=== PATIENT | male | born 1995 | race American Indian/Alaskan Native ===

== ENCOUNTER 2017-01-25 09:20 | Emergency (ER) | payer SELFPAY ==
[2017-01-25 09:35] VITALS: BP 114/80
[2017-01-25 10:13] LABS: Basophils % (Auto) 0.4 % (0.0-1.8); Eosinophils % (Auto) 1.3 % (0.0-4.3); Hematocrit 46.5 % (35.5-45.6); Hemoglobin 15.2 gm/dl (11.8-15.2); Mean Corpuscular HGB Conc 33 % (32-34); Mean Corpuscular Hemoglobin 27 pg (28-32); Mean Corpuscular Volume 83 fl (84-94); Platelet Count 180 K/mm3 (140-440); Red Blood Count 5.57 M/mm3 (3.65-5.03); White Blood Count 14.3 K/mm3 (4.5-11.0)
[2017-01-25 10:25] LABS: Anion Gap 17 mmol/L; BUN/Creatinine Ratio 14.54; Blood Urea Nitrogen 16 mg/dL (9-20); Carbon Dioxide 22 mmol/L (22-30); Chloride 100.7 mmol/L (98-107); Glucose 74 mg/dL (75-100); Potassium 4.1 mmol/L (3.6-5.0); Sodium 136 mmol/L (137-145)
--- NOTE | 2017-01-29 15:36 | ED Elopement Review ---
ED Pt Elopement review - Results review Lab results: Laboratory Tests 01/25/17 01/25/17 09:51 09:51 WBC 14.3 H RBC 5.57 H Hgb 15.2 Hct 46.5 H MCV 83 L MCH 27 L MCHC 33 RDW 14.0 Plt Count 180 Lymph % (Auto) 21.7 Maverick % (Auto) 8.0 H Eos % (Auto) 1.3 Baso % (Auto) 0.4 Lymph # 3.1 Maverick # 1.1 H Eos # 0.2 Baso # 0.1 Seg Neutrophils % 68.6 Seg Neutrophils # 9.8 H Sodium 136 L Potassium 4.1 Chloride 100.7 Carbon Dioxide 22 Anion Gap 17 BUN 16 Creatinine 1.1 Estimated GFR > 60 BUN/Creatinine Ratio 14.54 Glucose 74 L Calcium 9.0 Troponin T < 0.010 NT-Pro-B Natriuret Pep 1596 H - Call Back decision Pt Call Back Decision: Call pt to return to ED JULIAN (CHF)
== END 2017-01-25 21:55 | disposition left against medical advice (07) ==
LOC: ED 09:20
DX: R07.9 Chest pain, unspecified (principal); Z95.0 Presence of cardiac pacemaker; Z53.21 Procedure and treatment not carried out due to patient leaving prior to being seen by health care provider
CPT/HCPCS: 36415; 80048; 83880; 84484; 85025; 93005; 93010

== ENCOUNTER 2017-02-18 12:20 | Emergency (ER) | payer SELFPAY ==
[2017-02-18 13:35] LABS: Basophils % (Auto) 0.4 % (0.0-1.8); Eosinophils % (Auto) 1.4 % (0.0-4.3); Hemoglobin 14.5 gm/dl (11.8-15.2); Mean Corpuscular HGB Conc 32 % (32-34); Mean Corpuscular Hemoglobin 27 pg (28-32); Mean Corpuscular Volume 86 fl (84-94); Platelet Count 200 K/mm3 (140-440); Red Blood Count 5.35 M/mm3 (3.65-5.03); Red Cell Distribution Width 13.9 % (13.2-15.2); White Blood Count 7.7 K/mm3 (4.5-11.0)
[2017-02-18 13:53] LABS: Anion Gap 16 mmol/L; Blood Urea Nitrogen 11 mg/dL (9-20); Carbon Dioxide 24 mmol/L (22-30); Chloride 104.7 mmol/L (98-107); Glucose 91 mg/dL (75-100); Potassium 4.5 mmol/L (3.6-5.0); Sodium 140 mmol/L (137-145)
--- NOTE | 2017-02-18 14:21 | XRay Report ---
Chest 2 views. Findings: The heart is enlarged with mild central vascular congestion. A cardiac pacemaker is present. The lungs are clear. There is no pleural fluid. Impression: Cardiomegaly with central vascular congestion.
[2017-02-18] MEDS ORDERED: LASIX ONE (19:57)
[2017-02-18] MEDS: LASIX PO ONE ×2 (20:10→23:09)
--- NOTE | 2017-02-18 22:09 | Emergency Department Report ---
ED Shortness of Breath HPI - General Chief Complaint: Dyspnea/Respdistress Stated Complaint: CHF/SOB/ Time Seen by Provider: 02/18/17 21:54 Source: patient Mode of arrival: Ambulatory Limitations: No Limitations - History of Present Illness Initial Comments: Patient is a 22-year-old male with a history of congestive heart failure since a child presents to the ED with shortness of breath. He reports the shortness of breath worsens with exertion and he has been non-compliant with his medications due to lack of insurance, being incarcerated, and lack of primary care. Patient does have a defibrillator and pacemaker in the left chest. He does report he is supposed to be taking Lasix every day but he does not know the dosage. Otherwise no fevers, headaches, chills, hemoptysis, chest pain, nausea, vomiting, abdominal pain, trauma, travel, or sick contacts. MD Complaint: shortness of breath -: Gradual, week(s) - Related Data Previous Rx's Medication Instructions Recorded Last Taken Type Furosemide [Lasix TAB] 40 mg PO QDAY #30 tablet 02/18/17 Unknown Rx Allergies Allergy/AdvReac Type Severity Reaction Status Date / Time No Known Allergies Allergy Verified 02/18/17 13:00 ED Review of Systems ROS: Stated complaint: CHF/SOB/ Other details as noted in HPI Comment: All other systems reviewed and negative ED Past Medical Hx - Past Medical History Hx Congestive Heart Failure: Yes Additional medical history: pacer/defib - Surgical History Hx Pacemaker: Yes - Social History Smoking Status: Never Smoker Substance Use Type: None - Medications Home Medications: Home Medications Medication Instructions Recorded Confirmed Last Taken Type Furosemide [Lasix TAB] 40 mg PO QDAY #30 tablet 02/18/17 Unknown Rx ED Physical Exam - General Limitations: No Limitations General appearance: alert, in no apparent distress - Head Head exam: Present: atraumatic, normocephalic - Eye Eye exam: Present: normal appearance - ENT ENT exam: Present: mucous membranes moist - Neck Neck exam: Present: normal inspection - Respiratory Respiratory exam: Present: normal lung sounds bilaterally. Absent: respiratory distress - Cardiovascular Cardiovascular Exam: Present: regular rate, normal rhythm, other (left chest defibrillator and pacemaker). Absent: systolic murmur, diastolic murmur, rubs, gallop - GI/Abdominal GI/Abdominal exam: Present: soft, normal bowel sounds - Rectal Rectal exam: Present: deferred - Extremities Exam Extremities exam: Present: normal inspection - Back Exam Back exam: Present: normal inspection - Neurological Exam Neurological exam: Present: alert, oriented X3 - Psychiatric Psychiatric exam: Present: normal affect, normal mood - Skin Skin exam: Present: warm, dry, intact, normal color. Absent: rash ED Course Vital Signs 02/18/17 02/18/17 02/18/17 13:01 19:55 21:04 Temperature 98.2 F 99.0 F Pulse Rate 88 88 75 Respiratory 20 16 Rate Blood Pressure 133/106 108/67 Blood Pressure 102/65 [Right] O2 Sat by Pulse 99 100 97 Oximetry ED Medical Decision Making - Lab Data Result diagrams: 02/18/17 13:23 02/18/17 13:23 - EKG Data -: EKG Interpreted by Me ([id number], PVC, LAE, RAD) EKG shows normal: sinus rhythm, axis (RAD), intervals (Qtc:462ms), ST-T waves ( diffuse tw flattening, TWI in the lateral leads) Rate: normal (83 bpm) - EKG Data When compared to previous EKG there are: previous EKG unavailable - Radiology Data Radiology results: report reviewed Chest x-ray views mild central congestion - Medical Decision Making As also discussed with patient. I did discuss with the patient the importance of taking his medications and having follow-up. I did discuss with patient he should follow up and call his pharmacy [place] to find out what dosage she's been taking in or call the hospital he's been treated after finding out the dosages as well. I will give the patient a prescription for Lasix 40 mg PO daily and he will follow up with outside [facility] to be evaluated and have further follow-up. Critical care attestation.: If time is entered above; I have spent that time in minutes in the direct care of this critically ill patient, excluding procedure time. ED Disposition Clinical Impression: Dyspnea, CHF (congestive heart failure) Disposition: DISCHARGED TO HOME OR SELFCARE Is pt being admited?: No Condition: Stable Instructions: Heart Failure (ED), Dyspnea (ED) Prescriptions: Furosemide [Lasix TAB] 40 mg PO QDAY #30 tablet Referrals: [facility] [Provider Group] - 3-5 Days
[2017-02-18 23:20] VITALS: BP 100/63
== END 2017-02-18 23:10 | disposition home or self-care (01) ==
LOC: ED 12:20
DX: I50.9 Heart failure, unspecified (principal)
CPT/HCPCS: 36415; 71020; 80048; 83880; 84484; 85025; 93005; 93010; 99284

== ENCOUNTER 2017-04-12 04:57 | Inpatient (IN) | payer OTHER ==
[2017-04-12] MEDS ORDERED: PROVENTIL IH ONE ×2 (05:59→06:00)
[2017-04-12] MEDS ORDERED: ATROVENT IH ONE ×2 (05:59→06:00)
[2017-04-12 06:00] LABS: Basophils % (Auto) 0.6 % (0.0-1.8); Eosinophils % (Auto) 0.7 % (0.0-4.3); Hemoglobin 13.9 gm/dl (11.8-15.2); Mean Corpuscular HGB Conc 32 % (32-34); Mean Corpuscular Hemoglobin 27 pg (28-32); Mean Corpuscular Volume 82 fl (84-94); Platelet Count 194 K/mm3 (140-440); Red Blood Count 5.25 M/mm3 (3.65-5.03); Red Cell Distribution Width 12.7 % (13.2-15.2)
[2017-04-12 06:13] LABS: Anion Gap 17 mmol/L; BUN/Creatinine Ratio 13.57; Blood Urea Nitrogen 19 mg/dL (9-20); Calcium 8.8 mg/dL (8.4-10.2); Carbon Dioxide 23 mmol/L (22-30); Chloride 103.4 mmol/L (98-107); Glucose 85 mg/dL (75-100); Potassium 4.4 mmol/L (3.6-5.0); Sodium 139 mmol/L (137-145)
--- NOTE | 2017-04-12 06:22 | Emergency Department Report ---
ED General Adult HPI - General Chief complaint: Dyspnea/Respdistress Stated complaint: FRANKIE Time Seen by Provider: 04/12/17 06:14 Source: patient, EMS Mode of arrival: Stretcher Limitations: No Limitations - History of Present Illness Initial comments: She complains of difficulty in breathing which got worse last night. He's also had cough sometimes productive of blood-streaked foamy sputum but started off "dark like a cold".. He presently thinks he may have a pneumonia and states he had a fever. However he never took his temperature. He states "I know my body ". He does not believe that he is suffering from recurrent congestive heart failure. Nonetheless, the patient has been to [facility] he states twice within the last week or so. He was treated as an outpatient he states. 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 His mother claims that the patient has had an enlarged heart since he was 3 years old. They have little knowledge of his medical condition and such things as his ejection fraction. However the patient has an AICD so I suspect his ejection fraction is really quite low. He is not complaining of chest pain at this time. He denied any pleuritic chest pain. He has not had any recent travel of significance. The patient was treated with albuterol by respiratory prior to my arrival. I reviewed his x-ray before my encounter which showed obvious pulmonary edema and he was given Lasix. -: Gradual, days(s) Location: chest (occasional with cough) Severity scale (0 -10): 6 Consistency: intermittent Improves with: none Worsens with: none Associated Symptoms: shortness of breath - Related Data Previous Rx's Medication Instructions Recorded Last Taken Type Furosemide [Lasix TAB] 40 mg PO QDAY #30 tablet 02/18/17 Unknown Rx Allergies Allergy/AdvReac Type Severity Reaction Status Date / Time No Known Allergies Allergy Verified 02/18/17 13:00 ED Review of Systems ROS: Stated complaint: FRANKIE Other details as noted in HPI Constitutional: fever (subjective). denies: chills Eyes: denies: eye pain, eye discharge, vision change ENT: denies: ear pain, throat pain Respiratory: cough, shortness of breath. denies: wheezing Cardiovascular: as per HPI, chest pain. denies: palpitations Endocrine: no symptoms reported Gastrointestinal: denies: abdominal pain, nausea, diarrhea Genitourinary: denies: urgency, dysuria Musculoskeletal: denies: back pain, joint swelling, arthralgia Skin: denies: rash, lesions Neurological: denies: headache, weakness, paresthesias Psychiatric: denies: anxiety, depression Hematological/Lymphatic: denies: easy bleeding, easy bruising ED Past Medical Hx - Past Medical History Hx Congestive Heart Failure: Yes Additional medical history: pacer/defib - Surgical History Hx Pacemaker: Yes - Social History Smoking Status: Never Smoker Substance Use Type: None - Medications Home Medications: Home Medications Medication Instructions Recorded Confirmed Last Taken Type Furosemide [Lasix TAB] 40 mg PO QDAY #30 tablet 02/18/17 Unknown Rx ED Physical Exam - General Limitations: No Limitations General appearance: alert, in no apparent distress - Head Head exam: Present: atraumatic, normocephalic - Eye Eye exam: Present: normal appearance. Absent: scleral icterus - ENT ENT exam: Present: normal exam, mucous membranes moist - Neck Neck exam: Present: normal inspection - Respiratory Respiratory exam: Present: normal lung sounds bilaterally, rales. Absent: respiratory distress, accessory muscle use - Cardiovascular Cardiovascular Exam: Present: regular rate, normal rhythm, S3, S4. Absent: systolic murmur, diastolic murmur, rubs, gallop - GI/Abdominal GI/Abdominal exam: Present: soft, normal bowel sounds. Absent: distended, tenderness, guarding, rebound, rigid - Rectal Rectal exam: Present: deferred - Extremities Exam Extremities exam: Present: normal inspection - Back Exam Back exam: Present: normal inspection - Neurological Exam Neurological exam: Present: alert, oriented X3, CN II-XII intact. Absent: motor sensory deficit - Psychiatric Psychiatric exam: Present: normal affect, normal mood - Skin Skin exam: Present: warm, dry, intact, normal color. Absent: rash ED Course Vital Signs 04/12/17 04/12/17 04/12/17 05:52 06:07 06:10 Temperature 98.2 F Pulse Rate 104 H Pulse Rate [ 102 H 117 H Right Middle Lobe] Respiratory 22 Rate Respiratory 21 24 Rate [Right Middle Lobe] Blood Pressure 100/77 [Left] O2 Sat by Pulse 98 Oximetry 04/12/17 07:45 Temperature Pulse Rate 118 H Pulse Rate [ Right Middle Lobe] Respiratory 20 Rate Respiratory Rate [Right Middle Lobe] Blood Pressure 107/81 [Left] O2 Sat by Pulse 100 Oximetry - Reevaluation(s) Reevaluation #1: Patient was found with respiratory distress secondary to pulmonary edema. I cannot completely exclude a pneumonia. Therefore I gave him a dose of Levaquin. I do not think he has had a pulmonary embolism. However he is at risk and will require some form of anticoagulation. He is admitted to the hospitalist service for further care in stable condition. His respiratory distress has resolved. The advanced practice provider Elise told me she was going to place the patient in the intensive care unit today. I will leave decision regarding empiric anticoagulation to the hospitalist team. However, I am going to order a CT angiogram now. 04/12/17 08:23 04/12/17 08:26 ED Medical Decision Making - Lab Data Result diagrams: 04/12/17 05:48 04/12/17 05:48 Laboratory Results - last 24 hr 04/12/17 04/12/17 05:48 05:48 WBC 10.0 RBC 5.25 H Hgb 13.9 Hct 43.0 MCV 82 L MCH 27 L MCHC 32 RDW 12.7 L Plt Count 194 Lymph % (Auto) 28.6 Randolph % (Auto) 8.2 H Eos % (Auto) 0.7 Baso % (Auto) 0.6 Lymph # 2.9 Randolph # 0.8 Eos # 0.1 Baso # 0.1 Seg Neutrophils % 61.9 Seg Neutrophils # 6.2 Sodium 139 Potassium 4.4 Chloride 103.4 Carbon Dioxide 23 Anion Gap 17 BUN 19 Creatinine 1.4 Estimated GFR > 60 BUN/Creatinine Ratio 13.57 Glucose 85 Calcium 8.8 Troponin T < 0.010 Laboratory Results - last 24 hr 04/12/17 04/12/17 04/12/17 05:48 05:48 06:13 WBC 10.0 RBC 5.25 H Hgb 13.9 Hct 43.0 MCV 82 L MCH 27 L MCHC 32 RDW 12.7 L Plt Count 194 Lymph % (Auto) 28.6 Randolph % (Auto) 8.2 H Eos % (Auto) 0.7 Baso % (Auto) 0.6 Lymph # 2.9 Randolph # 0.8 Eos # 0.1 Baso # 0.1 Seg Neutrophils % 61.9 Seg Neutrophils # 6.2 PT INR APTT D-Dimer Sodium 139 Potassium 4.4 Chloride 103.4 Carbon Dioxide 23 Anion Gap 17 BUN 19 Creatinine 1.4 Estimated GFR > 60 BUN/Creatinine Ratio 13.57 Glucose 85 Lactic Acid Calcium 8.8 Total Bilirubin Direct Bilirubin Indirect Bilirubin AST ALT Alkaline Phosphatase Troponin T < 0.010 NT-Pro-B Natriuret Pep 4839 H Total Protein Albumin Albumin/Globulin Ratio 04/12/17 04/12/17 04/12/17 07:03 07:03 07:03 WBC RBC Hgb Hct MCV MCH MCHC RDW Plt Count Lymph % (Auto) Randolph % (Auto) Eos % (Auto) Baso % (Auto) Lymph # Randolph # Eos # Baso # Seg Neutrophils % Seg Neutrophils # PT 16.0 H INR 1.29 H APTT 30.7 D-Dimer 713.77 H Sodium Potassium Chloride Carbon Dioxide Anion Gap BUN Creatinine Estimated GFR BUN/Creatinine Ratio Glucose Lactic Acid 2.00 Calcium Total Bilirubin 0.70 Direct Bilirubin 0.3 H Indirect Bilirubin 0.4 AST 32 ALT 20 Alkaline Phosphatase 111 Troponin T NT-Pro-B Natriuret Pep 5246 H Total Protein 6.8 Albumin 3.6 L Albumin/Globulin Ratio 1.1 - EKG Data -: EKG Interpreted by Me EKG shows normal: sinus rhythm Rate: tachycardia - EKG Data Interpretation: other (one couplet nonspecific changes) - Radiology Data interpreted by me: Chest x-ray consistent with pulmonary edema Critical care attestation.: If time is entered above; I have spent that time in minutes in the direct care of this critically ill patient, excluding procedure time. ED Disposition Clinical Impression: Elevated d-dimer Pulmonary edema Qualifiers: Chronicity: acute Qualified Code(s): J81.0 - Acute pulmonary edema Cardiomyopathy Qualifiers: Cardiomyopathy type: unspecified Qualified Code(s): I42.9 - Cardiomyopathy, unspecified Disposition: 09 OP ADMIT IP TO THIS HOSP Is pt being admited?: Yes Does the pt Need Aspirin: Yes Condition: Stable Instructions: Pulmonary Edema (ED) Time of Disposition: 08:26
[2017-04-12] MEDS ORDERED: LASIX IV ONE ×2 (06:29→10:17)
[2017-04-12] MEDS ORDERED: NITRO-BID 2% TP ONE (06:44)
[2017-04-12] MEDS ORDERED: ASPIRIN PO ONE (06:44)
[2017-04-12] MEDS ORDERED: LEVAQUIN 750MG/150ML 750 MG/150 ML BAG IV ONE (06:44)
[2017-04-12] MEDS ORDERED: TESSALON PERLES PO ONE (06:45)
[2017-04-12] MEDS ORDERED: DELTASONE ONE (06:56)
[2017-04-12 07:52] LABS: Albumin 3.6 g/dL (3.9-5); Albumin/Globulin Ratio 1.1 %; Bilirubin,Direct 0.3 mg/dL (0-0.2); Bilirubin,Indirect 0.4 mg/dL; Bilirubin,Total 0.7 mg/dL (0.1-1.2); INR 1.29 (0.87-1.13); Total Protein 6.8 g/dL (6.3-8.2)
[2017-04-12 07:53] LABS: Partial Thromboplastin Time 30.7 Sec. (24.2-36.6)
[2017-04-12] MEDS ORDERED: NACL ONE (08:34)
[2017-04-12 08:55] LABS: Urine Drugs of Abuse Note Disclamer
[2017-04-12 09:04] LABS: Bilirubin,Urine NEG (Negative); Blood,Urine NEG (Negative); Ketones,Urine NEG (Negative); Leukocyte Esterase,Urine NEG (Negative); Nitrite,Urine NEG (Negative); Protein,Urine <15 mg/dL mg/dL (Negative); Urobilinogen,Urine < 2.0 mg/dL (<2.0)
--- NOTE | 2017-04-12 09:07 | Cat Scan Report ---
FINAL REPORT EXAM: CT ANGIO CHEST HISTORY: hemoptysis, pulmonary edema, ?infiltrate TECHNIQUE: CT angiography of the chest was performed. Images were obtained after the administration of IV contrast. Coronal and sagittal reformatted images were obtained. PRIORS: None. FINDINGS: There are no filling defects seen within the pulmonary arterial circulation to suggest pulmonary embolism. There bilateral diffuse patchy infiltrates. There is superimposed ground-glass infiltration in the lower lobes.. Overall appearance could be compatible with pulmonary hemorrhage and/or pulmonary edema.. There is no pleural effusion. There is no pneumothorax. There is cardiomegaly. There is no significant mediastinal or hilar mass seen. IMPRESSION: Diffuse patchy and ground-glass pulmonary infiltration. Appearance could be compatible with pulmonary hemorrhage and/or edema. Cardiomegaly. There is no pulmonary embolus seen.
[2017-04-12] MEDS ORDERED: MILK OF MAGNESIA PO PRN (09:08)
[2017-04-12] MEDS ORDERED: ALUM-MAG HYDROX-SIMETH 200-200-20MG/5ML PO PRN (09:08)
[2017-04-12] MEDS ORDERED: DULCOLAX PR PRN (09:08)
--- NOTE | 2017-04-12 09:43 | XRay Report ---
ROUTINE CHEST, TWO VIEWS: HISTORY: Cough. Borderline to mild cardiomegaly and pacemaker device are unchanged since 02/18/17. Mild pulmonary edema has developed. No consolidation, pleural effusion or pneumothorax. Bony structures are intact. IMPRESSION: Mild cardiomegaly and pulmonary venous congestion.
[2017-04-12] MEDS ORDERED: LEVAQUIN 750MG/150ML 750 MG/150 ML BAG IV SCH (10:00)
[2017-04-12] MEDS ORDERED: LASIX 80 MG in NACL 0.9% 50 ML IV ONE ×3 (10:25→11:00)
[2017-04-12] MEDS: LOVENOX SUB-Q SCH (11:36)
[2017-04-12] MEDS ORDERED: ATROVENT IH SCH (12:00)
[2017-04-12] MEDS: MORPHINE IV PRN (12:05)
[2017-04-12 13:00] LABS: ISTAT Base Excess 3; ISTAT HCO3 27.4; ISTAT PCO2 42.9 (35-45); ISTAT PH 7.413 (7.35-7.45); ISTAT PO2 299 (80-105); ISTAT SO2 100; ISTAT TCO2 29
--- NOTE | 2017-04-12 14:02 | History and Physical Report ---
History of Present Illness Date of examination: 04/12/17 Date of admission: 04/12/17 13:20 Chief complaint: Shortness of breath History of present illness: patient is a 22 year old -Romanian male with a history of CHF and dilated cardiomyopathy, who came to the ED at 7:00am this morning c/o chest pain and SOB that started Thursday (04/10/2017) The patient believes the fatigue and dry cough began just over one week ago. He recalls developing cold-like symptoms about a week prior to developing the fatigue and cough. Shortly thereafter the cough became productive of blood-streaked sputum and he developed a mild fever but he never took his temperature. patient has been to [facility] on 04/10/2017 and he was told has fluid on his lungs and discharged with Lasix but he did not feel better. he was treated as an outpatient. Shortness of breath is exacerbated by exertion and alleviated by rest. After experiencing significant shortness of breath with minor exertion from simply walking around the house ; he felt like he could not catch his breath and got worried and he decided it was time to come to the hospital. Patient did experienced chest pain that aggravated by coughing or taking deep breaths. Patient was given Lasix 40 mg IV and Albuterol treatment in the ED. Patient noncompliance with his treatment and plan. Patient has an AICD to his left chest and his mother reports that patient has had an enlarged heart since age 1. Past History Past Medical History: heart failure ( dilated cardiomyopathy), other ( Defibrillator, Pacemaker in left chest , congenital heart disease since age 1) Past Surgical History: Other (AICD placement) Social history: no significant social history. denies: smoking, alcohol abuse, IV drug use Family history: CAD, hypertension Medications and Allergies Allergies Allergy/AdvReac Type Severity Reaction Status Date / Time No Known Allergies Allergy Verified 02/18/17 13:00 Home Medications Medication Instructions Recorded Confirmed Last Taken Type Furosemide [Lasix TAB] 40 mg PO QDAY #30 tablet 02/18/17 04/12/17 Unknown Rx Carvedilol [Coreg] 12.5 mg PO BID 04/12/17 04/12/17 04/10/17 History Active Meds: Active Medications Al Hydrox/Mg Hydrox/Simethicone (Alum-Mag Hydrox-Simeth 169-325-26dl/5ml) 30 ml PO Q4H PRN PRN Reason: Indigestion Bisacodyl (Dulcolax) 10 mg ME QDAY PRN PRN Reason: constipation unrelieved by MOM Enoxaparin Sodium (Lovenox) 40 mg SUB-Q QDAY [facility] Last Admin: 04/12/17 11:36 Dose: 40 mg Furosemide (Lasix) 40 mg IV BID@0600,1800 [facility] Magnesium Hydroxide (Milk Of Magnesia) 30 ml PO Q4H PRN PRN Reason: Constipation Morphine Sulfate (Morphine) 2 mg IV Q4H PRN PRN Reason: Pain, Moderate (4-6) Last Admin: 04/12/17 12:05 Dose: 2 mg Review of Systems All systems: negative Constitutional: fever, chills, sweats, weakness, malaise, no weight loss, no weight gain, no night sweats Ears, nose, mouth and throat: no ear pain, no ear discharge, no tinnitis Cardiovascular: chest pain, orthopnea, dyspnea on exertion, no palpitations, no rapid/irregular heart beat, no edema, no syncope, no lightheadedness Respiratory: shortness of breath, dyspnea on exertion, congestion, no cough with sputum, no excessive sputum, no hemoptysis Gastrointestinal: no abdominal pain, no nausea, no vomiting, no diarrhea, no constipation Genitourinary Male: no dysuria, no hematuria, no flank pain, no discharge Rectal: no incontinence Musculoskeletal: no neck stiffness, no neck pain Integumentary: no rash, no pruritis, no redness, no sores Neurological: no head injury, no transient paralysis, no paralysis, no weakness , no parathesias Psychiatric: no anxiety, no memory loss, no change in sleep habits Endocrine: no cold intolerance, no heat intolerance, no polyphagia Hematologic/Lymphatic: no easy bruising, no easy bleeding Allergic/Immunologic: no urticaria Exam - Constitutional Vitals: Temp Pulse Resp BP Pulse Ox 98.2 F 111 H 20 92/66 98 04/12/17 05:52 04/12/17 12:28 04/12/17 12:28 04/12/17 12:28 04/12/17 12:54 General appearance: Present: mild distress, well-nourished - EENT Eyes: Present: PERRL, EOM intact ENT: hearing intact, clear oral mucosa, dentition normal - Neck Neck: Present: supple, normal ROM - Respiratory Respiratory: bilateral: rales, wheezing - Cardiovascular Heart Sounds: Present: S1 & S2. Absent: rub, click - Extremities Extremities: pulses symmetrical, No edema Peripheral Pulses: within normal limits - Abdominal General gastrointestinal: Present: soft, non-tender Male genitourinary: Present: deferred - Rectal Rectal Exam: deferred - Integumentary Integumentary: Present: clear, warm, dry - Musculoskeletal Musculoskeletal: strength equal bilaterally - Psychiatric Psychiatric: appropriate mood/affect, intact judgment & insight - Neurologic Neurologic: CNII-XII intact, moves all extremities Results - Labs CBC & Chem 7: 04/13/17 05:50 04/13/17 05:50 Labs: Laboratory Last Values WBC 10.0 K/mm3 (4.5-11.0) 04/12/17 05:48 RBC 5.25 M/mm3 (3.65-5.03) H 04/12/17 05:48 Hgb 13.9 gm/dl (11.8-15.2) 04/12/17 05:48 Hct 43.0 % (35.5-45.6) 04/12/17 05:48 MCV 82 fl (84-94) L 04/12/17 05:48 MCH 27 pg (28-32) L 04/12/17 05:48 MCHC 32 % (32-34) 04/12/17 05:48 RDW 12.7 % (13.2-15.2) L 04/12/17 05:48 Plt Count 194 K/mm3 (140-440) 04/12/17 05:48 Lymph % (Auto) 28.6 % (13.4-35.0) 04/12/17 05:48 [place] % (Auto) 8.2 % (0.0-7.3) H 04/12/17 05:48 Eos % (Auto) 0.7 % (0.0-4.3) 04/12/17 05:48 Baso % (Auto) 0.6 % (0.0-1.8) 04/12/17 05:48 Lymph # 2.9 K/mm3 (1.2-5.4) 04/12/17 05:48 [place] # 0.8 K/mm3 (0.0-0.8) 04/12/17 05:48 Eos # 0.1 K/mm3 (0.0-0.4) 04/12/17 05:48 Baso # 0.1 K/mm3 (0.0-0.1) 04/12/17 05:48 Seg Neutrophils % 61.9 % (40.0-70.0) 04/12/17 05:48 Seg Neutrophils # 6.2 K/mm3 (1.8-7.7) 04/12/17 05:48 PT 16.0 Sec. (12.2-14.9) H 04/12/17 07:03 INR 1.29 (0.87-1.13) H 04/12/17 07:03 APTT 30.7 Sec. (24.2-36.6) 04/12/17 07:03 D-Dimer 713.77 ng/mlDDU (0-234) H 04/12/17 07:03 POC ABG pH 7.413 (7.35-7.45) 04/12/17 12:41 POC ABG pCO2 42.9 (35-45) 04/12/17 12:41 POC ABG pO2 299 (80-105) H 04/12/17 12:41 POC ABG HCO3 27.4 04/12/17 12:41 POC ABG Total CO2 29 04/12/17 12:41 POC ABG O2 Sat 100 04/12/17 12:41 POC ABG Base Excess 3 04/12/17 12:41 FiO2 100 % 04/12/17 12:41 Sodium 139 mmol/L (137-145) 04/12/17 05:48 Potassium 4.4 mmol/L (3.6-5.0) 04/12/17 05:48 Chloride 103.4 mmol/L (98-107) 04/12/17 05:48 Carbon Dioxide 23 mmol/L (22-30) 04/12/17 05:48 Anion Gap 17 mmol/L 04/12/17 05:48 BUN 19 mg/dL (9-20) 04/12/17 05:48 Creatinine 1.4 mg/dL (0.8-1.5) 04/12/17 05:48 Estimated GFR > 60 ml/min 04/12/17 05:48 BUN/Creatinine Ratio 13.57 % 04/12/17 05:48 Glucose 85 mg/dL (75-100) 04/12/17 05:48 Lactic Acid 2.00 mmol/L (0.7-2.0) 04/12/17 07:03 Calcium 8.8 mg/dL (8.4-10.2) 04/12/17 05:48 Total Bilirubin 0.70 mg/dL (0.1-1.2) 04/12/17 07:03 Direct Bilirubin 0.3 mg/dL (0-0.2) H 04/12/17 07:03 Indirect Bilirubin 0.4 mg/dL 04/12/17 07:03 AST 32 units/L (5-40) 04/12/17 07:03 ALT 20 units/L (7-56) 04/12/17 07:03 Alkaline Phosphatase 111 units/L (35-129) 04/12/17 07:03 Troponin T < 0.010 ng/mL (0.00-0.029) 04/12/17 05:48 NT-Pro-B Natriuret Pep 5246 pg/mL (0-450) H 04/12/17 07:03 Total Protein 6.8 g/dL (6.3-8.2) 04/12/17 07:03 Albumin 3.6 g/dL (3.9-5) L 04/12/17 07:03 Albumin/Globulin Ratio 1.1 % 04/12/17 07:03 Urine Color Colorless (Yellow) 04/12/17 08:54 Urine Turbidity Clear (Clear) 04/12/17 08:54 Urine pH 7.0 (5.0-7.0) 04/12/17 08:54 Ur Specific [place] 1.005 (1.003-1.030) 04/12/17 08:54 Urine Protein <15 mg/dl mg/dL (Negative) 04/12/17 08:54 Urine Glucose (UA) Neg mg/dL (Negative) 04/12/17 08:54 Urine Ketones Neg mg/dL (Negative) 04/12/17 08:54 Urine Blood Neg (Negative) 04/12/17 08:54 Urine Nitrite Neg (Negative) 04/12/17 08:54 Urine Bilirubin Neg (Negative) 04/12/17 08:54 Urine Urobilinogen < 2.0 mg/dL (<2.0) 04/12/17 08:54 Ur Leukocyte Esterase Neg (Negative) 04/12/17 08:54 Urine WBC (Auto) 1.0 /HPF (0.0-6.0) 04/12/17 08:54 Urine RBC (Auto) 1.0 /HPF (0.0-6.0) 04/12/17 08:54 Urine Opiates Screen Presumptive negative 04/12/17 08:54 Urine Methadone Screen Presumptive negative 04/12/17 08:54 Ur Barbiturates Screen Presumptive negative 04/12/17 08:54 Ur Phencyclidine Scrn Presumptive negative 04/12/17 08:54 Ur Amphetamines Screen Presumptive negative 04/12/17 08:54 U Benzodiazepines Scrn Presumptive negative 04/12/17 08:54 Urine Cocaine Screen Presumptive negative 04/12/17 08:54 U Marijuana (THC) Screen Presumptive negative 04/12/17 08:54 Drugs of Abuse Note Disclamer 04/12/17 08:54 - Imaging and Cardiology Chest x-ray: image reviewed (Pulmonary edema) CT scan - chest: image reviewed (Diffuse patchy and ground glass pulmonary infiltration. Appearance could be compatible with pulmonary hemorrhage or edema) Assessment and Plan Assessment and plan: ASSESSMENT/PLAN 22-year-old man with a past medical history of dilated cardiomyopathy, heart failure, noncompliant with medications, does not have a cuff slitter. He presented with shortness of breath cough and wheezing. He was admitted for acute exacerbation of systolic CHF, 1.Acute Respiratory distress CTA of his chest was negative for PE, but did show pulmonary vascular congestion , due to acute CHF exacerbation, rx underlying cause ABG wnl, not hypoxic, continue supportive care 2.Acute on chronic systolic congestive heart failure/pulmonary vascular congestion Echocardiogram pending Lasix 40mg iV BID, Will follow up his echocardiogram would want to start patient on NINA inhibitor, beta lucrecia and possibly Aldactone if his blood pressure can tolerate it, based on ejection fraction seen on his echocardiogram Strict I/ Os and daily weights Low-sodium/cardiac diet, Fluid restruction 1200ml in 24 hrs Closely monitor electrolytes Cardiology consult pending 3. noncompliance with medication discussed with the patient the important of adherence, he was counseled and he verbalized understanding and plans to do better DVT prophylaxis Lovenox VTE prophylaxis?: Chemical Plan of care discussed with patient/family: Yes
[2017-04-12] MEDS: LASIX IV SCH (18:08)
[2017-04-12] MEDS: TYLENOL PO PRN (18:08)
[2017-04-13 06:27] LABS: Basophils % (Auto) 0.6 % (0.0-1.8); Eosinophils % (Auto) 1.1 % (0.0-4.3); Hematocrit 50.5 % (35.5-45.6); Mean Corpuscular HGB Conc 32 % (32-34); Mean Corpuscular Hemoglobin 26 pg (28-32); Mean Corpuscular Volume 82 fl (84-94); Platelet Count 225 K/mm3 (140-440); Red Blood Count 6.14 M/mm3 (3.65-5.03); Red Cell Distribution Width 13.1 % (13.2-15.2); White Blood Count 10.7 K/mm3 (4.5-11.0)
[2017-04-13] MEDS: LASIX IV SCH ×2 (06:29→18:18)
[2017-04-13 06:37] LABS: Anion Gap 19 mmol/L; BUN/Creatinine Ratio 14.16; Blood Urea Nitrogen 17 mg/dL (9-20); Calcium 9.4 mg/dL (8.4-10.2); Carbon Dioxide 27 mmol/L (22-30); Chloride 94.5 mmol/L (98-107); Glucose 117 mg/dL (75-100); Potassium 3.6 mmol/L (3.6-5.0); Sodium 137 mmol/L (137-145)
[2017-04-13 06:39] LABS: INR 1.37 (0.87-1.13)
--- NOTE | 2017-04-13 08:35 | Admit Criteria Form ---
Admission Criteria Documentation: HEART FAILURE: COMMON COMPLICATIONS Clinical Indications for Inpatient Care (Place 'X' for any and all applicable criteria): Ongoing inpatient care may be indicated for heart failure with ANY ONE of the following (1)(2)(3)(4)(5): [ ]I. Ongoing need for care for primary condition requiring frequent therapy adjustments because of changes in cardiac function (eg, drug dosage changes for drugs that are renally metabolized) [ ]II. New-onset heart failure [ ]III. Heart failure with decreased urine output not responsive to attempts to optimize volume status [ ]IV. Acute cardiac ischemia causing or associated with failure [X]V. Complications of heart failure, including ANY ONE of the following: [ ]a) Pericardial effusion [ ]b) Symptomatic pleural effusion [ ]c) O2 saturation <90% or PO2 < 60 mm Hg (8.0 kPa) on room air or require baseline supplemental O2 [X]d) Tachypnea [X]e) Dyspnea [ ]f) Syncope [ ]g) Change in mental status [ ]h) Acute renal insufficiency that is severe (reduction of more than 50% in estimated glomerular filtration rate from baseline) or progressive reduction of more than 25% in estimated glomerular filtration rate from baseline, with creatinine continuing to rise) [ ]i) Hemodynamic instability [ ]j) Anasarca [ ]k) Clinically significant metabolic abnormalities due to heart failure (eg, new-onset metabolic acidosis) Extended stay beyond goal length of stay for primary condition may be needed until ALL of the following are present(1)(3): [ ]a) Stable and effective diuretic regimen established (or patient on stable dialysis regimen if in chronic renal failure) [ ]b) Breathing comfortably at rest [ ]c) Saturation of arterial oxygen greater than 90% or at acceptable baseline [ ]d) Pulmonary edema absent or improved [ ]e) Hemodynamic stability [ ]f) Volume status acceptable on oral medication [ ]g) Peripheral or sacral edema absent or improved [ ]h) Renal function stable and manageable at a lower level of care [ ]i) Complications (eg, pleural effusion) resolved or manageable at a lower level of care [ ]j) Patient or caregiver has received written discharge instructions or educational material addressing activity level, diet, discharge medications, follow-up appointment, weight monitoring, and what to do if symptoms worsen The original [employer] content created by [employer] has been revised. The portions of the content which have been revised are identified through the use of italic text or in bold, and [facility] has neither reviewed nor approved the modified material.All other unmodified content is copyright [facility]. Please see references footnoted in the original [facility] edition 2016 Admission Criteria Met: Yes
--- NOTE | 2017-04-13 11:14 | Consultation ---
History of Present Illness Reason for consult: dyspnea, other (ICU admission, cardiomyopathy.) History of present illness: Called to evaluate case of a 32-year-old -Nepalese male, with history of congenital cardiac disease and who presented to the ER with progressive shortness of breath. The patient reportedly has been recently seen at [facility] and discharged after being treated there for present failure. States that he went home and started to feel short of breath yesterday with dyspnea upon exertion and coughing up bloody sputum. No fever or chills reported. Some chest pressure. He denies to me chest pain. No lower extremity pain reported. The patient presented to the ER had CTA of the chest performed. So shows bilateral groundglass opacities consistent with, infiltrate/edema. No PE noted. He was initiated on Lasix and morphine and had continued diuretics the rest of the evening. Currently off oxygen with breast oximetry showing 96%. Flat in bed with no respiratory or chest complaints. Past History Past Medical History: heart failure ( dilated cardiomyopathy), other ( Defibrillator, Pacemaker in left chest ) Past Surgical History: No surgical history Social history: no significant social history. denies: smoking, alcohol abuse, IV drug use Family history: CAD, hypertension Medications and Allergies Allergies Allergy/AdvReac Type Severity Reaction Status Date / Time No Known Allergies Allergy Verified 02/18/17 13:00 Home Medications Medication Instructions Recorded Confirmed Last Taken Type Furosemide [Lasix TAB] 40 mg PO QDAY #30 tablet 02/18/17 04/12/17 Unknown Rx Carvedilol [Coreg] 12.5 mg PO BID 04/12/17 04/12/17 04/10/17 History Active Meds: Active Medications Acetaminophen (Tylenol) 650 mg PO Q6H PRN PRN Reason: Pain, Mild (1-3) Last Admin: 04/12/17 18:08 Dose: 650 mg Al Hydrox/Mg Hydrox/Simethicone (Alum-Mag Hydrox-Simeth 572-868-52wf/5ml) 30 ml PO Q4H PRN PRN Reason: Indigestion Bisacodyl (Dulcolax) 10 mg [place] QDAY PRN PRN Reason: constipation unrelieved by MOM Enoxaparin Sodium (Lovenox) 40 mg SUB-Q QDAY [facility] Last Admin: 04/12/17 11:36 Dose: 40 mg Furosemide (Lasix) 40 mg IV BID@0600,1800 [facility] Last Admin: 04/13/17 06:29 Dose: 40 mg Magnesium Hydroxide (Milk Of Magnesia) 30 ml PO Q4H PRN PRN Reason: Constipation Morphine Sulfate (Morphine) 2 mg IV Q4H PRN PRN Reason: Pain, Moderate (4-6) Last Admin: 04/12/17 12:05 Dose: 2 mg Review of Systems Constitutional: fatigue, weakness, no weight loss, no fever, no chills, no sweats Cardiovascular: orthopnea, palpitations, lightheadedness, shortness of breath, dyspnea on exertion, no edema Respiratory: cough, hemoptysis, no cough with sputum Gastrointestinal: no abdominal pain, no nausea, no vomiting, no diarrhea, no melena, no hematochezia Genitourinary Male: no dysuria, no hematuria Musculoskeletal: no neck stiffness, no neck pain, no shooting arm pain, no shooting leg pain Integumentary: no deferred, no rash, no pruritis, no redness Neurological: no head injury, no transient paralysis, no paralysis, no weakness , no parathesias, no headaches Physical Examination Vital signs: Vital Signs Temp Pulse Resp BP Pulse Ox 98.2 F 104 H 22 100/77 98 04/12/17 05:52 04/12/17 05:52 04/12/17 05:52 04/12/17 05:52 04/12/17 05:52 General appearance: no acute distress, alert, lethargic Eyes: non-icteric ENT: oropharynx moist Neck: supple, no JVD Ascultation: Right: rales (very faint at right base), Bilateral: clear Cardiovascular: regular rate and rhythm Gastrointestinal: normoactive bowel sounds, non-distended Integumentary: normal Extremities: no cyanosis Musculoskeletal: no deformities normal mental status, non-focal exam, CN II-XII normal mood appropriate, affect normal Results - Laboratory Findings CBC and BMP: 04/13/17 05:50 04/13/17 05:50 ABG POC ABG pH 7.413 (7.35-7.45) 04/12/17 12:41 POC ABG pCO2 42.9 (35-45) 04/12/17 12:41 POC ABG pO2 299 (80-105) H 04/12/17 12:41 POC ABG HCO3 27.4 04/12/17 12:41 POC ABG Total CO2 29 04/12/17 12:41 POC ABG O2 Sat 100 04/12/17 12:41 PT/INR, D-dimer PT 16.8 Sec. (12.2-14.9) H 04/13/17 05:50 INR 1.37 (0.87-1.13) H 04/13/17 05:50 D-Dimer 713.77 ng/mlDDU (0-234) H 04/12/17 07:03 Abnormal lab findings: Abnormal Labs 04/13/17 04/13/17 04/13/17 05:50 05:50 05:50 RBC 6.14 H Hgb 16.0 H Hct 50.5 H D MCV 82 L MCH 26 L RDW 13.1 L [place] % (Auto) 10.1 H [place] # 1.1 H PT 16.8 H INR 1.37 H Chloride 94.5 L Glucose 117 H Assessment and Plan Acute pulmonary edema. Probably triggering hemoptysis also. Cardiomyopathy with acute decompensation History of congenital heart disease Recommendations Continue gentle diuretics Monitor intake and output Monitor urine output and notify if under 30 mL/h Echocardiogram Cardiology evaluation Repeat chest x-rays in 24 hours Monitor for any persisting hemoptysis DVT prophylaxis Thanks. Discussed with patient in detail. We'll follow while at the ICU then we will sign off if no additional pulmonary problems present
--- NOTE | 2017-04-13 12:06 | Progress Note ---
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 He presented with shortness of breath cough and wheezing. He was admitted for acute exacerbation of systolic CHF, 1.Acute Respiratory distress CTA of his chest was negative for PE, but did show pulmonary vascular congestion , due to acute CHF exacerbation, rx underlying cause ABG wnl, not hypoxic, continue supportive care Will repeat chest x-ray tomorrow, pulmonary input appreciated 2.Acute on chronic systolic congestive heart failure/pulmonary vascular congestion Echocardiogram pending Lasix 40mg iV BID, he is currently 3 L negative today Will follow up his echocardiogram would want to start patient on NINA inhibitor, beta lucrecia and possibly Aldactone if his blood pressure can tolerate it, based on ejection fraction seen on his echocardiogram Strict I/ Os and daily weights Low-sodium/cardiac diet, Fluid restruction 1200ml in 24 hrs Closely monitor electrolytes Cardiology consult pending 3. noncompliance with medication discussed with the patient the important of adherence, he was counseled and he verbalized understanding and plans to do better DVT prophylaxis Lovenox History Interval history: Shortness of breath orthopnea cough and wheezing are much improved today. Patient feels better and is reported that he is 3 L negative from yesterday Hospitalist Physical - Physical exam Narrative exam: General: Patient appears well in no distress HEENT: MMM, EOMI cardiac: S1-S2 heard lungs: Bibasilar crackles, occasional expiratory wheeze abdomen: soft, nontender, nondistended bowel sounds positive extremities: no edema clubbing or cyanosis Skin: no rash or lesion Neuro: no focal deficit Psych: appropriate behavior and mood, cognition intact - Constitutional Vitals: Temp Pulse Resp BP Pulse Ox 98.8 F 100 H 19 97/61 97 04/13/17 08:00 04/13/17 11:20 04/13/17 11:20 04/13/17 11:20 04/13/17 11:20 General appearance: Present: mild distress, well-nourished Results - Labs CBC & Chem 7: 04/13/17 05:50 04/13/17 05:50 Labs: Laboratory Last Values WBC 10.7 K/mm3 (4.5-11.0) 04/13/17 05:50 RBC 6.14 M/mm3 (3.65-5.03) H 04/13/17 05:50 Hgb 16.0 gm/dl (11.8-15.2) H 04/13/17 05:50 Hct 50.5 % (35.5-45.6) H D 04/13/17 05:50 MCV 82 fl (84-94) L 04/13/17 05:50 MCH 26 pg (28-32) L 04/13/17 05:50 MCHC 32 % (32-34) 04/13/17 05:50 RDW 13.1 % (13.2-15.2) L 04/13/17 05:50 Plt Count 225 K/mm3 (140-440) 04/13/17 05:50 Lymph % (Auto) 19.6 % (13.4-35.0) 04/13/17 05:50 Day % (Auto) 10.1 % (0.0-7.3) H 04/13/17 05:50 Eos % (Auto) 1.1 % (0.0-4.3) 04/13/17 05:50 Baso % (Auto) 0.6 % (0.0-1.8) 04/13/17 05:50 Lymph # 2.1 K/mm3 (1.2-5.4) 04/13/17 05:50 Day # 1.1 K/mm3 (0.0-0.8) H 04/13/17 05:50 Eos # 0.1 K/mm3 (0.0-0.4) 04/13/17 05:50 Baso # 0.1 K/mm3 (0.0-0.1) 04/13/17 05:50 Seg Neutrophils % 68.6 % (40.0-70.0) 04/13/17 05:50 Seg Neutrophils # 7.4 K/mm3 (1.8-7.7) 04/13/17 05:50 PT 16.8 Sec. (12.2-14.9) H 04/13/17 05:50 INR 1.37 (0.87-1.13) H 04/13/17 05:50 APTT 30.7 Sec. (24.2-36.6) 04/12/17 07:03 D-Dimer 713.77 ng/mlDDU (0-234) H 04/12/17 07:03 POC ABG pH 7.413 (7.35-7.45) 04/12/17 12:41 POC ABG pCO2 42.9 (35-45) 04/12/17 12:41 POC ABG pO2 299 (80-105) H 04/12/17 12:41 POC ABG HCO3 27.4 04/12/17 12:41 POC ABG Total CO2 29 04/12/17 12:41 POC ABG O2 Sat 100 04/12/17 12:41 POC ABG Base Excess 3 04/12/17 12:41 FiO2 100 % 04/12/17 12:41 Sodium 137 mmol/L (137-145) 04/13/17 05:50 Potassium 3.6 mmol/L (3.6-5.0) 04/13/17 05:50 Chloride 94.5 mmol/L (98-107) L 04/13/17 05:50 Carbon Dioxide 27 mmol/L (22-30) 04/13/17 05:50 Anion Gap 19 mmol/L 04/13/17 05:50 BUN 17 mg/dL (9-20) 04/13/17 05:50 Creatinine 1.2 mg/dL (0.8-1.5) 04/13/17 05:50 Estimated GFR > 60 ml/min 04/13/17 05:50 BUN/Creatinine Ratio 14.16 % 04/13/17 05:50 Glucose 117 mg/dL (75-100) H 04/13/17 05:50 Lactic Acid 2.00 mmol/L (0.7-2.0) 04/12/17 07:03 Calcium 9.4 mg/dL (8.4-10.2) 04/13/17 05:50 Total Bilirubin 0.70 mg/dL (0.1-1.2) 04/12/17 07:03 Direct Bilirubin 0.3 mg/dL (0-0.2) H 04/12/17 07:03 Indirect Bilirubin 0.4 mg/dL 04/12/17 07:03 AST 32 units/L (5-40) 04/12/17 07:03 ALT 20 units/L (7-56) 04/12/17 07:03 Alkaline Phosphatase 111 units/L (35-129) 04/12/17 07:03 Troponin T < 0.010 ng/mL (0.00-0.029) 04/12/17 05:48 NT-Pro-B Natriuret Pep 5246 pg/mL (0-450) H 04/12/17 07:03 Total Protein 6.8 g/dL (6.3-8.2) 04/12/17 07:03 Albumin 3.6 g/dL (3.9-5) L 04/12/17 07:03 Albumin/Globulin Ratio 1.1 % 04/12/17 07:03 Urine Color Colorless (Yellow) 04/12/17 08:54 Urine Turbidity Clear (Clear) 04/12/17 08:54 Urine pH 7.0 (5.0-7.0) 04/12/17 08:54 Ur Specific [place] 1.005 (1.003-1.030) 04/12/17 08:54 Urine Protein <15 mg/dl mg/dL (Negative) 04/12/17 08:54 Urine Glucose (UA) Neg mg/dL (Negative) 04/12/17 08:54 Urine Ketones Neg mg/dL (Negative) 04/12/17 08:54 Urine Blood Neg (Negative) 04/12/17 08:54 Urine Nitrite Neg (Negative) 04/12/17 08:54 Urine Bilirubin Neg (Negative) 04/12/17 08:54 Urine Urobilinogen < 2.0 mg/dL (<2.0) 04/12/17 08:54 Ur Leukocyte Esterase Neg (Negative) 04/12/17 08:54 Urine WBC (Auto) 1.0 /HPF (0.0-6.0) 04/12/17 08:54 Urine RBC (Auto) 1.0 /HPF (0.0-6.0) 04/12/17 08:54 Urine Opiates Screen Presumptive negative 04/12/17 08:54 Urine Methadone Screen Presumptive negative 04/12/17 08:54 Ur Barbiturates Screen Presumptive negative 04/12/17 08:54 Ur Phencyclidine Scrn Presumptive negative 04/12/17 08:54 Ur Amphetamines Screen Presumptive negative 04/12/17 08:54 U Benzodiazepines Scrn Presumptive negative 04/12/17 08:54 Urine Cocaine Screen Presumptive negative 04/12/17 08:54 U Marijuana (THC) Screen Presumptive negative 04/12/17 08:54 Drugs of Abuse Note Disclamer 04/12/17 08:54
--- NOTE | 2017-04-13 13:08 | Consultation ---
History of Present Illness Consult date: 04/13/17 Consult reason: congestive heart failure History of present illness: 22-year-old man with a history of a dilated nonischemic cardiomyopathy. He states that his left ventricle ejection fraction several years ago in [place] was 18%. He has a an internal cardiac defibrillator in situ. He presents to the hospital at this time with shortness of breath and chest x-ray consistent with interstitial pulmonary edema. Apparently he had presented to [place] a week ago with similar symptoms, but discharged on outpatient diuretics. The patient admits to poor compliance with his medications, and poor compliance with salt restricted diet. At this time, and the CCU, he looks and feels better , laying comfortably on bedrest. Past History Past Medical History: heart failure ( dilated cardiomyopathy), other ( Defibrillator, Pacemaker in left chest , congenital heart disease since age 1) Past Surgical History: Other (AICD placement) Social history: no significant social history. denies: smoking, alcohol abuse, IV drug use Family history: CAD, hypertension Medications and Allergies Allergies Allergy/AdvReac Type Severity Reaction Status Date / Time No Known Allergies Allergy Verified 02/18/17 13:00 Home Medications Medication Instructions Recorded Confirmed Last Taken Type Furosemide [Lasix TAB] 40 mg PO QDAY #30 tablet 02/18/17 04/12/17 Unknown Rx Carvedilol [Coreg] 12.5 mg PO BID 04/12/17 04/12/17 04/10/17 History Active Meds: Active Medications Acetaminophen (Tylenol) 650 mg PO Q6H PRN PRN Reason: Pain, Mild (1-3) Last Admin: 04/12/17 18:08 Dose: 650 mg Al Hydrox/Mg Hydrox/Simethicone (Alum-Mag Hydrox-Simeth [id number]/5ml) 30 ml PO Q4H PRN PRN Reason: Indigestion Bisacodyl (Dulcolax) 10 mg [place] QDAY PRN PRN Reason: constipation unrelieved by MOM Enoxaparin Sodium (Lovenox) 40 mg SUB-Q QDAY [facility] Last Admin: 04/12/17 11:36 Dose: 40 mg Furosemide (Lasix) 40 mg IV BID@0600,1800 [facility] Last Admin: 04/13/17 06:29 Dose: 40 mg Magnesium Hydroxide (Milk Of Magnesia) 30 ml PO Q4H PRN PRN Reason: Constipation Morphine Sulfate (Morphine) 2 mg IV Q4H PRN PRN Reason: Pain, Moderate (4-6) Last Admin: 04/12/17 12:05 Dose: 2 mg Review of Systems Cardiovascular: orthopnea, edema, shortness of breath, no chest pain, no palpitations, no rapid/irregular heart beat, no syncope, no lightheadedness Physical Examination Vital Signs Temp Pulse Resp BP Pulse Ox 98.2 F 104 H 22 100/77 98 04/12/17 05:52 04/12/17 05:52 04/12/17 05:52 04/12/17 05:52 04/12/17 05:52 General appearance: no acute distress HEENT: Positive: PERRL Neck: Positive: neck supple Cardiac: Positive: Reg Rate and Rhythm Lungs: Positive: Decreased Breath Sounds Neuro: Positive: Grossly Intact Abdomen: Positive: Soft Male genitourinary: Positive: deferred Skin: Positive: Clear Extremities: Absent: edema Results 04/13/17 05:50 04/13/17 05:50 Coagulation 04/13/17 Range/Units 05:50 PT 16.8 H (12.2-14.9) Sec. INR 1.37 H (0.87-1.13) CBC 04/13/17 Range/Units 05:50 WBC 10.7 (4.5-11.0) K/mm3 RBC 6.14 H (3.65-5.03) M/mm3 Hgb 16.0 H (11.8-15.2) gm/dl Hct 50.5 H D (35.5-45.6) % Plt Count 225 (140-440) K/mm3 Lymph # 2.1 (1.2-5.4) K/mm3 [place] # 1.1 H (0.0-0.8) K/mm3 Eos # 0.1 (0.0-0.4) K/mm3 Baso # 0.1 (0.0-0.1) K/mm3 Comprehensive Metabolic Panel 04/13/17 Range/Units 05:50 Sodium 137 (137-145) mmol/L Potassium 3.6 (3.6-5.0) mmol/L Chloride 94.5 L (98-107) mmol/L Carbon Dioxide 27 (22-30) mmol/L BUN 17 (9-20) mg/dL Creatinine 1.2 (0.8-1.5) mg/dL Glucose 117 H (75-100) mg/dL Calcium 9.4 (8.4-10.2) mg/dL EKG interpretations - Telemetry EKG Rhythm: Sinus Rhythm Assessment and Plan - Patient Problems (1) Acute on chronic systolic heart failure Current Visit: Yes Status: Acute Plan to address problem: Patient is admitted with acute on chronic systolic heart failure, exacerbated by poor compliance with medications and dietary salt restriction. In addition to diuretics, will start a trial of IV milrinone therapy. Echocardiogram will be done for left ventricular function reassessment.
[2017-04-13] MEDS: LOVENOX SUB-Q SCH (15:03)
[2017-04-13] MEDS: PRIMACOR 20 MG in D5W 80 ML IV SCH (15:04)
[2017-04-14] MEDS: MORPHINE IV PRN (00:12)
[2017-04-14] MEDS: PERCOCET 5/325 PO PRN (02:29)
[2017-04-14] MEDS: PRIMACOR 20 MG in D5W 80 ML IV SCH ×2 (03:39→20:37)
[2017-04-14] MEDS: LASIX IV SCH ×2 (05:48→18:19)
--- NOTE | 2017-04-14 09:15 | Progress Note ---
Assessment and Plan Acute pulmonary edema. Clinically improved. No hemoptysis at this time. Cardiomyopathy with acute decompensation. Echocardiogram with dilated cardiomyopathy and ejection fraction of less than 50% History of congenital heart disease Recommendations Continue gentle diuretics Cardiology is starting milrinone. We'll follow their lead regarding any additional recommendations, eg.anticoagulation Repeat chest x-rays DVT prophylaxis Critical care time was diminished 35 minutes in [id number] evaluation and coordination of care Subjective Date of service: 04/14/17 Principal diagnosis: APE, CHF w decomp, dilaited cardiomyopathy Interval history: No SOB. Also of insomnia. No chest pain reported. Objective Vital Signs - 12hr 04/13/17 04/13/17 04/13/17 21:20 21:30 21:40 Temperature Pulse Rate 95 H 102 H 98 H Respiratory 16 21 17 Rate Blood Pressure 101/57 101/57 101/57 O2 Sat by Pulse 82 L 96 97 Oximetry 04/13/17 04/13/17 04/13/17 21:50 22:00 22:10 Temperature Pulse Rate 93 H 98 H 98 H Respiratory 23 25 H 31 H Rate Blood Pressure 101/57 98/58 98/58 O2 Sat by Pulse 98 99 99 Oximetry 04/13/17 04/13/17 04/13/17 22:20 22:30 22:39 Temperature Pulse Rate 98 H 98 H 104 H Respiratory 30 H 30 H 28 H Rate Blood Pressure 98/58 98/58 98/58 O2 Sat by Pulse 97 97 98 Oximetry 04/13/17 04/13/17 04/13/17 22:40 22:50 23:00 Temperature Pulse Rate 96 H 92 H 95 H Respiratory 37 H 23 28 H Rate Blood Pressure 98/58 98/58 104/47 O2 Sat by Pulse 96 97 98 Oximetry 04/13/17 04/13/17 04/13/17 23:10 23:20 23:30 Temperature Pulse Rate 87 88 96 H Respiratory 29 H 29 H 35 H Rate Blood Pressure 98/58 98/58 98/58 O2 Sat by Pulse 95 97 96 Oximetry 04/13/17 04/13/17 04/13/17 23:40 23:50 23:54 Temperature 98.8 F Pulse Rate 96 H 80 Respiratory 19 10 L Rate Blood Pressure 98/58 98/58 O2 Sat by Pulse 97 96 Oximetry 04/14/17 04/14/17 04/14/17 00:00 00:10 00:20 Temperature Pulse Rate 93 H 92 H 91 H Respiratory 13 13 13 Rate Blood Pressure 108/56 108/56 108/56 O2 Sat by Pulse 95 97 97 Oximetry 04/14/17 04/14/17 04/14/17 00:30 00:40 00:50 Temperature Pulse Rate 92 H 97 H 96 H Respiratory 14 13 25 H Rate Blood Pressure 108/56 108/56 108/56 O2 Sat by Pulse 99 88 99 Oximetry 04/14/17 04/14/17 04/14/17 01:00 01:10 01:20 Temperature Pulse Rate 102 H 98 H 99 H Respiratory 19 28 H 20 Rate Blood Pressure 108/56 108/56 89/55 O2 Sat by Pulse 97 97 99 Oximetry 04/14/17 04/14/17 04/14/17 01:30 01:40 01:50 Temperature Pulse Rate 90 92 H 103 H Respiratory 21 13 14 Rate Blood Pressure 89/55 89/55 101/79 O2 Sat by Pulse 96 98 96 Oximetry 04/14/17 04/14/17 04/14/17 02:00 02:10 02:20 Temperature Pulse Rate 88 100 H 91 H Respiratory 28 H 14 13 Rate Blood Pressure 101/79 82/37 118/63 O2 Sat by Pulse 96 99 Oximetry 04/14/17 04/14/17 04/14/17 02:30 02:40 02:50 Temperature Pulse Rate 85 88 85 Respiratory 15 24 23 Rate Blood Pressure 118/63 118/63 118/63 O2 Sat by Pulse 95 97 97 Oximetry 04/14/17 04/14/17 04/14/17 03:00 03:10 03:20 Temperature Pulse Rate 97 H 100 H 87 Respiratory 13 16 13 Rate Blood Pressure 136/58 136/58 136/58 O2 Sat by Pulse 100 95 99 Oximetry 04/14/17 04/14/17 04/14/17 03:30 03:40 03:50 Temperature Pulse Rate 83 83 79 Respiratory 13 24 23 Rate Blood Pressure 136/58 136/58 136/58 O2 Sat by Pulse 98 94 95 Oximetry 04/14/17 04/14/17 04/14/17 04:00 04:10 04:20 Temperature 98.8 F Pulse Rate 80 87 81 Respiratory 18 15 11 L Rate Blood Pressure 111/65 111/65 111/65 O2 Sat by Pulse 83 L 91 97 Oximetry 06/13/17 06/13/17 06/13/17 04:30 04:40 04:50 Temperature Pulse Rate 77 77 80 Respiratory 21 21 22 Rate Blood Pressure 111/65 111/65 111/65 O2 Sat by Pulse 98 98 96 Oximetry 04/14/17 04/14/17 04/14/17 05:00 05:10 05:20 Temperature Pulse Rate 86 82 78 Respiratory 16 18 10 L Rate Blood Pressure 111/65 116/71 111/65 O2 Sat by Pulse 96 97 89 Oximetry 04/14/17 04/14/17 04/14/17 05:30 05:40 05:50 Temperature Pulse Rate 89 71 75 Respiratory 16 15 22 Rate Blood Pressure 111/65 111/65 111/65 O2 Sat by Pulse 100 100 100 Oximetry 04/14/17 04/14/17 04/14/17 06:00 06:10 06:20 Temperature Pulse Rate 92 H 75 84 Respiratory 22 13 31 H Rate Blood Pressure 111/65 115/58 115/58 O2 Sat by Pulse 98 100 100 Oximetry 04/14/17 04/14/17 04/14/17 06:30 06:40 06:50 Temperature Pulse Rate 77 75 85 Respiratory 16 17 12 Rate Blood Pressure 115/58 115/58 115/58 O2 Sat by Pulse 100 99 100 Oximetry 04/14/17 04/14/17 04/14/17 07:00 07:10 07:20 Temperature Pulse Rate 86 84 72 Respiratory 16 17 19 Rate Blood Pressure 115/58 111/89 111/89 O2 Sat by Pulse 99 100 100 Oximetry 04/14/17 04/14/17 04/14/17 07:30 07:40 07:50 Temperature Pulse Rate 82 82 78 Respiratory 14 15 22 Rate Blood Pressure 111/89 111/89 111/89 O2 Sat by Pulse 100 99 98 Oximetry 04/14/17 04/14/17 04/14/17 07:52 08:00 08:10 Temperature 97.6 F Pulse Rate 79 82 Respiratory 9 L 21 Rate Blood Pressure 111/74 111/74 O2 Sat by Pulse 98 98 98 Oximetry Constitutional: no acute distress, alert, lethargic Eyes: non-icteric ENT: oropharynx moist Neck: supple, no JVD Ascultation: Bilateral: clear, diminished breath sounds Cardiovascular: regular rate and rhythm Gastrointestinal: normoactive bowel sounds, non-distended Integumentary: normal Extremities: no cyanosis Neurologic: normal mental status, non-focal exam, CN II-XII normal Psychiatric: mood appropriate, affect normal CBC and BMP: 04/13/17 05:50 04/13/17 05:50 ABG, PT/INR, D-dimer: ABG POC ABG pH 7.413 (7.35-7.45) 04/12/17 12:41 POC ABG pCO2 42.9 (35-45) 04/12/17 12:41 POC ABG pO2 299 (80-105) H 04/12/17 12:41 POC ABG HCO3 27.4 04/12/17 12:41 POC ABG Total CO2 29 04/12/17 12:41 POC ABG O2 Sat 100 04/12/17 12:41 PT/INR, D-dimer PT 16.8 Sec. (12.2-14.9) H 04/13/17 05:50 INR 1.37 (0.87-1.13) H 04/13/17 05:50 D-Dimer 713.77 ng/mlDDU (0-234) H 04/12/17 07:03 Abnormal lab findings: Abnormal Labs 04/13/17 04/13/17 04/13/17 05:50 05:50 05:50 RBC 6.14 H Hgb 16.0 H Hct 50.5 H D MCV 82 L MCH 26 L RDW 13.1 L [place] % (Auto) 10.1 H [place] # 1.1 H PT 16.8 H INR 1.37 H Chloride 94.5 L Glucose 117 H
[2017-04-14] MEDS: LOVENOX SUB-Q SCH (09:39)
--- NOTE | 2017-04-14 10:45 | XRay Report ---
PORTABLE CHEST INDICATION: CHF, cardiomyopathy, APE followup COMPARISON: 04/08/2017 FINDINGS: Portable, frontal chest radiograph demonstrates stable cardiomediastinal silhouette/mild cardiomegaly, left AICD with dual-chamber leads and diffuse haziness throughout both lungs. No large pleural effusions. EKG leads. Intact bones. CONCLUSION: Stable diffuse bilateral pulmonary haziness/edema pattern and few other findings, as above. Thank you for the opportunity to participate in this patient's care.
--- NOTE | 2017-04-14 12:23 | Progress Note ---
Assessment and Plan Assessment and plan: Acute on chronic systolic heart failure. Continue IV milrinone per cardiology. Continue gentle diuresis and follow-up chest x-ray. Dilated cardiomyopathy. s/p AICD Congenital heart disease DVT prophylaxis. History Interval history: 22-year-old man with a history of a dilated nonischemic cardiomyopathy. He states that his left ventricle ejection fraction several years ago in [place] was 18%. He has a an internal cardiac defibrillator in situ. He presented to the hospital with shortness of breath and chest x-ray consistent with interstitial pulmonary edema. Apparently he had presented to [place] a week ago with similar symptoms, but discharged on outpatient diuretics. No new issues overnight. Hospitalist Physical - Constitutional Vitals: Temp Pulse Resp BP Pulse Ox 97.6 F 84 18 85/38 98 04/14/17 08:00 04/14/17 11:40 04/14/17 11:40 04/14/17 11:40 04/14/17 11:40 General appearance: Present: no acute distress, well-nourished - EENT Eyes: Present: PERRL, EOM intact ENT: hearing intact, clear oral mucosa, dentition normal - Neck Neck: Present: supple, normal ROM - Respiratory Respiratory effort: normal Respiratory: bilateral: CTA - Cardiovascular Rhythm: regular Heart Sounds: Present: S1 & S2. Absent: gallop, rub - Extremities Extremities: no ischemia, No edema, Full ROM - Abdominal General gastrointestinal: soft, non-tender, non-distended, normal bowel sounds - Integumentary Integumentary: Present: clear, warm, dry - Neurologic Neurologic: CNII-XII intact, moves all extremities Results - Labs CBC & Chem 7: 04/13/17 05:50 04/13/17 05:50 Labs: Laboratory Last Values WBC 10.7 K/mm3 (4.5-11.0) 04/13/17 05:50 RBC 6.14 M/mm3 (3.65-5.03) H 04/13/17 05:50 Hgb 16.0 gm/dl (11.8-15.2) H 04/13/17 05:50 Hct 50.5 % (35.5-45.6) H D 04/13/17 05:50 MCV 82 fl (84-94) L 04/13/17 05:50 MCH 26 pg (28-32) L 04/13/17 05:50 MCHC 32 % (32-34) 04/13/17 05:50 RDW 13.1 % (13.2-15.2) L 04/13/17 05:50 Plt Count 225 K/mm3 (140-440) 04/13/17 05:50 Lymph % (Auto) 19.6 % (13.4-35.0) 04/13/17 05:50 [place] % (Auto) 10.1 % (0.0-7.3) H 04/13/17 05:50 Eos % (Auto) 1.1 % (0.0-4.3) 04/13/17 05:50 Baso % (Auto) 0.6 % (0.0-1.8) 04/13/17 05:50 Lymph # 2.1 K/mm3 (1.2-5.4) 04/13/17 05:50 [place] # 1.1 K/mm3 (0.0-0.8) H 04/13/17 05:50 Eos # 0.1 K/mm3 (0.0-0.4) 04/13/17 05:50 Baso # 0.1 K/mm3 (0.0-0.1) 04/13/17 05:50 Seg Neutrophils % 68.6 % (40.0-70.0) 04/13/17 05:50 Seg Neutrophils # 7.4 K/mm3 (1.8-7.7) 04/13/17 05:50 PT 16.8 Sec. (12.2-14.9) H 04/13/17 05:50 INR 1.37 (0.87-1.13) H 04/13/17 05:50 APTT 30.7 Sec. (24.2-36.6) 04/12/17 07:03 D-Dimer 713.77 ng/mlDDU (0-234) H 04/12/17 07:03 POC ABG pH 7.413 (7.35-7.45) 04/12/17 12:41 POC ABG pCO2 42.9 (35-45) 04/12/17 12:41 POC ABG pO2 299 (80-105) H 04/12/17 12:41 POC ABG HCO3 27.4 04/12/17 12:41 POC ABG Total CO2 29 04/12/17 12:41 POC ABG O2 Sat 100 04/12/17 12:41 POC ABG Base Excess 3 04/12/17 12:41 FiO2 100 % 04/12/17 12:41 Sodium 137 mmol/L (137-145) 04/13/17 05:50 Potassium 3.6 mmol/L (3.6-5.0) 04/13/17 05:50 Chloride 94.5 mmol/L (98-107) L 04/13/17 05:50 Carbon Dioxide 27 mmol/L (22-30) 04/13/17 05:50 Anion Gap 19 mmol/L 04/13/17 05:50 BUN 17 mg/dL (9-20) 04/13/17 05:50 Creatinine 1.2 mg/dL (0.8-1.5) 04/13/17 05:50 Estimated GFR > 60 ml/min 04/13/17 05:50 BUN/Creatinine Ratio 14.16 % 04/13/17 05:50 Glucose 117 mg/dL (75-100) H 04/13/17 05:50 Lactic Acid 2.00 mmol/L (0.7-2.0) 04/12/17 07:03 Calcium 9.4 mg/dL (8.4-10.2) 04/13/17 05:50 Total Bilirubin 0.70 mg/dL (0.1-1.2) 04/12/17 07:03 Direct Bilirubin 0.3 mg/dL (0-0.2) H 04/12/17 07:03 Indirect Bilirubin 0.4 mg/dL 04/12/17 07:03 AST 32 units/L (5-40) 04/12/17 07:03 ALT 20 units/L (7-56) 04/12/17 07:03 Alkaline Phosphatase 111 units/L (35-129) 04/12/17 07:03 Troponin T < 0.010 ng/mL (0.00-0.029) 04/12/17 05:48 NT-Pro-B Natriuret Pep 5246 pg/mL (0-450) H 04/12/17 07:03 Total Protein 6.8 g/dL (6.3-8.2) 04/12/17 07:03 Albumin 3.6 g/dL (3.9-5) L 04/12/17 07:03 Albumin/Globulin Ratio 1.1 % 04/12/17 07:03 Urine Color Colorless (Yellow) 04/12/17 08:54 Urine Turbidity Clear (Clear) 04/12/17 08:54 Urine pH 7.0 (5.0-7.0) 04/12/17 08:54 Ur Specific [place] 1.005 (1.003-1.030) 04/12/17 08:54 Urine Protein <15 mg/dl mg/dL (Negative) 04/12/17 08:54 Urine Glucose (UA) Neg mg/dL (Negative) 04/12/17 08:54 Urine Ketones Neg mg/dL (Negative) 04/12/17 08:54 Urine Blood Neg (Negative) 04/12/17 08:54 Urine Nitrite Neg (Negative) 04/12/17 08:54 Urine Bilirubin Neg (Negative) 04/12/17 08:54 Urine Urobilinogen < 2.0 mg/dL (<2.0) 04/12/17 08:54 Ur Leukocyte Esterase Neg (Negative) 04/12/17 08:54 Urine WBC (Auto) 1.0 /HPF (0.0-6.0) 04/12/17 08:54 Urine RBC (Auto) 1.0 /HPF (0.0-6.0) 04/12/17 08:54 Urine Opiates Screen Presumptive negative 04/12/17 08:54 Urine Methadone Screen Presumptive negative 04/12/17 08:54 Ur Barbiturates Screen Presumptive negative 04/12/17 08:54 Ur Phencyclidine Scrn Presumptive negative 04/12/17 08:54 Ur Amphetamines Screen Presumptive negative 04/12/17 08:54 U Benzodiazepines Scrn Presumptive negative 04/12/17 08:54 Urine Cocaine Screen Presumptive negative 04/12/17 08:54 U Marijuana (THC) Screen Presumptive negative 04/12/17 08:54 Drugs of Abuse Note Disclamer 04/12/17 08:54
--- NOTE | 2017-04-14 13:54 | Progress Note ---
Assessment and Plan Acute on chronic systolic heart failure exacerbated by poor compliance with medications and dietary salt restriction Echo shows smoke in the LV cavity which suggests high cardioembolic risk, EF 10-15%. Hx of NICMP AICD insitu Continue IV diuretics in addition to trial of IV milrinone therapy. Initiate warfarin for oral anticoagulation. Medical therapy for cardiomyopathy. Ok for transfer to telemetry. Subjective Date of service: 04/14/17 Principal diagnosis: APE, CHF w decomp, dilaited cardiomyopathy Interval history: Patient reports he is feeling better. Continues on IV milrinone. No reported events on telemetry overnight. Objective Vital Signs Temp Pulse Pulse Resp BP Pulse Ox 04/14/17 12:20 91 H 21 106/68 97 04/14/17 12:10 85 17 106/68 96 04/14/17 12:00 97.5 F L 93 H 15 112/70 94 04/14/17 11:50 81 15 112/70 100 04/14/17 11:40 84 18 85/38 98 04/14/17 11:30 80 16 85/38 98 04/14/17 11:20 89 21 85/38 92 04/14/17 11:10 87 21 85/38 97 04/14/17 11:00 86 14 85/38 85 04/14/17 10:50 80 21 94/43 95 04/14/17 10:40 78 18 94/43 99 04/14/17 10:30 90 18 94/43 100 04/14/17 10:20 89 20 94/43 96 04/14/17 10:10 91 H 20 94/43 96 04/14/17 10:00 78 20 94/43 94 04/14/17 09:50 94 H 15 103/38 99 04/14/17 09:40 97 H 19 103/38 96 04/14/17 09:30 82 21 103/38 98 04/14/17 09:20 88 19 103/38 91 04/14/17 09:10 88 18 103/38 98 04/14/17 09:00 90 15 111/74 94 04/14/17 08:50 86 18 111/74 97 04/14/17 08:40 82 16 111/74 97 04/14/17 08:30 94 H 12 111/74 97 04/14/17 08:20 86 19 111/74 99 04/14/17 08:10 82 21 111/74 98 04/14/17 08:00 97.6 F 79 73 21 111/74 98 04/14/17 07:52 98 04/14/17 07:50 78 22 111/89 98 04/14/17 07:40 82 15 111/89 99 04/14/17 07:30 82 14 111/89 100 04/14/17 07:20 72 19 111/89 100 04/14/17 07:10 84 17 111/89 100 04/14/17 07:00 86 16 115/58 99 04/14/17 06:50 85 12 115/58 100 04/14/17 06:40 75 17 115/58 99 04/14/17 06:30 77 16 115/58 100 04/14/17 06:20 84 31 H 115/58 100 04/14/17 06:10 75 13 115/58 100 04/14/17 06:00 92 H 22 111/65 98 04/14/17 05:50 75 22 111/65 100 04/14/17 05:40 71 15 111/65 100 04/14/17 05:30 89 16 111/65 100 04/14/17 05:20 78 10 L 111/65 89 04/14/17 05:10 82 18 116/71 97 04/14/17 05:00 86 16 111/65 96 04/14/17 04:50 80 22 111/65 96 04/14/17 04:40 77 21 111/65 98 04/14/17 04:30 77 21 111/65 98 04/14/17 04:20 81 11 L 111/65 97 04/14/17 04:10 87 15 111/65 91 04/14/17 04:00 98.8 F 80 18 111/65 83 L 04/14/17 03:50 79 23 136/58 95 04/14/17 03:40 83 24 136/58 94 04/14/17 03:30 83 13 136/58 98 04/14/17 03:20 87 13 136/58 99 04/14/17 03:10 100 H 16 136/58 95 04/14/17 03:00 97 H 13 136/58 100 04/14/17 02:50 85 23 118/63 97 04/14/17 02:40 88 24 118/63 97 04/14/17 02:30 85 15 118/63 95 04/14/17 02:20 91 H 13 118/63 99 04/14/17 02:10 100 H 14 82/37 96 04/14/17 02:00 88 28 H 101/79 04/14/17 01:50 103 H 14 101/79 96 04/14/17 01:40 92 H 13 89/55 98 04/14/17 01:30 90 21 89/55 96 04/14/17 01:20 99 H 20 89/55 99 04/14/17 01:10 98 H 28 H 108/56 97 04/14/17 01:00 102 H 19 108/56 97 04/14/17 00:50 96 H 25 H 108/56 99 04/14/17 00:40 97 H 13 108/56 88 04/14/17 00:30 92 H 14 108/56 99 04/14/17 00:20 91 H 13 108/56 97 04/14/17 00:10 92 H 13 108/56 97 04/14/17 00:00 93 H 13 108/56 95 04/13/17 23:54 98.8 F 04/13/17 23:50 80 10 L 98/58 96 04/13/17 23:40 96 H 19 98/58 97 04/13/17 23:30 96 H 35 H 98/58 96 04/13/17 23:20 88 29 H 98/58 97 04/13/17 23:10 87 29 H 98/58 95 04/13/17 23:00 95 H 28 H 104/47 98 04/13/17 22:50 92 H 23 98/58 97 04/13/17 22:40 96 H 37 H 98/58 96 04/13/17 22:39 104 H 28 H 98/58 98 04/13/17 22:30 98 H 30 H 98/58 97 04/13/17 22:20 98 H 30 H 98/58 97 04/13/17 22:10 98 H 31 H 98/58 99 04/13/17 22:00 98 H 25 H 98/58 99 04/13/17 21:50 93 H 23 101/57 98 04/13/17 21:40 98 H 17 101/57 97 04/13/17 21:30 102 H 21 101/57 96 04/13/17 21:20 95 H 16 101/57 82 L 04/13/17 21:10 95 H 19 101/57 98 04/13/17 21:00 88 29 H 117/85 99 04/13/17 20:50 89 22 117/85 99 04/13/17 20:40 96 H 41 H 117/85 95 04/13/17 20:30 106 H 26 H 117/85 97 04/13/17 20:20 98 H 37 H 117/85 98 04/13/17 20:10 92 H 30 H 117/85 98 04/13/17 20:00 98.2 F 96 H 21 111/50 98 04/13/17 19:50 98 H 19 111/50 98 04/13/17 19:40 97 H 14 111/50 98 04/13/17 19:30 97 H 18 111/50 97 04/13/17 19:20 102 H 13 111/50 97 04/13/17 19:10 105 H 17 111/50 97 04/13/17 19:00 101 H 25 H 111/50 93 04/13/17 18:50 106 H 14 111/50 96 04/13/17 18:40 105 H 26 H 111/50 99 04/13/17 18:30 102 H 23 111/50 98 04/13/17 18:20 103 H 15 111/50 100 04/13/17 18:10 92 H 31 H 79/44 99 04/13/17 18:00 101 H 18 108/65 98 04/13/17 17:50 93 H 13 108/65 97 04/13/17 17:40 97 H 16 108/65 96 04/13/17 17:30 94 H 21 108/65 97 04/13/17 17:20 108 H 30 H 108/65 94 04/13/17 17:10 97 H 36 H 108/65 97 04/13/17 17:00 102 H 19 108/65 95 04/13/17 16:50 94 H 32 H 90/42 96 04/13/17 16:40 105 H 29 H 90/42 97 04/13/17 16:30 91 H 31 H 90/42 97 04/13/17 16:20 86 23 90/42 99 04/13/17 16:10 88 34 H 90/42 95 04/13/17 16:00 98.2 F 86 33 H 105/66 96 04/13/17 15:50 102 H 31 H 105/66 96 04/13/17 15:40 83 34 H 105/66 97 04/13/17 15:30 85 35 H 105/66 94 04/13/17 15:20 92 H 35 H 105/66 96 04/13/17 15:10 85 33 H 105/66 98 04/13/17 15:00 92 H 27 H 105/66 96 04/13/17 14:50 90 37 H 113/53 95 04/13/17 14:40 89 37 H 113/53 95 04/13/17 14:30 93 H 37 H 113/53 97 04/13/17 14:20 94 H 10 L 113/53 96 04/13/17 14:10 92 H 36 H 113/53 94 04/13/17 14:00 105 H 27 H 113/53 98 - Physical Examination General: No Apparent Distress HEENT: Positive: PERRL Neck: Positive: neck supple Cardiac: Positive: Reg Rate and Rhythm Lungs: Positive: Decreased Breath Sounds Neuro: Positive: Grossly Intact Extremities: Absent: edema
[2017-04-14] MEDS: COUMADIN PO SCH (18:19)
[2017-04-14] MEDS: K-DUR PO SCH (18:19)
--- NOTE | 2017-04-14 18:27 | Event Note ---
Date: 04/14/17 Patient is diuresing well, looks and feels comfortable. Echocardiogram demonstrates severe end-stage cardiomyopathy with ejection fraction less than 10 %. There was excessive smoke in the left ventricular cavity, suggesting an elevated risk for cardioembolic events. The patient also states that he was previously placed on Coumadin but appears to have been poorly compliant. We will continue IV milrinone for one more day, following which he can be discharged on medical therapy. Recommend resumption of Coumadin therapy for stroke prophylaxis, in addition to routine heart failure therapy. The patient is clinically stable for transfer to telemetry.
[2017-04-14] MEDS ORDERED: AMBIEN PO PRN (22:00)
[2017-04-14] MEDS: COREG PO SCH (22:14)
[2017-04-15] MEDS: PERCOCET 5/325 PO PRN (01:20)
[2017-04-15] MEDS: LASIX IV SCH ×2 (05:15→17:07)
[2017-04-15 07:43] LABS: Basophils % (Auto) 0.4 % (0.0-1.8); Eosinophils % (Auto) 2.9 % (0.0-4.3); Hematocrit 48.6 % (35.5-45.6); Hemoglobin 15.5 gm/dl (11.8-15.2); Mean Corpuscular HGB Conc 32 % (32-34); Mean Corpuscular Hemoglobin 26 pg (28-32); Mean Corpuscular Volume 82 fl (84-94); Platelet Count 277 K/mm3 (140-440); Red Blood Count 5.92 M/mm3 (3.65-5.03); Red Cell Distribution Width 12.7 % (13.2-15.2)
[2017-04-15 07:55] LABS: INR 1.08 (0.87-1.13)
[2017-04-15 07:56] LABS: Anion Gap 14 mmol/L; BUN/Creatinine Ratio 13.33; Blood Urea Nitrogen 16 mg/dL (9-20); Calcium 9.2 mg/dL (8.4-10.2); Carbon Dioxide 32 mmol/L (22-30); Chloride 91.1 mmol/L (98-107); Glucose 86 mg/dL (75-100); Potassium 3.9 mmol/L (3.6-5.0); Sodium 133 mmol/L (137-145)
--- NOTE | 2017-04-15 10:32 | Progress Note ---
Assessment and Plan 1. Idiopathic cardiomyopathy s/p AICD LVEF 10-15% Smoke noted in LV cavity 2. Acute decompensated systolic heart failure 3. Non-compliance 4. Hyponatremia Recommendations: Continue current management Patient claims that he was told at [facility] he will a heart transplant [place] records were reviewed - no encounter with a heart failure specialist or other entry level financial analyst is found. Patient only had emergency room encounters Advised patient compliance with therapy May go home cardiac abbott after milrinone infusion is over Subjective Date of service: 04/15/17 Principal diagnosis: APE, CHF w decomp, dilaited cardiomyopathy Interval history: Patient is feeling better this morning. His shortness of breath and swelling have resolved Objective Vital Signs Temp Pulse Pulse Resp BP BP Pulse Ox 04/15/17 08:08 96 04/15/17 08:05 98.4 F 56 L 16 121/73 96 04/15/17 05:10 97.8 F 79 20 114/69 99 04/15/17 04:00 83 04/15/17 00:40 98.3 F 84 20 87/57 99 04/14/17 22:14 87 105/62 04/14/17 21:22 98.1 F 87 20 105/62 98 04/14/17 16:10 84 22 126/106 99 04/14/17 16:00 81 21 126/106 99 04/14/17 15:50 85 21 126/106 97 04/14/17 15:41 85 04/14/17 15:40 83 30 H 126/106 99 04/14/17 15:30 94 H 27 H 126/106 98 04/14/17 15:20 89 16 126/106 94 04/14/17 15:10 91 H 11 L 126/106 100 04/14/17 15:00 81 15 102/68 96 04/14/17 14:50 84 16 102/68 100 04/14/17 14:40 85 23 102/68 98 04/14/17 14:30 87 18 102/68 96 04/14/17 14:20 87 15 102/68 99 04/14/17 14:10 88 26 H 102/68 99 04/14/17 14:00 93 H 18 102/68 94 04/14/17 13:50 77 9 L 108/73 97 04/14/17 13:40 94 H 22 108/73 96 04/14/17 13:30 79 19 108/73 97 04/14/17 13:20 91 H 17 108/73 98 04/14/17 13:10 79 26 H 108/73 99 04/14/17 13:00 85 12 108/73 96 04/14/17 12:50 86 16 106/68 97 04/14/17 12:40 85 16 106/68 99 04/14/17 12:30 89 26 H 106/68 98 04/14/17 12:20 91 H 21 106/68 97 04/14/17 12:10 85 17 106/68 96 04/14/17 12:00 97.5 F L 93 H 15 112/70 94 04/14/17 11:50 81 15 112/70 100 04/14/17 11:40 84 18 85/38 98 04/14/17 11:30 80 16 85/38 98 04/14/17 11:20 89 21 85/38 92 04/14/17 11:10 87 21 85/38 97 04/14/17 11:00 86 14 85/38 85 04/14/17 10:50 80 21 94/43 95 04/14/17 10:40 78 18 94/43 99 04/14/17 10:30 90 18 94/43 100 - Physical Examination General: No Apparent Distress HEENT: Positive: PERRL Neck: Positive: neck supple Cardiac: Positive: Reg Rate and Rhythm Lungs: Positive: Normal Exam Neuro: Positive: Grossly Intact Abdomen: Positive: Soft Skin: Positive: Clear Extremities: Absent: edema - Labs and Meds Coagulation 04/15/17 Range/Units 07:15 PT 13.9 (12.2-14.9) Sec. INR 1.08 (0.87-1.13) CBC 04/15/17 Range/Units 07:15 WBC 9.0 (4.5-11.0) K/mm3 RBC 5.92 H (3.65-5.03) M/mm3 Hgb 15.5 H (11.8-15.2) gm/dl Hct 48.6 H (35.5-45.6) % Plt Count 277 (140-440) K/mm3 Lymph # 2.9 (1.2-5.4) K/mm3 [place] # 0.8 (0.0-0.8) K/mm3 Eos # 0.3 (0.0-0.4) K/mm3 Baso # 0.0 (0.0-0.1) K/mm3 Comprehensive Metabolic Panel 04/15/17 Range/Units 07:15 Sodium 133 L (137-145) mmol/L Potassium 3.9 (3.6-5.0) mmol/L Chloride 91.1 L (98-107) mmol/L Carbon Dioxide 32 H (22-30) mmol/L BUN 16 (9-20) mg/dL Creatinine 1.2 (0.8-1.5) mg/dL Glucose 86 (75-100) mg/dL Calcium 9.2 (8.4-10.2) mg/dL
[2017-04-15] MEDS: COREG PO SCH ×2 (10:52→21:26)
[2017-04-15] MEDS: K-DUR PO SCH (10:52)
[2017-04-15] MEDS: LOVENOX SUB-Q SCH (10:55)
[2017-04-15] MEDS: ZESTRIL PO SCH (10:56)
[2017-04-15] MEDS: TYLENOL PO PRN ×2 (10:58→17:06)
--- NOTE | 2017-04-15 12:09 | Progress Note ---
Assessment and Plan Assessment and plan: Acute on chronic systolic heart failure. Continue IV milrinone per cardiology. Continue gentle diuresis and follow-up chest x-ray. Echocardiogram completed at our facility revealed left ventricular chamber size severely dilated. Global left ventricular systolic function severely decreased with EF of 10-15 percent. Patient has smoked in the left ventricular cavity suggestive of cardioembolic risk. The left atrium is moderately to severely dilated. Mild to moderate mitral regurgitation. Moderate tricuspid regurgitation. There is evidence of mild pulmonary hypertension. CT of the chest suggest no evidence of pulmonary embolism. Dilated cardiomyopathy. s/p AICD Congenital heart disease DVT prophylaxis. Disposition. Anticipate discharge in a.m. after milrinone drip has completed. History Interval history: 22-year-old man with a history of a dilated nonischemic cardiomyopathy. He states that his left ventricle ejection fraction several years ago in [place] was 18%. He has a an internal cardiac defibrillator in situ. He presented to the hospital with shortness of breath and chest x-ray consistent with interstitial pulmonary edema. No new issues overnight. Hospitalist Physical - Constitutional Vitals: Temp Pulse Resp BP Pulse Ox 98.4 F 83 18 103/69 96 04/15/17 08:05 04/15/17 10:56 04/15/17 10:58 04/15/17 10:56 04/15/17 08:08 General appearance: Present: no acute distress, well-nourished - EENT Eyes: Present: PERRL, EOM intact ENT: hearing intact, clear oral mucosa, dentition normal - Neck Neck: Present: supple, normal ROM - Respiratory Respiratory effort: normal Respiratory: bilateral: diminished, rales - Cardiovascular Rhythm: regular Heart Sounds: Present: S1 & S2. Absent: gallop, rub - Extremities Extremities: no ischemia, No edema, Full ROM - Abdominal General gastrointestinal: soft, non-tender, non-distended, normal bowel sounds - Integumentary Integumentary: Present: clear, warm, dry - Neurologic Neurologic: CNII-XII intact, moves all extremities Results - Labs CBC & Chem 7: 04/15/17 07:15 04/15/17 07:15 Labs: Laboratory Last Values WBC 9.0 K/mm3 (4.5-11.0) 04/15/17 07:15 RBC 5.92 M/mm3 (3.65-5.03) H 04/15/17 07:15 Hgb 15.5 gm/dl (11.8-15.2) H 04/15/17 07:15 Hct 48.6 % (35.5-45.6) H 04/15/17 07:15 MCV 82 fl (84-94) L 04/15/17 07:15 MCH 26 pg (28-32) L 04/15/17 07:15 MCHC 32 % (32-34) 04/15/17 07:15 RDW 12.7 % (13.2-15.2) L 04/15/17 07:15 Plt Count 277 K/mm3 (140-440) 04/15/17 07:15 Lymph % (Auto) 31.8 % (13.4-35.0) 04/15/17 07:15 Mitchell % (Auto) 8.9 % (0.0-7.3) H 04/15/17 07:15 Eos % (Auto) 2.9 % (0.0-4.3) 04/15/17 07:15 Baso % (Auto) 0.4 % (0.0-1.8) 04/15/17 07:15 Lymph # 2.9 K/mm3 (1.2-5.4) 04/15/17 07:15 Mitchell # 0.8 K/mm3 (0.0-0.8) 04/15/17 07:15 Eos # 0.3 K/mm3 (0.0-0.4) 04/15/17 07:15 Baso # 0.0 K/mm3 (0.0-0.1) 04/15/17 07:15 Seg Neutrophils % 56.0 % (40.0-70.0) 04/15/17 07:15 Seg Neutrophils # 5.0 K/mm3 (1.8-7.7) 04/15/17 07:15 PT 13.9 Sec. (12.2-14.9) 04/15/17 07:15 INR 1.08 (0.87-1.13) 04/15/17 07:15 APTT 30.7 Sec. (24.2-36.6) 04/12/17 07:03 D-Dimer 713.77 ng/mlDDU (0-234) H 04/12/17 07:03 POC ABG pH 7.413 (7.35-7.45) 04/12/17 12:41 POC ABG pCO2 42.9 (35-45) 04/12/17 12:41 POC ABG pO2 299 (80-105) H 04/12/17 12:41 POC ABG HCO3 27.4 04/12/17 12:41 POC ABG Total CO2 29 04/12/17 12:41 POC ABG O2 Sat 100 04/12/17 12:41 POC ABG Base Excess 3 04/12/17 12:41 FiO2 100 % 04/12/17 12:41 Sodium 133 mmol/L (137-145) L 04/15/17 07:15 Potassium 3.9 mmol/L (3.6-5.0) 04/15/17 07:15 Chloride 91.1 mmol/L (98-107) L 04/15/17 07:15 Carbon Dioxide 32 mmol/L (22-30) H 04/15/17 07:15 Anion Gap 14 mmol/L 04/15/17 07:15 BUN 16 mg/dL (9-20) 04/15/17 07:15 Creatinine 1.2 mg/dL (0.8-1.5) 04/15/17 07:15 Estimated GFR > 60 ml/min 04/15/17 07:15 BUN/Creatinine Ratio 13.33 % 04/15/17 07:15 Glucose 86 mg/dL (75-100) 04/15/17 07:15 Lactic Acid 2.00 mmol/L (0.7-2.0) 04/12/17 07:03 Calcium 9.2 mg/dL (8.4-10.2) 04/15/17 07:15 Total Bilirubin 0.70 mg/dL (0.1-1.2) 04/12/17 07:03 Direct Bilirubin 0.3 mg/dL (0-0.2) H 04/12/17 07:03 Indirect Bilirubin 0.4 mg/dL 04/12/17 07:03 AST 32 units/L (5-40) 04/12/17 07:03 ALT 20 units/L (7-56) 04/12/17 07:03 Alkaline Phosphatase 111 units/L (35-129) 04/12/17 07:03 Troponin T < 0.010 ng/mL (0.00-0.029) 04/12/17 05:48 NT-Pro-B Natriuret Pep 5246 pg/mL (0-450) H 04/12/17 07:03 Total Protein 6.8 g/dL (6.3-8.2) 04/12/17 07:03 Albumin 3.6 g/dL (3.9-5) L 04/12/17 07:03 Albumin/Globulin Ratio 1.1 % 04/12/17 07:03 Urine Color Colorless (Yellow) 04/12/17 08:54 Urine Turbidity Clear (Clear) 04/12/17 08:54 Urine pH 7.0 (5.0-7.0) 04/12/17 08:54 Ur Specific [place] 1.005 (1.003-1.030) 04/12/17 08:54 Urine Protein <15 mg/dl mg/dL (Negative) 04/12/17 08:54 Urine Glucose (UA) Neg mg/dL (Negative) 04/12/17 08:54 Urine Ketones Neg mg/dL (Negative) 04/12/17 08:54 Urine Blood Neg (Negative) 04/12/17 08:54 Urine Nitrite Neg (Negative) 04/12/17 08:54 Urine Bilirubin Neg (Negative) 04/12/17 08:54 Urine Urobilinogen < 2.0 mg/dL (<2.0) 04/12/17 08:54 Ur Leukocyte Esterase Neg (Negative) 04/12/17 08:54 Urine WBC (Auto) 1.0 /HPF (0.0-6.0) 04/12/17 08:54 Urine RBC (Auto) 1.0 /HPF (0.0-6.0) 04/12/17 08:54 Urine Opiates Screen Presumptive negative 04/12/17 08:54 Urine Methadone Screen Presumptive negative 04/12/17 08:54 Ur Barbiturates Screen Presumptive negative 04/12/17 08:54 Ur Phencyclidine Scrn Presumptive negative 04/12/17 08:54 Ur Amphetamines Screen Presumptive negative 04/12/17 08:54 U Benzodiazepines Scrn Presumptive negative 04/12/17 08:54 Urine Cocaine Screen Presumptive negative 04/12/17 08:54 U Marijuana (THC) Screen Presumptive negative 04/12/17 08:54 Drugs of Abuse Note Disclamer 04/12/17 08:54
[2017-04-15] MEDS: PRIMACOR 20 MG in D5W 80 ML IV SCH (12:59)
[2017-04-15] MEDS: COUMADIN PO SCH (17:06)
[2017-04-16] MEDS: LASIX IV SCH (06:11)
[2017-04-16 08:03] LABS: INR 1.22 (0.87-1.13)
--- NOTE | 2017-04-16 08:53 | Discharge Summary ---
Providers - Providers Date of Admission: 04/12/17 13:20 Date of discharge: 04/16/17 Attending physician: ARTHUR ARRIAGA Primary care physician: RAILS DEVELOPER Hospitalization Reason for admission: SOB Condition: Stable Hospital course: 22-year-old man with a history of a dilated nonischemic cardiomyopathy. He states that his left ventricle ejection fraction several years ago in [place] was 18%. He has a an internal cardiac defibrillator in situ. He presented to the hospital with shortness of breath and chest x-ray consistent with interstitial pulmonary edema. Patient was admitted with a diagnosis of acute on chronic systolic heart failure. Patient was treated with appropriate diuresis and milrinone drip. Patient was seen by cardiology consultation. An echocardiogram was completed and revealed left ventricular chamber size severely dilated. Global left ventricular systolic function severely decreased with EF of 10-15 percent. Patient has smoked in the left ventricular cavity suggestive of cardioembolic risk. The left atrium is moderately to severely dilated. Mild to moderate mitral regurgitation. Moderate tricuspid regurgitation. There is evidence of mild pulmonary hypertension. CT of the chest suggest no evidence of pulmonary embolism. Patient was treated with Coumadin for the cardioembolic risk. Cardiology felt patient could be discharged after milrinone drip was completed. Patient's heart failure resolved. Dedicated discharge time 35 minutes. Patient is to follow-up with [facility]. Disposition: TO HOME OR SELFCARE Time spent for discharge: 35 - Discharge Diagnoses (1) Acute on chronic systolic heart failure Status: Acute (2) Cardiomyopathy Status: Acute Qualifiers: Cardiomyopathy type: unspecified Qualified Code(s): I42.9 - Cardiomyopathy , unspecified (3) Elevated d-dimer Status: Acute (4) Pulmonary edema Status: Acute Qualifiers: Chronicity: acute Qualified Code(s): J81.0 - Acute pulmonary edema Core Measure Documentation - Palliative Care Palliative Care/ Comfort Measures: Not Applicable - Core Measures Any of the following diagnoses?: none Exam - Constitutional Vitals: Temp Pulse Resp BP Pulse Ox 97.4 F L 85 20 122/60 99 04/16/17 05:11 04/16/17 05:11 04/16/17 05:11 04/16/17 05:11 04/16/17 05:11 General appearance: Present: no acute distress, well-nourished - EENT Eyes: Present: PERRL ENT: hearing intact, clear oral mucosa - Neck Neck: Present: supple, normal ROM - Respiratory Respiratory effort: normal Respiratory: bilateral: CTA - Cardiovascular Heart Sounds: Present: S1 & S2. Absent: rub, click - Extremities Extremities: pulses symmetrical, No edema Peripheral Pulses: within normal limits - Abdominal General gastrointestinal: Present: soft, non-tender, non-distended, normal bowel sounds Male genitourinary: Present: normal - Integumentary Integumentary: Present: clear, warm, dry - Musculoskeletal Musculoskeletal: gait normal, strength equal bilaterally - Psychiatric Psychiatric: appropriate mood/affect, intact judgment & insight - Neurologic Neurologic: CNII-XII intact, moves all extremities Plan Activity: no restrictions Weight Bearing Status: Full Weight Bearing Diet: low fat, low cholesterol, low salt Follow up with: PRIMARY CARE, [Primary Care Provider] - 3-5 Days Forms: Warfarin Discharge Instruction Prescriptions: Carvedilol [Coreg] 12.5 mg PO BID #60 tablet Furosemide [Lasix TAB] 40 mg PO BID #30 tablet oxyCODONE /ACETAMINOPHEN [Percocet 5/325 mg] 2 tab PO Q4H PRN #15 tablet PRN Reason: Pain, Moderate (4-6) Potassium Chloride [K-Dur] 20 meq PO QDAY #30 tablet Warfarin [Coumadin] 5 mg PO DAILY@1700 #30 tablet
[2017-04-16] MEDS: LOVENOX SUB-Q SCH (09:18)
[2017-04-16] MEDS: K-DUR PO SCH (09:18)
[2017-04-16] MEDS: COREG PO SCH (09:19)
[2017-04-16] MEDS: ZESTRIL PO SCH (09:20)
--- NOTE | 2017-04-16 10:47 | Progress Note ---
Assessment and Plan Acute decompensated systolic heart failure Nonischemic cardiomyopathy s/p AICD LVEF 10-15% Smoke noted in LV cavity. Initiated on warfarin for anticoagulation Non-compliance Hyponatremia Recommendations: Continue medical management for systolic heart failure. Advised patient compliance with therapy and dietary restrictions. May go home cardiac abbott. F/U with cardiology or pcp on Thursday for an INR check. Subjective Date of service: 04/16/17 Principal diagnosis: APE, CHF w decomp, dilaited cardiomyopathy Interval history: Patient reports he is feeling better. For planned discharge home today. Objective Vital Signs Temp Pulse Pulse Pulse Pulse Resp BP 04/16/17 10:00 94 H 04/16/17 09:20 84 120/64 04/16/17 09:19 84 120/62 04/16/17 09:00 97.5 F L 86 18 04/16/17 08:29 20 04/16/17 05:11 97.4 F L 85 20 04/16/17 00:25 97.5 F L 101 H 20 04/15/17 22:00 95 H 04/15/17 21:19 97.8 F 110 H 20 04/15/17 20:49 04/15/17 20:29 18 04/15/17 18:38 98.4 F 88 04/15/17 17:06 18 04/15/17 15:54 98.2 F 68 12 04/15/17 12:32 16 04/15/17 11:58 18 04/15/17 10:58 18 04/15/17 10:56 83 103/69 04/15/17 10:52 83 103/69 BP BP Pulse Ox 04/16/17 10:00 04/16/17 09:20 04/16/17 09:19 04/16/17 09:00 102/57 04/16/17 08:29 04/16/17 05:11 122/60 99 04/16/17 00:25 111/75 98 04/15/17 22:00 04/15/17 21:19 91/55 100 04/15/17 20:49 96 04/15/17 20:29 04/15/17 18:38 102/64 04/15/17 17:06 04/15/17 15:54 94/55 98 04/15/17 12:32 04/15/17 11:58 04/15/17 10:58 04/15/17 10:56 04/15/17 10:52 - Physical Examination General: No Apparent Distress HEENT: Positive: PERRL Neck: Positive: neck supple Cardiac: Positive: Reg Rate and Rhythm Lungs: Positive: Decreased Breath Sounds Neuro: Positive: Grossly Intact Extremities: Absent: edema - Labs and Meds Coagulation 04/16/17 Range/Units 07:37 PT 15.3 H (12.2-14.9) Sec. INR 1.22 H (0.87-1.13)
[2017-04-16 16:39] VITALS: BP 86/55
== END 2017-04-15 14:10 | disposition home or self-care (01) | DRG 292 ==
LOC: ED 04:57 → CC1 13:20 → 4A 04-14 16:58
PROVIDERS: ADMIT Internal Medicine; ATTEND Hospitalist
PROC: 4A033R1 Measurement of Arterial Saturation, Peripheral, Percutaneous Approach (ICD-10-PCS; principal; 2017-04-12)
DX: I50.23 Acute on chronic systolic (congestive) heart failure (principal); I42.9 Cardiomyopathy, unspecified; E87.1 Hypo-osmolality and hyponatremia; R06.00 Dyspnea, unspecified; J81.0 Acute pulmonary edema; R09.89 Other specified symptoms and signs involving the circulatory and respiratory systems; Q24.9 Congenital malformation of heart, unspecified; Z95.0 Presence of cardiac pacemaker; Z91.19 Patient's noncompliance with other medical treatment and regimen; Z82.49 Family history of ischemic heart disease and other diseases of the circulatory system
CPT/HCPCS: 36415; 71010; 71020; 71275; 80048; 80074; 80307; 81001; 82140; 82803; 83880; 84484; 85025; 85379; 85610; 85730; 87040; 93005; 93010; 93306; 94640; 94760; 96372; 96374; 96375; J1650; J1940; J1956; J2260; J2270; J7512; Q9967

== ENCOUNTER 2017-05-01 20:49 | Inpatient (IN) | payer SELFPAY ==
[2017-05-01] MEDS ORDERED: LASIX IV ONE ×2 (21:55→23:37)
[2017-05-01 22:23] LABS: Urine Drugs of Abuse Note Disclamer
[2017-05-01 22:36] LABS: Basophils % (Auto) 0.4 % (0.0-1.8); Eosinophils % (Auto) 1.1 % (0.0-4.3); Hematocrit 41.4 % (35.5-45.6); Mean Corpuscular HGB Conc 31 % (32-34); Mean Corpuscular Volume 82 fl (84-94); Platelet Count 189 K/mm3 (140-440); Red Blood Count 5.04 M/mm3 (3.65-5.03); Red Cell Distribution Width 13.1 % (13.2-15.2); White Blood Count 9.1 K/mm3 (4.5-11.0)
[2017-05-01 22:37] LABS: Mean Corpuscular Hemoglobin 26 pg (28-32)
[2017-05-01 22:43] LABS: Bilirubin,Urine NEG (Negative); Blood,Urine NEG (Negative); Ketones,Urine NEG (Negative); Leukocyte Esterase,Urine MOD (Negative); Mucus,Urine FEW /HPF; Nitrite,Urine NEG (Negative); Urobilinogen,Urine < 2.0 mg/dL (<2.0)
[2017-05-01 22:51] LABS: Alanine Aminotransferase 21 units/L (7-56); Albumin 3.8 g/dL (3.9-5); Albumin/Globulin Ratio 1.7 %; Alkaline Phosphatase 95 units/L (35-129); Anion Gap 19 mmol/L; BUN/Creatinine Ratio 14.16; Blood Urea Nitrogen 17 mg/dL (9-20); Calcium 8.9 mg/dL (8.4-10.2); Carbon Dioxide 23 mmol/L (22-30); Chloride 102.5 mmol/L (98-107); Glucose 90 mg/dL (75-100); Potassium 4.3 mmol/L (3.6-5.0); Sodium 140 mmol/L (137-145); Total Protein 6.1 g/dL (6.3-8.2)
[2017-05-01 23:03] LABS: INR 5.87 (0.87-1.13)
--- NOTE | 2017-05-01 23:58 | Emergency Department Report ---
ED Shortness of Breath HPI - General Chief Complaint: Dyspnea/Respdistress Stated Complaint: FRANKIE/COUGHING UP BLOOD Time Seen by Provider: 05/01/17 21:53 Source: patient, EMS Mode of arrival: Stretcher Limitations: Other - History of Present Illness Initial Comments: 22 yo male with no PMHX presenting to ED complaining of SOB. Pt states over the last 5 days his symptoms have been worsening despite being compliant with all his medications. Pt states FRANKIE is worse with movement, improves with rest. Pt also endorses HERRERA and Orthopnea. Pt denies: fever/chills, chest pain, abdominal pain, N/V/D MD Complaint: shortness of breath -: Gradual, days(s) (5) Severity: moderate Consistency: constant Improves With: oxygen Worsens With: lying flat, exertion, movement Known History Of: congestive heart failure Associated Symptoms: denies other symptoms Treatments Prior to Arrival: none - Related Data Previous Rx's Medication Instructions Recorded Last Taken Type Carvedilol [Coreg] 12.5 mg PO BID #60 tablet 04/16/17 Unknown Rx Furosemide [Lasix TAB] 40 mg PO BID #30 tablet 04/16/17 Unknown Rx Potassium Chloride [K-Dur] 20 meq PO QDAY #30 tablet 04/16/17 Unknown Rx Warfarin [Coumadin] 5 mg PO DAILY@1700 #30 tablet 04/16/17 Unknown Rx oxyCODONE /ACETAMINOPHEN [Percocet 2 tab PO Q4H PRN #15 tablet 04/16/17 Unknown Rx 5/325 mg] Allergies Allergy/AdvReac Type Severity Reaction Status Date / Time No Known Allergies Allergy Verified 02/18/17 13:00 ED Review of Systems ROS: Stated complaint: FRANKIE/COUGHING UP BLOOD Other details as noted in HPI Constitutional: denies: chills, fever Eyes: denies: eye pain, eye discharge, vision change ENT: denies: ear pain, throat pain Respiratory: shortness of breath, SOB with exertion, SOB at rest. denies: cough , wheezing Cardiovascular: denies: chest pain, palpitations Endocrine: no symptoms reported Gastrointestinal: denies: abdominal pain, nausea, diarrhea Genitourinary: denies: urgency, dysuria Musculoskeletal: denies: back pain, joint swelling, arthralgia Skin: denies: rash, lesions Neurological: denies: headache, weakness, paresthesias Psychiatric: denies: anxiety, depression Hematological/Lymphatic: denies: easy bleeding, easy bruising ED Past Medical Hx - Past Medical History Previous Medical History?: Yes Hx Congestive Heart Failure: Yes Hx Diabetes: No Hx Asthma: No Hx COPD: No Additional medical history: pacer/defib - Surgical History Hx Pacemaker: Yes Hx Internal Defibrillator: Yes (Placed 2012) - Social History Smoking Status: Never Smoker Substance Use Type: None - Medications Home Medications: Home Medications Medication Instructions Recorded Confirmed Last Taken Type Carvedilol [Coreg] 12.5 mg PO BID #60 tablet 04/16/17 Unknown Rx Furosemide [Lasix TAB] 40 mg PO BID #30 tablet 04/16/17 Unknown Rx Potassium Chloride [K-Dur] 20 meq PO QDAY #30 tablet 04/16/17 Unknown Rx Warfarin [Coumadin] 5 mg PO DAILY@1700 #30 tablet 04/16/17 Unknown Rx oxyCODONE /ACETAMINOPHEN [Percocet 2 tab PO Q4H PRN #15 tablet 04/16/17 Unknown Rx 5/325 mg] ED Physical Exam - General Limitations: Other General appearance: alert, in no apparent distress - Head Head exam: Present: atraumatic, normocephalic - Eye Eye exam: Present: normal appearance - ENT ENT exam: Present: mucous membranes moist - Neck Neck exam: Present: normal inspection - Respiratory Respiratory exam: Present: normal lung sounds bilaterally, rales. Absent: respiratory distress, wheezes (rales in BL lower lung monzon ), rhonchi - Cardiovascular Cardiovascular Exam: Present: regular rate, normal rhythm. Absent: systolic murmur, diastolic murmur, rubs, gallop - GI/Abdominal GI/Abdominal exam: Present: soft, normal bowel sounds - Rectal Rectal exam: Present: deferred - Extremities Exam Extremities exam: Present: normal inspection - Back Exam Back exam: Present: normal inspection - Neurological Exam Neurological exam: Present: alert, oriented X3 - Psychiatric Psychiatric exam: Present: normal affect, normal mood - Skin Skin exam: Present: warm, dry, intact, normal color. Absent: rash ED Course Vital Signs 05/01/17 05/01/17 05/01/17 21:11 21:25 23:38 Temperature 97 F L 97 F L Pulse Rate 89 89 91 H Respiratory 22 18 Rate Blood Pressure 114/75 Blood Pressure 114/75 100/67 [Left] O2 Sat by Pulse 98 100 100 Oximetry 05/02/17 05/02/17 05/02/17 01:02 02:12 02:13 Temperature 98 F 98 F Pulse Rate 88 88 83 Respiratory 18 18 Rate Blood Pressure 115/70 Blood Pressure 112/74 104/70 [Left] O2 Sat by Pulse 100 100 Oximetry ED Medical Decision Making - Lab Data Result diagrams: 05/01/17 22:04 05/01/17 22:04 - EKG Data -: EKG Interpreted by Me EKG shows normal: sinus rhythm - Medical Decision Making 22 yo Critical care attestation.: If time is entered above; I have spent that time in minutes in the direct care of this critically ill patient, excluding procedure time. ED Disposition Clinical Impression: Pulmonary edema Qualifiers: Chronicity: acute Qualified Code(s): J81.0 - Acute pulmonary edema Cardiomyopathy Qualifiers: Cardiomyopathy type: unspecified Qualified Code(s): I42.9 - Cardiomyopathy, unspecified Disposition: DC-01 TO HOME OR SELFCARE Is pt being admited?: Yes Condition: Stable
[2017-05-02] MEDS ORDERED: MORPHINE IV PRN (00:36)
[2017-05-02] MEDS ORDERED: NITROSTAT SL PRN (00:36)
[2017-05-02] MEDS ORDERED: ZOFRAN IV PRN (00:41)
[2017-05-02] MEDS ORDERED: TYLENOL PO PRN (00:43)
--- NOTE | 2017-05-02 00:50 | History and Physical Report ---
History of Present Illness Date of examination: 05/02/17 Date of admission: 05/02/17 Chief complaint: Chief complaint is shortness of breath History of present illness: History of present illness, patient is a 22-year-old male with history of CHF resenting with shortness of breath going on for the last 24 hours and there is no history of chest pain, no history of fever or chills and no history of dizziness or cough Past History Past Medical History: heart failure Past Surgical History: Other (PACEMAKER AND DEFIRRILATOR) Medications and Allergies Allergies Allergy/AdvReac Type Severity Reaction Status Date / Time No Known Allergies Allergy Verified 02/18/17 13:00 Home Medications Medication Instructions Recorded Confirmed Last Taken Type Carvedilol [Coreg] 12.5 mg PO BID #60 tablet 04/16/17 Unknown Rx Furosemide [Lasix TAB] 40 mg PO BID #30 tablet 04/16/17 Unknown Rx Potassium Chloride [K-Dur] 20 meq PO QDAY #30 tablet 04/16/17 Unknown Rx Warfarin [Coumadin] 5 mg PO DAILY@1700 #30 tablet 04/16/17 Unknown Rx oxyCODONE /ACETAMINOPHEN [Percocet 2 tab PO Q4H PRN #15 tablet 04/16/17 Unknown Rx 5/325 mg] Active Meds: Active Medications Acetaminophen (Tylenol) 650 mg PO Q4H PRN PRN Reason: For Pain/Fever/Headache Aspirin (Baby Aspirin) 81 mg PO QDAY [facility] Furosemide (Lasix) 40 mg IV QDAY [facility] Heparin Sodium (Porcine) (Heparin) 5,000 unit SUB-Q Q12HR [facility] Levofloxacin/Dextrose (Levaquin 250mg/50ml) 250 mg in 50 mls @ 50 mls/hr IV Q24HR [facility] PRN Reason: Protocol Morphine Sulfate (Morphine) 2 mg IV Q5MIN PRN PRN Reason: Chest Pain Nitroglycerin (Nitrostat) 0.4 mg SL .Q5MIN PRN PRN Reason: Chest Pain Nitroglycerin (Nitro-Bid 2%) 0.5 inch TP Q6H [facility] PRN Reason: Protocol Ondansetron HCl (Zofran) 8 mg IV Q6H PRN PRN Reason: Nausea And Vomiting Review of Systems Constitutional: no weight loss, no weight gain, no fever, no chills, no sweats, no night sweats, no anorexia, no fatigue, no weakness, no malaise, no lethargy, no poor appetite, no daytime sleepiness, no chronic pain Eyes: bilateral: other (NO BILATERAL EYE SYMPTOMS) Ears, nose, mouth and throat: no ear pain, no ear discharge, no tinnitis, no decreased hearing, no nose pain, no nasal congestion, no nasal discharge, no sinus pressure, no sinus pain, no bleeding gums, no dental pain, no mouth pain, no dysphagia, no hoarseness, no sore throat, no swelling in mouth, no swelling in throat, no odynophagia, no voice changes, no post-nasal drip, no headache, no vertigo, no pain front of neck, no neck fullness/pressure, no neck lump, no other Cardiovascular: shortness of breath, no chest pain, no orthopnea, no palpitations, no rapid/irregular heart beat, no edema, no syncope, no lightheadedness, no dyspnea on exertion, no paroxysmal nocturnal dyspnea, no claudication, no phlebitis, no high blood pressure, no leg edema, no decreased exercise tolerance Respiratory: shortness of breath, no cough, no cough with sputum, no excessive sputum, no hemoptysis, no dyspnea on exertion, no congestion, no wheezing, no pleurisy, no pain, no pain on inspiration, no sleep apnea, no respiratory infections, no home oxygen Gastrointestinal: no abdominal pain, no nausea, no vomiting, no diarrhea, no constipation, no melena, no hematochezia, no loss of appetite, no jaundice, no dyspepsia/bloating, no early satiety Genitourinary Male: no dysuria, no hematuria, no flank pain, no discharge, no urinary frequency, no urinary hesitancy, no nocturia, no incontinence, no erectile dysfunction, no genital sores, no impotence, no decreased libido, no testicular pain, no testicular lump, no difficulties fathering child, no urinary retention Rectal: no pain, no incontinence, no bleeding, no itching, no hemorrhoids, no discharge, no flatulence, no other Musculoskeletal: no neck stiffness, no neck pain, no shooting arm pain, no arm numbness/tingling, no low back pain, no shooting leg pain, no leg numbness/ tingling, no hot joints, no morning stiffness, no muscle weakness, no muscle cramps, no myalgias, no atrophy, no limitation of motion, no frequent falls, no fractures, no loss of height, no prior amputations Integumentary: no deferred, no rash, no pruritis, no redness, no sores, no wounds, no jaundice, no boils, no growths, no bullae, no lesions, no darkening of skin, no depigmentation, no acne, no dryness, no color changes, no unusual bruising, no change in hair/nails, no brittle nails, no striae, no hirsutism, no foot/leg ulcers, no onychomycosis Neurological: no head injury, no transient paralysis, no paralysis, no weakness , no parathesias, no numbness, no tingling, no seizures, no syncope, no tremors , no ataxia, no lack of coordination, no headaches, no migraines, no convulsions , no aphasia, no change in speech, no change in mentation, no confusion, no memory loss, no changes in smell/taste, no balance difficulties, no gait dysfunction, no motor disturbance, no sensory deficit, no double vision, no loss of vision, no hearing difficulties, no burning pain, no paralysis, no spasticity Psychiatric: no anxiety, no memory loss, no change in sleep habits, no sleep disturbances, no insomnia, no hypersomnia, no change in appetite, no change in libido, no suicidal ideation, no disorientation, no paranoia, no depression, no hopelessness, no anhedonia, no anxiety attacks, no difficulties concentrating, no confusion, no irritability, no sadness/tearfullness, no mood swings Endocrine: no cold intolerance, no heat intolerance, no polyphagia, no excessive thirst, no polydipsia, no polyuria, no nocturia, no excessive sweating , no proptosis, no deepening of the voice, no thyroid mass, no palpatations, no high blood sugars, no low blood sugars, no recent glucocorticoid use Hematologic/Lymphatic: no easy bruising, no easy bleeding, no lymphadenopathy, no lymphedema Allergic/Immunologic: no urticaria, no allergic rhinitis, no wheezing, no persistent infections, no anaphylaxis, no angioedema, no gluten intolerance, no seasonal allergies Exam - Constitutional Vitals: Temp Pulse Resp BP Pulse Ox 97 F L 91 H 18 100/67 100 05/01/17 21:25 05/01/17 23:38 05/01/17 23:38 05/01/17 23:38 05/01/17 23:38 General appearance: Present: no acute distress - EENT Eyes: Present: PERRL, EOM intact. Absent: scleral icterus, conjunctival injection, exopthalmos, miosis, mydriasis, discharge ENT: hearing intact, clear oral mucosa, dentition normal, no oropharyngeal erythema, no poor dentition, no thrush, no edentulous - Neck Neck: Present: supple, normal ROM. Absent: rigidity, enlarged thyroid, masses or JVD, cervical LAD, carotid bruits - Respiratory Respiratory effort: normal - Cardiovascular Rhythm: regular Heart Sounds: Present: S1 & S2. Absent: gallop, systolic murmur, diastolic murmur, rub, click - Extremities Extremities: no ischemia, No edema Peripheral Pulses: within normal limits - Abdominal General gastrointestinal: Present: soft, non-tender, non-distended, normal bowel sounds. Absent: tender, distended, rigid, hepatomegaly, splenomegaly, mass Male genitourinary: Present: normal - Rectal Rectal Exam: deferred - Integumentary Integumentary: Present: clear, warm, dry. Absent: erythema, jaundice, rash, clammy, pale - Musculoskeletal Musculoskeletal: strength equal bilaterally - Psychiatric Psychiatric: appropriate mood/affect - Neurologic Neurologic: CNII-XII intact Results - Labs CBC & Chem 7: 05/01/17 22:04 05/01/17 22:04 Labs: Laboratory Last Values WBC 9.1 K/mm3 (4.5-11.0) 05/01/17 22:04 RBC 5.04 M/mm3 (3.65-5.03) H 05/01/17 22:04 Hgb 13.0 gm/dl (11.8-15.2) 05/01/17 22:04 Hct 41.4 % (35.5-45.6) 05/01/17 22:04 MCV 82 fl (84-94) L 05/01/17 22:04 MCH 26 pg (28-32) L 05/01/17 22:04 MCHC 31 % (32-34) L 05/01/17 22:04 RDW 13.1 % (13.2-15.2) L 05/01/17 22:04 Plt Count 189 K/mm3 (140-440) 05/01/17 22:04 Lymph % (Auto) 37.2 % (13.4-35.0) H 05/01/17 22:04 [place] % (Auto) 5.9 % (0.0-7.3) 05/01/17 22:04 Eos % (Auto) 1.1 % (0.0-4.3) 05/01/17 22:04 Baso % (Auto) 0.4 % (0.0-1.8) 05/01/17 22:04 Lymph # 3.4 K/mm3 (1.2-5.4) 05/01/17 22:04 [place] # 0.5 K/mm3 (0.0-0.8) 05/01/17 22:04 Eos # 0.1 K/mm3 (0.0-0.4) 05/01/17 22:04 Baso # 0.0 K/mm3 (0.0-0.1) 05/01/17 22:04 Seg Neutrophils % 55.4 % (40.0-70.0) 05/01/17 22:04 Seg Neutrophils # 5.1 K/mm3 (1.8-7.7) 05/01/17 22:04 PT 53.4 Sec. (12.2-14.9) H 05/01/17 22:04 INR 5.87 (0.87-1.13) H* 05/01/17 22:04 Sodium 140 mmol/L (137-145) 05/01/17 22:04 Potassium 4.3 mmol/L (3.6-5.0) 05/01/17 22:04 Chloride 102.5 mmol/L (98-107) 05/01/17 22:04 Carbon Dioxide 23 mmol/L (22-30) 05/01/17 22:04 Anion Gap 19 mmol/L 05/01/17 22:04 BUN 17 mg/dL (9-20) 05/01/17 22:04 Creatinine 1.2 mg/dL (0.8-1.5) 05/01/17 22:04 Estimated GFR > 60 ml/min 05/01/17 22:04 BUN/Creatinine Ratio 14.16 % 05/01/17 22:04 Glucose 90 mg/dL (75-100) 05/01/17 22:04 Calcium 8.9 mg/dL (8.4-10.2) 05/01/17 22:04 Total Bilirubin 0.70 mg/dL (0.1-1.2) 05/01/17 22:04 AST 27 units/L (5-40) 05/01/17 22:04 ALT 21 units/L (7-56) 05/01/17 22:04 Alkaline Phosphatase 95 units/L (35-129) 05/01/17 22:04 Troponin T < 0.010 ng/mL (0.00-0.029) 05/01/17 22:04 NT-Pro-B Natriuret Pep 5062 pg/mL (0-450) H 05/01/17 22:04 Total Protein 6.1 g/dL (6.3-8.2) L 05/01/17 22:04 Albumin 3.8 g/dL (3.9-5) L 05/01/17 22:04 Albumin/Globulin Ratio 1.7 % 05/01/17 22:04 Urine Color Yellow (Yellow) 05/01/17 22:08 Urine Turbidity Clear (Clear) 05/01/17 22:08 Urine pH 6.0 (5.0-7.0) 05/01/17 22:08 Ur Specific [place] 1.016 (1.003-1.030) 05/01/17 22:08 Urine Protein 30 mg/dl mg/dL (Negative) 05/01/17 22:08 Urine Glucose (UA) Neg mg/dL (Negative) 05/01/17 22:08 Urine Ketones Neg mg/dL (Negative) 05/01/17 22:08 Urine Blood Neg (Negative) 05/01/17 22:08 Urine Nitrite Neg (Negative) 05/01/17 22:08 Urine Bilirubin Neg (Negative) 05/01/17 22:08 Urine Urobilinogen < 2.0 mg/dL (<2.0) 05/01/17 22:08 Ur Leukocyte Esterase Mod (Negative) 05/01/17 22:08 Urine WBC (Auto) 25.0 /HPF (0.0-6.0) H 05/01/17 22:08 Urine RBC (Auto) 6.0 /HPF (0.0-6.0) 05/01/17 22:08 Urine Mucus Few /HPF 05/01/17 22:08 Urine Opiates Screen Presumptive negative 05/01/17 22:08 Urine Methadone Screen Presumptive negative 05/01/17 22:08 Ur Barbiturates Screen Presumptive negative 05/01/17 22:08 Ur Phencyclidine Scrn Presumptive negative 05/01/17 22:08 Ur Amphetamines Screen Presumptive negative 05/01/17 22:08 U Benzodiazepines Scrn Presumptive negative 05/01/17 22:08 Urine Cocaine Screen Presumptive negative 05/01/17 22:08 U Marijuana (THC) Screen Presumptive positive 05/01/17 22:08 Drugs of Abuse Note Disclamer 05/01/17 22:08 Assessment and Plan - Patient Problems (1) Urinary tract infection Current Visit: Yes Status: Acute Qualifiers: Urinary tract infection type: U Hematuria presence: H Indwelling urinary catheter type: I Encounter type: E (2) Acute on chronic systolic heart failure Current Visit: No Status: Acute Plan to address problem: Patient will be admitted to medical floor on telemetry using CHF pathway the patient will have troponin and CPK levels checked every 6 hours 2 and will be on IV Lasix 40 mg daily. Patient will have 2-D echo checked in the morning, patient will be on Nitropaste half inch to anterior chest wall every 6 hours and will be on IV Levaquin 250 mg daily for treatment of urinary tract infection. Patient will be on when necessary medications like IV Zofran 4 mg every 6 hours for nausea vomiting and Tylenol 650 mg every 4 hours for fever or headache she has Coumadin level will be held onto the INR is down to 2-3 she will be on oxygen by nasal cannula 2 L/m (3) Coagulopathy Current Visit: Yes Status: Acute
[2017-05-02] MEDS: NITRO-BID 2% TP SCH ×3 (01:02→11:11)
[2017-05-02 05:35] LABS: Creatine Kinase MB 1.7 ng/mL (0.0-4.0)
[2017-05-02 05:37] LABS: Creatine Kinase 174 units/L (55-170)
[2017-05-02 08:56] VITALS: BP 107/66
--- NOTE | 2017-05-02 09:01 | XRay Report ---
Single view chest: Compared to 04/14/17. History: Cough. Findings: Marked cardiomegaly. Trachea is midline. Stable pacemaker. Mild pulmonary venous congestion predominantly lower lobes. Normal CP angles. Impression: Probable CHF or pulmonary edema.
[2017-05-02] MEDS ORDERED: BABY ASPIRIN PO SCH (10:00)
[2017-05-02] MEDS ORDERED: HEPARIN SUB-Q SCH (10:00)
[2017-05-02] MEDS ORDERED: LEVAQUIN 250MG/50ML 250 MG/50 ML BAG IV SCH (10:00)
[2017-05-02] MEDS ORDERED: LASIX IV SCH (10:00)
--- NOTE | 2017-05-02 11:01 | Discharge Summary ---
Providers - Providers Date of Admission: 05/02/17 00:31 Date of discharge: 05/02/17 Attending physician: SINCERE SINGH MD Primary care physician: DRAPERY SEAMSTRESS Hospitalization Reason for admission: acute on chronic systolic CHF exacerbation Condition: Stable Hospital course: patient is a 22-year-old male with history of systolic CHF resenting with shortness of breath going on for the last 24 hours and there is no history of chest pain, no history of fever or chills and no history of dizziness or cough. Patient was admitted for the management of acute on chronic systolic CHF exacerbation and he was put on Lasix and the patient's shortness of breath was getting better. Patient didn't have any edema. Patient's INR was 5.87. He has been on warfarin and has been taking regularly. Immediately after admission the patient states that he doesn't want to stay in the hospital. He said he has a flight to [place] to night. I have advised him about the risk benefit of getting treatment but the patient decided to go home. I also told him to hold his warfarin at least for 2 days and check INR and restart accordingly. Disposition: -07 LEFT AGAINST MED ADVICE Time spent for discharge: 31 minutes - Discharge Diagnoses (1) Acute on chronic systolic heart failure Status: Acute (2) Warfarin toxicity Status: Acute Qualifiers: Encounter type: E Injury intent: I (3) Coagulopathy Status: Acute (4) Urinary tract infection Status: Acute Qualifiers: Urinary tract infection type: U Hematuria presence: H Indwelling urinary catheter type: I Encounter type: E Core Measure Documentation - Palliative Care Palliative Care/ Comfort Measures: Not Applicable - Core Measures Any of the following diagnoses?: none Exam - Physical Exam Narrative exam: Not in cardiopulmonary distress. The patient appeared well nourished and normally developed. Vital signs as documented. Head exam is unremarkable. No scleral icterus . Neck is without jugular venous distension, thyromegaly, or carotid bruits. Lungs are clear to auscultation. Cardiac exam reveals regular rate and Abdominal exam reveals normal bowel sounds, no masses, no organomegaly and no aortic enlargement. Extremities are nonedematous and both femoral and pedal pulses are normal. [employer]ON[employer] [place] B[employer]DLER: Alert and oriented 3. No focal weakness. - Constitutional Vitals: Temp Pulse Resp BP Pulse Ox 97.8 F 93 H 18 107/66 99 05/02/17 07:00 05/02/17 07:00 05/02/17 07:00 05/02/17 07:00 05/02/17 10:01 Plan Activity: no restrictions Weight Bearing Status: Full Weight Bearing Diet: low cholesterol, low salt Follow up with: PRIMARY CARE, [Primary Care Provider] - 3-5 Days Forms: AMA Form
== END 2017-05-02 11:53 | disposition left against medical advice (07) | DRG 292 ==
LOC: ED 20:49 → 4A 05-02 00:31
PROVIDERS: ADMIT Internal Medicine; ATTEND Internal Medicine
DX: I50.23 Acute on chronic systolic (congestive) heart failure (principal); D68.9 Coagulation defect, unspecified; N39.0 Urinary tract infection, site not specified; T45.515A Adverse effect of anticoagulants, initial encounter; Y92.89 Other specified places as the place of occurrence of the external cause; Z95.0 Presence of cardiac pacemaker
CPT/HCPCS: 36415; 71010; 80053; 80307; 81001; 82550; 82553; 83880; 84484; 85025; 85610; 93005; 93010; 96374; 96375; J1940; J1956; J2270

== ENCOUNTER 2017-05-10 06:50 | Inpatient (IN) | payer OTHER ==
--- NOTE | 2017-05-10 07:11 | Emergency Department Report ---
ED Chest Pain HPI - General Chief Complaint: Chest Pain Stated Complaint: CHEST PAIN Time Seen by Provider: 05/10/17 07:05 Source: patient, EMS Mode of arrival: Stretcher Limitations: No Limitations - History of Present Illness Initial Comments: 22-year-old male presents to the emergency department via EMS from home with complaint of left-sided chest pain that began about 1 hour prior to presentation. It did not wake him from sleep as the patient says he did not get much sleep as morning due to her generalized pains. He denies any current shortness of breath, nausea, vomiting, diaphoresis. He has a history of congestive heart failure. He denies any history of VA or CVA. He does take Coumadin and says he takes compliantly and says he takes it "to prevent blood clots in my heart." He denies tobacco or illicit drug use or abuse. He has a primary care physician through the [facility] system but denies having a grounds cleaner. No recent travel or sick contacts at home. He received a sublingual nitroglycerin in route with EMS but said it did not help. He otherwise did not take anything for his symptoms prior to presentation. Severity scale (0 -10): 10 - Related Data Previous Rx's Medication Instructions Recorded Last Taken Type Carvedilol [Coreg] 12.5 mg PO BID #60 tablet 04/16/17 Unknown Rx Furosemide [Lasix TAB] 40 mg PO BID #30 tablet 04/16/17 Unknown Rx Potassium Chloride [K-Dur] 20 meq PO QDAY #30 tablet 04/16/17 Unknown Rx Warfarin [Coumadin] 5 mg PO DAILY@1700 #30 tablet 04/16/17 Unknown Rx oxyCODONE /ACETAMINOPHEN [Percocet 2 tab PO Q4H PRN #15 tablet 04/16/17 Unknown Rx 5/325 mg] Allergies Allergy/AdvReac Type Severity Reaction Status Date / Time No Known Allergies Allergy Verified 02/18/17 13:00 Heart Score - HEART Score History: Slightly suspicious EKG: Normal Age: < 45 Risk factors: 1-2 risk factors Troponin: < normal limit HEART Score: 1 - Critical Actions Critical Actions: 0-3 pts:0.9-1.7%risk of adverse cardiac event.Candidate for discharge ED Review of Systems ROS: Stated complaint: CHEST PAIN Other details as noted in HPI Comment: All other systems reviewed and negative Constitutional: denies: chills, fever Eyes: denies: eye pain, eye discharge, vision change ENT: denies: ear pain, throat pain Respiratory: denies: cough, shortness of breath, wheezing Cardiovascular: chest pain. denies: palpitations Gastrointestinal: denies: abdominal pain, nausea, diarrhea Genitourinary: denies: urgency, dysuria Musculoskeletal: denies: back pain, joint swelling, arthralgia Skin: denies: rash, lesions Neurological: denies: headache, weakness, paresthesias ED Past Medical Hx - Past Medical History Previous Medical History?: Yes Hx Congestive Heart Failure: Yes Hx Diabetes: No Hx Asthma: No Hx COPD: No Additional medical history: pacer/defib. cardiomyopathy - Surgical History Hx Pacemaker: Yes Hx Internal Defibrillator: Yes (Placed 2012) - Social History Smoking Status: Never Smoker Substance Use Type: None - Medications Home Medications: Home Medications Medication Instructions Recorded Confirmed Last Taken Type Carvedilol [Coreg] 12.5 mg PO BID #60 tablet 04/16/17 Unknown Rx Furosemide [Lasix TAB] 40 mg PO BID #30 tablet 04/16/17 Unknown Rx Potassium Chloride [K-Dur] 20 meq PO QDAY #30 tablet 04/16/17 Unknown Rx Warfarin [Coumadin] 5 mg PO DAILY@1700 #30 tablet 04/16/17 Unknown Rx oxyCODONE /ACETAMINOPHEN [Percocet 2 tab PO Q4H PRN #15 tablet 04/16/17 Unknown Rx 5/325 mg] ED Physical Exam - General Limitations: No Limitations - Other Other exam information: GENERAL: The patient is well-developed well-nourished. HEENT: Normocephalic. Atraumatic. Extraocular motions are intact. Patient has moist mucous membranes. Pupils equal reactive to light bilaterally. NECK: Supple. Trachea is midline. CHEST/LUNGS: Coarse breath sounds at the chest. There is tachypnea but no accessory muscle use. There is no respiratory distress noted. HEART/CARDIOVASCULAR: Regular. There is no tachycardia. There is no gallop rub or murmur. ABDOMEN: Abdomen is soft, nontender. Patient has normal bowel sounds. There is no abdominal distention. SKIN: Skin is warm and dry. NEURO: The patient is awake, alert, and oriented. The patient is cooperative. The patient has no focal neurologic deficits. The patient has normal speech. MUSCULOSKELETAL: There is no tenderness or deformity. There is no limitation range of motion. There is no evidence of acute injury. ED Course Vital Signs 05/10/17 05/10/17 05/10/17 06:50 06:55 07:00 Temperature 98.3 F Pulse Rate 97 H 96 H 100 H Respiratory 34 H 26 H 24 Rate Blood Pressure 122/77 122/77 Blood Pressure 122/77 [Right] O2 Sat by Pulse 100 100 100 Oximetry 05/10/17 05/10/17 05/10/17 07:04 07:31 08:00 Temperature Pulse Rate 95 H 98 H Respiratory 26 H 47 H 21 Rate Blood Pressure 81/53 109/77 Blood Pressure [Right] O2 Sat by Pulse 100 100 100 Oximetry 05/10/17 05/10/17 05/10/17 08:30 09:54 10:05 Temperature Pulse Rate 102 H 105 H Respiratory 36 H 31 H 31 H Rate Blood Pressure 113/84 113/84 Blood Pressure [Right] O2 Sat by Pulse 100 96 Oximetry 05/10/17 10:24 Temperature Pulse Rate Respiratory 31 H Rate Blood Pressure Blood Pressure [Right] O2 Sat by Pulse Oximetry BRITTANY score - Brittany Score Age > 65: (0) No Aspirin use within the Past 7 Days: (0) No 3 or more CAD Risk Factors: (0) No 2 or more Angina events in past 24 hrs: (1) Yes Known CAD with more than 50% Stenosis: (0) No Elevated Cardiac Markers: (0) No ST Deviation Greater than 0.5mm: (0) No BRITTANY Score: 1 ED Medical Decision Making - Lab Data Result diagrams: 05/10/17 07:14 05/10/17 07:14 - EKG Data -: EKG Interpreted by Me EKG shows normal: sinus rhythm (occasional PVCs), axis (right axis deviation), intervals, QRS complexes, ST-T waves (some flattening of the T waves) Rate: normal - EKG Data When compared to previous EKG there are: no significant change Interpretation: unchanged when compared t (05/01/17) - Radiology Data Radiology results: report reviewed, image reviewed interpreted by me: Chest x-ray shows moderate cardiomegaly and some pulmonary vascular congestion with some basilar pleural effusions. CT angiography of the chest does not show any evidence of pulmonary embolus. Interstitial and alveolar infiltrates bilaterally that may represent edema. Appearance is similar to the previous study. There is a small right pleural effusion. Some thymic tissue visualized in the anterior mediastinum which could be thymic hyperplasia. - Medical Decision Making 22-year-old male presents with acute chest pain starting this morning. While he does not complain of significant shortness of breath he does appear to have some tachypnea sometimes and he has coarse breath sounds. Chest x-ray shows cardiomegaly and vascular congestion. BNP is close to 4000. The patient was recently supposed to be admitted here for a cardiology workup but had to leave prior to seeing cardiology. He received pain medication and Lasix but still complains of discomfort. He will be admitted to the hospital for further evaluation, serial troponins and possible cardio consultation. The hospitalist , Dr. Manrique, has agreed to see the patient for possible admission. - Differential Diagnosis VA, CHF, pneumonia, PE Critical Care Time: No Critical care attestation.: If time is entered above; I have spent that time in minutes in the direct care of this critically ill patient, excluding procedure time. ED Disposition Clinical Impression: Acute on chronic systolic heart failure, Subtherapeutic international normalized ratio (INR) Cardiomyopathy Qualifiers: Cardiomyopathy type: unspecified Qualified Code(s): I42.9 - Cardiomyopathy, unspecified Disposition: 09 OP ADMIT IP TO THIS HOSP Is pt being admited?: Yes Condition: Stable Time of Disposition: 12:23
[2017-05-10 07:36] LABS: Basophils % (Auto) 0.8 % (0.0-1.8); Eosinophils % (Auto) 1.7 % (0.0-4.3); Hemoglobin 13.3 gm/dl (11.8-15.2); Mean Corpuscular HGB Conc 32 % (32-34); Mean Corpuscular Volume 82 fl (84-94); Platelet Count 181 K/mm3 (140-440); Red Blood Count 5.13 M/mm3 (3.65-5.03); Red Cell Distribution Width 13.6 % (13.2-15.2)
[2017-05-10 07:37] LABS: Mean Corpuscular Hemoglobin 26 pg (28-32)
[2017-05-10] MEDS ORDERED: MORPHINE IV ONE (07:42)
[2017-05-10] MEDS ORDERED: BABY ASPIRIN PO ONE (07:42)
[2017-05-10 07:44] LABS: INR 1.13 (0.87-1.13)
[2017-05-10 07:46] LABS: Partial Thromboplastin Time 29.3 Sec. (24.2-36.6)
[2017-05-10] MEDS ORDERED: LASIX IV ONE (07:46)
[2017-05-10 07:48] LABS: Alanine Aminotransferase 27 units/L (7-56); Albumin 3.7 g/dL (3.9-5); Albumin/Globulin Ratio 1.2 %; Alkaline Phosphatase 109 units/L (35-129); Anion Gap 18 mmol/L; Blood Urea Nitrogen 18 mg/dL (9-20); Calcium 8.8 mg/dL (8.4-10.2); Carbon Dioxide 21 mmol/L (22-30); Glucose 105 mg/dL (75-100); Potassium 4.2 mmol/L (3.6-5.0); Sodium 138 mmol/L (137-145); Total Protein 6.8 g/dL (6.3-8.2)
[2017-05-10] MEDS ORDERED: NACL ONE (08:20)
[2017-05-10] MEDS ORDERED: PERCOCET 5/325 PO ONE ×2 (08:39→10:17)
--- NOTE | 2017-05-10 09:15 | Cat Scan Report ---
FINAL REPORT EXAM: CT ANGIO CHEST HISTORY: CP, elevated dimer TECHNIQUE: CT angiography of the chest was performed. 100 cc Omnipaque 350 IV was administered. Coronal and sagittal reformatted images were obtained. PRIORS: 04/12/2017 FINDINGS: There are no filling defects seen within the pulmonary arterial circulation to suggest pulmonary embolism. Study is nondiagnostic for dissection due to lack of contrast opacification of the aorta. There is some hazy soft tissue density in the anterior mediastinum which likely relates to thymic tissue. There are small bilateral pleural effusions. There are patchy infiltrates bilaterally and diffusely, more notable in the lower lobes. There are thickened interstitial septae a suggestive of interstitial edema. IMPRESSION: No evidence of pulmonary embolus. Interstitial and alveolar infiltrates bilaterally. This may represent edema. Appearance is similar to the previous study. There is a small right pleural effusion. Some thymic tissue visualized in anterior mediastinum which could be thymic hyperplasia.
--- NOTE | 2017-05-10 09:26 | XRay Report ---
AP CHEST : 05/10/17 CLINICAL: Chest pain. COMPARISON:05/01/17 FINDINGS: The heart is large with an AICD lead in the heart. Central vascular congestion and indistinctness of the pulmonary vessels.Increased bilateral perihilar hazy opacities. No apparent pleural effusion. IMPRESSION: Congestive heart failure with bilateral perihilar alveolar pulmonary edema which is worse than on the prior exam.
[2017-05-10 09:28] LABS: Bilirubin,Urine NEG (Negative); Blood,Urine NEG (Negative); Ketones,Urine NEG (Negative); Leukocyte Esterase,Urine NEG (Negative); Mucus,Urine FEW /HPF; Nitrite,Urine NEG (Negative); Protein,Urine <15 mg/dL mg/dL (Negative); Urobilinogen,Urine < 2.0 mg/dL (<2.0); WBC,Urine < 1.0 /HPF (0.0-6.0)
[2017-05-10] MEDS ORDERED: ZOFRAN ONE (12:34)
[2017-05-10] MEDS ORDERED: ZOFRAN IV ONE (12:44)
--- NOTE | 2017-05-10 16:31 | History and Physical Report ---
History of Present Illness Date of examination: 05/10/17 Date of admission: 05/10/17 12:37 Chief complaint: L sided Chest pain History of present illness: - History of Present Illness Initial Comments: 22-year-old male presents to the emergency department via EMS from home with complaint of left-sided chest pain that began about 1 hour prior to presentation. It did not wake him from sleep as the patient says he did not get much sleep as morning due to her generalized pains. He denies any current shortness of breath, nausea, vomiting, diaphoresis. He has a history of congestive heart failure. He denies any history of MT or CVA. He does take Coumadin and says he takes compliantly and says he takes it "to prevent blood clots in my heart." He denies tobacco or illicit drug use or abuse. He has a primary care physician through the [facility] system but denies having a petrography teacher. No recent travel or sick contacts at home. He received a sublingual nitroglycerin in route with EMS but said it did not help. He otherwise did not take anything for his symptoms prior to presentation. Severity scale (0 -10): 10 - Related Data Previous Rx's Medication Instructions Recorded Last Taken Type Carvedilol [Coreg] 12.5 mg PO BID #60 tablet 04/16/17 Unknown Rx Furosemide [Lasix TAB] 40 mg PO BID #30 tablet 04/16/17 Unknown Rx Potassium Chloride [K-Dur] 20 meq PO QDAY #30 tablet 04/16/17 Unknown Rx Warfarin [Coumadin] 5 mg PO DAILY@1700 #30 tablet 04/16/17 Unknown Rx oxyCODONE /ACETAMINOPHEN [Percocet 2 tab PO Q4H PRN #15 tablet 04/16/17 Unknown Rx 5/325 mg] Allergies Allergy/AdvReac Type Severity Reaction Status Date / Time No Known Allergies Allergy Verified 02/18/17 13:00 Heart Score - HEART Score History: Slightly suspicious EKG: Normal Age: < 45 Risk factors: 1-2 risk factors Troponin: < normal limit HEART Score: 1 - Critical Actions Critical Actions: 0-3 pts:0.9-1.7%risk of adverse cardiac event.Candidate for discharge ED Review of Systems ROS: Stated complaint: CHEST PAIN Other details as noted in HPI Comment: All other systems reviewed and negative Constitutional: denies: chills, fever Eyes: denies: eye pain, eye discharge, vision change ENT: denies: ear pain, throat pain Respiratory: denies: cough, shortness of breath, wheezing Cardiovascular: chest pain. denies: palpitations Gastrointestinal: denies: abdominal pain, nausea, diarrhea Genitourinary: denies: urgency, dysuria Musculoskeletal: denies: back pain, joint swelling, arthralgia Skin: denies: rash, lesions Neurological: denies: headache, weakness, paresthesias ED Past Medical Hx - Past Medical History Previous Medical History?: Yes Hx Congestive Heart Failure: Yes Hx Diabetes: No Hx Asthma: No Hx COPD: No Additional medical history: pacer/defib. cardiomyopathy - Surgical History Hx Pacemaker: Yes Hx Internal Defibrillator: Yes (Placed 2012) - Social History Smoking Status: Never Smoker Substance Use Type: None - Medications Home Medications: Home Medications Medication Instructions Recorded Confirmed Last Taken Type Carvedilol [Coreg] 12.5 mg PO BID #60 tablet 04/16/17 Unknown Rx Furosemide [Lasix TAB] 40 mg PO BID #30 tablet 04/16/17 Unknown Rx Potassium Chloride [K-Dur] 20 meq PO QDAY #30 tablet 04/16/17 Unknown Rx Warfarin [Coumadin] 5 mg PO DAILY@1700 #30 tablet 04/16/17 Unknown Rx oxyCODONE /ACETAMINOPHEN [Percocet 2 tab PO Q4H PRN #15 tablet 04/16/17 Unknown Rx 5/325 mg] Medications and Allergies Allergies Allergy/AdvReac Type Severity Reaction Status Date / Time No Known Allergies Allergy Verified 02/18/17 13:00 Home Medications Medication Instructions Recorded Confirmed Last Taken Type Carvedilol [Coreg] 12.5 mg PO BID #60 tablet 04/16/17 05/10/17 05/08/17 08:00 Rx Furosemide [Lasix TAB] 40 mg PO BID #30 tablet 04/16/17 05/10/17 05/08/17 17:00 Rx Potassium Chloride [K-Dur] 20 meq PO QDAY #30 tablet 04/16/17 05/10/17 05/09/17 17:00 Rx Warfarin [Coumadin] 5 mg PO DAILY@1700 #30 tablet 04/16/17 05/10/17 05/09/17 17: 00 Rx oxyCODONE /ACETAMINOPHEN [Percocet 2 tab PO Q4H PRN #15 tablet 04/16/17 1 Day Ago Rx 5/325 mg] 1 Active Meds: Active Medications Heparin Sodium (Porcine) (Heparin) 5,000 unit SUB-Q Q8HR ENOC Exam - Constitutional Vitals: Temp Pulse Resp BP Pulse Ox 98.3 F 102 H 24 93/66 98 05/10/17 06:55 05/10/17 14:01 05/10/17 14:01 05/10/17 14:01 05/10/17 14:01 General appearance: Present: no acute distress, well-nourished - EENT Eyes: Present: PERRL ENT: hearing intact, clear oral mucosa - Neck Neck: Present: supple, normal ROM - Respiratory Respiratory effort: normal Respiratory: bilateral: CTA - Cardiovascular Heart rate: 80 Rhythm: regular Heart Sounds: Present: S1 & S2. Absent: rub, click - Extremities Extremities: pulses symmetrical, No edema Peripheral Pulses: within normal limits - Abdominal General gastrointestinal: Present: soft, non-tender, non-distended, normal bowel sounds Male genitourinary: Present: normal - Integumentary Integumentary: Present: clear, warm, dry - Musculoskeletal Musculoskeletal: gait normal, strength equal bilaterally - Psychiatric Psychiatric: appropriate mood/affect, intact judgment & insight - Neurologic Neurologic: CNII-XII intact, moves all extremities Results - Labs CBC & Chem 7: 05/10/17 16:43 05/10/17 16:43 Labs: Laboratory Last Values WBC 9.0 K/mm3 (4.5-11.0) 05/10/17 07:14 RBC 5.13 M/mm3 (3.65-5.03) H 05/10/17 07:14 Hgb 13.3 gm/dl (11.8-15.2) 05/10/17 07:14 Hct 42.0 % (35.5-45.6) 05/10/17 07:14 MCV 82 fl (84-94) L 05/10/17 07:14 MCH 26 pg (28-32) L 05/10/17 07:14 MCHC 32 % (32-34) 05/10/17 07:14 RDW 13.6 % (13.2-15.2) 05/10/17 07:14 Plt Count 181 K/mm3 (140-440) 05/10/17 07:14 Lymph % (Auto) 33.6 % (13.4-35.0) 05/10/17 07:14 [place] % (Auto) 6.7 % (0.0-7.3) 05/10/17 07:14 Eos % (Auto) 1.7 % (0.0-4.3) 05/10/17 07:14 Baso % (Auto) 0.8 % (0.0-1.8) 05/10/17 07:14 Lymph # 3.0 K/mm3 (1.2-5.4) 05/10/17 07:14 [place] # 0.6 K/mm3 (0.0-0.8) 05/10/17 07:14 Eos # 0.2 K/mm3 (0.0-0.4) 05/10/17 07:14 Baso # 0.1 K/mm3 (0.0-0.1) 05/10/17 07:14 Seg Neutrophils % 57.2 % (40.0-70.0) 05/10/17 07:14 Seg Neutrophils # 5.2 K/mm3 (1.8-7.7) 05/10/17 07:14 PT 15.1 Sec. (12.2-14.9) H 05/10/17 07:14 INR 1.13 (0.87-1.13) 05/10/17 07:14 APTT 29.3 Sec. (24.2-36.6) 05/10/17 07:14 D-Dimer 287.6 ng/mlDDU (0-234) H 05/10/17 07:14 Sodium 138 mmol/L (137-145) 05/10/17 07:14 Potassium 4.2 mmol/L (3.6-5.0) 05/10/17 07:14 Chloride 103.0 mmol/L (98-107) 05/10/17 07:14 Carbon Dioxide 21 mmol/L (22-30) L 05/10/17 07:14 Anion Gap 18 mmol/L 05/10/17 07:14 BUN 18 mg/dL (9-20) 05/10/17 07:14 Creatinine 1.2 mg/dL (0.8-1.5) 05/10/17 07:14 Estimated GFR > 60 ml/min 05/10/17 07:14 BUN/Creatinine Ratio 15.00 % 05/10/17 07:14 Glucose 105 mg/dL (75-100) H 05/10/17 07:14 Calcium 8.8 mg/dL (8.4-10.2) 05/10/17 07:14 Total Bilirubin 0.70 mg/dL (0.1-1.2) 05/10/17 07:14 AST 37 units/L (5-40) 05/10/17 07:14 ALT 27 units/L (7-56) 05/10/17 07:14 Alkaline Phosphatase 109 units/L (35-129) 05/10/17 07:14 Troponin T < 0.010 ng/mL (0.00-0.029) 05/10/17 13:09 NT-Pro-B Natriuret Pep 3906 pg/mL (0-450) H 05/10/17 07:14 Total Protein 6.8 g/dL (6.3-8.2) 05/10/17 07:14 Albumin 3.7 g/dL (3.9-5) L 05/10/17 07:14 Albumin/Globulin Ratio 1.2 % 05/10/17 07:14 Urine Color Straw (Yellow) 05/10/17 08:35 Urine Turbidity Clear (Clear) 05/10/17 08:35 Urine pH 6.0 (5.0-7.0) 05/10/17 08:35 Ur Specific [place] 1.006 (1.003-1.030) 05/10/17 08:35 Urine Protein <15 mg/dl mg/dL (Negative) 05/10/17 08:35 Urine Glucose (UA) Neg mg/dL (Negative) 05/10/17 08:35 Urine Ketones Neg mg/dL (Negative) 05/10/17 08:35 Urine Blood Neg (Negative) 05/10/17 08:35 Urine Nitrite Neg (Negative) 05/10/17 08:35 Urine Bilirubin Neg (Negative) 05/10/17 08:35 Urine Urobilinogen < 2.0 mg/dL (<2.0) 05/10/17 08:35 Ur Leukocyte Esterase Neg (Negative) 05/10/17 08:35 Urine WBC (Auto) < 1.0 /HPF (0.0-6.0) 05/10/17 08:35 Urine RBC (Auto) 1.0 /HPF (0.0-6.0) 05/10/17 08:35 Hyaline Casts 1 /LPF 05/10/17 08:35 Urine Mucus Few /HPF 05/10/17 08:35 Short CBC 05/10/17 05/10/17 Range/Units 07:14 16:43 WBC 9.0 9.4 (4.5-11.0) K/mm3 Hgb 13.3 13.5 (11.8-15.2) gm/dl Hct 42.0 42.7 (35.5-45.6) % Plt Count 181 187 (140-440) K/mm3 BMP 05/10/17 05/10/17 07:14 16:43 Sodium 138 139 Potassium 4.2 4.4 Chloride 103.0 99.8 Carbon Dioxide 21 L 26 BUN 18 18 Creatinine 1.2 1.2 Glucose 105 H 96 Calcium 8.8 8.9 Cardiac Enzymes 05/10/17 05/10/17 05/10/17 Range/Units 07:14 10:30 13:09 Total Creatine Kinase (55-170) units/L CK-MB (CK-2) (0.0-4.0) ng/mL Troponin T < 0.010 < 0.010 < 0.010 (0.00-0.029) ng/mL 05/10/17 05/10/17 05/10/17 Range/Units 16:43 16:43 22:46 Total Creatine Kinase 128 (55-170) units/L CK-MB (CK-2) 2.1 (0.0-4.0) ng/mL Troponin T < 0.010 < 0.010 (0.00-0.029) ng/mL 05/10/17 Range/Units 22:46 Total Creatine Kinase 131 (55-170) units/L CK-MB (CK-2) 2.1 (0.0-4.0) ng/mL Troponin T (0.00-0.029) ng/mL Liver Function 05/10/17 05/10/17 Range/Units 07:14 16:43 Total Bilirubin 0.70 1.10 (0.1-1.2) mg/dL AST 37 33 (5-40) units/L ALT 27 25 (7-56) units/L Alkaline Phosphatase 109 102 (35-129) units/L Albumin 3.7 L 3.9 (3.9-5) g/dL Urine 05/10/17 Range/Units 08:35 Urine Color Straw (Yellow) Urine pH 6.0 (5.0-7.0) Ur Specific [place] 1.006 (1.003-1.030) Urine Protein <15 mg/dl (Negative) mg/dL Urine Glucose (UA) Neg (Negative) mg/dL - Imaging and Cardiology EKG: report reviewed Chest x-ray: report reviewed Assessment and Plan Advance Directives: Yes (Full code) - Patient Problems (1) Acute on chronic systolic heart failure Current Visit: Yes Status: Acute Plan to address problem: Cont Lasix (2) Cardiomyopathy Current Visit: Yes Status: Chronic Qualifiers: Cardiomyopathy type: unspecified Plan to address problem: Cont Lasix (3) Acute coronary syndrome Current Visit: Yes Status: Acute Plan to address problem: Serial CE's and Lexiscan in AM (4) HTN (hypertension) Current Visit: Yes Status: Chronic Qualifiers: Hypertension type: essential hypertension Qualified Code(s): I10 - Essential (primary) hypertension Plan to address problem: Cont antihypertensives (5) DVT prophylaxis Current Visit: Yes Status: Acute Plan to address problem: Patient on coumadin
[2017-05-10] MEDS ORDERED: DULCOLAX PR PRN (16:32)
[2017-05-10] MEDS ORDERED: TYLENOL PO PRN (16:32)
[2017-05-10] MEDS ORDERED: MILK OF MAGNESIA PO PRN (16:32)
[2017-05-10] MEDS ORDERED: COUMADIN PO SCH (17:00)
[2017-05-10] MEDS: HEPARIN SUB-Q SCH ×2 (17:10→21:09)
[2017-05-10] MEDS: COUMADIN PO SCH (17:10)
[2017-05-10] MEDS: K-DUR PO SCH (17:10)
[2017-05-10 17:11] LABS: Basophils % (Auto) 0.5 % (0.0-1.8); Eosinophils % (Auto) 0.8 % (0.0-4.3); Hematocrit 42.7 % (35.5-45.6); Hemoglobin 13.5 gm/dl (11.8-15.2); Mean Corpuscular HGB Conc 32 % (32-34); Mean Corpuscular Hemoglobin 26 pg (28-32); Mean Corpuscular Volume 82 fl (84-94); Platelet Count 187 K/mm3 (140-440); Red Blood Count 5.21 M/mm3 (3.65-5.03); Red Cell Distribution Width 13.9 % (13.2-15.2); White Blood Count 9.4 K/mm3 (4.5-11.0)
[2017-05-10 17:27] LABS: Alanine Aminotransferase 25 units/L (7-56); Albumin 3.9 g/dL (3.9-5); Albumin/Globulin Ratio 1.3 %; Alkaline Phosphatase 102 units/L (35-129); Anion Gap 18 mmol/L; Blood Urea Nitrogen 18 mg/dL (9-20); Calcium 8.9 mg/dL (8.4-10.2); Carbon Dioxide 26 mmol/L (22-30); Chloride 99.8 mmol/L (98-107); Glucose 96 mg/dL (75-100); Potassium 4.4 mmol/L (3.6-5.0); Sodium 139 mmol/L (137-145); Total Protein 6.9 g/dL (6.3-8.2)
[2017-05-10 17:50] LABS: Creatine Kinase MB 2.1 ng/mL (0.0-4.0)
[2017-05-10] MEDS: DILAUDID IV PRN (21:19)
[2017-05-10] MEDS: COREG PO SCH (21:22)
[2017-05-10] MEDS: LASIX PO SCH (21:22)
[2017-05-10 23:20] LABS: Creatine Kinase MB 2.1 ng/mL (0.0-4.0)
[2017-05-11] MEDS: HEPARIN SUB-Q SCH ×3 (01:00→16:49)
--- NOTE | 2017-05-11 06:36 | Admit Criteria Form ---
Admission Criteria Documentation: CARDIOLOGY GRG Clinical Indications for Admission to Inpatient Care ( Place 'X' for any and all applicable criteria): Hospital admission is needed for appropriate care of the patient because of ANY ONE of the following (1): [ ] I. Hemodynamic instability as indicated by ALL of the following (1)(2)(3) (4)(5) [ ]a) Vital signs or other findings not as expected for chronic patient condition or baseline [ ]b) Instability indicated by ANY ONE of the following: [ ]i) Hypotension [ ]ii) Symptomatic Tachycardia unresponsive to treatment ( e.g., analgesia, fluids, sedation as indicated) [ ]iii) Inadequate perfusion indicated by ANY ONE of the following: [ ] 1) Lactic acidosis (> 2 mmol/L) [ ] 2) New abnormal capillary refill (> 3 seconds) [ ] 3) Reduced urine output [ ] 4) New altered mental status [ ]iv) Orthostatic vital sign changes unresponsive to treatment (e.g., fluids) [ ]v) IV inotropic or vasopressor medication required to maintain adequate blood pressure or perfusion [ ] II. Severe heart failure as indicated by ANY ONE of the following(17)(18) [ ]a) Respiratory distress [ ]b) Hypotension [ ]c) Anasarca (refractory to outpatient therapy) [ ]d) Cardiac arrhythmias of immediate concern [ ]e) Myocardial ischemia [ ] III. Cardiac arrhythmias or findings of immediate concern indicated by ANY ONE of the following (19)(20): [ ] a) Heart rhythms that are inherently dangerous or unstable indicated by ANY ONE of the following (21)(22)(23): [ ] i) Resuscitated ventricular fibrillation or cardiac arrest [ ] ii) Ventricular escape rhythm [ ] iii) Sustained ventricular tachycardia (30 seconds or more of ventricular rhythm at greater than 100 beats per minute) [ ] iv) Nonsustained ventricular tachycardia and ANY ONE of the following: [ ] 1) Suspected cardiac ischemia as cause or consequence of ventricular tachycardia [ ] 2) In setting of acute myocarditis [ ] b) Unstable cardiac conduction defects indicated by ANY ONE of the following(23)(24)(25) [ ] i) Type II second-degree atrioventricular block [ ]ii) Third-degree atrioventricular block [ ]iii) New-onset left bundle branch block with suspected myocardial ischemia [ ]c) Any heart rhythm and ANY ONE of the following (21)(22)(26)(27) (28) [ ] i) Continuous long-term ECG monitoring needed (e.g., initiation of drug requiring monitoring for more than 24 hours) [ ] ii) Patient has automatic implanted cardioverter defibrillator that is repeatedly firing, malfunctioning, or in need of immediate adjustment of settings beyond the scope of ambulatory or observation care [ ]d) Heart rhythms of concern due to ANY ONE of the following: [ ] i) Hypotension [ ] ii) Respiratory distress [ ] iii) Association with other significant symptoms (e.g., bradycardia with syncope or ongoing dizziness, supraventricular tachycardia with chest pain (14)(15)(17) [ ] IV. Monitoring for cardiac contusion beyond the scope of observation care needed [A](30)(31)(32) [ ] V. Surgical or device complication (e.g., valve replacement complication , pacemaker dysfunction) (35)(41)(44)(45)(46) [ ] . Inpatient palliative care needed. [B](49) Also use Inpatient Palliative Care Criteria [ ] VII. Nonbacterial thrombotic (marantic) endocarditis (36)(43)(47)(48) [X ] VIII. Cardiology condition, symptom, or finding for which emergency and observation care has failed or are not considered appropriate. [ ] IX. Acute valvular disease requiring inpatient as indicated by ANY ONE of the following (41) [ ]a) Acute valvular regurgitation (42) [ ]b) Noninfectious valvulitis (43) [ ]c) Obstructive valve thrombosis [ ]d) Paravalvular leak [ ]e) Other significant valvular disorder remaining after emergency or observation level of care (as appropriate) [ ]X. Pericardial disease requiring inpatient treatment as indicated by ANY ONE of the following (33)(34)(35)(36)(37) [ ]a) Suspected tamponade (38)(39)(40) [ ]b) Hemopericardium [ ]c) Other significant pericardial disorder remaining after emergency or observation level of care (as appropriate) [ ] XI. Cardiac ischemia beyond scope of emergency and observation care. [ ] XII. Hypertension requiring inpatient treatment as indicated by ANY ONE of the following (6)(7)(8) [ ]a) SBP greater than 220 mm Hg or DBP greater than 120 mmHg despite treatment [ ]b) SBP greater than 140 mm Hg or DBP greater than 100 mm Hg with evidence of acute end organ damage as indicated by ANY ONE of the following [ ] i) Altered mental status [ ] ii) Acute renal failure as indicated by new onset of ANY ONE of the following (9)(10)(11)(12)(13) [ ]1) 3-fold rise in serum creatinine from baseline [ ]2) Serum creatinine greater than 4 mg/dL ( 354 micromoles/L) with acute rise greater than 0.5 mg/dL (44.2 micromoles/L) [ ]3) Reduction of more than 75% in estimated glomerular filtration rate from baseline [ ]4) Estimated glomerular filtration rate less than 35 mL/min/1.73m2 (0.59 mL/sec/1.73m2) in child up to 18 years of age [ ]5) Cessation of urine output indicated by ALL of the following [ ]A. Adequate volume status [ ]B. Inadequate urine output as indicated by ANY ONE of the following [ ]a. Urine output less than 0.3 mL/kg/hr for 24 hours [ ]b. Anuria (urine output less than 0.1 mL/kg/hr) for 12 hours [ ] iii) Aortic dissection [ ] iv) Myocardial Ischemia [ ] v) Left ventricular heart failure [ ]vi) Retinal Hemorrhage [ ]vii) Other significant finding [ ]c) Hypertension in child requiring inpatient treatment as indicated by ALL of the following(14)(15)(16) [ ] i) Outpatient treatment not effective, not available, or not appropriate [ ]ii) SBP or DBP greater than 95th percentile for age [ ]iii) Evidence of acute end organ damage as indicated by ANY ONE of the following [ ]1) Altered mental status [ ]2) Acute renal failure as indicated by new onset of ANY ONE of the following(9)(10)(11)(12)(13) [ ]A. 3-fold rise in serum creatinine from baseline [ ]B. Serum creatinine greater than 4 mg/dL (354 micromoles/L) with acute rise greater than 0.5 mg/dL (44.2 micromoles/L) [ ]C. Reduction of more than 75% in estimated glomerular filtration rate from baseline [ ]D. Estimated glomerular filtration rate less than 35 mL/min/1.73m2 (0.59 mL/sec/1.73m2) in child up to 18 years of age [ ]E. Cessation of urine output indicated by ALL of the following [ ]a. Adequate volume status [ ]b. Inadequate urine output as indicated by ANY ONE of the following [ ]i) Urine output less than 0.3 mL/kg/hr for 24 hours [ ]ii) Anuria ( urine output less than 0.1 mL/kg/hr) for 12 hours [ ]3) Severe headache [ ]4) Visual disturbance [ ]5) Retinal hemorrhage [ ]6) Other significant finding [ ]XIII. Complications of transplanted heart indicated by ANY ONE of the following(61): [ ]a) Acute graft rejection requiring inpatient management (eg, intravenous immunosuppression)(62)(63) [ ]b) Acute graft heart failure indicated by ANY ONE of the following(64): [ ]i) Hemodynamic instability [ ]ii) Cardiac arrhythmias of immediate concern [ ]iii) Pulmonary edema that is very severe (eg, mechanical ventilation needed, imminent or likely, need for 100% oxygen to keep oxygen saturation above 90%) [ ]iv) Pulmonary edema that is persistent as indicated by ALL of the following: [ ]1) New need for oxygen therapy to keep oxygen saturation above 90% (or increased FiO2 need from baseline) [ ]2) Has not improved sufficiently with emergency department or observation care IV diuretics or other heart failure treatments[E] [ ]v) Altered mental status that is severe or persistent [ ]vi) Increased creatinine (new on laboratory test) with reduction of more than 50% in estimated glomerular filtration rate from baseline [ ]vii) Progressively (ongoing) rising creatinine (known from past laboratory test) with reduction of more than 25% in estimated glomerular filtration rate from baseline [ ]viii) Acute renal failure [ ]ix) Acute peripheral ischemia (eg, examination shows pulseless, cool, mottled, or cyanotic extremity) [ ]x) Pulmonary artery catheter monitoring needed [ ]xi) Other sign or symptom of heart failure requiring inpatient treatment (ie, too severe or not responsive to outpatient and observation care treatment) [ ]c) Infection requiring inpatient management (eg, Hemodynamic instability, need for intravenous antimicrobial treatment)(66)(67)(68)(69)(70) [ ]d) Cardiac allograft vasculopathy requiring inpatient management ( eg evidence of cardiac ischemia)(71) [ ]e) Other complication of transplanted heart (eg, stroke, severe pulmonary hypertension, severe valvular dysfunction) requiring inpatient management(72) The original [facility] [employer] content created by [facility] has been revised. The portions of the content which have been revised are identified through the use of italic text or in bold, and [facility] has neither reviewed nor approved the modified material. All other unmodified content is copyright [facility] [employer]. Please see references footnoted in the original [facility] [employer] edition 2016 Admission Criteria Met: Yes
[2017-05-11 06:40] LABS: Creatine Kinase MB 2.3 ng/mL (0.0-4.0)
[2017-05-11 07:58] LABS: INR 1.38 (0.87-1.13)
[2017-05-11] MEDS: K-DUR PO SCH (09:50)
[2017-05-11] MEDS: COREG PO SCH ×2 (09:50→21:25)
[2017-05-11] MEDS: LASIX PO SCH ×2 (09:50→21:26)
--- NOTE | 2017-05-11 11:21 | Discharge Summary ---
Providers - Providers Date of Admission: 05/10/17 12:37 Attending physician: THANIA MUNROE MD 05/10/17 16:32 Consult to Physician [CONS] Routine Consulting Provider: REE RODRIGUEZ Reason For Exam: CHF Place consult to:: [facility] Notified:: a service Phone number called:: [phone] Was contact made?: Yes Time called:: 18:04 Primary care physician: SENIOR [employer] TECH[employer]OLOGIST Hospitalization Condition: Stable Hospital course: patient is a 22-year-old male with history of systolic CHF resenting with shortness of breath going on for the last 24 hours and there is no history of chest pain, no history of fever or chills and no history of dizziness or cough. Patient was admitted for the management of acute on chronic systolic CHF exacerbation and he was put on Lasix and the patient's shortness of breath was getting better. Patient didn't have any edema. Patient's INR was 5.87. He has been on warfarin and has been taking regularly. Immediately after admission the patient states that he doesn't want to stay in the hospital. He said he has a flight to [place] to night. I have advised him about the risk benefit of getting treatment but the patient decided to go home. I also told him to hold his warfarin at least for 2 days and check INR and restart accordingly. Disposition: DC- LEFT AGAINST MED ADVICE Time spent for discharge: 31 minutes - Discharge Diagnoses (1) Acute on chronic systolic heart failure Status: Acute (2) Warfarin Status: Acute Qualifiers: Encounter type: E Injury intent: I (3) Coagulopathy Status: Acute Non compliance Disposition: DC- TO HOME OR SELFCARE Time spent for discharge: 33 minutes Core Measure Documentation - Palliative Care Palliative Care/ Comfort Measures: Not Applicable - Core Measures Any of the following diagnoses?: heart failure - Heart Failure Discharge Requirements NINA/ARB for LVSD if EF <40%: Yes Beta lucrecia at discharge: Yes Exam - Constitutional Vitals: Temp Pulse Resp BP Pulse Ox 97.8 F 99 H 18 105/73 100 05/11/17 11:02 05/11/17 11:02 05/11/17 11:02 05/11/17 11:02 05/11/17 11:02 General appearance: Present: no acute distress, well-nourished - EENT Eyes: Present: PERRL ENT: hearing intact, clear oral mucosa - Neck Neck: Present: supple, normal ROM - Respiratory Respiratory effort: normal Respiratory: bilateral: CTA - Cardiovascular Heart Sounds: Present: S1 & S2. Absent: rub, click - Extremities Extremities: pulses symmetrical, No edema Peripheral Pulses: within normal limits - Abdominal General gastrointestinal: Present: soft, non-tender, non-distended, normal bowel sounds Male genitourinary: Present: normal - Integumentary Integumentary: Present: clear, warm, dry - Musculoskeletal Musculoskeletal: gait normal, strength equal bilaterally - Psychiatric Psychiatric: appropriate mood/affect, intact judgment & insight - Neurologic Neurologic: CNII-XII intact, moves all extremities Plan Additional Instructions: Please follow up with [facility] in 2 to 3 days to have your INR (coumadin level) checked. Follow up with: PRIMARY CARE, [Primary Care Provider] - 3-5 Days REE RODRIGUEZ MD [Staff Physician] - 7 Days Forms: Warfarin Discharge Instruction Prescriptions: Carvedilol [Coreg] 12.5 mg PO BID #60 tablet Furosemide [Lasix TAB] 40 mg PO BID #30 tablet Potassium Chloride [K-Dur] 20 meq PO QDAY #30 tablet Warfarin [Coumadin] 5 mg PO DAILY@1700 #7 tablet
--- NOTE | 2017-05-11 11:47 | Consultation ---
History of Present Illness Consult date: 05/11/17 Consult reason: congestive heart failure History of present illness: Patient's a 22-year-old man who has a long-standing history of dilated nonischemic cardiomyopathy. Was previously managed in [place], where he underwent cardiac defibrillator implant several years ago. He was just admitted here last month for heart failure associated with poor compliance with medical therapy and poor compliance with dietary salt restriction. Last month, his left ventricular ejection fraction was 10-15% by echocardiogram. On his echo we found evidence of left ventricular smoke, which led to a recommendation for Coumadin therapy. He returns to the hospital at this time with symptoms of recurrent heart failure. There was fatigue, shortness of breath and chest pressure. Chest x- ray in addition to his underlying cardiomegaly, showed acute pulmonary edema. On further questioning, he was again poorly compliant with his medications which he hadn't taken for 3 days prior to admission, stating that he ran out. He was also noncompliant with his Coumadin, and INR was subtherapeutic at 1.38 Past History Past Medical History: heart failure Medications and Allergies Allergies Allergy/AdvReac Type Severity Reaction Status Date / Time No Known Allergies Allergy Verified 02/18/17 13:00 Home Medications Medication Instructions Recorded Confirmed Last Taken Type Carvedilol [Coreg] 12.5 mg PO BID #60 tablet 05/11/17 Unknown Rx Furosemide [Lasix TAB] 40 mg PO BID #30 tablet 05/11/17 Unknown Rx Potassium Chloride [K-Dur] 20 meq PO QDAY #30 tablet 05/11/17 Unknown Rx Warfarin [Coumadin] 5 mg PO DAILY@1700 #7 tablet 05/11/17 Unknown Rx Active Meds: Active Medications Acetaminophen (Tylenol) 650 mg PO Q4H PRN PRN Reason: Pain MILD(1-3)/Fever >100.5/NAVA Bisacodyl (Dulcolax) 10 mg LA QDAY PRN PRN Reason: Constipation unrelieved by MOM Carvedilol (Coreg) 12.5 mg PO BID [facility] Last Admin: 05/11/17 09:50 Dose: 12.5 mg Furosemide (Lasix) 40 mg PO BID [facility] Last Admin: 05/11/17 09:50 Dose: 40 mg Heparin Sodium (Porcine) (Heparin) 5,000 unit SUB-Q Q8H [facility] Last Admin: 05/11/17 10:30 Dose: 5,000 unit Hydromorphone HCl (Dilaudid) 0.5 mg IV Q3H PRN PRN Reason: Pain , Severe (7-10) Last Admin: 05/10/17 21:19 Dose: 0.5 mg Magnesium Hydroxide (Milk Of Magnesia) 30 ml PO Q4H PRN PRN Reason: Constipation Ondansetron HCl (Zofran) 4 mg IV Q8H PRN PRN Reason: N/V unrelieved by Reglan Oxycodone/Acetaminophen (Percocet 5/325) 2 tab PO Q4H PRN PRN Reason: Pain, Moderate (4-6) Potassium Chloride (K-Dur) 20 meq PO QDAY [facility] Last Admin: 05/11/17 09:50 Dose: 20 meq Warfarin Sodium (Coumadin) 7.5 mg PO DAILY@1700 [facility] Last Admin: 05/10/17 17:10 Dose: 7.5 mg Review of Systems Cardiovascular: chest pain, orthopnea, shortness of breath, dyspnea on exertion , no palpitations, no rapid/irregular heart beat, no edema, no syncope, no lightheadedness Physical Examination Vital Signs Pulse Resp Pulse Ox 97 H 34 H 100 05/10/17 06:50 05/10/17 06:50 05/10/17 06:50 General appearance: no acute distress HEENT: Positive: PERRL Neck: Positive: neck supple Cardiac: Positive: Reg Rate and Rhythm Lungs: Positive: Decreased Breath Sounds Neuro: Positive: Grossly Intact Abdomen: Positive: Soft Male genitourinary: Positive: deferred Skin: Positive: Clear Extremities: Absent: edema Results 05/10/17 16:43 05/10/17 16:43 Cardiac Enzymes 05/10/17 05/10/17 05/10/17 Range/Units 16:43 16:43 22:46 AST 33 (5-40) units/L CK-MB (CK-2) 2.1 2.1 (0.0-4.0) ng/mL 05/11/17 Range/Units 05:38 AST (5-40) units/L CK-MB (CK-2) 2.3 (0.0-4.0) ng/mL Coagulation 05/11/17 Range/Units 07:22 PT 17.7 H (12.2-14.9) Sec. INR 1.38 H (0.87-1.13) CBC 05/10/17 Range/Units 16:43 WBC 9.4 (4.5-11.0) K/mm3 RBC 5.21 H (3.65-5.03) M/mm3 Hgb 13.5 (11.8-15.2) gm/dl Hct 42.7 (35.5-45.6) % Plt Count 187 (140-440) K/mm3 Lymph # 2.7 (1.2-5.4) K/mm3 [place] # 0.8 (0.0-0.8) K/mm3 Eos # 0.1 (0.0-0.4) K/mm3 Baso # 0.0 (0.0-0.1) K/mm3 Comprehensive Metabolic Panel 05/10/17 Range/Units 16:43 Sodium 139 (137-145) mmol/L Potassium 4.4 (3.6-5.0) mmol/L Chloride 99.8 (98-107) mmol/L Carbon Dioxide 26 (22-30) mmol/L BUN 18 (9-20) mg/dL Creatinine 1.2 (0.8-1.5) mg/dL Glucose 96 (75-100) mg/dL Calcium 8.9 (8.4-10.2) mg/dL AST 33 (5-40) units/L ALT 25 (7-56) units/L Alkaline Phosphatase 102 (35-129) units/L Total Protein 6.9 (6.3-8.2) g/dL Albumin 3.9 (3.9-5) g/dL EKG interpretations - Telemetry EKG Rhythm: Sinus Rhythm Assessment and Plan - Patient Problems (1) Acute on chronic systolic heart failure Current Visit: Yes Status: Acute Plan to address problem: Patient presents with acute on chronic systolic heart failure, due to poor compliance. We will treat him with intravenous diuretics, and the trial of intravenous milrinone therapy. Ultimately in addition to strict compliance with medications and diet, he will be referred as an outpatient to the [facility] center for consideration of future transplant.
[2017-05-11] MEDS: COUMADIN PO SCH (16:48)
[2017-05-11] MEDS: PRIMACOR 20 MG in D5W 80 ML IV SCH (21:25)
--- NOTE | 2017-05-12 00:19 | Progress Note ---
Assessment and Plan Assessment and plan: 22-year-old male presents to the emergency department via EMS from home with complaint of left-sided chest pain that began about 1 hour prior to presentation NICM, systolic CHF acute exarcebation with EF 10% * continue lasix * cased discussed with Dr Oakes of cardiology * start milrinone drip * Continue Coumadin. at risk of emboli forming heart due to severe CHF Non compliance was counseled and he verbalized understanding he will try to fup with [facility] and will take his meds, and low Na diet History Interval history: Patient states her shortness of breath is much improved, continue his activity and exertion Hospitalist Physical - Physical exam Narrative exam: General: Patient appears well in no distress HEENT: MMM, EOMI cardiac: S1-S2 heard lungs: Decreased air entry in the bases abdomen: soft, nontender, nondistended bowel sounds positive extremities: no edema clubbing or cyanosis Skin: no rash or lesion Neuro: no focal deficit Psych: appropriate behavior and mood, cognition intact - Constitutional Vitals: Temp Pulse Resp BP Pulse Ox 98.0 F 107 H 20 105/59 97 05/11/17 20:13 05/11/17 21:37 05/11/17 21:37 05/11/17 20:13 05/11/17 21:37 General appearance: Present: no acute distress Results - Labs CBC & Chem 7: 05/10/17 16:43 05/10/17 16:43 Labs: Laboratory Last Values WBC 9.4 K/mm3 (4.5-11.0) 05/10/17 16:43 RBC 5.21 M/mm3 (3.65-5.03) H 05/10/17 16:43 Hgb 13.5 gm/dl (11.8-15.2) 05/10/17 16:43 Hct 42.7 % (35.5-45.6) 05/10/17 16:43 MCV 82 fl (84-94) L 05/10/17 16:43 MCH 26 pg (28-32) L 05/10/17 16:43 MCHC 32 % (32-34) 05/10/17 16:43 RDW 13.9 % (13.2-15.2) 05/10/17 16:43 Plt Count 187 K/mm3 (140-440) 05/10/17 16:43 Lymph % (Auto) 28.4 % (13.4-35.0) 05/10/17 16:43 [place] % (Auto) 8.1 % (0.0-7.3) H 05/10/17 16:43 Eos % (Auto) 0.8 % (0.0-4.3) 05/10/17 16:43 Baso % (Auto) 0.5 % (0.0-1.8) 05/10/17 16:43 Lymph # 2.7 K/mm3 (1.2-5.4) 05/10/17 16:43 [place] # 0.8 K/mm3 (0.0-0.8) 05/10/17 16:43 Eos # 0.1 K/mm3 (0.0-0.4) 05/10/17 16:43 Baso # 0.0 K/mm3 (0.0-0.1) 05/10/17 16:43 Seg Neutrophils % 62.2 % (40.0-70.0) 05/10/17 16:43 Seg Neutrophils # 5.8 K/mm3 (1.8-7.7) 05/10/17 16:43 PT 17.7 Sec. (12.2-14.9) H 05/11/17 07:22 INR 1.38 (0.87-1.13) H 05/11/17 07:22 APTT 29.3 Sec. (24.2-36.6) 05/10/17 07:14 D-Dimer 287.6 ng/mlDDU (0-234) H 05/10/17 07:14 Sodium 139 mmol/L (137-145) 05/10/17 16:43 Potassium 4.4 mmol/L (3.6-5.0) 05/10/17 16:43 Chloride 99.8 mmol/L (98-107) 05/10/17 16:43 Carbon Dioxide 26 mmol/L (22-30) 05/10/17 16:43 Anion Gap 18 mmol/L 05/10/17 16:43 BUN 18 mg/dL (9-20) 05/10/17 16:43 Creatinine 1.2 mg/dL (0.8-1.5) 05/10/17 16:43 Estimated GFR > 60 ml/min 05/10/17 16:43 BUN/Creatinine Ratio 15.00 % 05/10/17 16:43 Glucose 96 mg/dL (75-100) 05/10/17 16:43 Hemoglobin A1c 6.1 % (4-6) H 05/10/17 16:43 Calcium 8.9 mg/dL (8.4-10.2) 05/10/17 16:43 Total Bilirubin 1.10 mg/dL (0.1-1.2) 05/10/17 16:43 AST 33 units/L (5-40) 05/10/17 16:43 ALT 25 units/L (7-56) 05/10/17 16:43 Alkaline Phosphatase 102 units/L (35-129) 05/10/17 16:43 Total Creatine Kinase 150 units/L (55-170) 05/11/17 05:38 CK-MB (CK-2) 2.3 ng/mL (0.0-4.0) 05/11/17 05:38 CK-MB (CK-2) Rel Index 1.5 (0-4) 05/11/17 05:38 Troponin T < 0.010 ng/mL (0.00-0.029) 05/11/17 05:38 NT-Pro-B Natriuret Pep 3906 pg/mL (0-450) H 05/10/17 07:14 Total Protein 6.9 g/dL (6.3-8.2) 05/10/17 16:43 Albumin 3.9 g/dL (3.9-5) 05/10/17 16:43 Albumin/Globulin Ratio 1.3 % 05/10/17 16:43 Urine Color Straw (Yellow) 05/10/17 08:35 Urine Turbidity Clear (Clear) 05/10/17 08:35 Urine pH 6.0 (5.0-7.0) 05/10/17 08:35 Ur Specific [place] 1.006 (1.003-1.030) 05/10/17 08:35 Urine Protein <15 mg/dl mg/dL (Negative) 05/10/17 08:35 Urine Glucose (UA) Neg mg/dL (Negative) 05/10/17 08:35 Urine Ketones Neg mg/dL (Negative) 05/10/17 08:35 Urine Blood Neg (Negative) 05/10/17 08:35 Urine Nitrite Neg (Negative) 05/10/17 08:35 Urine Bilirubin Neg (Negative) 05/10/17 08:35 Urine Urobilinogen < 2.0 mg/dL (<2.0) 05/10/17 08:35 Ur Leukocyte Esterase Neg (Negative) 05/10/17 08:35 Urine WBC (Auto) < 1.0 /HPF (0.0-6.0) 05/10/17 08:35 Urine RBC (Auto) 1.0 /HPF (0.0-6.0) 05/10/17 08:35 Hyaline Casts 1 /LPF 05/10/17 08:35 Urine Mucus Few /HPF 05/10/17 08:35
[2017-05-12] MEDS: HEPARIN SUB-Q SCH ×2 (01:13→20:29)
[2017-05-12] MEDS: DILAUDID IV PRN ×3 (01:16→20:25)
[2017-05-12] MEDS: PERCOCET 5/325 PO PRN ×3 (02:50→22:30)
[2017-05-12 06:31] LABS: INR 2.18 (0.87-1.13)
[2017-05-12] MEDS: PRIMACOR 20 MG in D5W 80 ML IV SCH ×2 (10:53→20:24)
[2017-05-12] MEDS: LASIX PO SCH ×2 (10:53→21:59)
[2017-05-12] MEDS: COREG PO SCH ×2 (10:54→22:00)
[2017-05-12] MEDS: K-DUR PO SCH (10:54)
--- NOTE | 2017-05-12 11:59 | Progress Note ---
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 Dietary restrictions. Subjective Date of service: 05/12/17 Interval history: Breathing is better. Continues on IV milrinone. Objective Vital Signs Temp Pulse Pulse Pulse Pulse Resp BP 05/12/17 08:35 98.0 F 92 H 18 05/12/17 04:00 98.0 F 78 78 78 16 116/68 05/12/17 00:33 98.2 F 90 90 90 20 86/57 05/11/17 21:37 107 H 20 05/11/17 20:13 98.0 F 95 H 95 H 95 H 20 105/59 05/11/17 19:00 89 05/11/17 15:14 98.2 F 97 H 97 H 97 H 18 102/58 BP Pulse Ox 05/12/17 08:35 91/73 97 05/12/17 04:00 98 05/12/17 00:33 99 05/11/17 21:37 97 05/11/17 20:13 95 05/11/17 19:00 05/11/17 15:14 99 - Physical Examination General: No Apparent Distress HEENT: Positive: PERRL Neck: Positive: trachea midline Cardiac: Positive: Reg Rate and Rhythm Lungs: Positive: Decreased Breath Sounds Neuro: Positive: Grossly Intact - Labs and Meds Coagulation 05/12/17 Range/Units 05:58 PT 25.4 H (12.2-14.9) Sec. INR 2.18 H (0.87-1.13) - Imaging and Cardiology EKG: report reviewed
--- NOTE | 2017-05-12 15:42 | Progress Note ---
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 DVT/GI prophy Plan of care discussed with face painter and with patient in detail . History Interval history: Patient seen and examined in no acute distress discussed with patient about compliance of medication states that he was being asked to pay $100 for his medications moderately could not afford it. He wants to know if he can get around at home also. He states it's making him feel better. He any chest pain. He denies any exertional dyspnea today. No other adverse event reported to me by nursing staff Hospitalist Physical - Physical exam Narrative exam: VITAL SIGNS: Reviewed. GENERAL: The patient appeared well nourished and normally developed. Vital signs as documented. HEAD: No signs of head trauma. EYES: Pupils are equal. Extraocular motions intact. EARS: Hearing grossly intact. MOUTH: Oropharynx is normal. NECK: No adenopathy, no JVD. CHEST: Chest with clear breath sounds bilaterally. No wheezes, rales, or rhonchi. CARDIAC: Regular rate and rhythm. S1 and S2, without murmurs, gallops, or rubs. VASCULAR: Trace Edema. Peripheral pulses normal and equal in all extremities. ABDOMEN: Soft, without detectable tenderness. No sign of distention. No rebound or guarding, and no masses palpated. Bowel Sounds normal. MUSCULOSKELETAL: Good range of motion of all major joints. Extremities without clubbing, cyanosis and trace edema noted . NEUROLOGIC EXAM: Alert and oriented x 3. No focal sensory or strength deficits. Speech normal. Follows commands. PSYCHIATRIC: Mood normal. SKIN: Multiple skin tattoos, AICD left chest wall area noted. - Constitutional Vitals: Temp Pulse Resp BP Pulse Ox 98.0 F 95 H 18 91/73 97 05/12/17 08:35 05/12/17 09:00 05/12/17 08:35 05/12/17 08:35 05/12/17 10:00 General appearance: Present: no acute distress Results - Labs CBC & Chem 7: 05/10/17 16:43 05/10/17 16:43 Labs: Laboratory Last Values WBC 9.4 K/mm3 (4.5-11.0) 05/10/17 16:43 RBC 5.21 M/mm3 (3.65-5.03) H 05/10/17 16:43 Hgb 13.5 gm/dl (11.8-15.2) 05/10/17 16:43 Hct 42.7 % (35.5-45.6) 05/10/17 16:43 MCV 82 fl (84-94) L 05/10/17 16:43 MCH 26 pg (28-32) L 05/10/17 16:43 MCHC 32 % (32-34) 05/10/17 16:43 RDW 13.9 % (13.2-15.2) 05/10/17 16:43 Plt Count 187 K/mm3 (140-440) 05/10/17 16:43 Lymph % (Auto) 28.4 % (13.4-35.0) 05/10/17 16:43 [place] % (Auto) 8.1 % (0.0-7.3) H 05/10/17 16:43 Eos % (Auto) 0.8 % (0.0-4.3) 05/10/17 16:43 Baso % (Auto) 0.5 % (0.0-1.8) 05/10/17 16:43 Lymph # 2.7 K/mm3 (1.2-5.4) 05/10/17 16:43 [place] # 0.8 K/mm3 (0.0-0.8) 05/10/17 16:43 Eos # 0.1 K/mm3 (0.0-0.4) 05/10/17 16:43 Baso # 0.0 K/mm3 (0.0-0.1) 05/10/17 16:43 Seg Neutrophils % 62.2 % (40.0-70.0) 05/10/17 16:43 Seg Neutrophils # 5.8 K/mm3 (1.8-7.7) 05/10/17 16:43 PT 25.4 Sec. (12.2-14.9) H 05/12/17 05:58 INR 2.18 (0.87-1.13) H 05/12/17 05:58 APTT 29.3 Sec. (24.2-36.6) 05/10/17 07:14 D-Dimer 287.6 ng/mlDDU (0-234) H 05/10/17 07:14 Sodium 139 mmol/L (137-145) 05/10/17 16:43 Potassium 4.4 mmol/L (3.6-5.0) 05/10/17 16:43 Chloride 99.8 mmol/L (98-107) 05/10/17 16:43 Carbon Dioxide 26 mmol/L (22-30) 05/10/17 16:43 Anion Gap 18 mmol/L 05/10/17 16:43 BUN 18 mg/dL (9-20) 05/10/17 16:43 Creatinine 1.2 mg/dL (0.8-1.5) 05/10/17 16:43 Estimated GFR > 60 ml/min 05/10/17 16:43 BUN/Creatinine Ratio 15.00 % 05/10/17 16:43 Glucose 96 mg/dL (75-100) 05/10/17 16:43 Hemoglobin A1c 6.1 % (4-6) H 05/10/17 16:43 Calcium 8.9 mg/dL (8.4-10.2) 05/10/17 16:43 Total Bilirubin 1.10 mg/dL (0.1-1.2) 05/10/17 16:43 AST 33 units/L (5-40) 05/10/17 16:43 ALT 25 units/L (7-56) 05/10/17 16:43 Alkaline Phosphatase 102 units/L (35-129) 05/10/17 16:43 Total Creatine Kinase 150 units/L (55-170) 05/11/17 05:38 CK-MB (CK-2) 2.3 ng/mL (0.0-4.0) 05/11/17 05:38 CK-MB (CK-2) Rel Index 1.5 (0-4) 05/11/17 05:38 Troponin T < 0.010 ng/mL (0.00-0.029) 05/11/17 05:38 NT-Pro-B Natriuret Pep 3906 pg/mL (0-450) H 05/10/17 07:14 Total Protein 6.9 g/dL (6.3-8.2) 05/10/17 16:43 Albumin 3.9 g/dL (3.9-5) 05/10/17 16:43 Albumin/Globulin Ratio 1.3 % 05/10/17 16:43 Urine Color Straw (Yellow) 05/10/17 08:35 Urine Turbidity Clear (Clear) 05/10/17 08:35 Urine pH 6.0 (5.0-7.0) 05/10/17 08:35 Ur Specific [place] 1.006 (1.003-1.030) 05/10/17 08:35 Urine Protein <15 mg/dl mg/dL (Negative) 05/10/17 08:35 Urine Glucose (UA) Neg mg/dL (Negative) 05/10/17 08:35 Urine Ketones Neg mg/dL (Negative) 05/10/17 08:35 Urine Blood Neg (Negative) 05/10/17 08:35 Urine Nitrite Neg (Negative) 05/10/17 08:35 Urine Bilirubin Neg (Negative) 05/10/17 08:35 Urine Urobilinogen < 2.0 mg/dL (<2.0) 05/10/17 08:35 Ur Leukocyte Esterase Neg (Negative) 05/10/17 08:35 Urine WBC (Auto) < 1.0 /HPF (0.0-6.0) 05/10/17 08:35 Urine RBC (Auto) 1.0 /HPF (0.0-6.0) 05/10/17 08:35 Hyaline Casts 1 /LPF 05/10/17 08:35 Urine Mucus Few /HPF 05/10/17 08:35 - Imaging and Cardiology CT scan - chest: image reviewed (interstitial bilateral infiltrates)
[2017-05-12] MEDS ORDERED: COUMADIN PO SCH (17:00)
[2017-05-12] MEDS: ZOFRAN IV PRN (21:59)
[2017-05-13] MEDS: DILAUDID IV PRN ×2 (00:07→04:31)
[2017-05-13] MEDS: PERCOCET 5/325 PO PRN ×3 (02:55→21:05)
[2017-05-13] MEDS: ZOFRAN IV PRN (04:32)
[2017-05-13] MEDS: PRIMACOR 20 MG in D5W 80 ML IV SCH ×2 (05:38→14:45)
[2017-05-13 09:01] LABS: INR 2.74 (0.87-1.13)
--- NOTE | 2017-05-13 09:51 | Progress Note ---
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 Dietary/fluid restrictions. Subjective Date of service: 05/13/17 Interval history: IV milrinone continues. Objective Vital Signs Temp Pulse Pulse Resp BP BP Pulse Ox 05/13/17 05:18 98.1 F 85 18 109/58 99 05/13/17 00:28 97.4 F L 83 20 99/64 99 05/12/17 22:00 95 H 108/79 05/12/17 21:00 95 H 05/12/17 20:49 97.7 F 95 H 18 108/79 100 05/12/17 18:15 20 05/12/17 17:05 98.4 F 96 H 18 117/73 93 05/12/17 10:00 97 - Physical Examination General: No Apparent Distress HEENT: Positive: PERRL Neck: Positive: trachea midline Cardiac: Positive: Reg Rate and Rhythm Neuro: Positive: Grossly Intact Abdomen: Positive: Soft Skin: Positive: Clear Extremities: Absent: edema - Labs and Meds Coagulation 05/13/17 Range/Units 08:13 PT 30.5 H (12.2-14.9) Sec. INR 2.74 H (0.87-1.13) - Imaging and Cardiology EKG: report reviewed
[2017-05-13] MEDS: COREG PO SCH ×2 (11:02→22:08)
[2017-05-13] MEDS: K-DUR PO SCH (11:02)
[2017-05-13] MEDS: LASIX PO SCH ×2 (11:07→22:08)
--- NOTE | 2017-05-13 16:41 | Progress Note ---
Assessment and Plan Assessment and plan: Patient is a 22-year-old male with hx of congestive heart failure, non ischemic cardiomyopathy s/p AICD presents to the emergency department via EMS from home with complaint of left-sided chest pain that began about 1 hour prior to presentation Systolic CHF acute exarcebation with EF 10%- Endstage per cardiology continue lasix, BB, cardiac diet ContInue milrinone drip anticipated completion later tonight and if patient continues to do with discharge in the a.m. Cardiology following Case management/social work consult for disability and medication, insurance support. Case management has looked into this a patient reports that he has applied for insurance and disability since 2014 I suspect an approval in upcoming months. 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 DVT/GI prophy Plan of care discussed with supervisor finish end and with patient in detail . History Interval history: Patient seen and examined in no acute distress, No other adverse event reported to me by nursing staff Hospitalist Physical - Physical exam Narrative exam: VITAL SIGNS: Reviewed. GENERAL: The patient appeared well nourished and normally developed. Vital signs as documented. HEAD: No signs of head trauma. EYES: Pupils are equal. Extraocular motions intact. EARS: Hearing grossly intact. MOUTH: Oropharynx is normal. NECK: No adenopathy, no JVD. CHEST: Chest with clear breath sounds bilaterally. No wheezes, rales, or rhonchi. CARDIAC: Regular rate and rhythm. S1 and S2, without murmurs, gallops, or rubs. VASCULAR: Trace Edema. Peripheral pulses normal and equal in all extremities. ABDOMEN: Soft, without detectable tenderness. No sign of distention. No rebound or guarding, and no masses palpated. Bowel Sounds normal. MUSCULOSKELETAL: Good range of motion of all major joints. Extremities without clubbing, cyanosis and trace edema noted . NEUROLOGIC EXAM: Alert and oriented x 3. No focal sensory or strength deficits. Speech normal. Follows commands. PSYCHIATRIC: Mood normal. SKIN: Multiple skin tattoos, AICD left chest wall area noted. - Constitutional Vitals: Temp Pulse Resp BP Pulse Ox 98.7 F 82 18 95/52 98 05/13/17 15:18 05/13/17 15:18 05/13/17 15:18 05/13/17 15:18 05/13/17 15:18 General appearance: Present: no acute distress Results - Labs CBC & Chem 7: 05/10/17 16:43 05/10/17 16:43 Labs: Laboratory Last Values WBC 9.4 K/mm3 (4.5-11.0) 05/10/17 16:43 RBC 5.21 M/mm3 (3.65-5.03) H 05/10/17 16:43 Hgb 13.5 gm/dl (11.8-15.2) 05/10/17 16:43 Hct 42.7 % (35.5-45.6) 05/10/17 16:43 MCV 82 fl (84-94) L 05/10/17 16:43 MCH 26 pg (28-32) L 05/10/17 16:43 MCHC 32 % (32-34) 05/10/17 16:43 RDW 13.9 % (13.2-15.2) 05/10/17 16:43 Plt Count 187 K/mm3 (140-440) 05/10/17 16:43 Lymph % (Auto) 28.4 % (13.4-35.0) 05/10/17 16:43 [place] % (Auto) 8.1 % (0.0-7.3) H 05/10/17 16:43 Eos % (Auto) 0.8 % (0.0-4.3) 05/10/17 16:43 Baso % (Auto) 0.5 % (0.0-1.8) 05/10/17 16:43 Lymph # 2.7 K/mm3 (1.2-5.4) 05/10/17 16:43 [place] # 0.8 K/mm3 (0.0-0.8) 05/10/17 16:43 Eos # 0.1 K/mm3 (0.0-0.4) 05/10/17 16:43 Baso # 0.0 K/mm3 (0.0-0.1) 05/10/17 16:43 Seg Neutrophils % 62.2 % (40.0-70.0) 05/10/17 16:43 Seg Neutrophils # 5.8 K/mm3 (1.8-7.7) 05/10/17 16:43 PT 30.5 Sec. (12.2-14.9) H 05/13/17 08:13 INR 2.74 (0.87-1.13) H 05/13/17 08:13 APTT 29.3 Sec. (24.2-36.6) 05/10/17 07:14 D-Dimer 287.6 ng/mlDDU (0-234) H 05/10/17 07:14 Sodium 139 mmol/L (137-145) 05/10/17 16:43 Potassium 4.4 mmol/L (3.6-5.0) 05/10/17 16:43 Chloride 99.8 mmol/L (98-107) 05/10/17 16:43 Carbon Dioxide 26 mmol/L (22-30) 05/10/17 16:43 Anion Gap 18 mmol/L 05/10/17 16:43 BUN 18 mg/dL (9-20) 05/10/17 16:43 Creatinine 1.2 mg/dL (0.8-1.5) 05/10/17 16:43 Estimated GFR > 60 ml/min 05/10/17 16:43 BUN/Creatinine Ratio 15.00 % 05/10/17 16:43 Glucose 96 mg/dL (75-100) 05/10/17 16:43 Hemoglobin A1c 6.1 % (4-6) H 05/10/17 16:43 Calcium 8.9 mg/dL (8.4-10.2) 05/10/17 16:43 Total Bilirubin 1.10 mg/dL (0.1-1.2) 05/10/17 16:43 AST 33 units/L (5-40) 05/10/17 16:43 ALT 25 units/L (7-56) 05/10/17 16:43 Alkaline Phosphatase 102 units/L (35-129) 05/10/17 16:43 Total Creatine Kinase 150 units/L (55-170) 05/11/17 05:38 CK-MB (CK-2) 2.3 ng/mL (0.0-4.0) 05/11/17 05:38 CK-MB (CK-2) Rel Index 1.5 (0-4) 05/11/17 05:38 Troponin T < 0.010 ng/mL (0.00-0.029) 05/11/17 05:38 NT-Pro-B Natriuret Pep 3906 pg/mL (0-450) H 05/10/17 07:14 Total Protein 6.9 g/dL (6.3-8.2) 05/10/17 16:43 Albumin 3.9 g/dL (3.9-5) 05/10/17 16:43 Albumin/Globulin Ratio 1.3 % 05/10/17 16:43 Urine Color Straw (Yellow) 05/10/17 08:35 Urine Turbidity Clear (Clear) 05/10/17 08:35 Urine pH 6.0 (5.0-7.0) 05/10/17 08:35 Ur Specific [place] 1.006 (1.003-1.030) 05/10/17 08:35 Urine Protein <15 mg/dl mg/dL (Negative) 05/10/17 08:35 Urine Glucose (UA) Neg mg/dL (Negative) 05/10/17 08:35 Urine Ketones Neg mg/dL (Negative) 05/10/17 08:35 Urine Blood Neg (Negative) 05/10/17 08:35 Urine Nitrite Neg (Negative) 05/10/17 08:35 Urine Bilirubin Neg (Negative) 05/10/17 08:35 Urine Urobilinogen < 2.0 mg/dL (<2.0) 05/10/17 08:35 Ur Leukocyte Esterase Neg (Negative) 05/10/17 08:35 Urine WBC (Auto) < 1.0 /HPF (0.0-6.0) 05/10/17 08:35 Urine RBC (Auto) 1.0 /HPF (0.0-6.0) 05/10/17 08:35 Hyaline Casts 1 /LPF 05/10/17 08:35 Urine Mucus Few /HPF 05/10/17 08:35
[2017-05-13] MEDS ORDERED: COUMADIN PO SCH (17:00)
[2017-05-14 06:06] VITALS: BP 103/54
[2017-05-14 06:38] LABS: INR 2.74 (0.87-1.13)
--- NOTE | 2017-05-14 08:34 | Discharge Summary ---
Providers - Providers Date of Admission: 05/10/17 12:37 Date of discharge: 05/14/17 Attending physician: VISHNU GONZALEZ MD 05/10/17 16:32 Consult to Physician [CONS] Routine Consulting Provider: REE RODRIGUEZ Reason For Exam: CHF Place consult to:: [facility] Notified:: a service Phone number called:: [phone] Was contact made?: Yes Time called:: 18:04 05/12/17 15:42 Consult to Case Management [CONS] Routine Services Needed at Discharge: Hadoop Administrator Notified:: cm notified Additional Physician Instructions: PER CARDIOLOGY While the patient is here on HF therapy , I have recommended to social worker palliative care to intervene in his situation and strongly recommended that he is referred for disability support and Medicaid for his medications and outpatient visits. He has end-stage heart failure, is unable to withstand the physical rigors of paid employment, and as an outpatient he will be referred for heart transplant evaluation. Primary care physician: SAFETY EQUIPMENT TESTING SPECIALIST Hospitalization Reason for admission: chest pain or shortness of breath Condition: Stable Hospital course: Patient is a 22-year-old male with hx of congestive heart failure, non ischemic cardiomyopathy s/p AICD presents to the emergency department via EMS from home with complaint of left-sided chest pain that began about 1 hour prior to presentation Systolic CHF acute exarcebation with EF 10%- Endstage per cardiology Patient was treated with continue lasix, BB, cardiac diet Patient was also started on 72 hours of milrinone drip a Case management/social work consult for disability and medication, insurance support. Case management has looked into this a patient reports that he has applied for insurance and disability since 2014 I suspect an approval in upcoming months. Cardiology recommended evaluation for heart transplant on follow-up. This will be arranged at a facility if patient continues to follow. 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 Extensive counseling was provided to the patient in regards to this. Patient was very eager to leave the hospital and kept screaming while he walked away that "I know everything that is going on and I now know what to do want to do it." Medications were discussed in detail and the patient verbalized understanding Disposition: DC-01 TO HOME OR SELFCARE Time spent for discharge: 35 mins Core Measure Documentation - Palliative Care Palliative Care/ Comfort Measures: Not Applicable - Core Measures Any of the following diagnoses?: heart failure - VTE Discharge Requirements Deep Vein Thrombosis/Pulmonary Embolism Present on Admission: No - Heart Failure Discharge Requirements NINA/ARB for LVSD if EF <40%: Yes Beta lucrecia at discharge: Yes Reason for no beta lucrecia on DC: Hypotension Exam - Physical Exam Narrative exam: VITAL SIGNS: Reviewed. GENERAL: The patient appeared well nourished and normally developed. Vital signs as documented. HEAD: No signs of head trauma. EYES: Pupils are equal. Extraocular motions intact. EARS: Hearing grossly intact. MOUTH: Oropharynx is normal. NECK: No adenopathy, no JVD. CHEST: Chest with clear breath sounds bilaterally. No wheezes, rales, or rhonchi. CARDIAC: Regular rate and rhythm. S1 and S2, without murmurs, gallops, or rubs. VASCULAR: Trace Edema. Peripheral pulses normal and equal in all extremities. ABDOMEN: Soft, without detectable tenderness. No sign of distention. No rebound or guarding, and no masses palpated. Bowel Sounds normal. MUSCULOSKELETAL: Good range of motion of all major joints. Extremities without clubbing, cyanosis and trace edema noted . NEUROLOGIC EXAM: Alert and oriented x 3. No focal sensory or strength deficits. Speech normal. Follows commands. PSYCHIATRIC: Mood normal. SKIN: Multiple skin tattoos, AICD left chest wall area noted. - Constitutional Vitals: Temp Pulse Resp BP Pulse Ox 98.4 F 82 20 103/54 99 05/14/17 06:05 05/14/17 06:05 05/14/17 06:05 05/14/17 06:05 05/14/17 06:05 Plan Activity: advance as tolerated, fall precautions Diet: low salt Special Instructions: restrict fluid intake to (1200 cc/day) Follow up with: REE RODRIGUEZ MD [Staff Physician] - 7 Days PRIMARY CARE, [Primary Care Provider] - 3-5 Days Forms: AMA Form, Warfarin Discharge Instruction Prescriptions: Carvedilol [Coreg] 12.5 mg PO BID #60 tablet Furosemide [Lasix TAB] 40 mg PO BID #30 tablet Potassium Chloride [K-Dur] 20 meq PO QDAY #30 tablet Warfarin [Coumadin] 2.5 mg PO DAILY@1700 #30 tablet
--- NOTE | 2017-05-14 09:59 | Progress Note ---
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 Advised compliance with medication and dietary/fluid restrictions. Stable, cardiac abbott for discharge. As outpatient, we will refer him to a heart failure center, to be evaluated for future heart transplant. Subjective Date of service: 05/14/17 Interval history: Patient reports he is feeling better. Objective Vital Signs Temp Pulse Pulse Pulse Resp BP BP 05/14/17 06:05 98.4 F 82 0 L 20 103/54 05/14/17 00:51 89 20 05/13/17 23:57 97.7 F 84 0 L 20 102/62 05/13/17 20:00 98.2 F 89 20 05/13/17 18:43 98.6 F 92 H 18 05/13/17 15:18 98.7 F 82 18 05/13/17 11:02 78 102/52 BP Pulse Ox 05/14/17 06:05 0/0 99 05/14/17 00:51 98 05/13/17 23:57 0/0 98 05/13/17 20:00 101/74 97 05/13/17 18:43 109/77 100 05/13/17 15:18 95/52 98 05/13/17 11:02 - Physical Examination General: No Apparent Distress HEENT: Positive: PERRL Neck: Positive: trachea midline Cardiac: Positive: Reg Rate and Rhythm Lungs: Positive: Decreased Breath Sounds Neuro: Positive: Grossly Intact Extremities: Absent: edema - Labs and Meds Coagulation 05/14/17 Range/Units 06:12 PT 30.5 H (12.2-14.9) Sec. INR 2.74 H (0.87-1.13) - Imaging and Cardiology EKG: report reviewed
[2017-05-14] MEDS: COREG PO SCH (10:09)
[2017-05-14] MEDS: K-DUR PO SCH (10:09)
[2017-05-14] MEDS: LASIX PO SCH (10:10)
== END 2017-05-14 10:40 | disposition home or self-care (01) | DRG 292 ==
LOC: ED 06:50 → 4A 12:37
PROVIDERS: ADMIT Internal Medicine; ATTEND Internal Medicine
DX: I11.0 Hypertensive heart disease with heart failure (principal); I24.9 Acute ischemic heart disease, unspecified; D68.9 Coagulation defect, unspecified; I50.23 Acute on chronic systolic (congestive) heart failure; I42.0 Dilated cardiomyopathy; Z91.14 Patient's other noncompliance with medication regimen; Z91.11 Patient's noncompliance with dietary regimen; Z95.810 Presence of automatic (implantable) cardiac defibrillator
CPT/HCPCS: 36415; 71010; 71275; 80053; 81001; 82550; 82553; 83036; 83880; 84484; 85025; 85379; 85610; 85730; 93005; 93010; 94660; 96374; 96375; J1170; J1644; J1940; J2260; J2270; J2405; Q9967

== ENCOUNTER 2017-05-15 16:23 | Inpatient (IN) | payer OTHER ==
--- NOTE | 2017-05-15 18:10 | Emergency Department Report ---
HPI - General Chief Complaint: Syncope Time Seen by Provider: 05/15/17 17:02 - HPI HPI: Patient with his history of CHF according to him his EF is 10%. Came here with shortness of breath orthopnea and PND. States frequent ER visits due to his symptoms. He denied having a syncopal episode to me. ED Past Medical Hx - Past Medical History Previous Medical History?: Yes Hx Congestive Heart Failure: Yes Hx Diabetes: No Hx Asthma: No Hx COPD: No Additional medical history: pacer/defib. cardiomyopathy - Surgical History Past Surgical History?: Yes Hx Pacemaker: Yes Hx Internal Defibrillator: Yes (Placed 2012) - Social History Smoking Status: Never Smoker Substance Use Type: None - Medications Home Medications: Home Medications Medication Instructions Recorded Confirmed Last Taken Type Carvedilol [Coreg] 12.5 mg PO BID #60 tablet 05/11/17 05/15/17 Unknown Rx Furosemide [Lasix TAB] 40 mg PO BID #30 tablet 05/11/17 05/15/17 Unknown Rx Potassium Chloride [K-Dur] 20 meq PO QDAY #30 tablet 05/11/17 05/15/17 Unknown Rx Warfarin [Coumadin] 2.5 mg PO DAILY@1700 #30 tablet 05/14/17 05/15/17 Unknown Rx ED Review of Systems ROS: Stated complaint: SYNCOPE Other details as noted in HPI Comment: All other systems reviewed and negative Constitutional: no symptoms reported Cardiovascular: dyspnea on exertion, orthopnea, edema Physical Exam - Physical Exam Physical Exam: Gen. alert and oriented 3 in no distress Head atraumatic normocephalic Eyes PERR LA EOMI Chest regular rate, without systolic ejection murmur lungs clear bilaterally, bilateral JVD Abdomen soft nondistended Back no point tenderness paravertebral tenderness Neuro no focal deficit. Psych normal mood. Extremities 2+ edema ED Medical Decision Making - Lab Data Result diagrams: 05/15/17 17:44 05/15/17 17:44 Critical care attestation.: If time is entered above; I have spent that time in minutes in the direct care of this critically ill patient, excluding procedure time. ED Disposition Clinical Impression: Congestive heart failure Disposition: DC-01 TO HOME OR SELFCARE Is pt being admited?: No Does the pt Need Aspirin: No Condition: Stable Referrals: PRIMARY CARE, [Primary Care Provider] - 3-5 Days
[2017-05-15 18:21] LABS: Basophils % (Auto) 0.5 % (0.0-1.8); Eosinophils % (Auto) 0.6 % (0.0-4.3); Hematocrit 42.8 % (35.5-45.6); Hemoglobin 13.6 gm/dl (11.8-15.2); Mean Corpuscular HGB Conc 32 % (32-34); Mean Corpuscular Hemoglobin 26 pg (28-32); Mean Corpuscular Volume 82 fl (84-94); Platelet Count 187 K/mm3 (140-440); Red Blood Count 5.24 M/mm3 (3.65-5.03); Red Cell Distribution Width 14.3 % (13.2-15.2); White Blood Count 7.3 K/mm3 (4.5-11.0)
[2017-05-15 18:36] LABS: Alanine Aminotransferase 57 units/L (7-56); Albumin 3.8 g/dL (3.9-5); Albumin/Globulin Ratio 1.4 %; Alkaline Phosphatase 102 units/L (35-129); Anion Gap 20 mmol/L; BUN/Creatinine Ratio 17.69; Blood Urea Nitrogen 23 mg/dL (9-20); Calcium 9.3 mg/dL (8.4-10.2); Carbon Dioxide 23 mmol/L (22-30); Chloride 99.8 mmol/L (98-107); Glucose 89 mg/dL (75-100); Potassium 4.5 mmol/L (3.6-5.0); Sodium 138 mmol/L (137-145); Total Protein 6.5 g/dL (6.3-8.2)
[2017-05-15] MEDS ORDERED: MORPHINE IV ONE (18:36)
[2017-05-15] MEDS ORDERED: ZOFRAN IV ONE (18:36)
--- NOTE | 2017-05-15 19:36 | Cat Scan Report ---
FINAL REPORT EXAM: CT HEAD/BRAIN WO CON HISTORY: syncope TECHNIQUE: Noncontrast serial axial images from skull base to vertex. PRIORS: None. FINDINGS: There is no mass effect or midline shift. There are no abnormal intra or extra-axial fluid collections. Cortical sulci and lateral ventricles are within normal limits for size and configuration. Basilar cisterns are patent. No acute intracranial hemorrhage is identified. Visualized paranasal sinuses and mastoid air cells are well aerated. No acute osseous abnormality is identified. IMPRESSION: 1. No abnormal mass or acute intracranial hemorrhage is identified.
[2017-05-15] MEDS ORDERED: LASIX IV ONE (21:42)
[2017-05-15] MEDS ORDERED: NACL 0.9% IV ONE (21:42)
--- NOTE | 2017-05-16 02:14 | History and Physical Report ---
History of Present Illness Date of examination: 05/16/17 History of present illness: 22-year-old man with a history of hypertension, CHF, congenital heart problems comes emergency room with complaints of shortness of breath, PND, orthopnea which started yesterday. symptoms worsen today say comes emergency room for further evaluation, patient was just discharged from the hospital 2 days ago. Also complaining of chest pain in the left substernal area which she describes as sharp pain, feels as if someone is suffocating his heart and lungs, started yesterday, intermittent in nature, unable to say how long it lasts for, intensity 5/10. Admits to diaphoresis, palpitation, no nausea vomiting. Also complaining of abdominal pain in the mid abdomen which she describes a sharp pain, intermittent in nature, unclear how long it lasts, intensity 4/10, no radiation. Patient stated he sometimes medications and diet. Patient stated he went to the bathroom to urinate, he had a syncopal episode after was probably for 2 minutes Patient denies cough, abdominal pain, hematochezia, dysuria, frequency, focal weakness, dysarthria, fever chills, polydipsia polyuria, hot or cold intolerance , easy bruisability, or rash or bleeding from mucosal membrane, rhinorrhea, epistaxis, earache, tinnitus, blurry vision, eye discharge, anxiety, depression. Other review of systems negative PAST SURGICAL HISTORY: AICD, pacemaker SOCIAL HISTORY: Denies alcohol, tobacco, drug FAMILY HISTORY: Hypertension Medications and Allergies Allergies Allergy/AdvReac Type Severity Reaction Status Date / Time No Known Allergies Allergy Verified 02/18/17 13:00 Home Medications Medication Instructions Recorded Confirmed Last Taken Type Carvedilol [Coreg] 12.5 mg PO BID #60 tablet 05/11/17 05/15/17 Unknown Rx Furosemide [Lasix TAB] 40 mg PO BID #30 tablet 05/11/17 05/15/17 Unknown Rx Potassium Chloride [K-Dur] 20 meq PO QDAY #30 tablet 05/11/17 05/15/17 Unknown Rx Warfarin [Coumadin] 2.5 mg PO DAILY@1700 #30 tablet 05/14/17 05/15/17 Unknown Rx Active Meds: Active Medications Carvedilol (Coreg) 12.5 mg PO BID ENOC Exam - Physical Exam Narrative exam: Gen. appearance: Patient lying in bed, no apparent distress HEENT: Normocephalic, atraumatic, pupils equally round and reactive to light, extraocular movement intact, and no sclericterus,. No JVD or thyromegaly or nodule,neck supple, no carotid bruit ,mucous membranes moist, no exudate or erythema Heart: S1, S2, regular rate and rhythm Lungs: Crackles bilaterally, breathing comfortable Abdomen: Positive bowel sounds, nontender, nondistended, no organomegaly Extremity: No edema, cyanosis, clubbing Skin: No rash, nodules, warm, dry Neuro: Oriented 3, cranial nerves II-12 intact, speech is fluent, motor and sensory intact - Constitutional Vitals: Temp Pulse Resp BP Pulse Ox 85 20 103/59 98 05/15/17 22:30 05/15/17 22:30 05/15/17 22:30 05/15/17 22:30 Results - Labs CBC & Chem 7: 05/17/17 04:51 05/17/17 04:51 Labs: Abnormal lab results 05/15/17 05/15/17 05/15/17 Range/Units 17:44 17:44 23:48 RBC 5.24 H (3.65-5.03) M/mm3 MCV 82 L (84-94) fl MCH 26 L (28-32) pg [place] % (Auto) 9.4 H (0.0-7.3) % BUN 23 H (9-20) mg/dL Total Bilirubin 1.50 H (0.1-1.2) mg/dL AST 55 H (5-40) units/L ALT 57 H (7-56) units/L NT-Pro-B Natriuret Pep 4481 H (0-450) pg/mL Albumin 3.8 L (3.9-5) g/dL - Imaging and Cardiology EKG: image reviewed Chest x-ray: image reviewed Assessment and Plan Acute on chronic systolic heart failure Chest pain Syncope, vasovagal Abdominal pain Hypertension Admit to medicine Diuresed with IV Lasix Check cardiac enzymes, d-dimer, PT/INR , will not repat echo Start beta lucrecia, NINA inhibitor inhibitor, aspirin Consult cardiology, check ct abdomen Monitor I's and O's, daily weight, continue outpatient medications Start DVT prophylaxis pending PT/INR
[2017-05-16] MEDS ORDERED: MILK OF MAGNESIA PO PRN (02:58)
[2017-05-16] MEDS ORDERED: DULCOLAX PR PRN (02:58)
[2017-05-16] MEDS ORDERED: TYLENOL PO PRN (02:58)
[2017-05-16] MEDS ORDERED: PERCOCET 5/325 ONE (03:18)
[2017-05-16] MEDS ORDERED: PERCOCET 5/325 PO ONE (03:19)
--- NOTE | 2017-05-16 03:48 | Cat Scan Report ---
FINAL REPORT PROCEDURE: CT ABDOMEN PELVIS WO CON TECHNIQUE: Computerized axial tomography of the abdomen and pelvis was performed without intravenous contrast. This study is performed without intravascular contrast material and its sensitivity for abdominal and pelvic pathology, including neoplasms, inflammation, abscess, free fluid, thrombosis, arterial dissection and infarction, is reduced compared with a contrast enhanced study. HISTORY: abd pain COMPARISON: No prior studies are available for comparison. FINDINGS: Visualized lower thorax: The heart is enlarged. There is bilateral pulmonary edema. There are infiltrates at the right lung base. There is a small right pleural effusion.. Liver: The liver is borderline enlarged. There is no obvious mass.. Spleen: Normal size and attenuation. Gallbladder and biliary system: The gallbladder wall appears thickened. There are questionable stones. Cholecystitis is suspected. This could be confirmed by ultrasound. Bile ducts are normal in caliber.. Pancreas: There is mild peripancreatic edema which could be evidence of pancreatitis. There is no intrinsic pancreatic lesion.. Adrenals: Normal. Kidneys: There are no kidney stones.. GI tract: There is no bowel obstruction, colitis or enteritis. The appendix is normal.. Lymph nodes and mesentery: There is borderline adenopathy in the mesentery and retroperitoneum which is nonspecific.. Vasculature: Normal. Bladder: Normal. Reproductive organs: Normal. Peritoneum: There is no ascites or free air.. Musculoskeletal structures: No significant abnormality. Other: None. IMPRESSION: The liver is borderline enlarged. There is no obvious mass.. The gallbladder wall appears thickened. There are questionable stones. Cholecystitis is suspected. This could be confirmed by ultrasound. Bile ducts are normal in caliber.. There is mild peripancreatic edema which could be evidence of pancreatitis. There is no intrinsic pancreatic lesion.. There are no kidney stones.. There is no bowel obstruction, colitis or enteritis. The appendix is normal.. There is borderline adenopathy in the mesentery and retroperitoneum which is nonspecific.. There is no ascites or free air.. The heart is enlarged. There is bilateral pulmonary edema. There are infiltrates at the right lung base. There is a small right pleural effusion.. .
[2017-05-16 04:06] LABS: INR 2.19 (0.87-1.13)
[2017-05-16] MEDS ORDERED: LASIX IV SCH (06:00)
[2017-05-16 08:57] LABS: Creatine Kinase MB 1.1 ng/mL (0.0-4.0)
[2017-05-16 09:00] LABS: Creatine Kinase 112 units/L (55-170)
--- NOTE | 2017-05-16 09:08 | XRay Report ---
Single view chest: Compared to 05/10/17. History: Chest pain. Findings: Marked cardiomegaly. Stable pacemaker. Mild pulmonary venous congestion. No consolidation or pleural effusion. No significant interval change. Impression: No significant interval change.
[2017-05-16] MEDS ORDERED: LOVENOX SUB-Q SCH (10:00)
[2017-05-16] MEDS ORDERED: NITROSTAT SL PRN (11:47)
--- NOTE | 2017-05-16 11:49 | Consultation ---
History of Present Illness Consult date: 05/16/17 Consult reason: congestive heart failure History of present illness: 22 YO man with long standing h/o non ischemic cardiomyopathy s/p single chamber ICD who presented to hospital with increasing orthopnea, chest discomfort, PND, and dyspnea with sensation of his chest "smothering." He also reports he had a brief syncopal episode while he was having a hard time breathing. He does not recall any palpitations or ICD shocks. He was recently hospitalized due to CHF exacerbation and discharged home only 2 days ago. He has previous h/o non- compliance with medical therapy but reports he was consistently taking his medications since recent hospital discharge. Past History Past Medical History: heart failure, hypertension Past Surgical History: Other (ICD implant) Social history: alcohol abuse (stopped several months ago) Family history: no significant family history Medications and Allergies Allergies Allergy/AdvReac Type Severity Reaction Status Date / Time No Known Allergies Allergy Verified 02/18/17 13:00 Home Medications Medication Instructions Recorded Confirmed Last Taken Type Carvedilol [Coreg] 12.5 mg PO BID #60 tablet 05/11/17 05/15/17 Unknown Rx Furosemide [Lasix TAB] 40 mg PO BID #30 tablet 05/11/17 05/15/17 Unknown Rx Potassium Chloride [K-Dur] 20 meq PO QDAY #30 tablet 05/11/17 05/15/17 Unknown Rx Warfarin [Coumadin] 2.5 mg PO DAILY@1700 #30 tablet 05/14/17 05/15/17 Unknown Rx Active Meds: Active Medications Acetaminophen (Tylenol) 650 mg PO Q4H PRN PRN Reason: Pain MILD(1-3)/Fever >100.5/NAVA Aspirin (Baby Aspirin) 81 mg PO QDAY ENOC Bisacodyl (Dulcolax) 10 mg [place] QDAY PRN PRN Reason: Constipation unrelieved by MOM Carvedilol (Coreg) 12.5 mg PO BID ENOC Furosemide (Lasix) 40 mg PO BID ENOC Magnesium Hydroxide (Milk Of Magnesia) 30 ml PO Q4H PRN PRN Reason: Constipation Ondansetron HCl (Zofran) 4 mg IV Q8H PRN PRN Reason: N/V unrelieved by Reglan Review of Systems All systems: negative (per hpi) Physical Examination Vital Signs Resp 18 05/15/17 19:00 General appearance: no acute distress HEENT: Positive: PERRL Neck: Positive: neck supple. Negative: JVD/HJR Cardiac: Positive: Reg Rate and Rhythm, Systolic Murmur (II/ HSM at apex) Lungs: Positive: Decreased Breath Sounds (diminished at bases bilaterally) Neuro: Positive: Grossly Intact Abdomen: Positive: Soft, Active Bowel Sounds Extremities: Absent: edema Results 05/15/17 17:44 05/15/17 17:44 Cardiac Enzymes 05/16/17 Range/Units 07:38 CK-MB (CK-2) 1.1 (0.0-4.0) ng/mL EKG interpretations - EKG Sinus rhythms and dysrhythmias: sinus rhythm QRS axis and voltage: right axis deviation Repolarization changes or abnormalities: nonspecific abnormality, ST segment, and/or T wave, Q-T interval prolongation Assessment and Plan Acute on chronic systolic heart failure Nonischemic cardiomyopathy s/p AICD LVEF 10-15% on echo 04/2017 Syncope 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 Continue diuresis Continue systemic anticoagulation He needs outpatient [facility] at [facility].
[2017-05-16] MEDS: COREG PO SCH ×2 (11:51→21:11)
[2017-05-16] MEDS: BABY ASPIRIN PO SCH (11:52)
[2017-05-16 14:01] LABS: Creatine Kinase MB 1.1 ng/mL (0.0-4.0)
[2017-05-16 14:03] LABS: Creatine Kinase 114 units/L (55-170)
--- NOTE | 2017-05-16 14:34 | Progress Note ---
Assessment and Plan Assessment and plan: --Acute on chronic systolic congestive heart failure ejection fraction 10-15% Continue current antifailure medications, input output monitoring, low sodium diet, fluid restriction --Chronic anticoagulation on Coumadin Therapeutic INR, target INR 2-3 --Vasovagal syncope; no new episodes of syncope Fall precautions --Medical noncompliance; Counseling and patient strongly advised to adhere to the treatment plan Verbalized understanding --Status post ICD; cardiology planning interrogation per [employer] We'll monitor the patient and adjust management as needed Possible discharge in 1-2 days stable History Interval history: Since seen and evaluated in his room this medical records reviewed Patient was recently discharged from the hospital , presented to the emergency room and was admitted with worsening shortness of breath. She claims compliance with his medications and diet, feels slightly better mild shortness of breath denies chest pain Alert awake oriented 3 not in acute distress vital signs reviewed Hospitalist Physical - Constitutional Vitals: Temp Pulse Resp BP Pulse Ox 97.2 F L 81 18 91/60 100 05/16/17 12:58 05/16/17 12:58 05/16/17 12:58 05/16/17 12:58 05/16/17 12:58 General appearance: Present: no acute distress, well-nourished - EENT Eyes: Present: PERRL, EOM intact - Neck Neck: Present: supple, normal ROM - Respiratory Respiratory effort: normal Respiratory: bilateral: diminished, rales, negative: rhonchi, wheezing - Cardiovascular Rhythm: regular Heart Sounds: Present: S1 & S2 - Extremities Extremities: no ischemia, No edema - Abdominal General gastrointestinal: soft, non-tender, non-distended, normal bowel sounds - Integumentary Integumentary: Present: clear, warm - Psychiatric Psychiatric: appropriate mood/affect, cooperative - Neurologic Neurologic: CNII-XII intact, moves all extremities Results - Labs CBC & Chem 7: 05/15/17 17:44 05/15/17 17:44 Labs: Laboratory Last Values WBC 7.3 K/mm3 (4.5-11.0) 05/15/17 17:44 RBC 5.24 M/mm3 (3.65-5.03) H 05/15/17 17:44 Hgb 13.6 gm/dl (11.8-15.2) 05/15/17 17:44 Hct 42.8 % (35.5-45.6) 05/15/17 17:44 MCV 82 fl (84-94) L 05/15/17 17:44 MCH 26 pg (28-32) L 05/15/17 17:44 MCHC 32 % (32-34) 05/15/17 17:44 RDW 14.3 % (13.2-15.2) 05/15/17 17:44 Plt Count 187 K/mm3 (140-440) 05/15/17 17:44 Lymph % (Auto) 22.7 % (13.4-35.0) 05/15/17 17:44 [place] % (Auto) 9.4 % (0.0-7.3) H 05/15/17 17:44 Eos % (Auto) 0.6 % (0.0-4.3) 05/15/17 17:44 Baso % (Auto) 0.5 % (0.0-1.8) 05/15/17 17:44 Lymph # 1.7 K/mm3 (1.2-5.4) 05/15/17 17:44 [place] # 0.7 K/mm3 (0.0-0.8) 05/15/17 17:44 Eos # 0.0 K/mm3 (0.0-0.4) 05/15/17 17:44 Baso # 0.0 K/mm3 (0.0-0.1) 05/15/17 17:44 Seg Neutrophils % 66.8 % (40.0-70.0) 05/15/17 17:44 Seg Neutrophils # 4.9 K/mm3 (1.8-7.7) 05/15/17 17:44 PT 24.4 Sec. (12.2-14.9) H 05/16/17 02:46 INR 2.19 (0.87-1.13) H 05/16/17 02:46 APTT 37.0 Sec. (24.2-36.6) H 05/16/17 02:46 D-Dimer 498.28 ng/mlDDU (0-234) H 05/16/17 02:46 Sodium 138 mmol/L (137-145) 05/15/17 17:44 Potassium 4.5 mmol/L (3.6-5.0) 05/15/17 17:44 Chloride 99.8 mmol/L (98-107) 05/15/17 17:44 Carbon Dioxide 23 mmol/L (22-30) 05/15/17 17:44 Anion Gap 20 mmol/L 05/15/17 17:44 BUN 23 mg/dL (9-20) H 05/15/17 17:44 Creatinine 1.3 mg/dL (0.8-1.5) 05/15/17 17:44 Estimated GFR > 60 ml/min 05/15/17 17:44 BUN/Creatinine Ratio 17.69 % 05/15/17 17:44 Glucose 89 mg/dL (75-100) 05/15/17 17:44 Calcium 9.3 mg/dL (8.4-10.2) 05/15/17 17:44 Total Bilirubin 1.50 mg/dL (0.1-1.2) H 05/15/17 17:44 AST 55 units/L (5-40) H 05/15/17 17:44 ALT 57 units/L (7-56) H 05/15/17 17:44 Alkaline Phosphatase 102 units/L (35-129) 05/15/17 17:44 Total Creatine Kinase 114 units/L (55-170) 05/16/17 12:31 CK-MB (CK-2) 1.1 ng/mL (0.0-4.0) 05/16/17 12:31 CK-MB (CK-2) Rel Index 0.9 (0-4) 05/16/17 12:31 Troponin T < 0.010 ng/mL (0.00-0.029) 05/16/17 12:31 NT-Pro-B Natriuret Pep 4481 pg/mL (0-450) H 05/15/17 23:48 Total Protein 6.5 g/dL (6.3-8.2) 05/15/17 17:44 Albumin 3.8 g/dL (3.9-5) L 05/15/17 17:44 Albumin/Globulin Ratio 1.4 % 05/15/17 17:44
[2017-05-16] MEDS: PERCOCET 5/325 PO PRN (21:11)
[2017-05-16] MEDS: LASIX PO SCH (21:11)
--- NOTE | 2017-05-17 01:39 | Admit Criteria Form ---
Admission Criteria Documentation: HEART FAILURE: COMMON COMPLICATIONS Clinical Indications for Inpatient Care (seminole/check or initial the applicable condition/criteria): Ongoing inpatient care may be indicated for heart failure with 1 or more of the following (1)(2)(3)(4)(5)(6)(7)(8): [ ]I. New-onset heart failure [ ]II. Acute cardiac ischemia causing or associated with failure [ ]III. Ongoing need for care for primary condition requiring frequent therapy adjustments because of changes in cardiac function (eg, drug dosage changes for drugs that are renally metabolized) [ X]IV. Complications of heart failure, including 1 or more of the following: [ ]a) Hemodynamic instability [ ]b) Pericardial effusion [ ]c) Symptomatic pleural effusion(16) [ ]d) Hypoxemia [ ]e) Tachypnea [X ]f) Dyspnea [ ]g) Syncope [ ]h) Altered mental status [ ]i) Acute renal insufficiency that is severe (reduction of more than 50% in estimated glomerular filtration rate from baseline) or progressive (reduction of more than 25% in estimated glomerular filtration rate from baseline, with creatinine continuing to rise) [ ]j) Debilitating anasarca (eg tissue breakdown with infection, inability to void due to edema)(E) (17) [ ]k) Clinically significant metabolic abnormalities due to heart failure (e.g., new-onset metabolic acidosis) Extended stay may be needed until ALL of the following are present(1)(3)(18)(41) (55): [ ]a) Hemodynamic stability [ ]b) Stable and effective diuretic regimen established (or patient on stable dialysis regimen if in chronic renal failure) [ ]c) Volume status acceptable on oral medication [ ]d) Breathing comfortably at rest [ ]e) Saturation of arterial oxygen greater than 90% or at acceptable baseline [ ]f) Pulmonary edema absent or improved [ ]g) Peripheral or sacral edema absent or improved [ ]h) Renal function stable and manageable at a lower level of care [ ]i) Complications (e.g., pleural effusion) resolved or manageable at a lower level of care [ ]j) Patient or caregiver has received written discharge instructions or educational material addressing activity level, diet, discharge medications, follow-up appointment, weight monitoring, and what to do if symptoms worsen. (56)(57)(58) The original [facility] content created by Nichelle Dooley has been revised. The portions of the content which have been revised are identified through the use of italic text or in bold, and Nichelle Dooley has neither reviewed nor approved the modified material.All other unmodified content is copyright [facility] [employer]. Please see references footnoted in the original [facility] edition 2017 Admission Criteria Met: Yes
[2017-05-17 05:28] LABS: Basophils % (Auto) 0.3 % (0.0-1.8); Eosinophils % (Auto) 0.4 % (0.0-4.3); Hematocrit 39.7 % (35.5-45.6); Hemoglobin 12.8 gm/dl (11.8-15.2); Mean Corpuscular HGB Conc 32 % (32-34); Mean Corpuscular Volume 81 fl (84-94); Platelet Count 190 K/mm3 (140-440); Red Blood Count 4.92 M/mm3 (3.65-5.03); Red Cell Distribution Width 13.7 % (13.2-15.2); White Blood Count 10.1 K/mm3 (4.5-11.0)
[2017-05-17 05:31] LABS: Mean Corpuscular Hemoglobin 26 pg (28-32)
[2017-05-17 05:37] LABS: Anion Gap 21 mmol/L; BUN/Creatinine Ratio 18.57; Blood Urea Nitrogen 26 mg/dL (9-20); Calcium 8.9 mg/dL (8.4-10.2); Carbon Dioxide 24 mmol/L (22-30); Chloride 95.8 mmol/L (98-107); Glucose 92 mg/dL (75-100); Potassium 4.4 mmol/L (3.6-5.0); Sodium 136 mmol/L (137-145)
[2017-05-17] MEDS: PERCOCET 5/325 PO PRN ×3 (07:50→22:16)
[2017-05-17] MEDS: COREG PO SCH ×2 (10:15→22:18)
[2017-05-17] MEDS: BABY ASPIRIN PO SCH (10:15)
[2017-05-17] MEDS: LASIX PO SCH ×2 (10:15→22:17)
--- NOTE | 2017-05-17 12:13 | Progress Note ---
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 Subjective Date of service: 05/17/17 Interval history: PT reports improved dyspnea but is more nauseated today Objective Vital Signs Temp Pulse Pulse Resp Resp BP BP 05/17/17 11:16 05/17/17 10:00 88 18 20 05/17/17 08:45 98.5 F 73 18 89/59 05/17/17 07:50 20 05/17/17 05:16 98.1 F 74 20 95/56 05/17/17 00:39 0 F L 86 20 80/50 05/16/17 21:11 97 H 101/71 05/16/17 20:48 0 F L 97 H 20 101/71 05/16/17 20:40 05/16/17 18:41 97.8 F 77 18 102/59 05/16/17 12:58 97.2 F L 81 18 91/60 Pulse Ox 05/17/17 11:16 100 05/17/17 10:00 98 05/17/17 08:45 96 05/17/17 07:50 05/17/17 05:16 98 05/17/17 00:39 99 05/16/17 21:11 05/16/17 20:48 99 05/16/17 20:40 96 05/16/17 18:41 91 05/16/17 12:58 100 - Physical Examination HEENT: Positive: PERRL Neck: Positive: neck supple. Negative: JVD/HJR Cardiac: Positive: Reg Rate and Rhythm, Systolic Murmur Lungs: Positive: Decreased Breath Sounds Neuro: Positive: Grossly Intact Abdomen: Positive: Soft, Active Bowel Sounds Extremities: Absent: edema - Labs and Meds Cardiac Enzymes 05/16/17 Range/Units 12:31 CK-MB (CK-2) 1.1 (0.0-4.0) ng/mL CBC 05/17/17 Range/Units 04:51 WBC 10.1 (4.5-11.0) K/mm3 RBC 4.92 (3.65-5.03) M/mm3 Hgb 12.8 (11.8-15.2) gm/dl Hct 39.7 (35.5-45.6) % Plt Count 190 (140-440) K/mm3 Lymph # 2.7 (1.2-5.4) K/mm3 [place] # 1.0 H (0.0-0.8) K/mm3 Eos # 0.0 (0.0-0.4) K/mm3 Baso # 0.0 (0.0-0.1) K/mm3 Comprehensive Metabolic Panel 05/17/17 Range/Units 04:51 Sodium 136 L (137-145) mmol/L Potassium 4.4 (3.6-5.0) mmol/L Chloride 95.8 L (98-107) mmol/L Carbon Dioxide 24 (22-30) mmol/L BUN 26 H (9-20) mg/dL Creatinine 1.4 (0.8-1.5) mg/dL Glucose 92 (75-100) mg/dL Calcium 8.9 (8.4-10.2) mg/dL - Imaging and Cardiology EKG: image reviewed - EKG Sinus rhythms and dysrhythmias: sinus rhythm QRS axis and voltage: right axis deviation Repolarization changes or abnormalities: nonspecific abnormality, ST segment, and/or T wave, Q-T interval prolongation
--- NOTE | 2017-05-17 14:08 | Progress Note ---
Assessment and Plan Assessment and plan: --Gastritis; Antiemetics, supportive care, antacids --Acute on chronic systolic congestive heart failure ejection fraction 10-15% Continue current antifailure, diuretics, beta blockers, bernarda inhibitors, input output monitoring, low sodium diet, fluid restriction --NICM Status post ICD; interrogation per [employer], arrhythmias --Smoke LV cavity ;Chronic anticoagulation on Coumadin, Therapeutic INR, target INR 2-3 --Vasovagal syncope; no new episodes of syncope, Fall precautions --Medical noncompliance; Counseling done and patient strongly advised to adhere to the treatment plan Cardiology evaluation and recommendations noted and appreciated Continue current management, possible discharge in 1-2 days if stable History Interval history: Patient seen and evaluated in his room this morning medical records reviewed Complaints of nausea and vomiting, denies chest pain or shortness of breath Alert awake oriented 3 not in acute distress, vital signs reviewed Hospitalist Physical - Constitutional Vitals: Temp Pulse Resp BP Pulse Ox 98.5 F 88 20 89/59 100 05/17/17 08:45 05/17/17 10:00 05/17/17 10:00 05/17/17 08:45 05/17/17 11:16 General appearance: Present: no acute distress, well-nourished - EENT Eyes: Present: PERRL, EOM intact - Neck Neck: Present: supple, normal ROM - Respiratory Respiratory effort: normal Respiratory: bilateral: diminished, negative: rales, rhonchi, wheezing - Cardiovascular Rhythm: regular Heart Sounds: Present: S1 & S2 - Extremities Extremities: no ischemia, pulses intact, pulses symmetrical Peripheral Pulses: within normal limits - Abdominal General gastrointestinal: soft, non-tender, non-distended, normal bowel sounds - Integumentary Integumentary: Present: clear, warm - Psychiatric Psychiatric: appropriate mood/affect, cooperative - Neurologic Neurologic: CNII-XII intact, moves all extremities Results - Labs CBC & Chem 7: 05/17/17 04:51 05/17/17 04:51 Labs: Laboratory Last Values WBC 10.1 K/mm3 (4.5-11.0) 05/17/17 04:51 RBC 4.92 M/mm3 (3.65-5.03) 05/17/17 04:51 Hgb 12.8 gm/dl (11.8-15.2) 05/17/17 04:51 Hct 39.7 % (35.5-45.6) 05/17/17 04:51 MCV 81 fl (84-94) L 05/17/17 04:51 MCH 26 pg (28-32) L 05/17/17 04:51 MCHC 32 % (32-34) 05/17/17 04:51 RDW 13.7 % (13.2-15.2) 05/17/17 04:51 Plt Count 190 K/mm3 (140-440) 05/17/17 04:51 Lymph % (Auto) 26.9 % (13.4-35.0) 05/17/17 04:51 [place] % (Auto) 9.8 % (0.0-7.3) H 05/17/17 04:51 Eos % (Auto) 0.4 % (0.0-4.3) 05/17/17 04:51 Baso % (Auto) 0.3 % (0.0-1.8) 05/17/17 04:51 Lymph # 2.7 K/mm3 (1.2-5.4) 05/17/17 04:51 [place] # 1.0 K/mm3 (0.0-0.8) H 05/17/17 04:51 Eos # 0.0 K/mm3 (0.0-0.4) 05/17/17 04:51 Baso # 0.0 K/mm3 (0.0-0.1) 05/17/17 04:51 Seg Neutrophils % 62.6 % (40.0-70.0) 05/17/17 04:51 Seg Neutrophils # 6.3 K/mm3 (1.8-7.7) 05/17/17 04:51 PT 24.4 Sec. (12.2-14.9) H 05/16/17 02:46 INR 2.19 (0.87-1.13) H 05/16/17 02:46 APTT 37.0 Sec. (24.2-36.6) H 05/16/17 02:46 D-Dimer 498.28 ng/mlDDU (0-234) H 05/16/17 02:46 Sodium 136 mmol/L (137-145) L 05/17/17 04:51 Potassium 4.4 mmol/L (3.6-5.0) 05/17/17 04:51 Chloride 95.8 mmol/L (98-107) L 05/17/17 04:51 Carbon Dioxide 24 mmol/L (22-30) 05/17/17 04:51 Anion Gap 21 mmol/L 05/17/17 04:51 BUN 26 mg/dL (9-20) H 05/17/17 04:51 Creatinine 1.4 mg/dL (0.8-1.5) 05/17/17 04:51 Estimated GFR > 60 ml/min 05/17/17 04:51 BUN/Creatinine Ratio 18.57 % 05/17/17 04:51 Glucose 92 mg/dL (75-100) 05/17/17 04:51 Calcium 8.9 mg/dL (8.4-10.2) 05/17/17 04:51 Total Bilirubin 1.50 mg/dL (0.1-1.2) H 05/15/17 17:44 AST 55 units/L (5-40) H 05/15/17 17:44 ALT 57 units/L (7-56) H 05/15/17 17:44 Alkaline Phosphatase 102 units/L (35-129) 05/15/17 17:44 Total Creatine Kinase 114 units/L (55-170) 05/16/17 12:31 CK-MB (CK-2) 1.1 ng/mL (0.0-4.0) 05/16/17 12:31 CK-MB (CK-2) Rel Index 0.9 (0-4) 05/16/17 12:31 Troponin T < 0.010 ng/mL (0.00-0.029) 05/16/17 12:31 NT-Pro-B Natriuret Pep 4481 pg/mL (0-450) H 05/15/17 23:48 Total Protein 6.5 g/dL (6.3-8.2) 05/15/17 17:44 Albumin 3.8 g/dL (3.9-5) L 05/15/17 17:44 Albumin/Globulin Ratio 1.4 % 05/15/17 17:44
[2017-05-17] MEDS: REGLAN IV SCH ×2 (16:19→22:17)
[2017-05-17] MEDS: COUMADIN PO SCH (16:19)
[2017-05-18] MEDS: PERCOCET 5/325 PO PRN ×3 (06:05→23:17)
[2017-05-18 06:27] LABS: Blood Urea Nitrogen 27 mg/dL (9-20); Calcium 8.9 mg/dL (8.4-10.2); Carbon Dioxide 30 mmol/L (22-30); Glucose 87 mg/dL (75-100)
[2017-05-18 06:37] LABS: Anion Gap 14 mmol/L; Chloride 93.4 mmol/L (98-107); Potassium 4.4 mmol/L (3.6-5.0); Sodium 133 mmol/L (137-145)
[2017-05-18 06:38] LABS: INR 2.36 (0.87-1.13)
[2017-05-18] MEDS: REGLAN IV SCH ×4 (07:46→21:26)
[2017-05-18] MEDS: COREG PO SCH ×2 (09:51→21:26)
[2017-05-18] MEDS: LASIX PO SCH ×2 (09:52→21:26)
[2017-05-18] MEDS: BABY ASPIRIN PO SCH (09:52)
[2017-05-18] MEDS: ZESTRIL PO SCH (09:52)
[2017-05-18] MEDS: ZOFRAN IV PRN ×2 (11:07→23:23)
--- NOTE | 2017-05-18 12:11 | Progress Note ---
Assessment and Plan Assessment and plan: --Right upper quadrant pain/nausea vomiting Possible acute cholecystitis, cholelithiasis on CT, check abdominal ultrasound Surgery consult for evaluation Clear liquids supportive care --Acute on chronic systolic congestive heart failure ejection fraction 10-15% Continue current antifailure, diuretics, beta blockers, bernarda inhibitors, input output monitoring, low sodium diet, fluid restriction --NICM Status post ICD; interrogation per [employer], arrhythmias --Smoke LV cavity ;Chronic anticoagulation on Coumadin, Therapeutic INR, target INR 2-3 --Vasovagal syncope; no new episodes of syncope, Fall precautions --Medical noncompliance; Counseling done and patient strongly advised to adhere to the treatment plan Follow surgery's evaluation and recommendations Plan of care discussed with the patient and his nurse History Interval history: Patient seen and evaluated medical history reviewed Patient complains of intractable nausea and vomiting. Abdominal pain CT abdomen and pelvis possible gallstones and acute cholecystitis Alert awake oriented 3 not in no acute distress Vital signs reviewed Hospitalist Physical - Constitutional Vitals: Temp Pulse Resp BP Pulse Ox 97.7 F 86 20 107/73 99 05/18/17 11:18 05/18/17 11:18 05/18/17 11:18 05/18/17 11:18 05/18/17 11:18 General appearance: Present: no acute distress, well-nourished - EENT Eyes: Present: PERRL, EOM intact - Neck Neck: Present: supple, normal ROM - Respiratory Respiratory effort: normal Respiratory: bilateral: diminished, rales, negative: rhonchi, wheezing - Cardiovascular Rhythm: regular Heart Sounds: Present: S1 & S2 - Extremities Extremities: no ischemia, No edema - Abdominal General gastrointestinal: soft, tender (no guarding no rigidity), non-distended , normal bowel sounds - Integumentary Integumentary: Present: clear, warm - Psychiatric Psychiatric: appropriate mood/affect, cooperative - Neurologic Neurologic: CNII-XII intact, moves all extremities Results - Labs CBC & Chem 7: 05/17/17 04:51 05/18/17 05:21 Labs: Laboratory Last Values WBC 10.1 K/mm3 (4.5-11.0) 05/17/17 04:51 RBC 4.92 M/mm3 (3.65-5.03) 05/17/17 04:51 Hgb 12.8 gm/dl (11.8-15.2) 05/17/17 04:51 Hct 39.7 % (35.5-45.6) 05/17/17 04:51 MCV 81 fl (84-94) L 05/17/17 04:51 MCH 26 pg (28-32) L 05/17/17 04:51 MCHC 32 % (32-34) 05/17/17 04:51 RDW 13.7 % (13.2-15.2) 05/17/17 04:51 Plt Count 190 K/mm3 (140-440) 05/17/17 04:51 Lymph % (Auto) 26.9 % (13.4-35.0) 05/17/17 04:51 [place] % (Auto) 9.8 % (0.0-7.3) H 05/17/17 04:51 Eos % (Auto) 0.4 % (0.0-4.3) 05/17/17 04:51 Baso % (Auto) 0.3 % (0.0-1.8) 05/17/17 04:51 Lymph # 2.7 K/mm3 (1.2-5.4) 05/17/17 04:51 [place] # 1.0 K/mm3 (0.0-0.8) H 05/17/17 04:51 Eos # 0.0 K/mm3 (0.0-0.4) 05/17/17 04:51 Baso # 0.0 K/mm3 (0.0-0.1) 05/17/17 04:51 Seg Neutrophils % 62.6 % (40.0-70.0) 05/17/17 04:51 Seg Neutrophils # 6.3 K/mm3 (1.8-7.7) 05/17/17 04:51 PT 25.9 Sec. (12.2-14.9) H 05/18/17 05:21 INR 2.36 (0.87-1.13) H 05/18/17 05:21 APTT 37.0 Sec. (24.2-36.6) H 05/16/17 02:46 D-Dimer 498.28 ng/mlDDU (0-234) H 05/16/17 02:46 Sodium 133 mmol/L (137-145) L 05/18/17 05:21 Potassium 4.4 mmol/L (3.6-5.0) 05/18/17 05:21 Chloride 93.4 mmol/L (98-107) L 05/18/17 05:21 Carbon Dioxide 30 mmol/L (22-30) 05/18/17 05:21 Anion Gap 14 mmol/L 05/18/17 05:21 BUN 27 mg/dL (9-20) H 05/18/17 05:21 Creatinine 1.5 mg/dL (0.8-1.5) 05/18/17 05:21 Estimated GFR > 60 ml/min 05/18/17 05:21 BUN/Creatinine Ratio 18.00 % 05/18/17 05:21 Glucose 87 mg/dL (75-100) 05/18/17 05:21 Calcium 8.9 mg/dL (8.4-10.2) 05/18/17 05:21 Total Bilirubin 1.50 mg/dL (0.1-1.2) H 05/15/17 17:44 AST 55 units/L (5-40) H 05/15/17 17:44 ALT 57 units/L (7-56) H 05/15/17 17:44 Alkaline Phosphatase 102 units/L (35-129) 05/15/17 17:44 Total Creatine Kinase 114 units/L (55-170) 05/16/17 12:31 CK-MB (CK-2) 1.1 ng/mL (0.0-4.0) 05/16/17 12:31 CK-MB (CK-2) Rel Index 0.9 (0-4) 05/16/17 12:31 Troponin T < 0.010 ng/mL (0.00-0.029) 05/16/17 12:31 NT-Pro-B Natriuret Pep 4481 pg/mL (0-450) H 05/15/17 23:48 Total Protein 6.5 g/dL (6.3-8.2) 05/15/17 17:44 Albumin 3.8 g/dL (3.9-5) L 05/15/17 17:44 Albumin/Globulin Ratio 1.4 % 05/15/17 17:44
--- NOTE | 2017-05-18 14:18 | Progress Note ---
Assessment and Plan - Patient Problems (1) Congestive heart failure Current Visit: Yes Status: Acute Qualifiers: Congestive heart failure type: C Congestive heart failure chronicity: C Plan to address problem: We'll continue medical therapy for heart failure and chronic left ventricle systolic dysfunction. Further cardiac evaluation and management will depend on clinical course. Ultimately, he would need further evaluation at the tertiary heart failure center including heart transplant evaluation. Subjective Date of service: 05/18/17 Interval history: Patient looks and feels better, no chest pain or shortness of breath. No lower extremity edema. Objective Vital Signs Temp Pulse Pulse Resp BP BP Pulse Ox 05/18/17 11:18 97.7 F 86 20 107/73 99 05/18/17 10:47 85 20 98 05/18/17 09:52 98 H 118/78 05/18/17 09:51 96 H 118/78 05/18/17 08:48 97.7 F 97 H 20 112/73 98 05/18/17 05:43 98.3 F 88 20 107/59 98 05/18/17 00:57 97.4 F L 80 20 115/62 99 05/17/17 22:43 78 05/17/17 22:00 99 05/17/17 20:56 98.1 F 85 20 97/64 100 05/17/17 17:29 98.2 F 88 20 131/60 98 05/17/17 16:20 20 - Physical Examination General: No Apparent Distress HEENT: Positive: PERRL Neck: Positive: neck supple. Negative: JVD/HJR Cardiac: Positive: Reg Rate and Rhythm Lungs: Positive: clear to auscultation Neuro: Positive: Grossly Intact Abdomen: Positive: Soft, Active Bowel Sounds Skin: Positive: Clear Extremities: Absent: edema - Labs and Meds Coagulation 05/18/17 Range/Units 05:21 PT 25.9 H (12.2-14.9) Sec. INR 2.36 H (0.87-1.13) Comprehensive Metabolic Panel 05/18/17 Range/Units 05:21 Sodium 133 L (137-145) mmol/L Potassium 4.4 (3.6-5.0) mmol/L Chloride 93.4 L (98-107) mmol/L Carbon Dioxide 30 (22-30) mmol/L BUN 27 H (9-20) mg/dL Creatinine 1.5 (0.8-1.5) mg/dL Glucose 87 (75-100) mg/dL Calcium 8.9 (8.4-10.2) mg/dL - Imaging and Cardiology EKG: image reviewed - EKG Sinus rhythms and dysrhythmias: sinus rhythm QRS axis and voltage: right axis deviation Repolarization changes or abnormalities: nonspecific abnormality, ST segment, and/or T wave, Q-T interval prolongation
--- NOTE | 2017-05-18 16:14 | Consultation ---
History of Present Illness Consult date: 05/18/17 Reason for consult: gallstones (question presence of gallstones) Chief complaint: chest pain and tightness in the chest and smothering sensation - History of present illness History of present illness: This is a 22 year old male who recently moved to [place] from [facility] [place]. around 3 months ago, he has a hx of cardiac problems dating back to age 1 which apparently was followed in [place], [place]. but there are no records to review. He was admitted with chest pain an shortness of breath and underwent a CT of abd and pelvis revealing question of gallstones, pericholecystic edema , pancreatic edema which I suspect is related to his heart failure. He just underwent an ultrasound of the RUQ and I do not have the results available to me. His labs demonstrate a WBC of 10 K, his LFTs demonstrate a total bili of 1.5, AST ALT in the 40s- which I believe are all related to his severe CHF and poor ventricular function.He really does not complain of abd pain to me.He does have some nausea. Past History Past Medical History: heart failure, hypertension Past Surgical History: Other (ICD implant) Social history: alcohol abuse (stopped several months ago) Family history: no significant family history Medications and Allergies Allergies Allergy/AdvReac Type Severity Reaction Status Date / Time No Known Allergies Allergy Verified 02/18/17 13:00 Home Medications Medication Instructions Recorded Confirmed Last Taken Type Carvedilol [Coreg] 12.5 mg PO BID #60 tablet 05/11/17 05/15/17 Unknown Rx Furosemide [Lasix TAB] 40 mg PO BID #30 tablet 05/11/17 05/15/17 Unknown Rx Potassium Chloride [K-Dur] 20 meq PO QDAY #30 tablet 05/11/17 05/15/17 Unknown Rx Warfarin [Coumadin] 2.5 mg PO DAILY@1700 #30 tablet 05/14/17 05/15/17 Unknown Rx Active Meds: Active Medications Acetaminophen (Tylenol) 650 mg PO Q4H PRN PRN Reason: Pain MILD(1-3)/Fever >100.5/NAVA Aspirin (Baby Aspirin) 81 mg PO QDAY ENOC Last Admin: 05/18/17 09:52 Dose: 81 mg Bisacodyl (Dulcolax) 10 mg PA QDAY PRN PRN Reason: Constipation unrelieved by MOM Carvedilol (Coreg) 6.25 mg PO BID [facility] Last Admin: 05/18/17 09:51 Dose: 6.25 mg Furosemide (Lasix) 40 mg PO BID [facility] Last Admin: 05/18/17 09:52 Dose: 40 mg Lisinopril (Zestril) 2.5 mg PO QDAY [facility] Last Admin: 05/18/17 09:52 Dose: 2.5 mg Magnesium Hydroxide (Milk Of Magnesia) 30 ml PO Q4H PRN PRN Reason: Constipation Metoclopramide HCl (Reglan) 5 mg IV ACHS [facility] Last Admin: 05/18/17 11:07 Dose: 5 mg Nitroglycerin (Nitrostat) 0.4 mg SL .Q5MIN PRN PRN Reason: Chest Pain Ondansetron HCl (Zofran) 4 mg IV Q8H PRN PRN Reason: N/V unrelieved by Reglan Last Admin: 05/18/17 11:07 Dose: 4 mg Oxycodone/Acetaminophen (Percocet 5/325) 1 tab PO Q8H PRN PRN Reason: Pain, Moderate (4-6) Last Admin: 05/18/17 06:05 Dose: 1 tab Warfarin Sodium (Coumadin) 3 mg PO DAILY@1700 [facility] PRN Reason: Protocol Last Admin: 05/17/17 16:19 Dose: 3 mg Warfarin Sodium (Coumadin Pharmacy To Dose) 1 each PO PKCONSULT [facility] PRN Reason: Protocol Review of Systems - Cardiovascular chest pain, orthopnea, shortness of breath, dyspnea on exertion, decreased exercise tolerance Exam Vital Signs Resp 18 05/15/17 19:00 - General physical appearance Positive: no distress - Eyes Positive: PERRL, normal occular movement - ENT Positive: normal pinna, normal nares, normal mucosa, no hearing loss, no congestion - Neck Positive: no venous distension - Respiratory Positive: normal expansion, normal respiratory effort, clear to auscultation - Cardiovascular Rhythm: irregularly irregular - Extremities Extremities: no ischemia Peripheral Pulses: within normal limits - Breasts Breasts: normal - Abdomen Abdomen: Present: soft, bowel sounds normal (no rebound or guarding) Hernia: none - Genitourinary Male Genitourinary: normal - Neurologic Neurologic: alert and oriented to time, place and person, motor strength and sensation are grossly intact - Psychiatric Psychiatric: appropriate mood/affect, intact judgment & insight Results - Labs 05/17/17 04:51 05/18/17 05:21 Abnormal lab results 05/18/17 05/18/17 Range/Units 05:21 05:21 PT 25.9 H (12.2-14.9) Sec. INR 2.36 H (0.87-1.13) Sodium 133 L (137-145) mmol/L Chloride 93.4 L (98-107) mmol/L BUN 27 H (9-20) mg/dL Diabetes panel 05/18/17 Range/Units 05:21 Sodium 133 L (137-145) mmol/L Potassium 4.4 (3.6-5.0) mmol/L Chloride 93.4 L (98-107) mmol/L Carbon Dioxide 30 (22-30) mmol/L BUN 27 H (9-20) mg/dL Creatinine 1.5 (0.8-1.5) mg/dL Glucose 87 (75-100) mg/dL Calcium 8.9 (8.4-10.2) mg/dL Calcium panel 05/18/17 Range/Units 05:21 Calcium 8.9 (8.4-10.2) mg/dL Pituitary panel 05/18/17 Range/Units 05:21 Sodium 133 L (137-145) mmol/L Potassium 4.4 (3.6-5.0) mmol/L Chloride 93.4 L (98-107) mmol/L Carbon Dioxide 30 (22-30) mmol/L BUN 27 H (9-20) mg/dL Creatinine 1.5 (0.8-1.5) mg/dL Glucose 87 (75-100) mg/dL Calcium 8.9 (8.4-10.2) mg/dL Adrenal panel 05/18/17 Range/Units 05:21 Sodium 133 L (137-145) mmol/L Potassium 4.4 (3.6-5.0) mmol/L Chloride 93.4 L (98-107) mmol/L Carbon Dioxide 30 (22-30) mmol/L BUN 27 H (9-20) mg/dL Creatinine 1.5 (0.8-1.5) mg/dL Glucose 87 (75-100) mg/dL Calcium 8.9 (8.4-10.2) mg/dL Assessment and Plan Severe advanced cardiomyopathy, I do not think the gallbladder is the source of the patients epigastric chest pain, even if it was he is NOT a surgical candidate at this time, if surgery is ever contemplated patient will have to go to Open heart facility with advanced cardiac support options and cardiac anesthesia. Pt is coagulopathic on coumadin with INR > 2. I have nothing really to offer this patient.
--- NOTE | 2017-05-18 16:26 | Ultrasound Report ---
ULTRASOUND ABDOMEN INDICATION: Evaluate for gallstones, acute cholecystitis. COMPARISON: 05/16/17 CT. FINDINGS: Abdominal sonography limited due to patient body habitus and rapid breathing, though suggests grossly normal hepatic contours without focal suspicious lesions or biliary dilatation. Right hepatic lobe approximately 17.5 cm in midclavicular length. Slight nonspecific hepatic coarsening. Questionable minimal gallbladder sludge versus technical artifact. No gallstones, pericholecystic fluid or positive sonographic Lawrence's sign. Gallbladder wall thickness is 2.8 mm. Common bile duct is 2.8 mm as well. Homogenous spleen, 9.3 cm in length. No significant ascites, though minimal right upper quadrant free fluid may be present. Normal imaged pancreas, IVC and abdominal aorta. No hydronephrosis. Right kidney is 10.2 x 5.5 x 3.8 cm with cortical thickness of 1.6 cm. Left kidney is 10.5 x 4.9 x 5.4 cm with cortical thickness of 2.1 cm. Minimal left upper pole perinephric fluid may be seen on image 57. CONCLUSION: No acute abdominal sonographic abnormality with few incidental findings as prominent liver, amongst others, as described. Thank you for the opportunity to participate in this patient's care.
[2017-05-18] MEDS: COUMADIN PO SCH (16:43)
[2017-05-18] MEDS ORDERED: LIDOCAINE VISCOUS 2% PO PRN (16:58)
[2017-05-18] MEDS ORDERED: BENADRYL PO PRN (22:56)
[2017-05-19 05:53] LABS: INR 2.39 (0.87-1.13)
[2017-05-19 05:59] LABS: Amylase 42 units/L (27-131); Anion Gap 17 mmol/L; BUN/Creatinine Ratio 17.33; Blood Urea Nitrogen 26 mg/dL (9-20); Calcium 8.8 mg/dL (8.4-10.2); Carbon Dioxide 29 mmol/L (22-30); Glucose 89 mg/dL (75-100); Lipase 14 units/L (13-60); Sodium 136 mmol/L (137-145)
[2017-05-19] MEDS: REGLAN IV SCH ×2 (07:23→11:03)
--- NOTE | 2017-05-19 08:49 | Event Note ---
Date: 05/19/17 ultrasound does not show gallstones, wall thickening or pericholecystic fluid, negative Lawrence's Sign, I will sign off, no General Surgical issues at this time.
[2017-05-19] MEDS ORDERED: LASIX PO SCH ×2 (10:17→11:00)
[2017-05-19] MEDS: ZESTRIL PO SCH (10:18)
[2017-05-19] MEDS: COREG PO SCH (10:18)
[2017-05-19] MEDS: LASIX PO SCH (10:20)
[2017-05-19] MEDS: BABY ASPIRIN PO SCH (11:03)
--- NOTE | 2017-05-19 12:13 | Progress Note ---
Assessment and Plan - Patient Problems (1) Congestive heart failure Current Visit: Yes Status: Acute Qualifiers: Congestive heart failure type: C Congestive heart failure chronicity: C Plan to address problem: Patient's heart failure is well compensated, okay for cardiac discharge on routine heart failure medications, and oral anticoagulation therapy for stroke prophylaxis. As outpatient, we will refer him to the [place] [facility]. Subjective Date of service: 05/19/17 Interval history: Patient is comfortable, in no acute distress. No new cardiac complaints. Objective Vital Signs Temp Pulse Pulse Pulse Resp BP Pulse Ox 05/19/17 10:55 94 H 05/19/17 09:19 97 05/19/17 05:15 98 F 73 21 101/69 98 05/19/17 00:05 97.8 F 70 20 104/57 99 05/18/17 23:26 75 26 H 100 05/18/17 20:27 97 05/18/17 20:26 90 05/18/17 19:51 98.0 F 80 20 91/61 97 05/18/17 18:27 97.8 F 18 L 18 103/58 95 05/18/17 14:00 84 - Physical Examination General: No Apparent Distress HEENT: Positive: PERRL Neck: Positive: neck supple. Negative: JVD/HJR Cardiac: Positive: Reg Rate and Rhythm Lungs: Positive: clear to auscultation Neuro: Positive: Grossly Intact Abdomen: Positive: Soft, Active Bowel Sounds Skin: Positive: Clear Extremities: Absent: edema - Labs and Meds Coagulation 05/19/17 Range/Units 04:50 PT 26.2 H (12.2-14.9) Sec. INR 2.39 H (0.87-1.13) Comprehensive Metabolic Panel 05/19/17 Range/Units 04:50 Sodium 136 L (137-145) mmol/L Potassium 4.0 (3.6-5.0) mmol/L Chloride 94.0 L (98-107) mmol/L Carbon Dioxide 29 (22-30) mmol/L BUN 26 H (9-20) mg/dL Creatinine 1.5 (0.8-1.5) mg/dL Glucose 89 (75-100) mg/dL Calcium 8.8 (8.4-10.2) mg/dL - Imaging and Cardiology EKG: image reviewed - EKG Sinus rhythms and dysrhythmias: sinus rhythm QRS axis and voltage: right axis deviation Repolarization changes or abnormalities: nonspecific abnormality, ST segment, and/or T wave, Q-T interval prolongation
--- NOTE | 2017-05-19 13:22 | Discharge Summary ---
Providers - Providers Date of Admission: 05/16/17 02:58 Date of discharge: 05/19/17 Attending physician: YVONNE HACKETT 05/18/17 12:05 Consult to Physician [CONS] Routine Consulting Provider: ADRIEL MALDONADO Reason For Exam: ? Ac.Cholecystitis Place consult to:: Dr. Maldonado Notified:: Camilla HERNANDEZ Phone number called:: Was contact made?: Yes If yes, spoke with:: Dr. Maldonado Time called:: 14:09 Primary care physician: [employer] Hospitalization Reason for admission: worsening shortness of breath and chest pain Condition: Stable Pertinent studies: CT head without contrast; no acute abnormality noted Chest x-ray; marked cardiomegaly, stable pacemaker, mild pulmonary venous congestion CT abdomen and pelvis; liver borderline enlarged Gallbladder thickened wall questionable stones or cholecystitis is suspected mild peripancreatic edema Abdominal ultrasound; no acute abnormality noted few incidental findings, no cholecystitis no gallstones Consults; cardiology, surgery Hospital course: Very pleasant 21-year-old male patient with significant past medical history of nonischemic cardiomyopathy with single chamber ICD was admitted through emergency room with worsening shortness of breath and chest discomfort and paroxysmal nocturnal dyspnea Patient was initially evaluated admitted to the hospital symptomatically managed , seen by cardiology, ICD was interrogated and no arrhythmias noted Patient's medications were optimized Patient developed right upper quadrant and epigastric pain with intractable nausea vomiting CT abdomen and pelvis suspicion for cholelithiasis and possible cholecystitis We obtained ultrasound of the abdomen and consult with surgery for further evaluation and management Ultrasound did not reveal any gallstones or acute cholecystitis findings meanwhile surgery has evaluated the patient and the felt that there was no indication for further evaluation and no indication of surgery, Severe cardiomyopathy on chronic anticoagulation with Coumadin, INR is therapeutic target INR is 2-3. Patient also complained of some tooth pain and requested some pain medications and antibiotics which were given Today patient feels better no new complaints, alert awake oriented 3 not in acute distress, vital signs are stable, face evaluation physical examination done by me prior to discharge is unremarkable Cleared by cardiology for discharge and follow up with them per schedule Cardiology also recommended outpatient evaluation the tertiary heart failure center for evaluation for heart transplant. Patient is aware of this recommendations verbalized understanding patient is hemodynamically and clinically stable at the time of discharge Final diagnosis; Acute on chronic systolic congestive heart failure Nonischemic cardiomyopathy LV cavity smoke high risk for thromboembolic events Chronic anticoagulation Tooth infection Status post ICD Disposition: DC-01 TO HOME OR SELFCARE Time spent for discharge: 32 min Core Measure Documentation - Palliative Care Palliative Care/ Comfort Measures: Not Applicable - Core Measures Any of the following diagnoses?: heart failure - Heart Failure Discharge Requirements NINA/ARB for LVSD if EF <40%: Yes Beta lucrecia at discharge: Yes Exam - Constitutional Vitals: Temp Pulse Resp BP Pulse Ox 98 F 94 H 21 101/69 97 05/19/17 05:15 05/19/17 10:55 05/19/17 05:15 05/19/17 05:15 05/19/17 09:19 General appearance: Present: no acute distress, well-nourished - EENT Eyes: Present: PERRL, EOM intact - Neck Neck: Present: supple, normal ROM - Respiratory Respiratory effort: normal Respiratory: bilateral: diminished, negative: rales, rhonchi, wheezing - Cardiovascular Rhythm: regular Heart Sounds: Present: S1 & S2 - Extremities Extremities: no ischemia, pulses intact, No edema - Abdominal General gastrointestinal: Present: soft, non-tender, non-distended, normal bowel sounds - Integumentary Integumentary: Present: clear, warm - Musculoskeletal Musculoskeletal: strength equal bilaterally, generalized weakness - Psychiatric Psychiatric: appropriate mood/affect, cooperative - Neurologic Neurologic: CNII-XII intact, moves all extremities Plan Activity: no restrictions Diet: low salt Special Instructions: restrict fluid intake to (< 1200 ml/day) Additional Instructions: See private Dentist 3-4 days as needed. frequent INR checks at PMD/Cardiology office, Target INR 2-3. If you have chest pain or shortness of breath ,contact MD or go to ER Follow up with: PRIMARY MD USHA [Primary Care Provider] - 3-5 Days REE RODRIGUEZ MD [Staff Physician] - 7 Days Forms: Warfarin Discharge Instruction Prescriptions: Amoxicillin/K Clav Tab [Augmentin 500 MG TAB] 1 each PO Q8HR #30 tablet Carvedilol [Coreg] 6.25 mg PO BID #60 tablet Furosemide [Lasix TAB] 20 mg PO BID #60 tablet Lisinopril [Zestril TAB] 2.5 mg PO QDAY #30 tablet oxyCODONE /ACETAMINOPHEN [Percocet 5/325 mg] 1 tab PO QHS PRN #7 tablet PRN Reason: Pain, Moderate (4-6) Warfarin [Coumadin] 3 mg PO DAILY@1700 #30 tablet
[2017-05-19 13:36] VITALS: BP 98/64
== END 2017-05-19 15:07 | disposition home or self-care (01) | DRG 293 ==
LOC: ED 16:23 → 4A 05-16 02:58
PROVIDERS: ADMIT Internal Medicine; ATTEND Internal Medicine
DX: I11.0 Hypertensive heart disease with heart failure (principal); I50.23 Acute on chronic systolic (congestive) heart failure; K29.70 Gastritis, unspecified, without bleeding; K08.89 Other specified disorders of teeth and supporting structures; I42.9 Cardiomyopathy, unspecified; Q24.9 Congenital malformation of heart, unspecified; Z95.0 Presence of cardiac pacemaker; Z82.49 Family history of ischemic heart disease and other diseases of the circulatory system; Z79.01 Long term (current) use of anticoagulants; Z91.14 Patient's other noncompliance with medication regimen; Z71.89 Other specified counseling
CPT/HCPCS: 36415; 70450; 71010; 74176; 76700; 80048; 80053; 82150; 82550; 82553; 83690; 83880; 84484; 85025; 85379; 85610; 85730; 93005; 93010; 94660; 94760; 96374; 96375; J1940; J2270; J2405; J2765

== ENCOUNTER 2017-05-26 22:48 | Inpatient (IN) | payer OTHER ==
[2017-05-26] MEDS ORDERED: BABY ASPIRIN PO ONE (23:37)
[2017-05-26] MEDS ORDERED: LASIX IV ONE (23:38)
--- NOTE | 2017-05-26 23:43 | Emergency Department Report ---
ED Chest Pain HPI - General Chief Complaint: Chest Pain Stated Complaint: FRANKIE Time Seen by Provider: 05/26/17 23:31 Source: patient, EMS Mode of arrival: Stretcher Limitations: No Limitations - History of Present Illness MD Complaint: chest pain -: Last night Onset: during rest Pain Location: substernal, left chest Quality: pressure Worsens With: exertion, movement re: denies: nausea, vomting - Related Data Previous Rx's Medication Instructions Recorded Last Taken Type Carvedilol [Coreg] 6.25 mg PO BID #60 tablet 05/19/17 05/26/17 Rx Furosemide [Lasix TAB] 20 mg PO BID #60 tablet 05/19/17 05/26/17 Rx Lisinopril [Zestril TAB] 2.5 mg PO QDAY #30 tablet 05/19/17 05/26/17 Rx Warfarin [Coumadin] 3 mg PO DAILY@1700 #30 tablet 05/19/17 05/26/17 Rx oxyCODONE /ACETAMINOPHEN [Percocet 1 tab PO QHS PRN #7 tablet 05/19/17 05/26/17 Rx 5/325 mg] Allergies Allergy/AdvReac Type Severity Reaction Status Date / Time No Known Allergies Allergy Verified 02/18/17 13:00 Heart Score - HEART Score History: Highly suspicious EKG: Non-specific Age: < 45 Risk factors: 1-2 risk factors Troponin: < normal limit HEART Score: 4 - Critical Actions Critical Actions: 4-6 pts:12-16.6% risk of adverse cardiac event. Should be admitted ED Review of Systems ROS: Stated complaint: FRANKIE Other details as noted in HPI Comment: All other systems reviewed and negative Constitutional: denies: chills, fever Respiratory: orthopnea, shortness of breath, SOB with exertion, SOB at rest. denies: stridor, wheezing Cardiovascular: chest pain, dyspnea on exertion, orthopnea, paroxysmal nocturnal dyspnea Gastrointestinal: denies: abdominal pain, nausea, vomiting Neurological: denies: headache, numbness ED Past Medical Hx - Past Medical History Previous Medical History?: Yes Hx Congestive Heart Failure: Yes Hx Diabetes: No Hx Asthma: No Hx COPD: No Additional medical history: pacer/defib. cardiomyopathy - Surgical History Hx Pacemaker: Yes Hx Internal Defibrillator: Yes (Placed 2012) - Social History Smoking Status: Never Smoker Substance Use Type: None - Medications Home Medications: Home Medications Medication Instructions Recorded Confirmed Last Taken Type Carvedilol [Coreg] 6.25 mg PO BID #60 tablet 05/19/17 05/26/17 05/26/17 Rx Furosemide [Lasix TAB] 20 mg PO BID #60 tablet 05/19/17 05/26/17 05/26/17 Rx Lisinopril [Zestril TAB] 2.5 mg PO QDAY #30 tablet 05/19/17 05/26/17 05/26/17 Rx Warfarin [Coumadin] 3 mg PO DAILY@1700 #30 tablet 05/19/17 05/26/17 05/26/17 Rx oxyCODONE /ACETAMINOPHEN [Percocet 1 tab PO QHS PRN #7 tablet 05/19/17 05/26/17 05/26/17 Rx 5/325 mg] ED Physical Exam - General Limitations: No Limitations General appearance: alert, in no apparent distress - Head Head exam: Present: atraumatic - ENT ENT exam: Present: normal exam - Neck Neck exam: Present: normal inspection. Absent: tenderness, meningismus, lymphadenopathy, thyromegaly - Respiratory Respiratory exam: Present: rales, decreased breath sounds - Cardiovascular Cardiovascular Exam: Present: gallop - GI/Abdominal GI/Abdominal exam: Present: soft. Absent: distended, tenderness, guarding, rebound - Extremities Exam Extremities exam: Present: normal inspection - Neurological Exam Neurological exam: Present: alert, oriented X3, CN II-XII intact. Absent: motor sensory deficit - Skin Skin exam: Present: warm, intact ED Course Vital Signs 05/26/17 05/26/17 05/26/17 22:34 23:12 23:15 Temperature 97.6 F Pulse Rate 89 Respiratory 20 Rate Blood Pressure 145/100 O2 Sat by Pulse Oximetry 05/26/17 05/27/17 23:31 00:00 Temperature Pulse Rate 87 83 Respiratory 53 H 29 H Rate Blood Pressure 106/63 104/68 O2 Sat by Pulse 99 100 Oximetry - Reevaluation(s) Reevaluation #1: 05/27/17 01:[address] Stephanie Bautista for admission. BRITTANY score - Brittany Score Age > 65: (0) No Aspirin use within the Past 7 Days: (0) No 3 or more CAD Risk Factors: (0) No 2 or more Angina events in past 24 hrs: (1) Yes Known CAD with more than 50% Stenosis: (0) No Elevated Cardiac Markers: (0) No ST Deviation Greater than 0.5mm: (0) No BRITTANY Score: 1 ED Medical Decision Making - Lab Data Result diagrams: 05/26/17 23:47 05/26/17 23:47 Critical care attestation.: If time is entered above; I have spent that time in minutes in the direct care of this critically ill patient, excluding procedure time. ED Disposition Clinical Impression: Chest pain, CHF exacerbation Disposition: - OP ADMIT IP TO THIS HOSP Is pt being admited?: Yes Does the pt Need Aspirin: Yes (given) Condition: Stable Instructions: Chest Pain (ED)
[2017-05-27 00:07] LABS: Basophils % (Auto) 0.6 % (0.0-1.8); Eosinophils % (Auto) 0.7 % (0.0-4.3); Hematocrit 38.4 % (35.5-45.6); Hemoglobin 12.1 gm/dl (11.8-15.2); Mean Corpuscular HGB Conc 32 % (32-34); Mean Corpuscular Hemoglobin 26 pg (28-32); Mean Corpuscular Volume 83 fl (84-94); Platelet Count 263 K/mm3 (140-440); Red Blood Count 4.65 M/mm3 (3.65-5.03); Red Cell Distribution Width 14.8 % (13.2-15.2); White Blood Count 8.1 K/mm3 (4.5-11.0)
[2017-05-27 00:19] LABS: INR 4.03 (0.87-1.13); Partial Thromboplastin Time 38.2 Sec. (24.2-36.6)
[2017-05-27 00:53] LABS: Alanine Aminotransferase 47 units/L (7-56); Albumin 3.3 g/dL (3.9-5); Alkaline Phosphatase 86 units/L (35-129); Anion Gap 22 mmol/L; BUN/Creatinine Ratio 16.42; Blood Urea Nitrogen 23 mg/dL (9-20); Calcium 8.5 mg/dL (8.4-10.2); Carbon Dioxide 19 mmol/L (22-30); Chloride 96.9 mmol/L (98-107); Glucose 88 mg/dL (75-100); Sodium 134 mmol/L (137-145); Total Protein 6.5 g/dL (6.3-8.2)
[2017-05-27] MEDS ORDERED: TYLENOL PO PRN (01:26)
[2017-05-27] MEDS ORDERED: ZOFRAN IV PRN (01:26)
[2017-05-27] MEDS ORDERED: MILK OF MAGNESIA PO PRN (01:26)
[2017-05-27] MEDS ORDERED: DULCOLAX PR PRN (01:26)
--- NOTE | 2017-05-27 01:31 | History and Physical Report ---
History of Present Illness Date of examination: 05/27/17 History of present illness: 22-year-old man with a history of hypertension, CHF, congenital heart problem comes emergency room with complaints of shortness of breath, PND, orthopnea which started yesterday He had syncopal episode on his way to the bathroom, lasting for 2 minutes, also had another syncopal episode the day before. . Also complaining of chest pain in the left substernal area which she describes as sharp pain, started yesterday, intermittent every 1 hourr, intensity 6/10. Admits to diaphoresis, palpitation, no nausea vomiting. REview of systems: Constitutional: no fever, no chills, no weight loss Ears, eyes, nose, mouth and throat: no nasal congestion, no nasal discharge, no sinus pressure, no vision change, no red eye. Neck: No neck pain or rigidity. Cardiovascular: chest pain, no orthopnea, no palpitations, no leg swelling Respiratory: No shortness of breath, no cough, no congestion, no wheezing Gastrointestinal: abdominal pain, hematochezia, no nausea, no vomiting Genitourinary : no dysuria, frequency , no hematuria Musculoskeletal: no joint swelling or muscle ache Integumentary: no rash, no pruritis Neurological: no parathesias, no numbness, no focal weakness Endocrine: no cold or heat intolerance, no polyuria or polydipsia Hematologic/Lymphatic: no easy bruising, no easy bleeding, no gland swelling Allergic/Immunologic: no urticaria, no angioedema. PAST MEDICAL HISTORY: hypertension, CHF, congenital heart problem PAST SURGICAL HISTORY: AICD, pacemaker SOCIAL HISTORY: Denies alcohol, tobacco, drug FAMILY HISTORY: Hypertension Medications and Allergies Allergies Allergy/AdvReac Type Severity Reaction Status Date / Time No Known Allergies Allergy Verified 02/18/17 13:00 Home Medications Medication Instructions Recorded Confirmed Last Taken Type Carvedilol [Coreg] 6.25 mg PO BID #60 tablet 05/19/17 05/26/17 05/26/17 Rx Furosemide [Lasix TAB] 20 mg PO BID #60 tablet 05/19/17 05/26/17 05/26/17 Rx Lisinopril [Zestril TAB] 2.5 mg PO QDAY #30 tablet 05/19/17 05/26/17 05/26/17 Rx Warfarin [Coumadin] 3 mg PO DAILY@1700 #30 tablet 05/19/17 05/26/17 05/26/17 Rx oxyCODONE /ACETAMINOPHEN [Percocet 1 tab PO QHS PRN #7 tablet 05/19/17 05/26/17 05/26/17 Rx 5/325 mg] Active Meds: Active Medications Carvedilol (Coreg) 6.25 mg PO BID ENOC Lisinopril (Zestril) 2.5 mg PO QDAY ENOC Oxycodone/Acetaminophen (Percocet 5/325) 1 tab PO QHS PRN PRN Reason: Pain, Moderate (4-6) Exam - Physical Exam Narrative exam: Gen. appearance: Patient lying in bed, no apparent distress HEENT: Normocephalic, atraumatic, pupils equally round and reactive to light, extraocular movement intact, and no sclericterus,. No JVD or thyromegaly or nodule,neck supple, no carotid bruit ,mucous membranes moist, no exudate or erythema Heart: S1, S2, regular rate and rhythm Lungs: Crackles bilaterally, breathing comfortable Abdomen: Positive bowel sounds, nontender, nondistended, no organomegaly Extremity: No edema, cyanosis, clubbing Skin: No rash, nodules, warm, dry Neuro: Oriented 3, cranial nerves II-12 intact, speech is fluent, motor and sensory intact - Constitutional Vitals: Temp Pulse Resp BP Pulse Ox 97.6 F 83 29 H 104/68 100 05/26/17 23:15 05/27/17 00:00 05/27/17 00:00 05/27/17 00:00 05/27/17 00:00 Results - Labs CBC & Chem 7: 05/26/17 23:47 05/26/17 23:47 Labs: Abnormal lab results 05/26/17 05/26/17 05/26/17 Range/Units 23:47 23:47 23:47 MCV 83 L (84-94) fl MCH 26 L (28-32) pg Hood % (Auto) 9.9 H (0.0-7.3) % PT 41.4 H (12.2-14.9) Sec. INR 4.03 H (0.87-1.13) APTT 38.2 H (24.2-36.6) Sec. Sodium 134 L (137-145) mmol/L Chloride 96.9 L (98-107) mmol/L Carbon Dioxide 19 L (22-30) mmol/L BUN 23 H (9-20) mg/dL Total Bilirubin 2.00 H (0.1-1.2) mg/dL AST 57 H (5-40) units/L NT-Pro-B Natriuret Pep (0-450) pg/mL Albumin 3.3 L (3.9-5) g/dL 05/26/17 Range/Units 23:54 MCV (84-94) fl MCH (28-32) pg Hood % (Auto) (0.0-7.3) % PT (12.2-14.9) Sec. INR (0.87-1.13) APTT (24.2-36.6) Sec. Sodium (137-145) mmol/L Chloride (98-107) mmol/L Carbon Dioxide (22-30) mmol/L BUN (9-20) mg/dL Total Bilirubin (0.1-1.2) mg/dL AST (5-40) units/L NT-Pro-B Natriuret Pep 6660 H (0-450) pg/mL Albumin (3.9-5) g/dL - Imaging and Cardiology EKG: image reviewed Chest x-ray: image reviewed Assessment and Plan Assessment Acute on chronic systolic heart failure Syncope, recurrent Chest pain Hypertension Plan Admit to medicine Diuresed with IV Lasix Check cardiac enzymes, will not repat echo Continue beta lucrecia, NINA inhibitor inhibitor, aspirin Consult cardiology, Monitor I's and O's, daily weight PAtient may benefit from an event monitor continue outpatient medications DVT prophylaxis with coumadin
[2017-05-27 03:18] LABS: Creatine Kinase MB 1.3 ng/mL (0.0-4.0)
[2017-05-27 03:19] LABS: Creatine Kinase 154 units/L (55-170)
[2017-05-27] MEDS: PERCOCET 5/325 PO PRN (04:51)
[2017-05-27 07:43] LABS: Creatine Kinase MB 1.1 ng/mL (0.0-4.0)
[2017-05-27 07:46] LABS: Creatine Kinase 138 units/L (55-170)
--- NOTE | 2017-05-27 08:18 | XRay Report ---
PORTABLE CHEST INDICATION: Chest pain. COMPARISON: 05/15/2017 FINDINGS: Portable, frontal chest radiograph again demonstrates mild cardiomegaly and left AICD with dual-chamber leads. Slight bronchovascular prominence centrally and mild peribronchial thickening. Trace right pleural effusion questioned. EKG leads. Unremarkable bones. CONCLUSION: Minimal pulmonary vascular congestion questioned with stable cardiomegaly and pacemaker, as described. Please correlate. Thank you for the opportunity to participate in this patient's care.
--- NOTE | 2017-05-27 09:35 | Consultation ---
History of Present Illness Consult date: 05/27/17 Consult reason: syncope History of present illness: This is a 22yr old male with a long standing h/o non ischemic cardiomyopathy s/ p single chamber ICD([employer]). He also was found to have smoke in LV cavity on recent echocardiogram and is on warfarin for anticoagulation. He is now admitted with syncope. Patient reports he had a brief syncopal episode while walking. He reports feeling weak, dizzy and lightheaded over the last few days. He does not recall any palpitations or ICD shocks. INR of 4.0 on initial labs in the ED. Cardiology consultation requested. Medications and Allergies Allergies Allergy/AdvReac Type Severity Reaction Status Date / Time No Known Allergies Allergy Verified 02/18/17 13:00 Home Medications Medication Instructions Recorded Confirmed Last Taken Type Carvedilol [Coreg] 6.25 mg PO BID #60 tablet 05/19/17 05/26/17 05/26/17 Rx Furosemide [Lasix TAB] 20 mg PO BID #60 tablet 05/19/17 05/26/17 05/26/17 Rx Lisinopril [Zestril TAB] 2.5 mg PO QDAY #30 tablet 05/19/17 05/26/17 05/26/17 Rx Warfarin [Coumadin] 3 mg PO DAILY@1700 #30 tablet 05/19/17 05/26/17 05/26/17 Rx oxyCODONE /ACETAMINOPHEN [Percocet 1 tab PO QHS PRN #7 tablet 05/19/17 05/26/17 05/26/17 Rx 5/325 mg] Active Meds: Active Medications Acetaminophen (Tylenol) 650 mg PO Q4H PRN PRN Reason: Pain MILD(1-3)/Fever >100.5/NAVA Aspirin (Baby Aspirin) 81 mg PO QDAY ENOC Bisacodyl (Dulcolax) 10 mg [place] QDAY PRN PRN Reason: Constipation unrelieved by MOM Carvedilol (Coreg) 6.25 mg PO BID ENOC Lisinopril (Zestril) 2.5 mg PO QDAY ENOC Magnesium Hydroxide (Milk Of Magnesia) 30 ml PO Q4H PRN PRN Reason: Constipation Ondansetron HCl (Zofran) 4 mg IV Q8H PRN PRN Reason: N/V unrelieved by Reglan Oxycodone/Acetaminophen (Percocet 5/325) 1 tab PO QHS PRN PRN Reason: Pain, Moderate (4-6) Last Admin: 05/27/17 04:51 Dose: 1 tab Physical Examination Vital Signs BP 145/100 05/26/17 22:34 General appearance: no acute distress HEENT: Positive: PERRL Neck: Positive: trachea midline Cardiac: Positive: Reg Rate and Rhythm Results 05/26/17 23:47 05/26/17 23:47 Cardiac Enzymes 05/27/17 05/27/17 Range/Units 02:26 06:29 CK-MB (CK-2) 1.3 1.1 (0.0-4.0) ng/mL Assessment and Plan Syncope Nonischemic cardiomyopathy s/p AICD LVEF 10-15% on echo 04/2017 Smoke in LV cavity on warfarin for anticoagulation
[2017-05-27] MEDS: ZESTRIL PO SCH (12:21)
[2017-05-27] MEDS: COREG PO SCH ×2 (12:22→21:53)
[2017-05-27] MEDS: BABY ASPIRIN PO SCH (12:22)
[2017-05-27 13:33] LABS: Bacteria,Urine 1+ /HPF (Negative); Bilirubin,Urine NEG (Negative); Blood,Urine NEG (Negative); Ketones,Urine NEG (Negative); Leukocyte Esterase,Urine MOD (Negative); Mucus,Urine FEW /HPF; Nitrite,Urine NEG (Negative); Protein,Urine <15 mg/dL mg/dL (Negative)
--- NOTE | 2017-05-27 14:34 | Event Note ---
Date: 05/27/17 Patient seen and examined in no acute distress. reports 2 episode of syncope. Etiology following. On discharge, cardiology recommends no warfarin on the aspirin.
[2017-05-27] MEDS: LASIX IV SCH (17:55)
[2017-05-28] MEDS: PERCOCET 5/325 PO PRN ×2 (02:49→18:55)
[2017-05-28 07:24] LABS: Basophils % (Auto) 0.8 % (0.0-1.8); Eosinophils % (Auto) 0.8 % (0.0-4.3); Hemoglobin 12.1 gm/dl (11.8-15.2); Mean Corpuscular HGB Conc 32 % (32-34); Mean Corpuscular Volume 81 fl (84-94); Platelet Count 260 K/mm3 (140-440); Red Blood Count 4.69 M/mm3 (3.65-5.03); Red Cell Distribution Width 14.5 % (13.2-15.2); White Blood Count 8.6 K/mm3 (4.5-11.0)
[2017-05-28 07:33] LABS: Mean Corpuscular Hemoglobin 26 pg (28-32)
[2017-05-28 07:44] LABS: Anion Gap 17 mmol/L; BUN/Creatinine Ratio 19.16; Blood Urea Nitrogen 23 mg/dL (9-20); Calcium 8.3 mg/dL (8.4-10.2); Carbon Dioxide 24 mmol/L (22-30); Chloride 98.1 mmol/L (98-107); Glucose 106 mg/dL (75-100); Potassium 3.8 mmol/L (3.6-5.0); Sodium 135 mmol/L (137-145)
--- NOTE | 2017-05-28 07:48 | Admit Criteria Form ---
Admission Criteria Documentation: HEART FAILURE: COMMON COMPLICATIONS Clinical Indications for Inpatient Care ([place]/check or initial the applicable condition/criteria): Ongoing inpatient care may be indicated for heart failure with 1 or more of the following (1)(2)(3)(4)(5)(6)(7)(8): [ ]I. New-onset heart failure [ ]II. Acute cardiac ischemia causing or associated with failure [ ]III. Ongoing need for care for primary condition requiring frequent therapy adjustments because of changes in cardiac function (eg, drug dosage changes for drugs that are renally metabolized) [X ]IV. Complications of heart failure, including 1 or more of the following: [ ]a) Hemodynamic instability [ ]b) Pericardial effusion [ ]c) Symptomatic pleural effusion(16) [ ]d) Hypoxemia [ ]e) Tachypnea [ ]f) Dyspnea [X ]g) Syncope [ ]h) Altered mental status [ ]i) Acute renal insufficiency that is severe (reduction of more than 50% in estimated glomerular filtration rate from baseline) or progressive (reduction of more than 25% in estimated glomerular filtration rate from baseline, with creatinine continuing to rise) [ ]j) Debilitating anasarca (eg tissue breakdown with infection, inability to void due to edema)(E) (17) [ ]k) Clinically significant metabolic abnormalities due to heart failure (e.g., new-onset metabolic acidosis) Extended stay may be needed until ALL of the following are present(1)(3)(18)(41) (55): [ ]a) Hemodynamic stability [ ]b) Stable and effective diuretic regimen established (or patient on stable dialysis regimen if in chronic renal failure) [ ]c) Volume status acceptable on oral medication [ ]d) Breathing comfortably at rest [ ]e) Saturation of arterial oxygen greater than 90% or at acceptable baseline [ ]f) Pulmonary edema absent or improved [ ]g) Peripheral or sacral edema absent or improved [ ]h) Renal function stable and manageable at a lower level of care [ ]i) Complications (e.g., pleural effusion) resolved or manageable at a lower level of care [ ]j) Patient or caregiver has received written discharge instructions or educational material addressing activity level, diet, discharge medications, follow-up appointment, weight monitoring, and what to do if symptoms worsen. (56)(57)(58) The original [facility] [employer] content created by Nichelle Dooley has been revised. The portions of the content which have been revised are identified through the use of italic text or in bold, and Nichelle Dooley has neither reviewed nor approved the modified material.All other unmodified content is copyright [facility] [email or web address]. Please see references footnoted in the original [facility] edition 2017 Admission Criteria Met: Yes
[2017-05-28] MEDS: COREG PO SCH ×2 (11:02→23:31)
[2017-05-28] MEDS: LASIX IV SCH (11:03)
[2017-05-28] MEDS: ZESTRIL PO SCH (11:03)
[2017-05-28] MEDS: BABY ASPIRIN PO SCH (11:03)
--- NOTE | 2017-05-28 13:27 | Progress Note ---
Assessment and Plan Recurrent Syncope CT head 05/2017 - no acute process Acute on chronic systolic heart failure Nonischemic cardiomyopathy s/p AICD LVEF 10-15% on echo 04/2017 no significant arrhythmias on ICD interrogation Subjective Date of service: 05/28/17 Interval history: Patient is resting in bed comfortably. Objective Vital Signs Temp Pulse Pulse Resp BP BP Pulse Ox 05/28/17 12:00 98.5 F 86 20 95/70 100 05/28/17 11:03 92/69 05/28/17 11:02 92/69 05/28/17 08:33 100 05/28/17 07:00 97.4 F L 86 20 95/69 100 05/28/17 04:46 97.9 F 80 20 101/61 98 05/28/17 02:49 20 05/28/17 00:49 97.8 F 78 20 92/72 100 05/28/17 00:09 80 05/27/17 20:44 97.6 F 74 20 106/69 96 05/27/17 20:35 78 05/27/17 20:24 99 05/27/17 15:44 98.5 F 87 20 98/68 99 - Physical Examination General: No Apparent Distress HEENT: Positive: PERRL Neck: Positive: trachea midline Cardiac: Positive: Reg Rate and Rhythm - Labs and Meds CBC 05/28/17 Range/Units 06:59 WBC 8.6 (4.5-11.0) K/mm3 RBC 4.69 (3.65-5.03) M/mm3 Hgb 12.1 (11.8-15.2) gm/dl Hct 38.0 (35.5-45.6) % Plt Count 260 (140-440) K/mm3 Lymph # 3.3 (1.2-5.4) K/mm3 Schuyler # 0.7 (0.0-0.8) K/mm3 Eos # 0.1 (0.0-0.4) K/mm3 Baso # 0.1 (0.0-0.1) K/mm3 Comprehensive Metabolic Panel 05/28/17 Range/Units 06:59 Sodium 135 L (137-145) mmol/L Potassium 3.8 (3.6-5.0) mmol/L Chloride 98.1 (98-107) mmol/L Carbon Dioxide 24 (22-30) mmol/L BUN 23 H (9-20) mg/dL Creatinine 1.2 (0.8-1.5) mg/dL Glucose 106 H (75-100) mg/dL Calcium 8.3 L (8.4-10.2) mg/dL - Imaging and Cardiology EKG: image reviewed
--- NOTE | 2017-05-28 14:52 | Progress Note ---
Assessment and Plan Assessment and plan: Patient is a 22-year-old male with hx of congestive heart failure, non ischemic cardiomyopathy s/p AICD presents to the emergency department via EMS from home with complaint of left-sided chest pain that began about 1 hour prior to presentation Recurrent Syncope ICD interrogated with no abnomality noted Cardiology input noted Systolic CHF acute exarcebation with EF 10-15%- Endstage per cardiology continue lasix, BB, cardiac diet Cardiology following Case management/social work consult for disability and medication, insurance support. Case management has looked into this a patient reports that he has applied for insurance and disability since 2014 I suspect an approval in upcoming months. NICM S/P AICD Secondary Coagulopathy Warfarin discontinued, Cardiology recommends discontinue warfarin Acute cystitis Start on Ciprofloxacin, check urine culture Non compliance. DVT/GI prophy Plan of care discussed with wax pattern repairer and with patient in detail History Interval history: Patient seen and examined in no acute distress. Hospitalist Physical - Physical exam Narrative exam: VITAL SIGNS: Reviewed. GENERAL: The patient appeared well nourished and normally developed. Vital signs as documented. HEAD: No signs of head trauma. EYES: Pupils are equal. Extraocular motions intact. EARS: Hearing grossly intact. MOUTH: Oropharynx is normal. NECK: No adenopathy, no JVD. CHEST: Chest with clear breath sounds bilaterally. No wheezes, rales, or rhonchi. CARDIAC: Regular rate and rhythm. S1 and S2, without murmurs, gallops, or rubs. VASCULAR: No Edema. Peripheral pulses normal and equal in all extremities. ABDOMEN: Soft, without detectable tenderness. No sign of distention. No rebound or guarding, and no masses palpated. Bowel Sounds normal. MUSCULOSKELETAL: Good range of motion of all major joints. Extremities without clubbing, cyanosis or edema. NEUROLOGIC EXAM: Alert and oriented x 3. No focal sensory or strength deficits. Speech normal. Follows commands. PSYCHIATRIC: Mood normal. SKIN: AICD in place. - Constitutional Vitals: Temp Pulse Resp BP Pulse Ox 98.5 F 86 20 95/70 100 05/28/17 12:00 05/28/17 12:00 05/28/17 12:00 05/28/17 12:00 05/28/17 12:00 General appearance: Present: no acute distress Results - Labs CBC & Chem 7: 05/28/17 06:59 05/28/17 06:59 Labs: Laboratory Last Values WBC 8.6 K/mm3 (4.5-11.0) 05/28/17 06:59 RBC 4.69 M/mm3 (3.65-5.03) 05/28/17 06:59 Hgb 12.1 gm/dl (11.8-15.2) 05/28/17 06:59 Hct 38.0 % (35.5-45.6) 05/28/17 06:59 MCV 81 fl (84-94) L 05/28/17 06:59 MCH 26 pg (28-32) L 05/28/17 06:59 MCHC 32 % (32-34) 05/28/17 06:59 RDW 14.5 % (13.2-15.2) 05/28/17 06:59 Plt Count 260 K/mm3 (140-440) 05/28/17 06:59 Lymph % (Auto) 38.4 % (13.4-35.0) H 05/28/17 06:59 [place] % (Auto) 8.0 % (0.0-7.3) H 05/28/17 06:59 Eos % (Auto) 0.8 % (0.0-4.3) 05/28/17 06:59 Baso % (Auto) 0.8 % (0.0-1.8) 05/28/17 06:59 Lymph # 3.3 K/mm3 (1.2-5.4) 05/28/17 06:59 [place] # 0.7 K/mm3 (0.0-0.8) 05/28/17 06:59 Eos # 0.1 K/mm3 (0.0-0.4) 05/28/17 06:59 Baso # 0.1 K/mm3 (0.0-0.1) 05/28/17 06:59 Seg Neutrophils % 52.0 % (40.0-70.0) 05/28/17 06:59 Seg Neutrophils # 4.5 K/mm3 (1.8-7.7) 05/28/17 06:59 PT 41.4 Sec. (12.2-14.9) H 05/26/17 23:47 INR 4.03 (0.87-1.13) H 05/26/17 23:47 APTT 38.2 Sec. (24.2-36.6) H 05/26/17 23:47 Sodium 135 mmol/L (137-145) L 05/28/17 06:59 Potassium 3.8 mmol/L (3.6-5.0) 05/28/17 06:59 Chloride 98.1 mmol/L (98-107) 05/28/17 06:59 Carbon Dioxide 24 mmol/L (22-30) 05/28/17 06:59 Anion Gap 17 mmol/L 05/28/17 06:59 BUN 23 mg/dL (9-20) H 05/28/17 06:59 Creatinine 1.2 mg/dL (0.8-1.5) 05/28/17 06:59 Estimated GFR > 60 ml/min 05/28/17 06:59 BUN/Creatinine Ratio 19.16 % 05/28/17 06:59 Glucose 106 mg/dL (75-100) H 05/28/17 06:59 Calcium 8.3 mg/dL (8.4-10.2) L 05/28/17 06:59 Total Bilirubin 2.00 mg/dL (0.1-1.2) H 05/26/17 23:47 AST 57 units/L (5-40) H 05/26/17 23:47 ALT 47 units/L (7-56) 05/26/17 23:47 Alkaline Phosphatase 86 units/L (35-129) 05/26/17 23:47 Total Creatine Kinase 138 units/L (55-170) 05/27/17 06:29 CK-MB (CK-2) 1.1 ng/mL (0.0-4.0) 05/27/17 06:29 CK-MB (CK-2) Rel Index 0.7 (0-4) 05/27/17 06:29 Troponin T < 0.010 ng/mL (0.00-0.029) 05/27/17 06:29 NT-Pro-B Natriuret Pep 6660 pg/mL (0-450) H 05/26/17 23:54 Total Protein 6.5 g/dL (6.3-8.2) 05/26/17 23:47 Albumin 3.3 g/dL (3.9-5) L 05/26/17 23:47 Albumin/Globulin Ratio 1.0 % 05/26/17 23:47 Urine Color Zoë (Yellow) 05/27/17 11:30 Urine Turbidity Clear (Clear) 05/27/17 11:30 Urine pH 5.0 (5.0-7.0) 05/27/17 11:30 Ur Specific [place] 1.019 (1.003-1.030) 05/27/17 11:30 Urine Protein <15 mg/dl mg/dL (Negative) 05/27/17 11:30 Urine Glucose (UA) Neg mg/dL (Negative) 05/27/17 11:30 Urine Ketones Neg mg/dL (Negative) 05/27/17 11:30 Urine Blood Neg (Negative) 05/27/17 11:30 Urine Nitrite Neg (Negative) 05/27/17 11:30 Urine Bilirubin Neg (Negative) 05/27/17 11:30 Urine Urobilinogen 4.0 mg/dL (<2.0) 05/27/17 11:30 Ur Leukocyte Esterase Mod (Negative) 05/27/17 11:30 Urine WBC (Auto) 35.0 /HPF (0.0-6.0) H 05/27/17 11:30 Urine RBC (Auto) 5.0 /HPF (0.0-6.0) 05/27/17 11:30 Urine Bacteria (Auto) 1+ /HPF (Negative) 05/27/17 11:30 Urine Mucus Few /HPF 05/27/17 11:30 - Imaging and Cardiology Chest x-ray: image reviewed (PULMONARY VASCULAR CONGESTION)
--- NOTE | 2017-05-28 16:47 | Vascular Lab Report ---
CAROTID DUPLEX STUDY: RIGHT PSVEDV CCA PROX:6811 CCA DIST:4712 ICA PROX:3617 ICA MID:5524 ICA DIST:4822 ECA: 46 VERT: 32 9 LEFT PSVEDV CCA PROX:7214 CCA DIST:4518 ICA PROX:3818 ICA MID:5616 ICA DIST:4621 ECA: 42 VERT: 34 13 REASON FOR EXAM: Carotid artery stenosis/syncope. COMMENTS ON THE RIGHT: Doppler frequency analysis is consistent with 16 to 49 percent diameter reduction of the internal carotid artery. Minimal amount of plaque is seen. The common carotid artery is patent. The external carotid artery is patent. The vertebral artery has antegrade flow. COMMENTS ON THE LEFT: Doppler frequency analysis is consistent with 16 to 49 percent diameter reduction of the internal carotid artery. Minimal amount of plaque is seen. The common carotid artery is patent. The external carotid artery is patent. The vertebral artery has antegrade flow. IMPRESSION: Less than 50% diameter reduction in the internal carotid arteries bilaterally. Consider repeat carotid artery duplex in 12 months.
[2017-05-28] MEDS: LEVAQUIN PO SCH (18:40)
[2017-05-29] MEDS: LASIX IV SCH (10:58)
[2017-05-29] MEDS: ZESTRIL PO SCH (10:58)
[2017-05-29] MEDS: BABY ASPIRIN PO SCH (10:58)
[2017-05-29] MEDS: LEVAQUIN PO SCH (10:58)
[2017-05-29] MEDS: COREG PO SCH ×2 (10:59→22:14)
--- NOTE | 2017-05-29 11:28 | Progress Note ---
Assessment and Plan Syncope No sustained arrhythmias on device interrogation Carotid US - Less than 50% stenosis Nonischemic cardiomyopathy s/p AICD LVEF 10-15% on echo 04/2017 Comepnsated on exam (patient is warm and dry), weight is stable Shortness of breath Abdominal Pain Recommendations: Check BNP today and adjust diuresis accordingly if needed Continue same management Patient states that he does not feel ready or well enough to go home Subjective Date of service: 05/29/17 Principal diagnosis: Syncope Interval history: Patient reports having shortness of breath and abdominal pain this morning. His lung exam is clear Objective Vital Signs Temp Pulse Pulse Resp BP BP Pulse Ox 05/29/17 10:59 80 103/70 05/29/17 10:58 80 103/70 05/29/17 08:03 97.9 F 80 18 103/70 100 05/29/17 04:00 98.2 F 72 18 88/60 99 05/29/17 00:00 98.1 F 84 18 116/64 97 05/28/17 23:31 81 118/74 05/28/17 22:00 88 80 16 05/28/17 21:55 99 05/28/17 19:51 98.4 F 81 18 107/66 99 05/28/17 17:38 98.5 F 84 20 122/70 98 05/28/17 12:00 98.5 F 86 20 95/70 100 - Physical Examination General: No Apparent Distress HEENT: Positive: PERRL Neck: Positive: trachea midline Cardiac: Positive: Reg Rate and Rhythm Lungs: Positive: Normal Exam Abdomen: Positive: Soft - Imaging and Cardiology EKG: image reviewed
--- NOTE | 2017-05-29 14:15 | Progress Note ---
Assessment and Plan Assessment and plan: Patient is a 22-year-old male with hx of congestive heart failure, non ischemic cardiomyopathy s/p AICD presents to the emergency department via EMS from home with complaint of left-sided chest pain that began about 1 hour prior to presentation Recurrent Syncope ICD interrogated with no abnomality noted Cardiology input noted Ultrasound shows less than 50% stenosis bilaterally Systolic CHF acute exarcebation with EF 10-15%- Endstage per cardiology continue lasix, BB, cardiac diet Cardiology following Plan is to repeat BNP today plan for possible discharge tomorrow if clinically improved Case management/social work consult for disability and medication, insurance support. Case management has looked into this a patient reports that he has applied for insurance and disability since 2014 I suspect an approval in upcoming months. NICM S/P AICD Secondary Coagulopathy Warfarin discontinued, Cardiology recommends discontinue warfarin Acute cystitis Start on Ciprofloxacin, check urine culture Non compliance. DVT/GI prophy Plan of care discussed with curator herbarium and with patient in detail History Interval history: Patient seen and examined reports some shortness of breath this morning, but says feeling better with each passing minute. No other adverse event to me by nursing staff. Hospitalist Physical - Physical exam Narrative exam: VITAL SIGNS: Reviewed. GENERAL: The patient appeared well nourished and normally developed. Vital signs as documented. HEAD: No signs of head trauma. EYES: Pupils are equal. Extraocular motions intact. EARS: Hearing grossly intact. MOUTH: Oropharynx is normal. NECK: No adenopathy, no JVD. CHEST: Chest with diminished breath sounds bilaterally. No wheezes, rales, or rhonchi. CARDIAC: Regular rate and rhythm. S1 and S2, without murmurs, gallops, or rubs. VASCULAR: No Edema. Peripheral pulses normal and equal in all extremities. ABDOMEN: Soft, without detectable tenderness. No sign of distention. No rebound or guarding, and no masses palpated. Bowel Sounds normal. MUSCULOSKELETAL: Good range of motion of all major joints. Extremities without clubbing, cyanosis or edema. NEUROLOGIC EXAM: Alert and oriented x 3. No focal sensory or strength deficits. Speech normal. Follows commands. PSYCHIATRIC: Mood normal. SKIN: AICD in place. - Constitutional Vitals: Temp Pulse Resp BP Pulse Ox 97.9 F 92 H 18 107/65 98 05/29/17 12:00 05/29/17 12:00 05/29/17 12:00 05/29/17 12:00 05/29/17 12:00 General appearance: Present: no acute distress Results - Labs CBC & Chem 7: 05/28/17 06:59 05/28/17 06:59 Labs: Laboratory Last Values WBC 8.6 K/mm3 (4.5-11.0) 05/28/17 06:59 RBC 4.69 M/mm3 (3.65-5.03) 05/28/17 06:59 Hgb 12.1 gm/dl (11.8-15.2) 05/28/17 06:59 Hct 38.0 % (35.5-45.6) 05/28/17 06:59 MCV 81 fl (84-94) L 05/28/17 06:59 MCH 26 pg (28-32) L 05/28/17 06:59 MCHC 32 % (32-34) 05/28/17 06:59 RDW 14.5 % (13.2-15.2) 05/28/17 06:59 Plt Count 260 K/mm3 (140-440) 05/28/17 06:59 Lymph % (Auto) 38.4 % (13.4-35.0) H 05/28/17 06:59 [place] % (Auto) 8.0 % (0.0-7.3) H 05/28/17 06:59 Eos % (Auto) 0.8 % (0.0-4.3) 05/28/17 06:59 Baso % (Auto) 0.8 % (0.0-1.8) 05/28/17 06:59 Lymph # 3.3 K/mm3 (1.2-5.4) 05/28/17 06:59 [place] # 0.7 K/mm3 (0.0-0.8) 05/28/17 06:59 Eos # 0.1 K/mm3 (0.0-0.4) 05/28/17 06:59 Baso # 0.1 K/mm3 (0.0-0.1) 05/28/17 06:59 Seg Neutrophils % 52.0 % (40.0-70.0) 05/28/17 06:59 Seg Neutrophils # 4.5 K/mm3 (1.8-7.7) 05/28/17 06:59 PT 41.4 Sec. (12.2-14.9) H 05/26/17 23:47 INR 4.03 (0.87-1.13) H 05/26/17 23:47 APTT 38.2 Sec. (24.2-36.6) H 05/26/17 23:47 Sodium 135 mmol/L (137-145) L 05/28/17 06:59 Potassium 3.8 mmol/L (3.6-5.0) 05/28/17 06:59 Chloride 98.1 mmol/L (98-107) 05/28/17 06:59 Carbon Dioxide 24 mmol/L (22-30) 05/28/17 06:59 Anion Gap 17 mmol/L 05/28/17 06:59 BUN 23 mg/dL (9-20) H 05/28/17 06:59 Creatinine 1.2 mg/dL (0.8-1.5) 05/28/17 06:59 Estimated GFR > 60 ml/min 05/28/17 06:59 BUN/Creatinine Ratio 19.16 % 05/28/17 06:59 Glucose 106 mg/dL (75-100) H 05/28/17 06:59 Calcium 8.3 mg/dL (8.4-10.2) L 05/28/17 06:59 Total Bilirubin 2.00 mg/dL (0.1-1.2) H 05/26/17 23:47 AST 57 units/L (5-40) H 05/26/17 23:47 ALT 47 units/L (7-56) 05/26/17 23:47 Alkaline Phosphatase 86 units/L (35-129) 05/26/17 23:47 Total Creatine Kinase 138 units/L (55-170) 05/27/17 06:29 CK-MB (CK-2) 1.1 ng/mL (0.0-4.0) 05/27/17 06:29 CK-MB (CK-2) Rel Index 0.7 (0-4) 05/27/17 06:29 Troponin T < 0.010 ng/mL (0.00-0.029) 05/27/17 06:29 NT-Pro-B Natriuret Pep 6660 pg/mL (0-450) H 05/26/17 23:54 Total Protein 6.5 g/dL (6.3-8.2) 05/26/17 23:47 Albumin 3.3 g/dL (3.9-5) L 05/26/17 23:47 Albumin/Globulin Ratio 1.0 % 05/26/17 23:47 Urine Color Zoë (Yellow) 05/27/17 11:30 Urine Turbidity Clear (Clear) 05/27/17 11:30 Urine pH 5.0 (5.0-7.0) 05/27/17 11:30 Ur Specific [place] 1.019 (1.003-1.030) 05/27/17 11:30 Urine Protein <15 mg/dl mg/dL (Negative) 05/27/17 11:30 Urine Glucose (UA) Neg mg/dL (Negative) 05/27/17 11:30 Urine Ketones Neg mg/dL (Negative) 05/27/17 11:30 Urine Blood Neg (Negative) 05/27/17 11:30 Urine Nitrite Neg (Negative) 05/27/17 11:30 Urine Bilirubin Neg (Negative) 05/27/17 11:30 Urine Urobilinogen 4.0 mg/dL (<2.0) 05/27/17 11:30 Ur Leukocyte Esterase Mod (Negative) 05/27/17 11:30 Urine WBC (Auto) 35.0 /HPF (0.0-6.0) H 05/27/17 11:30 Urine RBC (Auto) 5.0 /HPF (0.0-6.0) 05/27/17 11:30 Urine Bacteria (Auto) 1+ /HPF (Negative) 05/27/17 11:30 Urine Mucus Few /HPF 05/27/17 11:30
[2017-05-29] MEDS: PERCOCET 5/325 PO PRN (22:53)
[2017-05-30 06:00] LABS: Hematocrit 36.8 % (35.5-45.6); Hemoglobin 11.5 gm/dl (11.8-15.2); Mean Corpuscular HGB Conc 31 % (32-34); Mean Corpuscular Volume 81 fl (84-94); Platelet Count 271 K/mm3 (140-440); Red Blood Count 4.54 M/mm3 (3.65-5.03); Red Cell Distribution Width 14.4 % (13.2-15.2); White Blood Count 9.2 K/mm3 (4.5-11.0)
[2017-05-30 06:02] LABS: Mean Corpuscular Hemoglobin 25 pg (28-32)
[2017-05-30 06:43] LABS: Anion Gap 18 mmol/L; BUN/Creatinine Ratio 18.33; Blood Urea Nitrogen 22 mg/dL (9-20); Calcium 8.1 mg/dL (8.4-10.2); Carbon Dioxide 23 mmol/L (22-30); Chloride 96.2 mmol/L (98-107); Glucose 87 mg/dL (75-100); Potassium 3.6 mmol/L (3.6-5.0); Sodium 134 mmol/L (137-145)
[2017-05-30] MEDS: ZESTRIL PO SCH (09:47)
[2017-05-30] MEDS: COREG PO SCH (09:48)
[2017-05-30] MEDS: LEVAQUIN PO SCH (09:52)
[2017-05-30] MEDS: LASIX IV SCH (09:52)
[2017-05-30] MEDS: BABY ASPIRIN PO SCH (09:52)
--- NOTE | 2017-05-30 10:48 | Discharge Summary ---
Providers - Providers Date of Admission: 05/27/17 01:26 Attending physician: VISHNU GONZALEZ MD Primary care physician: SINTER FEEDER Hospitalization Reason for admission: syncope Condition: Stable Hospital course: Patient is a 22-year-old male with hx of congestive heart failure, non ischemic cardiomyopathy s/p AICD presents to the emergency department via EMS from home with complaint of left-sided chest pain that began about 1 hour prior to presentation Recurrent Syncope ICD interrogated with no animality noted Cardiology input noted-No acute cardiac source noted. Ultrasound shows less than 50% stenosis bilaterally Systolic CHF acute exarcebation with EF 10-15%- Endstage per cardiology continue lasix, BB, cardiac diet Cardiology following BMP did show improvement. Case management/social work consult for disability and medication, insurance support. Case management has looked into this a patient reports that he has applied for insurance and disability since 2014 I suspect an approval in upcoming months. NICM S/P AICD No abnormalities noted on interrogation Secondary Coagulopathy Warfarin discontinued, Cardiology recommends discontinue warfarin patient was placed on aspirin Acute cystitis Patient was treated on ciprofloxacin with no growth noted on urine cultures a fever while in house. Non compliance. Disposition: - TO HOME OR SELFCARE Time spent for discharge: 35 MINS Core Measure Documentation - Palliative Care Palliative Care/ Comfort Measures: Not Applicable - Core Measures Any of the following diagnoses?: heart failure, none - VTE Discharge Requirements Deep Vein Thrombosis/Pulmonary Embolism Present on Admission: No - Heart Failure Discharge Requirements NINA/ARB for LVSD if EF <40%: Yes Beta lucrecia at discharge: Yes Exam - Physical Exam Narrative exam: VITAL SIGNS: Reviewed. GENERAL: The patient appeared well nourished and normally developed. Vital signs as documented. HEAD: No signs of head trauma. EYES: Pupils are equal. Extraocular motions intact. EARS: Hearing grossly intact. MOUTH: Oropharynx is normal. NECK: No adenopathy, no JVD. CHEST: Chest with diminished breath sounds bilaterally. No wheezes, rales, or rhonchi. CARDIAC: Regular rate and rhythm. S1 and S2, without murmurs, gallops, or rubs. VASCULAR: No Edema. Peripheral pulses normal and equal in all extremities. ABDOMEN: Soft, without detectable tenderness. No sign of distention. No rebound or guarding, and no masses palpated. Bowel Sounds normal. MUSCULOSKELETAL: Good range of motion of all major joints. Extremities without clubbing, cyanosis or edema. NEUROLOGIC EXAM: Alert and oriented x 3. No focal sensory or strength deficits. Speech normal. Follows commands. PSYCHIATRIC: Mood normal. SKIN: AICD in place. - Constitutional Vitals: Temp Pulse Resp BP Pulse Ox 98.1 F 80 18 91/56 95 05/30/17 08:28 05/30/17 09:48 05/30/17 08:28 05/30/17 09:48 05/30/17 08:36 Plan Activity: advance as tolerated, fall precautions Diet: low salt Special Instructions: restrict fluid intake to (1000cc/day) Additional Instructions: please note, Warfarin has been discontinued. Patient to start on Aspirin instead Follow up with: PRIMARY CARE, [Primary Care Provider] - 3-5 Days KHADIJAH BRUNER MD [Staff Physician] - 7 Days Prescriptions: Aspirin [Aspirin BABY CHEW TAB] 81 mg PO QDAY #30 tab.chew
--- NOTE | 2017-05-30 11:55 | Progress Note ---
Assessment and Plan - Patient Problems (1) Acute on chronic systolic heart failure Current Visit: No Status: Acute Plan to address problem: Medical therapy for heart failure and left ventricle systolic dysfunction. Patient is stable for cardiac discharge. Subjective Date of service: 05/30/17 Principal diagnosis: Syncope Interval history: Patient is sleepy, appears comfortable supine on bedrest. No new cardiac complaints. Objective Vital Signs Temp Pulse Resp BP Pulse Ox 05/30/17 09:48 80 91/56 05/30/17 09:47 80 91/56 05/30/17 08:36 95 05/30/17 08:28 98.1 F 69 18 99/65 96 05/30/17 04:00 97.6 F 78 20 100/69 99 05/29/17 23:34 97.4 F L 79 20 103/71 98 05/29/17 22:50 99 05/29/17 22:14 73 95/59 05/29/17 19:41 98.0 F 73 18 95/59 100 05/29/17 17:48 98.7 F 61 20 95/57 100 05/29/17 12:00 97.9 F 92 H 18 107/65 98 - Physical Examination General: No Apparent Distress HEENT: Positive: PERRL Neck: Positive: trachea midline Cardiac: Positive: Reg Rate and Rhythm Lungs: Positive: clear to auscultation Neuro: Positive: Grossly Intact Abdomen: Positive: Soft Skin: Positive: Clear Extremities: Absent: edema - Labs and Meds CBC 05/30/17 Range/Units 04:31 WBC 9.2 (4.5-11.0) K/mm3 RBC 4.54 (3.65-5.03) M/mm3 Hgb 11.5 L (11.8-15.2) gm/dl Hct 36.8 (35.5-45.6) % Plt Count 271 (140-440) K/mm3 Comprehensive Metabolic Panel 05/30/17 Range/Units 04:31 Sodium 134 L (137-145) mmol/L Potassium 3.6 (3.6-5.0) mmol/L Chloride 96.2 L (98-107) mmol/L Carbon Dioxide 23 (22-30) mmol/L BUN 22 H (9-20) mg/dL Creatinine 1.2 (0.8-1.5) mg/dL Glucose 87 (75-100) mg/dL Calcium 8.1 L (8.4-10.2) mg/dL - Imaging and Cardiology EKG: image reviewed
[2017-05-30 12:50] VITALS: BP 97/60
== END 2017-05-30 14:00 | disposition home or self-care (01) | DRG 292 ==
LOC: ED 22:48 → 4A 05-27 01:26
PROVIDERS: ADMIT Internal Medicine; ATTEND Internal Medicine
DX: I11.0 Hypertensive heart disease with heart failure (principal); N30.00 Acute cystitis without hematuria; I50.23 Acute on chronic systolic (congestive) heart failure; I42.9 Cardiomyopathy, unspecified; Z95.810 Presence of automatic (implantable) cardiac defibrillator; Q24.9 Congenital malformation of heart, unspecified; Z79.01 Long term (current) use of anticoagulants; Z91.14 Patient's other noncompliance with medication regimen; Z82.49 Family history of ischemic heart disease and other diseases of the circulatory system
CPT/HCPCS: 36415; 71010; 80048; 80053; 81001; 82550; 82553; 83880; 84484; 85025; 85027; 85610; 85730; 87086; 93005; 93010; 93880; 94760; 96374; 96376; 99285; J1940; J2405

== ENCOUNTER 2017-06-05 11:49 | Inpatient (IN) | payer SELFPAY ==
[~2017-06-05 11:49] MED LIST: LASIX IV SCH
--- NOTE | 2017-06-05 12:34 | Emergency Department Report ---
ED Chest Pain HPI - General Chief Complaint: Chest Pain Stated Complaint: CHEST PAIN Time Seen by Provider: 06/05/17 12:21 Source: patient, EMS Mode of arrival: Stretcher Limitations: No Limitations - History of Present Illness Initial Comments: Mr. Aleman is a 22 years old male he is known to us frequent ER visits secondary to chest pain and heart failure he had history of congenital heart failure he was just discharged from the hospital. He stated that he starts having chest pain this morning with shortness of breath denied any fever nausea or vomiting he describes his chest pain as his typical chest pain. MD Complaint: chest pain -: This morning Onset: during rest Severity scale (0 -10): 10 Quality: heaviness, pressure Other Symptoms: cough - Related Data Previous Rx's Medication Instructions Recorded Last Taken Type Carvedilol [Coreg] 6.25 mg PO BID #60 tablet 05/19/17 06/05/17 Rx Furosemide [Lasix TAB] 20 mg PO BID #60 tablet 05/19/17 06/05/17 Rx Lisinopril [Zestril TAB] 2.5 mg PO QDAY #30 tablet 05/19/17 06/05/17 Rx oxyCODONE /ACETAMINOPHEN [Percocet 1 tab PO QHS PRN #7 tablet 05/19/17 06/04/17 Rx 5/325 mg] Aspirin [Aspirin BABY CHEW TAB] 81 mg PO QDAY #30 tab.chew 05/30/17 06/05/17 Rx Allergies Allergy/AdvReac Type Severity Reaction Status Date / Time No Known Allergies Allergy Verified 02/18/17 13:00 Heart Score - HEART Score History: Highly suspicious EKG: Non-specific Age: < 45 Risk factors: > 3 risk factors or hx of atherosclerotic disease Troponin: < normal limit HEART Score: 5 - Critical Actions Critical Actions: 4-6 pts:12-16.6% risk of adverse cardiac event. Should be admitted ED Review of Systems ROS: Stated complaint: CHEST PAIN Other details as noted in HPI Comment: All other systems reviewed and negative Constitutional: denies: chills, fever Respiratory: shortness of breath. denies: cough Cardiovascular: chest pain, palpitations, dyspnea on exertion, orthopnea, paroxysmal nocturnal dyspnea Endocrine: denies: flushing, increased thirst, increased urine Gastrointestinal: denies: nausea, vomiting Neurological: denies: headache, paresthesias ED Past Medical Hx - Past Medical History Hx Hypertension: Yes Hx Congestive Heart Failure: Yes Hx Diabetes: No Hx Asthma: No Hx COPD: No Additional medical history: pacer/defib. cardiomyopathy - Surgical History Hx Pacemaker: Yes Hx Internal Defibrillator: Yes (Placed 2012) - Social History Smoking Status: Never Smoker - Medications Home Medications: Home Medications Medication Instructions Recorded Confirmed Last Taken Type Carvedilol [Coreg] 6.25 mg PO BID #60 tablet 05/19/17 06/05/17 06/05/17 Rx Furosemide [Lasix TAB] 20 mg PO BID #60 tablet 05/19/17 06/05/17 06/05/17 Rx Lisinopril [Zestril TAB] 2.5 mg PO QDAY #30 tablet 05/19/17 06/05/17 06/05/17 Rx oxyCODONE /ACETAMINOPHEN [Percocet 1 tab PO QHS PRN #7 tablet 05/19/17 06/05/17 06/04/17 Rx 5/325 mg] Aspirin [Aspirin BABY CHEW TAB] 81 mg PO QDAY #30 tab.chew 05/30/17 06/05/1702/16 Rx ED Physical Exam - General Limitations: No Limitations ED Course Vital Signs 06/05/17 12:01 Temperature 97.7 F Pulse Rate 84 Respiratory 20 Rate Blood Pressure 96/58 O2 Sat by Pulse 100 Oximetry - Reevaluation(s) Reevaluation #1: 06/05/17 13:[address] Miguel for admission Reevaluation #2: 06/05/17 13:30 Patient stated that his chest pain is gone but he still have some shortness of breath BRITTANY score - Brittany Score Age > 65: (0) No Aspirin use within the Past 7 Days: (0) No 3 or more CAD Risk Factors: (0) No 2 or more Angina events in past 24 hrs: (1) Yes Known CAD with more than 50% Stenosis: (0) No Elevated Cardiac Markers: (0) No ST Deviation Greater than 0.5mm: (0) No BRITTANY Score: 1 ED Medical Decision Making - Lab Data Result diagrams: 06/05/17 12:23 06/05/17 12:23 Critical care attestation.: If time is entered above; I have spent that time in minutes in the direct care of this critically ill patient, excluding procedure time. ED Disposition Clinical Impression: Chest pain Disposition: DC-09 OP ADMIT IP TO THIS HOSP Is pt being admited?: Yes Condition: Stable Instructions: Chest Pain (ED) Referrals: PRIMARY CARE, [Primary Care Provider] - 3-5 Days
--- NOTE | 2017-06-05 12:35 | XRay Report ---
PORTABLE CHEST INDICATION: Chest pain. COMPARISON: 05/26/2017 FINDINGS: Portable, frontal chest radiograph again demonstrates mild cardiomegaly and left AICD with dual-chamber leads. No pleural effusions or CHF. EKG leads. Unremarkable bones. CONCLUSION: No acute chest process with stable cardiomegaly and pacemaker, as described. Thank you for the opportunity to participate in this patient's care.
[2017-06-05] MEDS ORDERED: LASIX IV ONE (12:39)
[2017-06-05 12:48] LABS: Basophils % (Auto) 0.5 % (0.0-1.8); Eosinophils % (Auto) 0.9 % (0.0-4.3); Hemoglobin 11.4 gm/dl (11.8-15.2); Mean Corpuscular HGB Conc 32 % (32-34); Mean Corpuscular Volume 81 fl (84-94); Platelet Count 244 K/mm3 (140-440); Red Blood Count 4.46 M/mm3 (3.65-5.03); Red Cell Distribution Width 15.2 % (13.2-15.2); White Blood Count 7.3 K/mm3 (4.5-11.0)
[2017-06-05 12:51] LABS: Mean Corpuscular Hemoglobin 26 pg (28-32)
[2017-06-05 12:54] LABS: Anion Gap 19 mmol/L; BUN/Creatinine Ratio 16.15; Blood Urea Nitrogen 21 mg/dL (9-20); Calcium 8.7 mg/dL (8.4-10.2); Carbon Dioxide 23 mmol/L (22-30); Chloride 99.2 mmol/L (98-107); Glucose 84 mg/dL (75-100); Potassium 4.2 mmol/L (3.6-5.0); Sodium 137 mmol/L (137-145)
[2017-06-05 12:59] LABS: INR 1.57 (0.87-1.13)
--- NOTE | 2017-06-05 13:48 | Admit Criteria Form ---
Admission Criteria Documentation: CHEST PAIN Clinical Indications for Admission to Inpatient Care (Place 'X' for any and all applicable criteria): Admission is indicated for chest pain and ANY ONE of the following(1)(2)(3)(4)(5 ): [ ]I. Angina with acute coronary syndrome (Also use Myocardial Infarction or Angina guideline) [ ]II. Hemodynamic instability [ ]III. Angina needing acute intervention as indicated by ALL of the following( 11)(12): [ ]a) Unstable angina is present as indicated by angina that is ANY ONE of the following: [ ]i) New onset [ ]ii) Nocturnal [ ]iii) Prolonged at rest [ ]iv) Progressive [ ]b) Angina warrants acute intervention as indicated by ANY ONE of the following: [ ]i) Recurrent angina (e.g, not responding as previously to treatment) [ ]ii) Angina at rest or with low-level activities despite initial medical therapy [ ]iii) New or presumably new ST-segment depression on ECG [ ]iv) Signs or symptoms of heart failure (eg, dyspnea, pulmonary edema) [ ]v) New or worsening mitral regurgitation [ ]vi) Hemodynamic instability [ ]vii) Dangerous arrhythmia (eg, sustained ventricular tachycardia) [ ]viii) History of percutaneous coronary intervention within 6 months [ ]ix) History of coronary artery bypass graft surgery [ ]x) BRITTANY risk score of 2 or greater[A] [ ]xi) History of Diabetes(14) [ ]xii) High-risk cardiac ischemia findings on noninvasive testing (e.g, echocardiogram, treadmill testing, nuclear scan) [ ]xiii) Chronic renal insufficiency (ie, estimated GFR less than 60 mL/min/1.732m) [ ]xiv) Left ventricular ejection fraction less than 40% [ ]IV. Evidence of KS (eg, cardiac biomarkers positive, ST-segment elevation on ECG) also use Myocardial Infarction Criteria Form. [ ]V. Pulmonary edema [ ]. Respiratory distress [ ]VII. Chest pain indicative of serious diagnosis other than coronary artery disease (eg, aortic dissection) [ ]VIII. Contraindications and/or Inappropriate clinical situations for Observational Care in patients with Chest Pain, when ANY ONE of the following is required: [ ]a) Patient with risk factor for pulmonary embolism, acute coronary syndrome and myocardial infarction (18) [ ]b) Patient with Pulmonary embolism require an average LOS of 4.3 days, therefore emergency department observation management is inappropriate 18,23 [ ]c) Painful condition/s in the elderly, have the highest rate of recidivism after emergency department observation management (10.8%) 20,21,22 [ ]d) Elevated cardiac biomarker requires intensive and exhaustive care (19) [X ]IX. General contraindications and/or Inappropriate clinical situations for Observational Care in patients with Chest Pain, when ANY ONE of the following is required: [X ]a) Prediction of prolongation of LOS based on ANY ONE of the following may be considered as a contraindication for observational care 2, 3, 4, 5, 6, 7, 8, 9, 10, 11 [ ]i) Age > 65 yrs. [X ]ii) Patient arriving by ambulance [ ]iii) Patient with high acuity [ ]iv) Patient requiring vital sign monitoring [ ]v) Patient on IV medication [ ]b) Systolic blood pressures 180mmHg 3,12 [ ]c) Patient with altered mental status including delirium and other alteration of consciousness, (3) [ ]d) Patient whose discharge disposition will be to a [facility] home or rehabilitation home should not be managed in Emergency Department Observation Unit. CMS rule requires 3 days hospital stay before such placement. 3,13 [ ]e) Patient with failure to thrive due to broad array of etiologies 3,16,17 [ ]f) Inability to ambulate 3,14 Extended stay beyond goal length of stay may be needed for (1)(28): [ ]a) Specific condition diagnosed after evaluation (eg, pulmonary embolism, aortic dissection) [ ]b) Unstable angina [ ]c) Continued suspicion of acute coronary syndrome with inability to complete needed cardiac evaluation (eg, patient clinically unable to undergo stress testing) [ ]d) Myocardial infarction (Contents from ANGINA and CHEST PAIN clinical indications for admission to inpatient care have been integrated in this form) The original [facility] content created by [employer] has been revised. The portions of the content which have been revised are identified through the use of italic text or in bold, and [facility] [employer] has neither reviewed nor approved the modified material. All other unmodified content is copyright [facility]. Please see references footnoted in the original [facility] [employer] edition 2016 Admission Criteria Met: Yes
[2017-06-05 15:57] LABS: Urine Drugs of Abuse Note Disclamer
[2017-06-05] MEDS ORDERED: BABY ASPIRIN PO SCH (17:00)
--- NOTE | 2017-06-05 22:29 | History and Physical Report ---
History of Present Illness Date of examination: 06/05/17 Date of admission: 06/05/17 12:06 Chief complaint: Shortness of breath, chest pain, anxiety disorder, panic attack. History of present illness: Patient is a 22-year-old gentleman was a history or chronic systolic heart failure from childhood, discharged from this hospital about a week ago for CHF exacerbation, started having a dull retrosternal chest pain, associated with palpitation, feeling of , diaphoresis, tachypnea, and inability to breath. Patient stated that this is has been experiencing this symptoms. Scares him and he has a feeling of whenever it reoccurs. This has been witnessed by his mother. Has orthopnea proximal nocturnal dyspnea. Has cough productive of whitish some bloody sputum. Denies any fevers, chills or recent travels Has Chest pain that is dull in nature. Retrosternal. Moderate in severity. Nonradiating. No known relieving factors. Intermittent. Past History Past Medical History: heart failure, other ( Panic attack) Past Surgical History: No surgical history (AICD placement) Social history: denies: smoking, alcohol abuse, prescription drug abuse, IV drug use Family history: no significant family history Medications and Allergies Allergies Allergy/AdvReac Type Severity Reaction Status Date / Time No Known Allergies Allergy Verified 02/18/17 13:00 Home Medications Medication Instructions Recorded Confirmed Last Taken Type Carvedilol [Coreg] 6.25 mg PO BID #60 tablet 05/19/17 06/05/17 06/05/17 Rx Furosemide [Lasix TAB] 20 mg PO BID #60 tablet 05/19/17 06/05/17 06/05/17 Rx Lisinopril [Zestril TAB] 2.5 mg PO QDAY #30 tablet 05/19/17 06/05/17 06/05/17 Rx oxyCODONE /ACETAMINOPHEN [Percocet 1 tab PO QHS PRN #7 tablet 05/19/17 06/05/17 06/04/17 Rx 5/325 mg] Aspirin [Aspirin BABY CHEW TAB] 81 mg PO QDAY #30 tab.chew 05/30/17 06/05/1702/16 Rx Active Meds: Active Medications Aspirin (Aspirin) 325 mg PO QDAY [facility] Carvedilol (Coreg) 6.25 mg PO BID [facility] Enoxaparin Sodium (Lovenox) 40 mg SUB-Q DAILY [facility] Furosemide (Lasix) 20 mg IV QDAY [facility] Lisinopril (Zestril) 2.5 mg PO QDAY [facility] Review of systems Constitutional: Well Nouridhed and Well developed. Head: NC/ AT Eyes: Denies any visual impairments. No discharge from the eyes Nose: Denies any rhinorrhea or epistaxis Throats: Denies any post nasal drainage. Ears: Denies any hearing deficits Cardiovascular system: Has chest pain, shortness of breath, orthopnea, paroxysmal nocturnal dyspnea, or palpitation. Respiratory system: Denies any cough, difficulty breathing, wheezing, pleuritic chest pain, Gastrointestinal system: Denies any abdominal pain, nausea vomiting, hematemesis or melena. Neurological system: Denies any headache, slurred speech, facial droop, lateralizing weakness Genitalia system: Denies any dysuria, urinary frequency or urgency, urethral discharge Skin: No rashes, hyperpigmented spots. Hematological: Denies any cervical tenderness hemorrhages or petechia. Immunological: Denies any multiple septic spots, Lymphatic: Denies any generalized lymphadenopathy. Endocrine: Denies any polyuria, polydipsia, polyphagia. No heat or cold intolerance. Musculoskeletal system: No joint pain or swelling. Psych: No visual, tactile, auditory or hallucination Exam - Constitutional Vitals: Temp Pulse Resp BP Pulse Ox 97.9 F 85 18 98/52 100 06/05/17 20:00 06/05/17 20:00 06/05/17 20:00 06/05/17 20:00 06/05/17 20:05 General appearance: Present: no acute distress, well-nourished - EENT Eyes: Present: PERRL - Neck Neck: Present: supple, normal ROM - Respiratory Respiratory effort: normal Respiratory: bilateral: CTA - Cardiovascular Heart Sounds: Present: S1 & S2. Absent: rub, click - Extremities Extremities: pulses symmetrical, No edema Peripheral Pulses: within normal limits - Abdominal General gastrointestinal: Present: soft, non-tender, non-distended, normal bowel sounds - Integumentary Integumentary: Present: clear, warm, dry - Musculoskeletal Musculoskeletal: gait normal, strength equal bilaterally - Psychiatric Psychiatric: appropriate mood/affect, intact judgment & insight - Neurologic Neurologic: CNII-XII intact, moves all extremities Results - Labs CBC & Chem 7: 06/05/17 12:23 06/05/17 12:23 Labs: Abnormal lab results 06/05/17 06/05/17 06/05/17 Range/Units 12:23 12:23 12:23 Hgb 11.4 L (11.8-15.2) gm/dl MCV 81 L (84-94) fl MCH 26 L (28-32) pg [place] % (Auto) 11.3 H (0.0-7.3) % PT 19.6 H (12.2-14.9) Sec. INR 1.57 H (0.87-1.13) BUN 21 H (9-20) mg/dL NT-Pro-B Natriuret Pep 5721 H (0-450) pg/mL - Imaging and Cardiology EKG: report reviewed Assessment and Plan - Acute on chronic systolic heart failure with ejection fraction of 10-15% status post AICD placement - Nonischemic cardiomyopathy - Chest pain - Panic attack Plan Admit to telemetry Strict input and output charts, daily weights, 2 g sodium diet Commence diuresis, Acei, beta lucrecia, Obtain serial cardiac enzymes, commence patient on aspirin, morphine, nitroglycerin, oxygen to maintain sats 94 percent Commence patient on citalopram for panic attack Accident with Lovenox and GI with Pepcid Spent 35 minutes during this admission process and in direct patient care, review of laboratory and radiological data, Explanation of management plan to the patient
[2017-06-05] MEDS: COREG PO SCH (22:38)
[2017-06-05] MEDS: PERCOCET 5/325 PO PRN (23:08)
[2017-06-06 05:43] LABS: Alanine Aminotransferase 25 units/L (7-56); Albumin 2.9 g/dL (3.9-5); Albumin/Globulin Ratio 0.9 %; Alkaline Phosphatase 95 units/L (35-129); Anion Gap 20 mmol/L; BUN/Creatinine Ratio 17.69; Blood Urea Nitrogen 23 mg/dL (9-20); Calcium 8.6 mg/dL (8.4-10.2); Carbon Dioxide 22 mmol/L (22-30); Chloride 98.9 mmol/L (98-107); Glucose 86 mg/dL (75-100); Potassium 3.8 mmol/L (3.6-5.0); Sodium 137 mmol/L (137-145)
[2017-06-06 05:47] LABS: Basophils % (Auto) 0.7 % (0.0-1.8); Eosinophils % (Auto) 1.1 % (0.0-4.3); Hemoglobin 11.6 gm/dl (11.8-15.2); Mean Corpuscular HGB Conc 31 % (32-34); Mean Corpuscular Volume 81 fl (84-94); Platelet Count 239 K/mm3 (140-440); Red Blood Count 4.56 M/mm3 (3.65-5.03); Red Cell Distribution Width 15.6 % (13.2-15.2); White Blood Count 7.1 K/mm3 (4.5-11.0)
[2017-06-06 05:54] LABS: Mean Corpuscular Hemoglobin 25 pg (28-32)
[2017-06-06] MEDS: LASIX IV SCH (06:39)
--- NOTE | 2017-06-06 09:55 | Progress Note ---
Assessment and Plan Assessment and plan: --Acute on chronic respiratory failure Secondary to acute exacerbation of systolic congestive heart failure Oxygen titrate O2 sats to 90%, anti-failure medications, nebulizer treatment as needed --Acute on chronic systolic congestive heart failure ,LVEF 10-15% Diuretics, beta blockers, bernarda inhibitors, input output monitoring, cardiology evaluation if needed --Nonischemic cardiomyopathy; continue anti-failure treatment, daily weights --Status post ICD placement ; interrogated recently during last admission one week ago --Anxiety disorders; low-dose Xanax as needed --With the prophylaxis with Lovenox --Medical noncompliance ;Patient refused Lovenox, noncompliant with medications I discussed extensively the importance of adhering to the treatment plan, verbalized understanding DC planning to case management Possible discharge in 1-2 days if stable History Interval history: Patient seen and evaluated in his room medical records reviewed Complaints of mild shortness of breath, denies chest pain Alert awake oriented 3 not in acute distress, vital signs reviewed Hospitalist Physical - Constitutional Vitals: Temp Pulse Resp BP Pulse Ox 97.9 F 74 18 104/66 97 06/06/17 07:50 06/06/17 07:50 06/06/17 07:50 06/06/17 07:50 06/06/17 07:50 General appearance: Present: no acute distress, well-nourished - EENT Eyes: Present: PERRL, EOM intact - Neck Neck: Present: supple, normal ROM - Respiratory Respiratory effort: normal Respiratory: bilateral: diminished, rales, negative: rhonchi, wheezing - Cardiovascular Rhythm: regular Heart Sounds: Present: S1 & S2 - Extremities Extremities: no ischemia Extremity abnormal: edema (trace edema feet) - Abdominal General gastrointestinal: soft, non-tender, non-distended, normal bowel sounds - Integumentary Integumentary: Present: clear, warm - Psychiatric Psychiatric: appropriate mood/affect, cooperative - Neurologic Neurologic: CNII-XII intact, moves all extremities Results - Labs CBC & Chem 7: 06/06/17 03:48 06/06/17 03:48 Labs: Laboratory Last Values WBC 7.1 K/mm3 (4.5-11.0) 06/06/17 03:48 RBC 4.56 M/mm3 (3.65-5.03) 06/06/17 03:48 Hgb 11.6 gm/dl (11.8-15.2) L 06/06/17 03:48 Hct 37.0 % (35.5-45.6) 06/06/17 03:48 MCV 81 fl (84-94) L 06/06/17 03:48 MCH 25 pg (28-32) L 06/06/17 03:48 MCHC 31 % (32-34) L 06/06/17 03:48 RDW 15.6 % (13.2-15.2) H 06/06/17 03:48 Plt Count 239 K/mm3 (140-440) 06/06/17 03:48 Lymph % (Auto) 41.5 % (13.4-35.0) H 06/06/17 03:48 [place] % (Auto) 9.3 % (0.0-7.3) H 06/06/17 03:48 Eos % (Auto) 1.1 % (0.0-4.3) 06/06/17 03:48 Baso % (Auto) 0.7 % (0.0-1.8) 06/06/17 03:48 Lymph # 3.0 K/mm3 (1.2-5.4) 06/06/17 03:48 [place] # 0.7 K/mm3 (0.0-0.8) 06/06/17 03:48 Eos # 0.1 K/mm3 (0.0-0.4) 06/06/17 03:48 Baso # 0.0 K/mm3 (0.0-0.1) 06/06/17 03:48 Seg Neutrophils % 47.4 % (40.0-70.0) 06/06/17 03:48 Seg Neutrophils # 3.4 K/mm3 (1.8-7.7) 06/06/17 03:48 PT 19.6 Sec. (12.2-14.9) H 06/05/17 12:23 INR 1.57 (0.87-1.13) H 06/05/17 12:23 APTT 31.0 Sec. (24.2-36.6) 06/05/17 12:23 Sodium 137 mmol/L (137-145) 06/06/17 03:48 Potassium 3.8 mmol/L (3.6-5.0) 06/06/17 03:48 Chloride 98.9 mmol/L (98-107) 06/06/17 03:48 Carbon Dioxide 22 mmol/L (22-30) 06/06/17 03:48 Anion Gap 20 mmol/L 06/06/17 03:48 BUN 23 mg/dL (9-20) H 06/06/17 03:48 Creatinine 1.3 mg/dL (0.8-1.5) 06/06/17 03:48 Estimated GFR > 60 ml/min 06/06/17 03:48 BUN/Creatinine Ratio 17.69 % 06/06/17 03:48 Glucose 86 mg/dL (75-100) 06/06/17 03:48 Calcium 8.6 mg/dL (8.4-10.2) 06/06/17 03:48 Phosphorus 4.00 mg/dL (2.5-4.5) 06/06/17 03:48 Magnesium 1.90 mg/dL (1.7-2.3) 06/06/17 03:48 Total Bilirubin 2.10 mg/dL (0.1-1.2) H 06/06/17 03:48 AST 30 units/L (5-40) 06/06/17 03:48 ALT 25 units/L (7-56) 06/06/17 03:48 Alkaline Phosphatase 95 units/L (35-129) 06/06/17 03:48 Troponin T < 0.010 ng/mL (0.00-0.029) 06/05/17 17:49 NT-Pro-B Natriuret Pep 5721 pg/mL (0-450) H 06/05/17 12:23 Total Protein 6.0 g/dL (6.3-8.2) L 06/06/17 03:48 Albumin 2.9 g/dL (3.9-5) L 06/06/17 03:48 Albumin/Globulin Ratio 0.9 % 06/06/17 03:48 TSH 1.510 mlU/mL (0.270-4.200) 06/05/17 17:49 Urine Opiates Screen Presumptive negative 06/05/17 15:30 Urine Methadone Screen Presumptive negative 06/05/17 15:30 Ur Barbiturates Screen Presumptive negative 06/05/17 15:30 Ur Phencyclidine Scrn Presumptive negative 06/05/17 15:30 Ur Amphetamines Screen Presumptive negative 06/05/17 15:30 U Benzodiazepines Scrn Presumptive negative 06/05/17 15:30 Urine Cocaine Screen Presumptive negative 06/05/17 15:30 U Marijuana (THC) Screen Presumptive positive 06/05/17 15:30 Drugs of Abuse Note Disclamer 06/05/17 15:30
[2017-06-06] MEDS: LOVENOX SUB-Q SCH ×2 (10:00→10:53)
[2017-06-06] MEDS: COREG PO SCH ×2 (10:53→21:24)
[2017-06-06] MEDS: ASPIRIN PO SCH (10:53)
[2017-06-06] MEDS: ZESTRIL PO SCH (11:21)
[2017-06-06] MEDS ORDERED: PROVENTIL IH ONE (17:00)
[2017-06-06] MEDS ORDERED: LASIX IV ONE (17:00)
[2017-06-06] MEDS: PERCOCET 5/325 PO PRN (21:24)
[2017-06-07] MEDS: LASIX IV SCH (06:18)
[2017-06-07 09:08] LABS: Basophils % (Auto) 0.6 % (0.0-1.8); Eosinophils % (Auto) 0.9 % (0.0-4.3); Hematocrit 38.9 % (35.5-45.6); Hemoglobin 12.3 gm/dl (11.8-15.2); Mean Corpuscular HGB Conc 32 % (32-34); Mean Corpuscular Volume 81 fl (84-94); Platelet Count 259 K/mm3 (140-440); Red Blood Count 4.83 M/mm3 (3.65-5.03); Red Cell Distribution Width 15.6 % (13.2-15.2); White Blood Count 7.5 K/mm3 (4.5-11.0)
[2017-06-07 09:10] LABS: Mean Corpuscular Hemoglobin 26 pg (28-32)
[2017-06-07 09:25] LABS: Alanine Aminotransferase 22 units/L (7-56); Albumin/Globulin Ratio 0.9 %; Alkaline Phosphatase 92 units/L (35-129); Anion Gap 18 mmol/L; BUN/Creatinine Ratio 18.46; Blood Urea Nitrogen 24 mg/dL (9-20); Calcium 8.3 mg/dL (8.4-10.2); Carbon Dioxide 23 mmol/L (22-30); Chloride 99.9 mmol/L (98-107); Glucose 128 mg/dL (75-100); Sodium 137 mmol/L (137-145); Total Protein 6.2 g/dL (6.3-8.2)
[2017-06-07] MEDS: ZESTRIL PO SCH (10:36)
[2017-06-07] MEDS: COREG PO SCH (10:36)
[2017-06-07] MEDS: ASPIRIN PO SCH (10:36)
--- NOTE | 2017-06-07 10:56 | Discharge Summary ---
Providers - Providers Date of Admission: 06/05/17 12:06 Date of discharge: 06/07/17 Attending physician: YVONNE HACKETT Primary care physician: UI [employer]X DEVELOPER Hospitalization Reason for admission: worsening shortness of breath Condition: Stable Hospital course: Discharge diagnosis; --Acute on chronic respiratory failure --Acute on chronic systolic congestive heart failure ejection fraction 10-15% --Nonischemic cardiomyopathy --Status post ICD placement --Anxiety disorder --Medical noncompliance Very pleasant 22-year-old -[place] male patient with significant past medical history nonischemic cardiomyopathy with ejection fraction of 10-15%, well known to us services multiple admissions in the past was admitted through emergency room with worsening shortness of breath Noted to be in acute on chronic respiratory failure secondary to acute on chronic systolic congestive heart failure Patient was managed with anti-failure medications, input output was monitored, patient's symptoms significantly improved Counseling done patient strongly advised to comply with medications diet and follow-up visits Patient also is anxious about his medical condition, managed with low dose of Xanax, strongly advised to see a psychiatric history or psychologist for further evaluation and management Today he is comfortable with no new complaints ambulating and tolerating oral nutrition DC home and advised to follow with primary care physician and outdoor adventure guides per schedule Low-sodium diet and fluid restriction was strongly advised Disposition: DC-01 TO HOME OR SELFCARE Time spent for discharge: 32 min Core Measure Documentation - Palliative Care Palliative Care/ Comfort Measures: Not Applicable - Core Measures Any of the following diagnoses?: heart failure - Heart Failure Discharge Requirements NINA/ARB for LVSD if EF <40%: Yes Beta lucrecia at discharge: Yes Exam - Constitutional Vitals: Temp Pulse Resp BP Pulse Ox 98.8 F 90 18 105/66 97 06/07/17 07:40 06/07/17 10:36 06/07/17 07:40 06/07/17 10:36 06/07/17 07:40 General appearance: Present: no acute distress, well-nourished - EENT Eyes: Present: PERRL - Neck Neck: Present: supple, normal ROM - Respiratory Respiratory: bilateral: rales, negative: rhonchi, wheezing - Cardiovascular Rhythm: regular Heart Sounds: Present: S1 & S2 - Extremities Extremities: no ischemia, pulses intact - Abdominal General gastrointestinal: Present: soft, non-tender, non-distended, normal bowel sounds - Integumentary Integumentary: Present: clear, warm - Psychiatric Psychiatric: appropriate mood/affect, cooperative - Neurologic Neurologic: CNII-XII intact, moves all extremities Plan Activity: no restrictions Diet: low salt Special Instructions: restrict fluid intake to (<1200 ml/24hrs) Additional Instructions: f/u cardiology 1 week. Shortness of breath or chest pain, contact M.D. or go to emergency room. see out pt Behavioral health for further evaluation of anxiety episodes Follow up with: PRIMARY MD USHA [Primary Care Provider] - 3-5 Days REE RODRIGUEZ MD [Staff Physician] - 7 Days Prescriptions: ALPRAZolam [Xanax TAB] 0.25 mg PO BID PRN #10 tab PRN Reason: Anxiety
[2017-06-07 13:43] VITALS: BP 95/57
== END 2017-06-07 16:00 | disposition home or self-care (01) | DRG 189 ==
LOC: ED 11:49 → 4A 12:06
PROVIDERS: ADMIT Family Medicine; ATTEND Internal Medicine
DX: J96.20 Acute and chronic respiratory failure, unspecified whether with hypoxia or hypercapnia (principal); I50.23 Acute on chronic systolic (congestive) heart failure; I42.9 Cardiomyopathy, unspecified; Z95.810 Presence of automatic (implantable) cardiac defibrillator; F41.9 Anxiety disorder, unspecified; F41.0 Panic disorder [episodic paroxysmal anxiety]; Z91.19 Patient's noncompliance with other medical treatment and regimen; Z71.89 Other specified counseling
CPT/HCPCS: 36415; 71010; 80048; 80053; 80307; 83735; 83880; 84100; 84443; 84484; 85025; 85610; 85730; 87086; 93005; 93010; 94760; 96374; J1650; J1940

== ENCOUNTER 2017-06-13 22:15 | Inpatient (IN) | payer OTHER ==
[2017-06-13] MEDS ORDERED: LASIX IV ONE (23:06)
[2017-06-13] MEDS ORDERED: DILAUDID IV ONE (23:07)
[2017-06-13 23:13] LABS: Basophils % (Auto) 0.5 % (0.0-1.8); Eosinophils % (Auto) 0.8 % (0.0-4.3); Mean Corpuscular HGB Conc 30 % (32-34); Mean Corpuscular Volume 82 fl (84-94); Platelet Count 222 K/mm3 (140-440); Red Blood Count 4.74 M/mm3 (3.65-5.03); Red Cell Distribution Width 16.1 % (13.2-15.2); White Blood Count 8.8 K/mm3 (4.5-11.0)
[2017-06-13 23:17] LABS: Hematocrit 38.9 % (35.5-45.6); Hemoglobin 11.7 gm/dl (11.8-15.2); Mean Corpuscular Hemoglobin 25 pg (28-32)
[2017-06-13 23:36] LABS: Anion Gap 20 mmol/L; Blood Urea Nitrogen 27 mg/dL (9-20); Calcium 8.6 mg/dL (8.4-10.2); Carbon Dioxide 20 mmol/L (22-30); Chloride 98.4 mmol/L (98-107); Glucose 114 mg/dL (75-100); Potassium 4.5 mmol/L (3.6-5.0); Sodium 134 mmol/L (137-145)
--- NOTE | 2017-06-14 00:16 | Emergency Department Report ---
ED General Adult HPI - General Chief complaint: Dyspnea/Respdistress Stated complaint: FRANKIE Time Seen by Provider: 06/13/17 23:06 Source: patient, EMS Mode of arrival: Stretcher Limitations: No Limitations - History of Present Illness Initial comments: Patient is a 22-year-old male past medical history of congestive heart failure. Patient presents with shortness of breath and leg swelling. Patient states that his symptoms are gone for 1 day. Patient states that he has shortness of breath and the symptoms are severe it's worse with exertion and better with rest. He also states that he has some chest pain the chest pain is a 5 out of 10 located in the middle of his chest and is a constant pain and it is sharp. Nothing makes his chest pain better and nothing makes it worse. He is currently on 2 L of nasal cannula and satting 97%. Severity scale (0 -10): 5 - Related Data Previous Rx's Medication Instructions Recorded Last Taken Type Carvedilol [Coreg] 6.25 mg PO BID #60 tablet 05/19/17 06/05/17 Rx Furosemide [Lasix TAB] 20 mg PO BID #60 tablet 05/19/17 06/05/17 Rx Lisinopril [Zestril TAB] 2.5 mg PO QDAY #30 tablet 05/19/17 06/05/17 Rx oxyCODONE /ACETAMINOPHEN [Percocet 1 tab PO QHS PRN #7 tablet 05/19/17 06/04/17 Rx 5/325 mg] Aspirin [Aspirin BABY CHEW TAB] 81 mg PO QDAY #30 tab.chew 05/30/17 06/05/17 Rx ALPRAZolam [Xanax TAB] 0.25 mg PO BID PRN #10 tab 06/07/17 Unknown Rx Allergies Allergy/AdvReac Type Severity Reaction Status Date / Time No Known Allergies Allergy Verified 02/18/17 13:00 ED Review of Systems ROS: Stated complaint: FRANKIE Other details as noted in HPI Constitutional: denies: chills, fever Eyes: denies: eye pain, eye discharge, vision change ENT: denies: ear pain, throat pain Respiratory: cough, SOB at rest Cardiovascular: chest pain, dyspnea on exertion, edema Endocrine: no symptoms reported Gastrointestinal: denies: abdominal pain, nausea, diarrhea Genitourinary: denies: urgency, dysuria Musculoskeletal: denies: back pain, joint swelling, arthralgia Skin: denies: rash, lesions Neurological: denies: headache, weakness, paresthesias Psychiatric: denies: anxiety, depression Hematological/Lymphatic: as per HPI ED Past Medical Hx - Past Medical History Hx Hypertension: Yes Hx Congestive Heart Failure: Yes Hx Diabetes: No Hx Asthma: No Hx COPD: No Additional medical history: pacer/defib. cardiomyopathy - Surgical History Hx Pacemaker: Yes Hx Internal Defibrillator: Yes (Placed 2012) - Social History Smoking Status: Never Smoker Substance Use Type: None - Medications Home Medications: Home Medications Medication Instructions Recorded Confirmed Last Taken Type Carvedilol [Coreg] 6.25 mg PO BID #60 tablet 05/19/17 06/05/17 06/05/17 Rx Furosemide [Lasix TAB] 20 mg PO BID #60 tablet 05/19/17 06/05/17 06/05/17 Rx Lisinopril [Zestril TAB] 2.5 mg PO QDAY #30 tablet 05/19/17 06/05/17 06/05/17 Rx oxyCODONE /ACETAMINOPHEN [Percocet 1 tab PO QHS PRN #7 tablet 05/19/17 06/05/17 06/04/17 Rx 5/325 mg] Aspirin [Aspirin BABY CHEW TAB] 81 mg PO QDAY #30 tab.chew 05/30/17 06/05/1702/16 Rx ALPRAZolam [Xanax TAB] 0.25 mg PO BID PRN #10 tab 06/07/17 Unknown Rx ED Physical Exam - General Limitations: No Limitations General appearance: alert, in distress - Head Head exam: Present: atraumatic, normocephalic - Eye Eye exam: Present: normal appearance - ENT ENT exam: Present: mucous membranes moist - Respiratory Respiratory exam: Present: other (crackles bilaterally) - Cardiovascular Cardiovascular Exam: Present: regular rate, S3 - GI/Abdominal GI/Abdominal exam: Present: soft - Extremities Exam Extremities exam: Present: pedal edema, other (2+ pitting edema) - Back Exam Back exam: Present: normal inspection - Neurological Exam Neurological exam: Present: alert - Psychiatric Psychiatric exam: Present: anxious ED Course Vital Signs 06/13/17 22:50 Temperature 98.0 F Pulse Rate 74 Respiratory 22 Rate Blood Pressure 109/65 O2 Sat by Pulse 95 Oximetry - Reevaluation(s) Reevaluation #1: 06/14/17 00:27 Patient received IV Lasix and Dilaudid he states that his shortness of breath is better and his pain has improved. ED Medical Decision Making - Lab Data Result diagrams: 06/13/17 23:03 06/13/17 23:03 Lab Results 06/13/17 06/13/17 Range/Units 23:03 23:03 WBC 8.8 (4.5-11.0) K/mm3 RBC 4.74 (3.65-5.03) M/mm3 Hgb 11.7 L (11.8-15.2) gm/dl Hct 38.9 (35.5-45.6) % MCV 82 L (84-94) fl MCH 25 L (28-32) pg MCHC 30 L (32-34) % RDW 16.1 H (13.2-15.2) % Plt Count 222 (140-440) K/mm3 Lymph % (Auto) 29.7 (13.4-35.0) % [place] % (Auto) 10.4 H (0.0-7.3) % Eos % (Auto) 0.8 (0.0-4.3) % Baso % (Auto) 0.5 (0.0-1.8) % Lymph # 2.6 (1.2-5.4) K/mm3 [place] # 0.9 H (0.0-0.8) K/mm3 Eos # 0.1 (0.0-0.4) K/mm3 Baso # 0.0 (0.0-0.1) K/mm3 Seg Neutrophils % 58.6 (40.0-70.0) % Seg Neutrophils # 5.1 (1.8-7.7) K/mm3 Sodium 134 L (137-145) mmol/L Potassium 4.5 (3.6-5.0) mmol/L Chloride 98.4 (98-107) mmol/L Carbon Dioxide 20 L (22-30) mmol/L Anion Gap 20 mmol/L BUN 27 H (9-20) mg/dL Creatinine 1.5 (0.8-1.5) mg/dL Estimated GFR > 60 ml/min BUN/Creatinine Ratio 18.00 % Glucose 114 H (75-100) mg/dL Calcium 8.6 (8.4-10.2) mg/dL Troponin T < 0.010 (0.00-0.029) ng/mL NT-Pro-B Natriuret Pep 6588 H (0-450) pg/mL - EKG Data -: EKG Interpreted by Me - EKG Data 06/14/17 00:20 EKG shows sinus rhythm with PVCs left atrial enlargement. Right axis deviation No ST segment elevation or T wave inversion. - Radiology Data Radiology results: image reviewed Chest x-ray shows cardiomegaly - Medical Decision Making Chief medical diagnosis congestive heart failure Differential medical diagnosis non-STEMI, asthma exacerbation CBC, CMP, troponin, EKG, chest x-ray, IV Lasix Patient's clinical picture is that of acute exacerbation of his congestive heart failure patient will require 80 mg of IV Lasix and IV Dilaudid for his chest pain. I will admit patient to the hospital. Critical care attestation.: If time is entered above; I have spent that time in minutes in the direct care of this critically ill patient, excluding procedure time. ED Disposition Clinical Impression: Shortness of breath Congestive heart failure Qualifiers: Congestive heart failure type: combined Congestive heart failure chronicity: acute on chronic Qualified Code(s): I50.43 - Acute on chronic combined systolic (congestive) and diastolic (congestive) heart failure Disposition: OP ADMIT IP TO THIS HOSP Is pt being admited?: Yes Does the pt Need Aspirin: No Condition: Stable Referrals: PRIMARY CARE, [Primary Care Provider] - 3-5 Days
[2017-06-14] MEDS ORDERED: XANAX PO PRN (00:49)
--- NOTE | 2017-06-14 00:58 | History and Physical Report ---
History of Present Illness Date of examination: 06/14/17 Chief complaint: Shortness of breath History of present illness: 22-year-old -[place] man with past medical history significant for CHF, hypertension, anxiety disorder, medication non-compliance presented to the emergency department complaining of shortness since yesterday morning. Patient is also complaining orthopnea, bilateral leg swelling, cough productive of blood -tinged sputum. Patient claimed she has been taking his medications as ordered. He claimed he is compliant with his . Patient denied fever, chills , palpitation. Patient discharged to a week ago from the hospital. REVIEW OF SYSTEMS: GENERAL: no weight change, no fatigue, no fever HEAD: no head ache EYES: no blurry vision, no acute visual loss EARS: no hearing loss, no discharge, no earache NOSE: no stuffiness, no sneezing, no discharge MOUTH, THROAT AND NECK: no bleeding gums, no sore throat, no swollen neck CARDIAC: no palpitations, + dyspnea on exertion, + orthopnea, + PND, + edema, no chest pain RESPIRATORY: + shortness of breath, no wheeze, + cough, + sputum, + hemoptysis, no asthma GI: no decreased appetite, no nausea, no vomiting, no dysphagia, no diarrhea, no constipation, no abdominal pain URINARY: no change in frequency, no urgency, no polyuria, no hematuria, no incontinence MUSCULOSKELETAL: no muscle weakness, no pain, no joint stiffness NEUROLOGIC: no loss of sensation/numbness, no tingling, no tremors, no weakness/ paralysis HEMATOLOGIC: no anemia, no easy bruising SKIN: no rashes ENDOCRINE: no heat/cold intolerance, no polyuria, no polydipsia, no thyroid problems, no diabetes PSYCHIATRIC: no anxiety, no depression, no suicidal ideations Past History Past Medical History: heart failure, hypertension, other (anxiety disorder) Past Surgical History: Other (ICD placement) Social history: full code. denies: smoking, alcohol abuse, prescription drug abuse, IV drug use Family history: no significant family history Medications and Allergies Allergies Allergy/AdvReac Type Severity Reaction Status Date / Time No Known Allergies Allergy Verified 02/18/17 13:00 Home Medications Medication Instructions Recorded Confirmed Last Taken Type Carvedilol [Coreg] 6.25 mg PO BID #60 tablet 05/19/17 06/05/17 06/05/17 Rx Furosemide [Lasix TAB] 20 mg PO BID #60 tablet 05/19/17 06/05/17 06/05/17 Rx Lisinopril [Zestril TAB] 2.5 mg PO QDAY #30 tablet 05/19/17 06/05/17 06/05/17 Rx oxyCODONE /ACETAMINOPHEN [Percocet 1 tab PO QHS PRN #7 tablet 05/19/17 06/05/17 06/04/17 Rx 5/325 mg] Aspirin [Aspirin BABY CHEW TAB] 81 mg PO QDAY #30 tab.chew 05/30/17 06/05/1702/16 Rx ALPRAZolam [Xanax TAB] 0.25 mg PO BID PRN #10 tab 06/07/17 Unknown Rx Active Meds: Active Medications Alprazolam (Xanax) 0.25 mg PO BID PRN PRN Reason: Anxiety Aspirin (Baby Aspirin) 81 mg PO QDAY [facility] Carvedilol (Coreg) 6.25 mg PO BID [facility] Furosemide (Lasix) 40 mg IV BID@0600,1800 [facility] Lisinopril (Zestril) 2.5 mg PO QDAY [facility] Morphine Sulfate (Morphine) 2 mg IV Q4H PRN PRN Reason: Chest Pain Spironolactone (Aldactone) 12.5 mg PO QDAY [facility] Exam - Physical Exam Narrative exam: In mild cardiopulmonary distress. The patient appeared well nourished and normally developed. Vital signs as documented. Head exam is unremarkable. No scleral icterus . Neck is without jugular venous distension, thyromegaly, or carotid bruits. Lungs are clear to auscultation. Cardiac exam reveals regular rate and Rhythm. First and second heart sounds normal. No murmurs, rubs or gallops. Abdominal exam reveals normal bowel sounds, no masses, no organomegaly and no aortic enlargement. Extremities bilateral feet edema. [employer]: Alert and oriented 3. No focal weakness. - Constitutional Vitals: Temp Pulse Resp BP Pulse Ox 98.0 F 74 18 109/65 97 06/13/17 22:50 06/13/17 22:50 06/14/17 00:27 06/14/17 00:17 06/14/17 00:27 Results - Labs CBC & Chem 7: 06/13/17 23:03 06/13/17 23:03 Labs: Laboratory Last Values WBC 8.8 K/mm3 (4.5-11.0) 06/13/17 23:03 RBC 4.74 M/mm3 (3.65-5.03) 06/13/17 23:03 Hgb 11.7 gm/dl (11.8-15.2) L 06/13/17 23:03 Hct 38.9 % (35.5-45.6) 06/13/17 23:03 MCV 82 fl (84-94) L 06/13/17 23:03 MCH 25 pg (28-32) L 06/13/17 23:03 MCHC 30 % (32-34) L 06/13/17 23:03 RDW 16.1 % (13.2-15.2) H 06/13/17 23:03 Plt Count 222 K/mm3 (140-440) 06/13/17 23:03 Lymph % (Auto) 29.7 % (13.4-35.0) 06/13/17 23:03 [place] % (Auto) 10.4 % (0.0-7.3) H 06/13/17 23:03 Eos % (Auto) 0.8 % (0.0-4.3) 06/13/17 23:03 Baso % (Auto) 0.5 % (0.0-1.8) 06/13/17 23:03 Lymph # 2.6 K/mm3 (1.2-5.4) 06/13/17 23:03 [place] # 0.9 K/mm3 (0.0-0.8) H 06/13/17 23:03 Eos # 0.1 K/mm3 (0.0-0.4) 06/13/17 23:03 Baso # 0.0 K/mm3 (0.0-0.1) 06/13/17 23:03 Seg Neutrophils % 58.6 % (40.0-70.0) 06/13/17 23:03 Seg Neutrophils # 5.1 K/mm3 (1.8-7.7) 06/13/17 23:03 Sodium 134 mmol/L (137-145) L 06/13/17 23:03 Potassium 4.5 mmol/L (3.6-5.0) 06/13/17 23:03 Chloride 98.4 mmol/L (98-107) 06/13/17 23:03 Carbon Dioxide 20 mmol/L (22-30) L 06/13/17 23:03 Anion Gap 20 mmol/L 06/13/17 23:03 BUN 27 mg/dL (9-20) H 06/13/17 23:03 Creatinine 1.5 mg/dL (0.8-1.5) 06/13/17 23:03 Estimated GFR > 60 ml/min 06/13/17 23:03 BUN/Creatinine Ratio 18.00 % 06/13/17 23:03 Glucose 114 mg/dL (75-100) H 06/13/17 23:03 Calcium 8.6 mg/dL (8.4-10.2) 06/13/17 23:03 Troponin T < 0.010 ng/mL (0.00-0.029) 06/13/17 23:03 NT-Pro-B Natriuret Pep 6588 pg/mL (0-450) H 06/13/17 23:03 - Imaging and Cardiology EKG: image reviewed (left atrial enlargement, right axis deviation) Chest x-ray: image reviewed (pulmonary vascular congestion, cardiomegaly) Assessment and Plan Assessment and plan: Acute hypoxic respiratory failure Acute on chronic systolic CHF exacerbation Anxiety disorder Medication noncompliance - Patient is admitted to the telemetry floor and will be managed according to CHF management protocol - Continue present medications - CTA to rule out PE DVT prophylaxis - On Lovenox Disposition - Admit to telemetry floor. Advance Directives: Yes VTE prophylaxis?: Chemical Plan of care discussed with patient/family: Yes
[2017-06-14] MEDS ORDERED: DILAUDID IV ONE (01:13)
[2017-06-14] MEDS: MORPHINE IV PRN ×3 (01:24→17:58)
--- NOTE | 2017-06-14 02:38 | Cat Scan Report ---
FINAL REPORT PROCEDURE: CT ANGIO CHEST TECHNIQUE: Computerized axial tomographic angiography of the chest and pulmonary arteries was performed after the IV injection of iodinated nonionic contrast. The image data was postprocessed using maximum intensity projection (MIP) and 2-dimensional multiplanar reformatted (MPR) techniques. The examination is specifically tailored to the evaluation of the pulmonary arteries per clinical request. HISTORY: Short of breath 786.09, chest pain 786.50, sob COMPARISON: No prior studies are available for comparison. FINDINGS: Heart and pericardium: The heart is enlarged. There is no pericardial effusion.. Thoracic aorta: There is no thoracic aortic aneurysm. There is no intraluminal contrast. Dissection cannot be determined.. Pulmonary vasculature: There is no pulmonary embolism.. Lymph nodes: No enlarged thoracic lymph nodes. Lungs: There are bilateral upper lower lobe nodular densities which could be multi focal infiltrates. There is bilateral pulmonary edema. Pleural space: There is no pleural effusion or pneumothorax.. Musculoskeletal structures: No significant abnormality. Upper abdominal structures: No significant abnormality. IMPRESSION: No pulmonary embolism is demonstrated.. The heart is enlarged. There is no pericardial effusion.. There is no thoracic aortic aneurysm. There is no intraluminal contrast. Dissection cannot be determined.. There are bilateral upper and lower lobe pulmonary nodular densities which could be multi focal infiltrates. There is bilateral pulmonary edema. There is no pleural effusion or pneumothorax..
[2017-06-14] MEDS ORDERED: DILAUDID ONE (04:42)
[2017-06-14] MEDS: LASIX IV SCH ×2 (06:02→18:06)
--- NOTE | 2017-06-14 09:44 | XRay Report ---
Chest 2 views: Compared to 06/05/17. History: Shortness of breath. Findings: Cardiomegaly. Stable pacemaker. Trachea is midline. No consolidation, pneumothorax or pleural effusion. Impression: Cardiomegaly. No obvious acute lung changes. Mild pulmonary venous congestion if present cannot be excluded.
[2017-06-14] MEDS ORDERED: BABY ASPIRIN PO SCH (10:00)
[2017-06-14] MEDS: ALDACTONE PO SCH (10:25)
[2017-06-14] MEDS: BABY ASPIRIN PO SCH (11:20)
[2017-06-14] MEDS: COREG PO SCH ×2 (11:21→22:00)
[2017-06-14] MEDS: LOVENOX SUB-Q SCH (11:21)
[2017-06-14] MEDS: ZESTRIL PO SCH (11:22)
--- NOTE | 2017-06-14 18:33 | Event Note ---
Date: 06/14/17 Patient was admitted this morning with worsening shortness of breath Medical records reviewed, patient was admitted multiple times recently, this is his sixth admission in 45 days We will consult cardiology, optimize medications, agree with the current management
[2017-06-15] MEDS ORDERED: ROBITUSSIN PO PRN (00:54)
[2017-06-15] MEDS: LASIX IV SCH ×2 (05:48→18:30)
[2017-06-15] MEDS: MORPHINE IV PRN ×3 (06:39→20:05)
[2017-06-15 07:58] LABS: Anion Gap 20 mmol/L; BUN/Creatinine Ratio 22.14; Blood Urea Nitrogen 31 mg/dL (9-20); Calcium 8.6 mg/dL (8.4-10.2); Carbon Dioxide 22 mmol/L (22-30); Chloride 97.6 mmol/L (98-107); Glucose 137 mg/dL (75-100); Potassium 4.4 mmol/L (3.6-5.0); Sodium 135 mmol/L (137-145)
--- NOTE | 2017-06-15 08:09 | Progress Note ---
Assessment and Plan Assessment and plan: --Acute on chronic systolic congestive heart failure Ejection fraction 10-15%, continue failure medication Cardiology evaluation --Acute on chronic respiratory failure secondary to acute exacerbation of systolic congestive heart failure, oxygen titrate O2 sats to more than 90%, anti -failure medications --Nonischemic cardiomyopathy; continue current management --Cardiology considering milrinone drip, closely monitor --Status post AICD; interrogation if needed cardiology --Multiple recent admissions, 6 admissions in 45 days, optimize the treatment --DC planning per case management Closely monitor the patient and adjust management as needed Plan of care discussed with patient and his nurse History Interval history: Attention seen and evaluated in the room this morning medical records reviewed Complaints of shortness of breath and vague chest pressure Denies nausea vomiting or abdominal pain Claims compliance with medications and diet Hospitalist Physical - Constitutional Vitals: Temp Pulse Resp BP Pulse Ox 98.2 F 78 18 106/77 97 06/15/17 04:00 06/15/17 04:00 06/15/17 04:00 06/15/17 04:00 06/15/17 04:00 General appearance: Present: mild distress, well-nourished - EENT Eyes: Present: PERRL, EOM intact - Neck Neck: Present: supple, normal ROM - Respiratory Respiratory effort: normal Respiratory: bilateral: diminished, rales, negative: rhonchi, wheezing - Cardiovascular Rhythm: regular Heart Sounds: Present: S1 & S2 - Extremities Extremities: no ischemia, No edema - Abdominal General gastrointestinal: soft, non-tender, non-distended, normal bowel sounds - Integumentary Integumentary: Present: clear, warm - Psychiatric Psychiatric: appropriate mood/affect, cooperative - Neurologic Neurologic: CNII-XII intact, moves all extremities Results - Labs CBC & Chem 7: 06/13/17 23:03 06/15/17 07:26 Labs: Laboratory Last Values WBC 8.8 K/mm3 (4.5-11.0) 06/13/17 23:03 RBC 4.74 M/mm3 (3.65-5.03) 06/13/17 23:03 Hgb 11.7 gm/dl (11.8-15.2) L 06/13/17 23:03 Hct 38.9 % (35.5-45.6) 06/13/17 23:03 MCV 82 fl (84-94) L 06/13/17 23:03 MCH 25 pg (28-32) L 06/13/17 23:03 MCHC 30 % (32-34) L 06/13/17 23:03 RDW 16.1 % (13.2-15.2) H 06/13/17 23:03 Plt Count 222 K/mm3 (140-440) 06/13/17 23:03 Lymph % (Auto) 29.7 % (13.4-35.0) 06/13/17 23:03 [place] % (Auto) 10.4 % (0.0-7.3) H 06/13/17 23:03 Eos % (Auto) 0.8 % (0.0-4.3) 06/13/17 23:03 Baso % (Auto) 0.5 % (0.0-1.8) 06/13/17 23:03 Lymph # 2.6 K/mm3 (1.2-5.4) 06/13/17 23:03 [place] # 0.9 K/mm3 (0.0-0.8) H 06/13/17 23:03 Eos # 0.1 K/mm3 (0.0-0.4) 06/13/17 23:03 Baso # 0.0 K/mm3 (0.0-0.1) 06/13/17 23:03 Seg Neutrophils % 58.6 % (40.0-70.0) 06/13/17 23:03 Seg Neutrophils # 5.1 K/mm3 (1.8-7.7) 06/13/17 23:03 Sodium 135 mmol/L (137-145) L 06/15/17 07:26 Potassium 4.4 mmol/L (3.6-5.0) 06/15/17 07:26 Chloride 97.6 mmol/L (98-107) L 06/15/17 07:26 Carbon Dioxide 22 mmol/L (22-30) 06/15/17 07:26 Anion Gap 20 mmol/L 06/15/17 07:26 BUN 31 mg/dL (9-20) H 06/15/17 07:26 Creatinine 1.4 mg/dL (0.8-1.5) 06/15/17 07:26 Estimated GFR > 60 ml/min 06/15/17 07:26 BUN/Creatinine Ratio 22.14 % 06/15/17 07:26 Glucose 137 mg/dL (75-100) H 06/15/17 07:26 Calcium 8.6 mg/dL (8.4-10.2) 06/15/17 07:26 Troponin T < 0.010 ng/mL (0.00-0.029) 06/13/17 23:03 NT-Pro-B Natriuret Pep 6588 pg/mL (0-450) H 06/13/17 23:03
[2017-06-15] MEDS ORDERED: COREG PO SCH (10:00)
[2017-06-15] MEDS ORDERED: BABY ASPIRIN PO SCH (10:00)
[2017-06-15] MEDS ORDERED: NON-FORMULARY (Lisinopril [Zestril Tab] 2.5 MG) PO SCH (10:00)
[2017-06-15] MEDS: LOVENOX SUB-Q SCH (11:39)
[2017-06-15] MEDS: ZESTRIL PO SCH (11:40)
[2017-06-15] MEDS: COREG PO SCH ×2 (11:40→22:10)
[2017-06-15] MEDS: ALDACTONE PO SCH (11:40)
[2017-06-15] MEDS: BABY ASPIRIN PO SCH (11:40)
[2017-06-15] MEDS: ROBITUSSIN DM PO PRN (11:44)
--- NOTE | 2017-06-15 11:51 | Consultation ---
History of Present Illness Consult date: 06/15/17 Consult reason: congestive heart failure History of present illness: 22yr old man with long standing h/o non ischemic cardiomyopathy s/p single chamber ICD who presented to hospital with increasing shortness of breath and lower extremity edema. He denies ICD shock. Chest CTA reports no pulmonary embolism but bilateral pulmonary edema. Patient was admitted with recurrent CHF exacerbation. Cardiac consultation was requested. Past History Past Medical History: heart failure, hypertension, other (anxiety disorder) Past Surgical History: Other (ICD placement) Social history: full code. denies: smoking, alcohol abuse, prescription drug abuse, IV drug use Family history: no significant family history Medications and Allergies Allergies Allergy/AdvReac Type Severity Reaction Status Date / Time No Known Allergies Allergy Verified 02/18/17 13:00 Home Medications Medication Instructions Recorded Confirmed Last Taken Type ALPRAZolam [Xanax TAB] 0.25 mg PO BID PRN 06/14/17 06/14/17 Unknown History Aspirin [Aspirin BABY CHEW TAB] 81 mg PO QDAY 06/14/17 06/14/17 Unknown History Carvedilol [Coreg] 6.25 mg PO BID 06/14/17 06/14/17 Unknown History Furosemide [Lasix TAB] 40 mg PO BID 06/14/17 06/14/17 Unknown History Lisinopril [Zestril TAB] 2.5 mg PO QDAY 06/14/17 06/14/17 Unknown History Active Meds: Active Medications Alprazolam (Xanax) 0.25 mg PO BID PRN PRN Reason: Anxiety Aspirin (Baby Aspirin) 81 mg PO QDAY [facility] Last Admin: 06/15/17 11:40 Dose: 81 mg Carvedilol (Coreg) 6.25 mg PO BID [facility] Last Admin: 06/15/17 11:40 Dose: 6.25 mg Enoxaparin Sodium (Lovenox) 40 mg SUB-Q Q24HR [facility] Last Admin: 06/15/17 11:39 Dose: 40 mg Furosemide (Lasix) 40 mg IV BID@0600,1800 [facility] Last Admin: 06/15/17 05:48 Dose: 40 mg Guaifenesin (Robitussin Dm) 5 ml PO Q4H PRN PRN Reason: Cough Last Admin: 06/15/17 11:44 Dose: 5 ml Lisinopril (Zestril) 2.5 mg PO QDAY [facility] Last Admin: 06/15/17 11:40 Dose: Not Given Morphine Sulfate (Morphine) 2 mg IV Q4H PRN PRN Reason: Chest Pain Last Admin: 06/15/17 11:45 Dose: 2 mg Spironolactone (Aldactone) 12.5 mg PO QDAY [facility] Last Admin: 06/15/17 11:40 Dose: 12.5 mg Physical Examination Vital Signs Temp Pulse Resp BP Pulse Ox 98.0 F 74 22 109/65 95 06/13/17 22:50 06/13/17 22:50 06/13/17 22:50 06/13/17 22:50 06/13/17 22:50 General appearance: mild distress HEENT: Positive: PERRL Neck: Positive: trachea midline Cardiac: Positive: Reg Rate and Rhythm Neuro: Positive: Grossly Intact Results 06/13/17 23:03 06/15/17 07:26 Comprehensive Metabolic Panel 06/15/17 Range/Units 07:26 Sodium 135 L (137-145) mmol/L Potassium 4.4 (3.6-5.0) mmol/L Chloride 97.6 L (98-107) mmol/L Carbon Dioxide 22 (22-30) mmol/L BUN 31 H (9-20) mg/dL Creatinine 1.4 (0.8-1.5) mg/dL Glucose 137 H (75-100) mg/dL Calcium 8.6 (8.4-10.2) mg/dL Assessment and Plan Acute on chronic systolic heart failure Bilateral pulmonary edema Nonischemic cardiomyopathy s/p AICD LVEF 10-15% on echo 04/2017 Recommendations: Aggressive medical therapy with IV diuresis and IV inotropic therapy. Strict intake and output. Daily weight. Fluid/dietary restrictions.
[2017-06-15] MEDS: PRIMACOR 20 MG in D5W 80 ML IV SCH ×2 (13:18→22:10)
--- NOTE | 2017-06-15 13:42 | Admit Criteria Form ---
Admission Criteria Documentation: HEART FAILURE: COMMON COMPLICATIONS Clinical Indications for Inpatient Care (kasaan/check or initial the applicable condition/criteria): Ongoing inpatient care may be indicated for heart failure with 1 or more of the following (1)(2)(3)(4)(5)(6)(7)(8): [ ]I. New-onset heart failure [ ]II. Acute cardiac ischemia causing or associated with failure [ ]III. Ongoing need for care for primary condition requiring frequent therapy adjustments because of changes in cardiac function (eg, drug dosage changes for drugs that are renally metabolized) [X]IV. Complications of heart failure, including 1 or more of the following: [ ]a) Hemodynamic instability [ ]b) Pericardial effusion [ ]c) Symptomatic pleural effusion(16) [ ]d) Hypoxemia [ ]e) Tachypnea [X]f) Dyspnea [ ]g) Syncope [ ]h) Altered mental status [ ]i) Acute renal insufficiency that is severe (reduction of more than 50% in estimated glomerular filtration rate from baseline) or progressive (reduction of more than 25% in estimated glomerular filtration rate from baseline, with creatinine continuing to rise) [ ]j) Debilitating anasarca (eg tissue breakdown with infection, inability to void due to edema)(E) (17) [ ]k) Clinically significant metabolic abnormalities due to heart failure (e.g., new-onset metabolic acidosis) Extended stay may be needed until ALL of the following are present(1)(3)(18)(41) (55): [ ]a) Hemodynamic stability [ ]b) Stable and effective diuretic regimen established (or patient on stable dialysis regimen if in chronic renal failure) [ ]c) Volume status acceptable on oral medication [ ]d) Breathing comfortably at rest [ ]e) Saturation of arterial oxygen greater than 90% or at acceptable baseline [ ]f) Pulmonary edema absent or improved [ ]g) Peripheral or sacral edema absent or improved [ ]h) Renal function stable and manageable at a lower level of care [ ]i) Complications (e.g., pleural effusion) resolved or manageable at a lower level of care [ ]j) Patient or caregiver has received written discharge instructions or educational material addressing activity level, diet, discharge medications, follow-up appointment, weight monitoring, and what to do if symptoms worsen. (56)(57)(58) The original [facility] [employer] content created by Nichelle Dooley has been revised. The portions of the content which have been revised are identified through the use of italic text or in bold, and Nichelle Dooley has neither reviewed nor approved the modified material.All other unmodified content is copyright [facility] [employer]. Please see references footnoted in the original [facility] edition 2017 Admission Criteria Met: Yes
[2017-06-16] MEDS: MORPHINE IV PRN ×5 (01:08→22:21)
[2017-06-16] MEDS: ROBITUSSIN DM PO PRN ×2 (04:25→13:37)
[2017-06-16] MEDS: LASIX IV SCH ×2 (06:10→18:16)
[2017-06-16 06:37] LABS: Anion Gap 18 mmol/L; Blood Urea Nitrogen 26 mg/dL (9-20); Calcium 8.1 mg/dL (8.4-10.2); Carbon Dioxide 23 mmol/L (22-30); Chloride 94.9 mmol/L (98-107); Glucose 106 mg/dL (75-100); Potassium 3.8 mmol/L (3.6-5.0); Sodium 132 mmol/L (137-145)
[2017-06-16] MEDS: PRIMACOR 20 MG in D5W 80 ML IV SCH ×2 (10:31→21:01)
[2017-06-16] MEDS: BABY ASPIRIN PO SCH (10:33)
[2017-06-16] MEDS: LOVENOX SUB-Q SCH (10:33)
[2017-06-16] MEDS: ZESTRIL PO SCH (10:34)
[2017-06-16] MEDS: ALDACTONE PO SCH (10:34)
[2017-06-16] MEDS: COREG PO SCH ×2 (10:34→22:20)
--- NOTE | 2017-06-16 11:05 | Progress Note ---
Assessment and Plan Chronic systolic heart failure Nonischemic cardiomyopathy s/p AICD LVEF 10-15% on echo 04/2017 Recommendations: Aggressive medical therapy with IV diuresis and IV inotropic therapy for his chronic systolic heart failure. Strict intake and output. Daily weight. Fluid/dietary restrictions. Subjective Date of service: 06/16/17 Interval history: Patient reports his breathing is better since admission. Continues on IV milrinone therapy. Objective Vital Signs Temp Pulse Resp BP Pulse Ox 06/16/17 10:00 99 06/16/17 07:00 98.7 F 87 20 112/70 97 06/16/17 04:00 97.8 F 95 H 20 113/80 98 06/16/17 00:00 97.9 F 86 20 104/75 98 06/15/17 22:10 104/75 06/15/17 22:00 90 100 06/15/17 20:05 20 06/15/17 20:00 97.8 F 94 H 20 111/80 99 06/15/17 16:15 97.3 F L 89 18 111/79 98 06/15/17 14:49 100 06/15/17 14:38 22 98 06/15/17 11:45 20 06/15/17 11:40 100/66 - Physical Examination General: No Apparent Distress HEENT: Positive: PERRL Neck: Positive: trachea midline Cardiac: Positive: Reg Rate and Rhythm Lungs: Positive: Decreased Breath Sounds Neuro: Positive: Grossly Intact - Labs and Meds Comprehensive Metabolic Panel 06/16/17 Range/Units 05:43 Sodium 132 L (137-145) mmol/L Potassium 3.8 (3.6-5.0) mmol/L Chloride 94.9 L (98-107) mmol/L Carbon Dioxide 23 (22-30) mmol/L BUN 26 H (9-20) mg/dL Creatinine 1.3 (0.8-1.5) mg/dL Glucose 106 H (75-100) mg/dL Calcium 8.1 L (8.4-10.2) mg/dL - Imaging and Cardiology EKG: image reviewed (left atrial enlargement, right axis deviation)
--- NOTE | 2017-06-16 16:59 | Progress Note ---
Assessment and Plan Assessment and plan: --Acute on chronic systolic congestive heart failure Ejection fraction 10-15%, continue failure medication Cardiology evaluation --Acute on chronic respiratory failure secondary to acute exacerbation of systolic congestive heart failure, oxygen titrate O2 sats to more than 90%, anti -failure medications --Nonischemic cardiomyopathy; continue current management --Cardiology considering milrinone drip, closely monitor --Status post AICD; interrogation if needed cardiology --Multiple recent admissions, 6 admissions in 45 days, optimize the treatment --DC planning per case management Closely monitor the patient and adjust management as needed Plan of care discussed with patient and his nurse still on Milrone drip History Interval history: Patient seen and examined. Follow up on current diagnosis. Overnight uneventful. No cp, sob, n/v or severe headaches. Imaging, old records, testing, labs, nursing notes reviewed. Patient stills feel his fluid overload with leg edema Hospitalist Physical - Physical exam Narrative exam: GEN: WDWN, NAD, AWAKE, ALERT, ORIENTATED x 3 HEENT: NCAT, PERRL, EOMI, OP CLEAR NECK: SUPPLE, NO THYROMEGALY, NO JVD, NO LAD CVS: RRR, NORMAL S1S2 LUNGS/CHEST: Bibasilar crackles, NORMAL CHEST EXPANSION B, reduced AIR ENTRY B ABD: SOFT, NTND, GBS, NO REBOUND OR GUARDING EXT/SKIN: Trace pretibial pitting edema right greater than left MSK: FROM X 4 EXTREMITIES NEURO: CN 2-12 GROSSLY INTACT, NO FOCAL DEFICITS PSY: CALM - Constitutional Vitals: Temp Pulse Resp BP Pulse Ox 98.4 F 85 20 101/60 100 06/16/17 12:00 06/16/17 12:00 06/16/17 12:00 06/16/17 12:00 06/16/17 12:00 General appearance: Present: well-nourished. Absent: mild distress Results - Labs CBC & Chem 7: 06/13/17 23:03 06/16/17 05:43 Labs: Laboratory Last Values WBC 8.8 K/mm3 (4.5-11.0) 06/13/17 23:03 RBC 4.74 M/mm3 (3.65-5.03) 06/13/17 23:03 Hgb 11.7 gm/dl (11.8-15.2) L 06/13/17 23:03 Hct 38.9 % (35.5-45.6) 06/13/17 23:03 MCV 82 fl (84-94) L 06/13/17 23:03 MCH 25 pg (28-32) L 06/13/17 23:03 MCHC 30 % (32-34) L 06/13/17 23:03 RDW 16.1 % (13.2-15.2) H 06/13/17 23:03 Plt Count 222 K/mm3 (140-440) 06/13/17 23:03 Lymph % (Auto) 29.7 % (13.4-35.0) 06/13/17 23:03 [place] % (Auto) 10.4 % (0.0-7.3) H 06/13/17 23:03 Eos % (Auto) 0.8 % (0.0-4.3) 06/13/17 23:03 Baso % (Auto) 0.5 % (0.0-1.8) 06/13/17 23:03 Lymph # 2.6 K/mm3 (1.2-5.4) 06/13/17 23:03 [place] # 0.9 K/mm3 (0.0-0.8) H 06/13/17 23:03 Eos # 0.1 K/mm3 (0.0-0.4) 06/13/17 23:03 Baso # 0.0 K/mm3 (0.0-0.1) 06/13/17 23:03 Seg Neutrophils % 58.6 % (40.0-70.0) 06/13/17 23:03 Seg Neutrophils # 5.1 K/mm3 (1.8-7.7) 06/13/17 23:03 Sodium 132 mmol/L (137-145) L 06/16/17 05:43 Potassium 3.8 mmol/L (3.6-5.0) 06/16/17 05:43 Chloride 94.9 mmol/L (98-107) L 06/16/17 05:43 Carbon Dioxide 23 mmol/L (22-30) 06/16/17 05:43 Anion Gap 18 mmol/L 06/16/17 05:43 BUN 26 mg/dL (9-20) H 06/16/17 05:43 Creatinine 1.3 mg/dL (0.8-1.5) 06/16/17 05:43 Estimated GFR > 60 ml/min 06/16/17 05:43 BUN/Creatinine Ratio 20.00 % 06/16/17 05:43 Glucose 106 mg/dL (75-100) H 06/16/17 05:43 Calcium 8.1 mg/dL (8.4-10.2) L 06/16/17 05:43 Troponin T < 0.010 ng/mL (0.00-0.029) 06/13/17 23:03 NT-Pro-B Natriuret Pep 6588 pg/mL (0-450) H 06/13/17 23:03
[2017-06-17] MEDS: LASIX IV SCH ×2 (05:41→17:32)
[2017-06-17] MEDS: MORPHINE IV PRN ×2 (06:30→20:54)
[2017-06-17] MEDS: PRIMACOR 20 MG in D5W 80 ML IV SCH ×2 (07:23→17:35)
[2017-06-17] MEDS: ROBITUSSIN DM PO PRN (09:48)
[2017-06-17] MEDS: ALDACTONE PO SCH (09:49)
[2017-06-17] MEDS: ZESTRIL PO SCH (09:49)
[2017-06-17] MEDS: COREG PO SCH (09:50)
[2017-06-17] MEDS: BABY ASPIRIN PO SCH (09:50)
[2017-06-17] MEDS: LOVENOX SUB-Q SCH (09:51)
--- NOTE | 2017-06-17 10:42 | Progress Note ---
Assessment and Plan Chronic systolic heart failure Nonischemic cardiomyopathy s/p AICD LVEF 10-15% on echo 04/2017 Recommendations: Continue aggressive medical therapy with IV diuresis and IV inotropic therapy for his chronic systolic heart failure. Strict intake and output. Daily weight. Fluid/dietary restrictions. Subjective Date of service: 06/17/17 Interval history: Patient reports his shortness of breath is improving. Short bursts of NSVT noted on telemetry overnight. Patient remained asymptomatic. Objective Vital Signs Temp Pulse Resp BP Pulse Ox 06/17/17 08:00 98.3 F 89 18 120/65 99 06/17/17 06:30 80 18 115/60 06/17/17 05:24 97.7 F 89 18 95/67 97 06/17/17 03:53 94 H 06/17/17 02:00 18 06/17/17 00:40 97 F L 82 18 95/58 96 06/16/17 22:20 77 100/57 06/16/17 20:53 98.2 F 95 H 18 100/77 100 06/16/17 17:00 98.7 F 92 H 20 114/58 99 06/16/17 12:00 98.4 F 85 20 101/60 100 - Physical Examination General: No Apparent Distress HEENT: Positive: PERRL Neck: Positive: trachea midline Cardiac: Positive: Reg Rate and Rhythm Lungs: Positive: Decreased Breath Sounds Neuro: Positive: Grossly Intact - Imaging and Cardiology EKG: image reviewed (left atrial enlargement, right axis deviation)
--- NOTE | 2017-06-17 18:30 | Progress Note ---
Assessment and Plan Assessment and plan: --Acute on chronic systolic congestive heart failure Ejection fraction 10-15%, continue failure medication Cardiology evaluation --Acute on chronic respiratory failure secondary to acute exacerbation of systolic congestive heart failure, oxygen titrate O2 sats to more than 90%, anti -failure medications --Nonischemic cardiomyopathy; continue current management --Cardiology considering milrinone drip, closely monitor --Status post AICD; interrogation if needed cardiology --Multiple recent admissions, 6 admissions in 45 days, optimize the treatment --DC planning per case management Closely monitor the patient and adjust management as needed Plan of care discussed with patient and his nurse still on Milronone drip per Cardiology, Dr. Blackburn: Patient is doing well. Feels much better Tele showed 30 beats of NSVT Check magnesium level and correct to keep it above 2 Upon discharge switch lasix to bumex 1 mg po bid with metolazone 5 mg once a week" History Interval history: Patient seen and examined. Follow up on current diagnosis. Overnight uneventful. No cp, sob, n/v or severe headaches. Imaging, old records, testing, labs, nursing notes reviewed. Patient stills feel his fluid overload with leg edema Hospitalist Physical - Physical exam Narrative exam: GEN: WDWN, NAD, AWAKE, ALERT, ORIENTATED x 3 HEENT: NCAT, PERRL, EOMI, OP CLEAR NECK: SUPPLE, NO THYROMEGALY, NO JVD, NO LAD CVS: RRR, NORMAL S1S2 LUNGS/CHEST: Bibasilar crackles, NORMAL CHEST EXPANSION B, reduced AIR ENTRY B ABD: SOFT, NTND, GBS, NO REBOUND OR GUARDING EXT/SKIN: Trace pretibial pitting edema right greater than left MSK: FROM X 4 EXTREMITIES NEURO: CN 2-12 GROSSLY INTACT, NO FOCAL DEFICITS PSY: CALM - Constitutional Vitals: Temp Pulse Resp BP Pulse Ox 97.9 F 85 18 102/58 100 06/17/17 16:56 06/17/17 16:56 06/17/17 16:56 06/17/17 16:56 06/17/17 16:56 General appearance: Present: well-nourished. Absent: mild distress Results - Labs CBC & Chem 7: 06/13/17 23:03 06/16/17 05:43 Labs: Laboratory Last Values WBC 8.8 K/mm3 (4.5-11.0) 06/13/17 23:03 RBC 4.74 M/mm3 (3.65-5.03) 06/13/17 23:03 Hgb 11.7 gm/dl (11.8-15.2) L 06/13/17 23:03 Hct 38.9 % (35.5-45.6) 06/13/17 23:03 MCV 82 fl (84-94) L 06/13/17 23:03 MCH 25 pg (28-32) L 06/13/17 23:03 MCHC 30 % (32-34) L 06/13/17 23:03 RDW 16.1 % (13.2-15.2) H 06/13/17 23:03 Plt Count 222 K/mm3 (140-440) 06/13/17 23:03 Lymph % (Auto) 29.7 % (13.4-35.0) 06/13/17 23:03 [place] % (Auto) 10.4 % (0.0-7.3) H 06/13/17 23:03 Eos % (Auto) 0.8 % (0.0-4.3) 06/13/17 23:03 Baso % (Auto) 0.5 % (0.0-1.8) 06/13/17 23:03 Lymph # 2.6 K/mm3 (1.2-5.4) 06/13/17 23:03 [place] # 0.9 K/mm3 (0.0-0.8) H 06/13/17 23:03 Eos # 0.1 K/mm3 (0.0-0.4) 06/13/17 23:03 Baso # 0.0 K/mm3 (0.0-0.1) 06/13/17 23:03 Seg Neutrophils % 58.6 % (40.0-70.0) 06/13/17 23:03 Seg Neutrophils # 5.1 K/mm3 (1.8-7.7) 06/13/17 23:03 Sodium 132 mmol/L (137-145) L 06/16/17 05:43 Potassium 3.8 mmol/L (3.6-5.0) 06/16/17 05:43 Chloride 94.9 mmol/L (98-107) L 06/16/17 05:43 Carbon Dioxide 23 mmol/L (22-30) 06/16/17 05:43 Anion Gap 18 mmol/L 06/16/17 05:43 BUN 26 mg/dL (9-20) H 06/16/17 05:43 Creatinine 1.3 mg/dL (0.8-1.5) 06/16/17 05:43 Estimated GFR > 60 ml/min 06/16/17 05:43 BUN/Creatinine Ratio 20.00 % 06/16/17 05:43 Glucose 106 mg/dL (75-100) H 06/16/17 05:43 Calcium 8.1 mg/dL (8.4-10.2) L 06/16/17 05:43 Magnesium 1.90 mg/dL (1.7-2.3) 06/17/17 13:03 Troponin T < 0.010 ng/mL (0.00-0.029) 06/13/17 23:03 NT-Pro-B Natriuret Pep 6588 pg/mL (0-450) H 06/13/17 23:03
[2017-06-18] MEDS: COREG PO SCH ×3 (03:29→22:39)
[2017-06-18] MEDS: PRIMACOR 20 MG in D5W 80 ML IV SCH (06:13)
[2017-06-18] MEDS: LASIX IV SCH ×2 (06:14→18:52)
[2017-06-18 06:30] LABS: Hematocrit 36.8 % (35.5-45.6); Hemoglobin 11.7 gm/dl (11.8-15.2); Mean Corpuscular HGB Conc 32 % (32-34); Mean Corpuscular Volume 79 fl (84-94); Platelet Count 222 K/mm3 (140-440); Red Blood Count 4.65 M/mm3 (3.65-5.03); Red Cell Distribution Width 16.4 % (13.2-15.2); White Blood Count 6.6 K/mm3 (4.5-11.0)
[2017-06-18 06:36] LABS: Mean Corpuscular Hemoglobin 25 pg (28-32)
[2017-06-18 06:42] LABS: Anion Gap 18 mmol/L; BUN/Creatinine Ratio 14.44; Blood Urea Nitrogen 13 mg/dL (9-20); Calcium 8.4 mg/dL (8.4-10.2); Carbon Dioxide 23 mmol/L (22-30); Chloride 98.1 mmol/L (98-107); Glucose 84 mg/dL (75-100); Potassium 4.1 mmol/L (3.6-5.0); Sodium 135 mmol/L (137-145)
--- NOTE | 2017-06-18 11:02 | Progress Note ---
Assessment and Plan Chronic systolic heart failure Nonischemic cardiomyopathy s/p AICD LVEF 10-15% on echo 04/2017 NSVT on telemetry. Patient remained asymptomatic Recommendations: Increase beta lucrecia therapy for suppression of NSVT. Upon discharge switch lasix to bumex 1 mg po bid with metolazone 5 mg once a week Subjective Date of service: 06/18/17 Interval history: Patient is resting in bed with eyes closed. No distress noted. IV milrinone completed. Short burst of NSVT noted on telemetry overnight. Patient remained asymptomatic. Objective Vital Signs Temp Pulse Resp BP Pulse Ox 06/18/17 08:54 98.2 F 85 18 103/75 95 06/18/17 07:56 100 06/18/17 06:21 98.0 F 84 20 101/56 96 06/18/17 01:35 97.7 F 75 20 106/74 98 06/17/17 22:13 18 06/17/17 21:24 100 06/17/17 21:22 98.3 F 86 20 100/78 99 06/17/17 16:56 97.9 F 85 18 102/58 100 06/17/17 11:59 97.9 F 87 18 97/53 93 - Physical Examination General: No Apparent Distress Cardiac: Positive: Reg Rate and Rhythm Neuro: Positive: Grossly Intact - Labs and Meds CBC 06/18/17 Range/Units 06:03 WBC 6.6 (4.5-11.0) K/mm3 RBC 4.65 (3.65-5.03) M/mm3 Hgb 11.7 L (11.8-15.2) gm/dl Hct 36.8 (35.5-45.6) % Plt Count 222 (140-440) K/mm3 Comprehensive Metabolic Panel 06/18/17 Range/Units 06:03 Sodium 135 L (137-145) mmol/L Potassium 4.1 (3.6-5.0) mmol/L Chloride 98.1 (98-107) mmol/L Carbon Dioxide 23 (22-30) mmol/L BUN 13 (9-20) mg/dL Creatinine 0.9 (0.8-1.5) mg/dL Glucose 84 (75-100) mg/dL Calcium 8.4 (8.4-10.2) mg/dL - Imaging and Cardiology EKG: image reviewed (left atrial enlargement, right axis deviation)
[2017-06-18] MEDS: LOVENOX SUB-Q SCH ×2 (11:06→11:17)
[2017-06-18] MEDS: BABY ASPIRIN PO SCH (11:06)
[2017-06-18] MEDS: ZESTRIL PO SCH (11:06)
[2017-06-18] MEDS: ALDACTONE PO SCH (11:07)
--- NOTE | 2017-06-18 14:25 | Progress Note ---
Assessment and Plan Assessment and plan: --Acute on chronic systolic congestive heart failure Ejection fraction 10-15%, continue failure medication Cardiology evaluation --Acute on chronic respiratory failure secondary to acute exacerbation of systolic congestive heart failure, oxygen titrate O2 sats to more than 90%, anti -failure medications --Nonischemic cardiomyopathy; continue current management --Cardiology considering milrinone drip, closely monitor --Status post AICD; interrogation if needed cardiology --Multiple recent admissions, 6 admissions in 45 days, optimize the treatment --DC planning per case management Closely monitor the patient and adjust management as needed Plan of care discussed with patient and his nurse still on Milronone drip per Cardiology, Dr. Blackburn: Patient is doing well. Feels much better Tele showed 30 beats of NSVT Check magnesium level and correct to keep it above 2 Upon discharge switch lasix to bumex 1 mg po bid with metolazone 5 mg once a week" Still with asymptomatic NSVT, increase Lopressor, Milronone finished today per Cardiology History Interval history: Patient seen and examined. Follow up on current diagnosis/sob and fluid overload which is improving. Overnight uneventful except nsvt on monitoring. No cp, sob, n/v or severe headaches. Imaging, old records, testing, labs, nursing notes reviewed. Hospitalist Physical - Physical exam Narrative exam: GEN: WDWN, NAD, AWAKE, ALERT, ORIENTATED x 3 HEENT: NCAT, PERRL, EOMI, OP CLEAR NECK: SUPPLE, NO THYROMEGALY, NO JVD, NO LAD CVS: RRR, NORMAL S1S2 LUNGS/CHEST: Bibasilar crackles, NORMAL CHEST EXPANSION B, reduced AIR ENTRY B ABD: SOFT, NTND, GBS, NO REBOUND OR GUARDING EXT/SKIN: Trace pretibial pitting edema right greater than left MSK: FROM X 4 EXTREMITIES NEURO: CN 2-12 GROSSLY INTACT, NO FOCAL DEFICITS PSY: CALM - Constitutional Vitals: Temp Pulse Resp BP Pulse Ox 98.0 F 82 18 105/60 99 06/18/17 12:06 06/18/17 12:06 06/18/17 12:06 06/18/17 12:06 06/18/17 12:06 General appearance: Present: well-nourished. Absent: mild distress Results - Labs CBC & Chem 7: 06/18/17 06:03 06/18/17 06:03 Labs: Laboratory Last Values WBC 6.6 K/mm3 (4.5-11.0) 06/18/17 06:03 RBC 4.65 M/mm3 (3.65-5.03) 06/18/17 06:03 Hgb 11.7 gm/dl (11.8-15.2) L 06/18/17 06:03 Hct 36.8 % (35.5-45.6) 06/18/17 06:03 MCV 79 fl (84-94) L 06/18/17 06:03 MCH 25 pg (28-32) L 06/18/17 06:03 MCHC 32 % (32-34) 06/18/17 06:03 RDW 16.4 % (13.2-15.2) H 06/18/17 06:03 Plt Count 222 K/mm3 (140-440) 06/18/17 06:03 Lymph % (Auto) 29.7 % (13.4-35.0) 06/13/17 23:03 [place] % (Auto) 10.4 % (0.0-7.3) H 06/13/17 23:03 Eos % (Auto) 0.8 % (0.0-4.3) 06/13/17 23:03 Baso % (Auto) 0.5 % (0.0-1.8) 06/13/17 23:03 Lymph # 2.6 K/mm3 (1.2-5.4) 06/13/17 23:03 [place] # 0.9 K/mm3 (0.0-0.8) H 06/13/17 23:03 Eos # 0.1 K/mm3 (0.0-0.4) 06/13/17 23:03 Baso # 0.0 K/mm3 (0.0-0.1) 06/13/17 23:03 Seg Neutrophils % 58.6 % (40.0-70.0) 06/13/17 23:03 Seg Neutrophils # 5.1 K/mm3 (1.8-7.7) 06/13/17 23:03 Sodium 135 mmol/L (137-145) L 06/18/17 06:03 Potassium 4.1 mmol/L (3.6-5.0) 06/18/17 06:03 Chloride 98.1 mmol/L (98-107) 06/18/17 06:03 Carbon Dioxide 23 mmol/L (22-30) 06/18/17 06:03 Anion Gap 18 mmol/L 06/18/17 06:03 BUN 13 mg/dL (9-20) 06/18/17 06:03 Creatinine 0.9 mg/dL (0.8-1.5) 06/18/17 06:03 Estimated GFR > 60 ml/min 06/18/17 06:03 BUN/Creatinine Ratio 14.44 % 06/18/17 06:03 Glucose 84 mg/dL (75-100) 06/18/17 06:03 Calcium 8.4 mg/dL (8.4-10.2) 06/18/17 06:03 Magnesium 1.90 mg/dL (1.7-2.3) 06/18/17 06:03 Troponin T < 0.010 ng/mL (0.00-0.029) 06/13/17 23:03 NT-Pro-B Natriuret Pep 6588 pg/mL (0-450) H 06/13/17 23:03
[2017-06-19] MEDS: MORPHINE IV PRN (03:01)
[2017-06-19] MEDS: ROBITUSSIN DM PO PRN (03:01)
[2017-06-19] MEDS: LASIX IV SCH (06:42)
[2017-06-19] MEDS: LOVENOX SUB-Q SCH ×2 (09:45→10:48)
[2017-06-19] MEDS: BABY ASPIRIN PO SCH (09:46)
[2017-06-19] MEDS: COREG PO SCH (09:46)
[2017-06-19] MEDS: ALDACTONE PO SCH (09:46)
[2017-06-19] MEDS: ZESTRIL PO SCH (09:47)
--- NOTE | 2017-06-19 11:18 | Progress Note ---
Assessment and Plan Chronic systolic heart failure Nonischemic cardiomyopathy s/p AICD LVEF 10-15% on echo 04/2017 NSVT on telemetry. Patient remained asymptomatic beta lucrecia increased Recommendations: Stable for discharge home today. Upon discharge switch lasix to bumex 1 mg po bid with metolazone 5 mg once a week Subjective Date of service: 06/19/17 Interval history: Patient reports he is feeling better. Wants to go home. 5 beat NSVT noted on telemetry. Patient remained asymptomatic. Objective Vital Signs Temp Pulse Resp BP Pulse Ox 06/19/17 09:47 92 H 101/70 06/19/17 09:46 92 H 101/70 06/19/17 08:40 97.7 F 92 H 18 101/70 99 06/19/17 03:41 98.2 F 88 18 94/83 100 06/18/17 23:48 97.4 F L 82 18 108/65 100 06/18/17 22:39 93 H 135/71 06/18/17 21:04 98.0 F 93 H 18 135/71 100 06/18/17 18:01 97.8 F 43 L 18 98/77 98 06/18/17 12:06 98.0 F 82 18 105/60 99 - Physical Examination General: No Apparent Distress HEENT: Positive: PERRL Neck: Positive: trachea midline Cardiac: Positive: Reg Rate and Rhythm Neuro: Positive: Grossly Intact - Imaging and Cardiology EKG: image reviewed (left atrial enlargement, right axis deviation)
--- NOTE | 2017-06-19 12:50 | Discharge Summary ---
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 Diagnosed weight acute on chronic systolic heart failure and subsequent acute on chronic respiratory failure. Cardiology consulted and was on IV diuresis while on milrinone drip. Also, NSVT noted on telemetry and beta lucrecia dose was increased per cardiology recommendation. Patient was extensively counseled regarding importance of adherence to treatment and follow-up appointments. Discharged in stable condition with regimen adjusted; follow-up with cardiology already scheduled. Discharge diagnoses: Acute on chronic systolic heart failure Nonischemic cardiomyopathy status post AICD NSVT Acute on chronic respiratory failure Disposition: DC-01 TO HOME OR SELFCARE Time spent for discharge: 35 min Core Measure Documentation - Palliative Care Palliative Care/ Comfort Measures: Not Applicable - Core Measures Any of the following diagnoses?: heart failure - Heart Failure Discharge Requirements NINA/ARB for LVSD if EF <40%: Yes Beta lucrecia at discharge: Yes Exam - Physical Exam Narrative exam: Seen and examined: - Constitutional Vitals: Temp Pulse Resp BP Pulse Ox 97.7 F 92 H 18 101/70 99 06/19/17 08:40 06/19/17 09:47 06/19/17 08:40 06/19/17 09:47 06/19/17 08:40 General appearance: Present: no acute distress - EENT Eyes: Present: PERRL, EOM intact - Neck Neck: Present: supple, normal ROM. Absent: masses or JVD - Respiratory Respiratory effort: normal Respiratory: bilateral: diminished, negative: rhonchi, wheezing - Cardiovascular Rhythm: other (tachycardic) Heart Sounds: Present: S1 & S2. Absent: systolic murmur - Extremities Extremities: no ischemia Extremity abnormal: edema - Abdominal General gastrointestinal: Present: soft, non-tender, non-distended, normal bowel sounds - Neurologic Neurologic: CNII-XII intact, no focal deficits Plan Activity: advance as tolerated Diet: low cholesterol, low salt Follow up with: PRIMARY CARE, [Primary Care Provider] - 3-5 Days KHADIJAH BRUNER MD [Staff Physician] - 7 Days Prescriptions: Aspirin [Aspirin BABY CHEW TAB] 81 mg PO QDAY #30 tab.chew Bumetanide [Bumex 1 mg tab] 1 mg PO BID #60 tab Carvedilol [Coreg] 6.25 mg PO BID #60 tablet Lisinopril [Zestril TAB] 2.5 mg PO QDAY #30 tablet Metolazone 5 mg PO QWEEK #5 tablet
[2017-06-19 12:52] VITALS: BP 99/64
[2017-06-19] MEDS ORDERED: ZOFRAN ODT PO ONE (18:00)
== END 2017-06-19 17:35 | disposition home or self-care (01) | DRG 291 ==
LOC: ED 22:15 → CC1 06-14 00:46 → 4A 06-14 11:16
PROVIDERS: ADMIT Internal Medicine; ATTEND Internal Medicine
DX: I11.0 Hypertensive heart disease with heart failure (principal); J96.21 Acute and chronic respiratory failure with hypoxia; J81.1 Chronic pulmonary edema; I42.9 Cardiomyopathy, unspecified; F41.9 Anxiety disorder, unspecified; I50.23 Acute on chronic systolic (congestive) heart failure; Z95.0 Presence of cardiac pacemaker; Z91.14 Patient's other noncompliance with medication regimen; Z79.82 Long term (current) use of aspirin
CPT/HCPCS: 36415; 71020; 71275; 80048; 83735; 83880; 84484; 85025; 85027; 93005; 93010; 94760; 96374; 96375; 96376; J1170; J1650; J1940; J2260; J2270; Q0162